=== PATIENT | male | born 1935 | race Caucasian/White ===

== ENCOUNTER 2016-11-07 21:26 | Inpatient (IN) | payer OTHER ==
--- NOTE | 2016-11-07 21:41 | PDOC ---
History of Present Illness - General History Source: Patient Exam Limitations: No Limitations - History of Present Illness Initial Comments: 11/07/16 21:49 Patient is an 81 y.o. male with a PMH of CHF, Atrial Fibrillation (on Warfarin) and HTN A-fib (on Warfarin, s/p pacemaker), CHF, HTN, HLD, CABG (s/p stents x3) , NIDDM, who presents to the ED tonight via EMS following an episode of shortness of breath while driving on the [employer] [place]. Patient notes the shortness of breath presented acutely and he denies any associated chest pain, diaphoresis, nausea, vomiting. Patient denies any trauma or inciting event ( no recent dietary salt load) however does note he was started on Cilostazol recently by his primary care doctor and he has noted increased arm pain as a result. Patient's daughter, Anastacia Cronin, is @ bedside ( ) . <Lois Desai - Last Filed: 11/08/16 00:27> <Mak Hanley - Last Filed: 11/08/16 01:02> - General Chief Complaint: Respiratory Stated Complaint: DIFFICULTY BREATHING Time Seen by Provider: 11/07/16 21:37 Past History - Past Medical History Cardiac Disorders: Yes (A. Fib) HTN: Yes Hypercholesterolemia: Yes - Surgical History Cardiac Surgery: Yes (CABG x 3, Stent X 1 , Pacemaker) - Immunization History Immunization Up to Date: Yes - Psycho/Social/Smoking Cessation Hx Anxiety: No Suicidal Ideation: No Smoking Status: No Smoking History: Never smoked Have you smoked in the past 12 months: No Number of Cigarettes Smoked Daily: 0 Information on smoking cessation initiated: No Hx Alcohol Use: No Drug/Substance Use Hx: No Substance Use Type: None <Lois Desai - Last Filed: 11/08/16 00:27> <Mak Hanley - Last Filed: 11/08/16 01:02> - Past Medical History Allergies/Adverse Reactions: Allergies Allergy/AdvReac Type Severity Reaction Status Date / Time No Known Allergies Allergy Verified 11/07/16 21:34 Home Medications: Ambulatory Orders Amlodipine Bes/Olmesartan Med [Laurie 10-20 mg Tablet] 0.5 tab PO BID 06/14/12 Atorvastatin Calcium [Lipitor] 10 mg PO DAILY #1 08/06/12 Furosemide [Lasix -] 40 mg PO DAILY #1 tablet 08/06/12 Metoprolol Succinate [Toprol XL -] 25 mg PO BID 12/26/13 Amox-Tr/K Cl [Augmentin 875-125mg Tablet -] 1 tab PO BID@0800,1730 tablet 06/19 Aspirin [ASA -] 81 mg PO DAILY #1 06/20/15 Warfarin Na [Coumadin -] 5 mg PO DAILY@1800 #1 06/20/15 Review of Systems - Review of Systems Constitutional: No: Chills, Diaphoresis, Fever, Unintentional Wgt. Loss HEENTM: No: Double Vision, Ear Discharge, Hearing Loss, Throat Pain Respiratory: Yes: Shortness of Breath, SOB at Rest. No: Cough, Hemoptysis Cardiac (ROS): No: Chest Pain, Edema, Irregular Heart Rate, Lightheadedness, Palpitations ABD/GI: No: Constipated, Diarrhea, Nausea, Vomiting Musculoskeletal: No: Joint Pain, Muscle Weakness Psychiatric: No: Anxiety, Depression All Other Systems: Reviewed and Negative <Lois Desai - Last Filed: 11/08/16 00:27> *Physical Exam - Vital Signs Last Vital Signs Temp Pulse Resp BP Pulse Ox 110 H 21 139/78 97 11/07/16 21:34 11/07/16 21:34 11/07/16 21:34 11/07/16 21:36 <Lois Desai - Last Filed: 11/08/16 00:27> - Vital Signs Last Vital Signs Temp Pulse Resp BP Pulse Ox 87 22 137/63 99 11/08/16 00:22 11/07/16 23:58 11/08/16 00:22 11/08/16 00:22 <Mak Hanley - Last Filed: 11/08/16 01:02> ED Treatment Course - LABORATORY CBC & Chemistry Diagram: 11/07/16 22:07 11/07/16 22:07 <Lois Desai - Last Filed: 11/08/16 00:27> - LABORATORY CBC & Chemistry Diagram: 11/07/16 22:07 11/07/16 22:07 - ADDITIONAL ORDERS Additional order review: Laboratory Results 11/07/16 11/07/16 11/07/16 22:20 22:07 22:07 INR 2.38 H Sodium 136 Potassium 4.1 Chloride 101 Carbon Dioxide 22 Anion Gap 13 BUN 35 H D Creatinine 2.3 H D Random Glucose 295 H D Calcium 8.6 Creatine Kinase Troponin I B-Natriuretic Peptide 1573.69 H 11/07/16 22:05 INR Sodium Potassium Chloride Carbon Dioxide Anion Gap BUN Creatinine Random Glucose Calcium Creatine Kinase 91 Troponin I 0.13 H D B-Natriuretic Peptide 11/07/16 22:07 RBC 5.70 H MCV 81.9 MCHC 32.7 RDW 15.2 MPV 8.4 - RADIOLOGY Radiology Studies Ordered: Category Date Time Status CHEST X-RAY PORTABLE* [RAD] Stat Radiology 11/07/16 23:20 Taken - Medications Given in the ED: ED Medications Discontinued Medications Generic Name Dose Route Start Last Admin Trade Name Freq PRN Reason Stop Dose Admin Furosemide 40 mg 11/07/16 23:52 11/07/16 23:58 Lasix Injection - IVPUSH 11/07/16 23:53 40 mg ONCE ONE Administration Nitroglycerin 0.4 mg 11/08/16 00:04 11/08/16 00:26 Nitrostat - SL 11/08/16 00:05 Not Given ONCE ONE <Mak Hanley - Last Filed: 11/08/16 01:02> Medical Decision Making - Medical Decision Making 11/07/16 23:55 Patient is an 81 y.o. male who presents with acute shortness of breath. Initial differential diagnosis includes CHF exacerbation vs. r/o ACS. Wet read of chest x-ray shows cardiomegaly and possible pericardial effusion. Patient pending admission at time of signout to Dr. Miller. <Lois Desai - Last Filed: 11/08/16 00:27> *DC/Admit/Observation/Transfer <Lois Desai - Last Filed: 11/08/16 00:27> - Discharge Dispostion Admit: Yes <Mak Hanley - Last Filed: 11/08/16 01:02> Diagnosis at time of Disposition: CHF exacerbation Qualifiers: Congestive heart failure type: unspecified congestive heart failure type Qualified Code(s): I50.9 - Heart failure, unspecified Acute renal failure superimposed on chronic kidney disease Qualifiers: Acute renal failure type: unspecified Chronic kidney disease stage: unspecified stage Qualified Code(s): N17.9 - Acute kidney failure, unspecified; N18.9 - Chronic kidney disease, unspecified - Discharge Dispostion Condition at time of disposition: Guarded - Referrals Referrals: Monico Kahn [Primary Care Provider] -
--- NOTE | 2016-11-07 21:50 | PDOC ---
Attending Attestation - Resident Resident Name: Lois Desai - ED Attending Attestation I have performed the following: I have examined & evaluated the patient, The case was reviewed & discussed with the resident, I agree w/resident's findings & plan, Exceptions are as noted - HPI HPI: 11/07/16 22:00 81y M hx of afib s/p PM on coumadin, htn, chf, hld, cad s/p CABG and 3 stents presents with acute SOB. The pt states he was feeling well all day, was driving home when he started to feel sob. He was able to stop, and call EMS. he denies any associated chest pain, palpitations, lightheadeness, n/v. he does endorse a mild cough for the past week w/o fever/chills. Per EMS, the pt appeared dsypenic and was hypoxic to the low 90s on RA with rales b/l. On my assesssment , the pts sat dropped to 89 on RA and had b/l basilar rales. suspect CHF, unclear trigge consider ACS though pt has no cp - ekg & trop will give lasix, and start pt on bipap to improve WOB will reassess and d/w with cardiology at disposition 11/07/16 23:52 labs reviewed noted for arf slightly bumped trop/bnp -?related ARF vs acute event The pts cxr c/w congestion pt feeling improved on bipap will give juanito elasix and will adimt for further management Case discussed in detail with admitting physician including history, physical exam and ancillary studies. Admitting physician has assumed care for the patient, will follow all pending diagnostics and will complete the evaluation and treatment. CRITICAL CARE DOCUMENTATION: I spent ~35 minutes of Critical Care time, excluding separately billable procedures, involving high complexity decision making to assess, manipulate and support vital system function(s) to treat single or multiple vital organ system failure and/or to prevent further life threatening deterioration of the patient' s condition. - Physicial Exam PE: 11/08/16 16:17 see above - Medical Decision Making 11/08/16 16:17 see above Heart Score/ECG Review - ECG Impressions Comment:: 11/07/16 22:25 Twelve-lead EKG was performed and reviewed by me. Ventricular paced rhythm Rate of 118
[2016-11-07 21:55] VITALS: BMI 30.7
[2016-11-07 22:15] LABS: MCH 26.8 pg (25.7-33.7); MCHC 32.7 g/dl (32.0-35.9); MEAN CELL VOLUME 81.9 fl (80-96); MEAN PLT VOLUME 8.4 fl (7.5-11.1); PLATELET COUNT 251 K/MM3 (134-434); RDW 15.2 % (11.9-15.9); WHITE BLOOD COUNT 12.3 K/mm3 (4.0-10.0)
[2016-11-07 22:50] LABS: ANION GAP 13 (8-16); CALCIUM 8.6 mg/dL (8.5-10.1); CO2 22 mmol/L (21-32); CREATININE 2.3 mg/dL (0.7-1.3); GLUCOSE,RANDOM 295 mg/dL (74-106)
[2016-11-07 22:55] LABS: TROPONIN I 0.13 ng/ml (0.00-0.05)
[2016-11-07 23:00] LABS: INR 2.38 (0.82-1.09); PROTHROMBIN TIME (PATIENT) 26.6 SEC (9.98-11.88)
[2016-11-07] MEDS ORDERED: FUROSEMIDE 40 MG/4 ML INJECTABLE VIAL IVPUSH ONE (23:52)
[2016-11-07] MEDS ORDERED: FUROSEMIDE 40 MG/4 ML INJECTABLE VIAL ONE (23:54)
[2016-11-08] MEDS ORDERED: NITROGLYCERIN SUBLINGUAL 1/150 0.4 MG TAB SL ONE (00:04)
[2016-11-08] MEDS ORDERED: NITROGLYCERIN SUBLINGUAL 1/150 0.4 MG TAB ONE (00:23)
--- NOTE | 2016-11-08 04:42 | HP ---
CHIEF COMPLAINT: SOB PCP: Dr. Toney HISTORY OF PRESENT ILLNESS: This is a 81 y/o man with a past medical history of: Afib (Coumadin), CABG, s/p stents x3, AICD/PM, HTN, CHF, HLD. Who presents to the ED with SOB while driving last evening. Patient reports having swelling to his lower extremities, but states he takes his lasix as directed. Patient denies fever, chills, cough, CP, AP, N/V/D, dysuria. ER course was notable for: (1) Chest Xray- vascular congestion (2) EKG- Ventricular Paced 118 bpm (3) Recent Travel: None PAST MEDICAL HISTORY: See HPI PAST SURGICAL HISTORY: See HPI Social History: Smoking: Former Alcohol: None Drugs: None Lives at home, Independent Family History: Allergies No Known Allergies Allergy (Verified 11/07/16 21:34) HOME MEDICATIONS: Home Medications Medication Instructions Recorded Amlodipine Bes/Olmesartan Med 0.5 tab PO BID 06/14/12 [Laurie 10-20 mg Tablet] Atorvastatin Calcium [Lipitor] 10 mg PO DAILY #1 08/06/12 Furosemide [Lasix -] 40 mg PO DAILY #1 tablet 08/06/12 Metoprolol Succinate [Toprol XL -] 25 mg PO BID 12/26/13 Amox-Tr/K Cl [Augmentin 875-125mg 1 tab PO BID@0800,1730 tablet 06/20/15 Tablet -] Aspirin [ASA -] 81 mg PO DAILY #1 06/20/15 Warfarin Na [Coumadin -] 5 mg PO DAILY@1800 #1 06/20/15 REVIEW OF SYSTEMS CONSTITUTIONAL: Absent: fever, chills, diaphoresis, generalized weakness, malaise, loss of appetite, weight change HEENT: Absent: rhinorrhea, nasal congestion, throat pain, throat swelling, difficulty swallowing, mouth swelling, ear pain, eye pain, visual changes CARDIOVASCULAR: Absent: chest pain, syncope, palpitations, irregular heart rate, lightheadedness , peripheral edema RESPIRATORY: shortness of breath, dyspnea with exertion, Absent: cough, orthopnea, wheezing, stridor, hemoptysis GASTROINTESTINAL: Absent: abdominal pain, abdominal distension, nausea, vomiting, diarrhea, constipation, melena, hematochezia GENITOURINARY: Absent: dysuria, frequency, urgency, hesitancy, hematuria, flank pain, genital pain MUSCULOSKELETAL: Absent: myalgia, arthralgia, joint swelling, back pain, neck pain SKIN: Absent: rash, itching, pallor HEMATOLOGIC/IMMUNOLOGIC: Absent: easy bleeding, easy bruising, lymphadenopathy, frequent infections ENDOCRINE: Absent: unexplained weight gain, unexplained weight loss, heat intolerance, cold intolerance NEUROLOGIC: Absent: headache, focal weakness or paresthesias, dizziness, unsteady gait, seizure, mental status changes, bladder or bowel incontinence PSYCHIATRIC: Absent: anxiety, depression, suicidal or homicidal ideation, hallucinations. PHYSICAL EXAMINATION Vital Signs - 24 hr 11/08/16 11/08/16 02:24 02:45 Pulse Rate [ 55 L Apical] Respiratory 19 Rate Blood Pressure 109/61 [Right Arm] O2 Sat by Pulse 94 L 94 L Oximetry (%) GENERAL: Awake, alert, and fully oriented, in no acute distress. HEAD: Normal with no signs of trauma. EYES: Pupils equal, round and reactive to light, extraocular movements intact, sclera anicteric, conjunctiva clear. No lid lag. EARS, NOSE, THROAT: Ears normal, nares patent, oropharynx clear without exudates. Moist mucous membranes. NECK: Normal range of motion, supple without lymphadenopathy, JVD, or masses. LUNGS: Air movement to lobes, rales to bases. No wheezes, and no crackles. No accessory muscle use. HEART: Irregular rate and rhythm, normal S1 and S2 without murmur, rub or gallop. ABDOMEN: Firm, nontender, distended, normoactive bowel sounds, no guarding, no rebound, no masses. No hepatomegaly or splenomegaly. MUSCULOSKELETAL: Normal range of motion at all joints. No bony deformities or tenderness. No CVA tenderness. UPPER EXTREMITIES: 2+ pulses, warm, well-perfused. No cyanosis. No clubbing. No peripheral edema. LOWER EXTREMITIES: 2+ pulses, warm, well-perfused. No calf tenderness. + 1 to RLE, +2 LLE pitting peripheral edema. NEUROLOGICAL: Cranial nerves II-XII intact. Normal speech. Gait not observed. PSYCHIATRIC: Cooperative. Good eye contact. Appropriate mood and affect. SKIN: Warm, dry, normal turgor, no rashes or lesions noted, normal capillary refill. Laboratory Results - last 24 hr 11/07/16 11/07/16 11/07/16 22:05 22:07 22:07 WBC 12.3 H RBC 5.70 H Hgb 15.3 D Hct 46.7 MCV 81.9 MCH 26.8 MCHC 32.7 RDW 15.2 Plt Count 251 MPV 8.4 INR Sodium Potassium Chloride Carbon Dioxide Anion Gap BUN Creatinine Random Glucose Calcium Creatine Kinase 91 Troponin I 0.13 H D B-Natriuretic Peptide 1573.69 H 11/07/16 11/07/16 22:07 22:20 WBC RBC Hgb Hct MCV MCH MCHC RDW Plt Count MPV INR 2.38 H Sodium 136 Potassium 4.1 Chloride 101 Carbon Dioxide 22 Anion Gap 13 BUN 35 H D Creatinine 2.3 H D Random Glucose 295 H D Calcium 8.6 Creatine Kinase Troponin I B-Natriuretic Peptide ASSESSMENT/PLAN: This is a 81 y/o male with a PMHx of: Afib (Coumadin), CHF, CABG, s/p cardiac stents x3, AICD/PM, HTN, HLD. Admitted for CHF Exacerbation for further evaluation of their emergent condition. Problem List - Problem (1) CHF exacerbation Assessment/Plan: - Likely Acute on Chronic HF - Continue cardiac monitoring - Started on BIPAP in ED, then patient refused, tolerating 3L Spo2 96-97% - BNP-1500 - Appreciate Cardiology Consult - Lasix given in ED - Continue Lasix - Strict INOs - Daily Weight - Continue home meds Code(s): I50.9 - HEART FAILURE, UNSPECIFIED Qualifiers: Congestive heart failure type: unspecified congestive heart failure type Qualified Code(s): I50.9 - Heart failure, unspecified (2) Acute on chronic renal failure Assessment/Plan: - Likely secondary to left ventricular dysfunction - Cr 2.2, baseline 1.2 - Lasix given in ED, patient void- 600ml in urinal - Will continue Lasix - Monitor renal function - Renal US in am Code(s): N17.9 - ACUTE KIDNEY FAILURE, UNSPECIFIED N18.9 - CHRONIC KIDNEY DISEASE, UNSPECIFIED Qualifiers: Acute renal failure type: unspecified Chronic kidney disease stage: unspecified stage Qualified Code(s): N17.9 - Acute kidney failure, unspecified; N18.9 - Chronic kidney disease, unspecified (3) Afib Assessment/Plan: - court monitor - EKG reviewed - Continue home meds Code(s): I48.91 - UNSPECIFIED ATRIAL FIBRILLATION (4) CAD (coronary artery disease) Assessment/Plan: - Patient denies chest pain - Continue home meds Code(s): I25.10 - ATHSCL HEART DISEASE OF [place] CORONARY ARTERY W/O ANG PCTRS (5) HTN (hypertension) Assessment/Plan: - Monitor BP - Continue home meds - Monitor renal function Code(s): I10 - ESSENTIAL (PRIMARY) HYPERTENSION (6) Hyperlipidemia Assessment/Plan: - Lipid panel in am - Continue home med Code(s): E78.5 - HYPERLIPIDEMIA, UNSPECIFIED (7) S/P CABG (coronary artery bypass graft) Code(s): Z95.1 - PRESENCE OF AORTOCORONARY BYPASS GRAFT (8) Status post coronary artery stent placement Code(s): Z95.5 - PRESENCE OF CORONARY ANGIOPLASTY IMPLANT AND GRAFT (9) Anticoagulated on Coumadin Assessment/Plan: - Continue home med Code(s): Z51.81 - ENCOUNTER FOR THERAPEUTIC DRUG LEVEL MONITORING Z79.01 - PENITENTIARY (CURRENT) USE OF ANTICOAGULANTS (10) DVT prophylaxis Assessment/Plan: - OOB - Coumadin Code(s): [id number] - Visit type - Emergency Visit Emergency Visit: Yes ED Registration Date: 11/08/16 Care time: The patient presented to the Emergency Department on the above date and was hospitalized for further evaluation of their emergent condition. - New Patient This patient is new to me today: Yes Date on this admission: 11/08/16 - Critical Care Critical Care patient: No
[2016-11-08] MEDS ORDERED: FUROSEMIDE 40 MG/4 ML INJECTABLE VIAL ONE (07:55)
[2016-11-08] MEDS: FUROSEMIDE 40 MG/4 ML INJECTABLE VIAL IVPUSH SCH ×2 (08:00→14:56)
[2016-11-08 10:02] LABS: ANION GAP 7 (8-16); CALCIUM 8.6 mg/dL (8.5-10.1); CHOLESTEROL 319 mg/dL (50-200); CO2 29 mmol/L (21-32); CREATININE 1.9 mg/dL (0.7-1.3); GLUCOSE,RANDOM 184 mg/dL (74-106); LDL CHOLESTEROL (ONLY SJRH) 218 mg/dL (5-100); MAGNESIUM 2.3 mg/dL (1.8-2.4); PHOSPHOROUS 3.1 mg/dL (2.5-4.9)
[2016-11-08 10:03] LABS: BASOPHIL 0.7 % (0-2.0); EOSINOPHIL 1.3 % (0-4.5); MCH 27.1 pg (25.7-33.7); MCHC 33.1 g/dl (32.0-35.9); MEAN CELL VOLUME 81.9 fl (80-96); MEAN PLT VOLUME 8.7 fl (7.5-11.1); NEUTROPHILS 72.1 % (42.8-82.8); PLATELET COUNT 262 K/MM3 (134-434); RDW 15.4 % (11.9-15.9); WHITE BLOOD COUNT 10.1 K/mm3 (4.0-10.0)
[2016-11-08 10:16] LABS: CPK 685 IU/L (39-308)
[2016-11-08] MEDS: METOPROLOL SUCCINATE 25 MG TAB.SR.24H (FP) PO SCH ×2 (10:20→21:58)
[2016-11-08] MEDS: ASPIRIN 81 MG CHEWABLE TABLETS PO SCH (10:20)
--- NOTE | 2016-11-08 12:44 | EKG ---
Test Reason : Blood Pressure : / mmHG Vent. Rate : 092 BPM Atrial Rate : 091 BPM P-R Int : 170 ms QRS Dur : 166 ms QT Int : 434 ms P-R-T Axes : -13 091 -20 degrees QTc Int : 536 ms Atrial-sensed ventricular-paced rhythm WITH OCCASIONAL PREMATURE VENTRICULAR COMPLEXES ABNORMAL ECG WHEN COMPARED WITH ECG OF 07-NOV-2016 21:35, PREMATURE VENTRICULAR COMPLEXES ARE NOW PRESENT VENT. RATE HAS DECREASED BY 26 BPM Confirmed by RANJITH BENÍTEZ MD ([id number]) on 11/08/2016 12:44:09 PM Referred By: Confirmed By:RANJITH BENÍTEZ MD
--- NOTE | 2016-11-08 12:50 | EKG ---
Test Reason : Blood Pressure : / mmHG Vent. Rate : 118 BPM Atrial Rate : 118 BPM P-R Int : 000 ms QRS Dur : 198 ms QT Int : 368 ms P-R-T Axes : 061 229 095 degrees QTc Int : 515 ms Ventricular-paced rhythm Biventricular pacemaker detected ABNORMAL ECG WHEN COMPARED WITH ECG OF 20-JUN-2015 06:16, VENT. RATE HAS INCREASED BY 32 BPM Confirmed by RANJITH BENÍTEZ MD ([id number]) on 11/08/2016 12:50:30 PM Referred By: Confirmed By:RANJITH BENÍTEZ MD
[2016-11-08 12:58] LABS: TROPONIN I 10.8 ng/ml (0.00-0.05)
[2016-11-08] MEDS: INSULIN SLIDING SCALE (NOVOLOG) 1 VIAL SQ SCH ×3 (13:06→22:41)
[2016-11-08] MEDS ORDERED: amLODIPine BESYLATE 5 MG TABLET (FP) PO ONE (15:01)
--- NOTE | 2016-11-08 15:06 | HOSP ---
Physical Examination Vital Signs: Vital Signs Temperature 97.7 F 11/08/16 10:20 Pulse Rate 97 H 11/08/16 12:00 Respiratory Rate 18 11/08/16 12:00 Blood Pressure 157/109 11/08/16 12:00 O2 Sat by Pulse Oximetry (%) 99 11/08/16 12:00 Findings/Remarks: Subjective: The patient was seen and examined at the bedside, he denies any chest pain or shortness of breath at this time. Troponin 0.13->13.5->10.[address] Anders. Will start Heparin gtt once INR becomes subtherapeutic Current Medications Generic Name Dose Route Start Last Admin Trade Name Freq PRN Reason Stop Dose Admin Aspirin 81 mg 11/08/16 10:00 11/08/16 10:20 Asa - PO 81 mg DAILY ARIANA Administration Atorvastatin Calcium 80 mg 11/08/16 22:00 Lipitor - PO HS ARIANA Furosemide 40 mg 11/08/16 06:00 11/08/16 08:00 Lasix Injection - IVPUSH 40 mg BID@0600,1400 ARIANA Administration Insulin Aspart 1 vial 11/08/16 11:00 11/08/16 13:06 Novolog Vial Sliding Scale - SQ 2 units ACHS ARIANA Administration Protocol Metoprolol Succinate 25 mg 11/08/16 10:00 11/08/16 10:20 Toprol Xl - PO 25 mg BID ARIANA Administration Objective: Vital Signs Period Temp Pulse Resp BP Sys/Mock Pulse Ox Last 24 Hr 97.5 F-97.7 F 55-110 18-22 109-157/61-109 94-99 Physical Exam: General: NAD, A&Ox3 Lungs: CTA bilaterally Heart: RRR, S1S2. Left chest wall implantable device Abd: Soft, non-tender, non-distended. Normoactive bowel sounds Ext: B/l lower extremity edema, 1+. 2+ DP/PT bilaterally Neuro: CN 2-12 intact CBCD WBC 10.1 K/mm3 (4.0-10.0) H 11/08/16 09:18 RBC 5.80 M/mm3 (4.00-5.60) H 11/08/16 09:18 Hgb 15.7 GM/dL (11.7-16.9) 11/08/16 09:18 Hct 47.5 % (35.4-49) 11/08/16 09:18 MCV 81.9 fl (80-96) 11/08/16 09:18 MCHC 33.1 g/dl (32.0-35.9) 11/08/16 09:18 RDW 15.4 % (11.9-15.9) 11/08/16 09:18 Plt Count 262 K/MM3 (134-434) 11/08/16 09:18 MPV 8.7 fl (7.5-11.1) 11/08/16 09:18 CMP Sodium 136 mmol/L (136-145) 11/08/16 09:18 Potassium 4.0 mmol/L (3.5-5.1) 11/08/16 09:18 Chloride 100 mmol/L (98-107) 11/08/16 09:18 Carbon Dioxide 29 mmol/L (21-32) D 11/08/16 09:18 Anion Gap 7 (8-16) L 11/08/16 09:18 BUN 32 mg/dL (7-18) H 11/08/16 09:18 Creatinine 1.9 mg/dL (0.7-1.3) H 11/08/16 09:18 Random Glucose 184 mg/dL (74-106) H D 11/08/16 09:18 Calcium 8.6 mg/dL (8.5-10.1) 11/08/16 09:18 CARDIAC ENZYMES Creatine Kinase 850 IU/L (39-308) H 11/08/16 12:10 Troponin I 10.80 ng/ml (0.00-0.05) H* 11/08/16 12:10 Assessment: This is a 80 year old male with PMHx with multiple nosebleeds, A.fib , CABG s/p stenting, pacemaker, HTN, CHF, HLD who presented to the ED with shortness of breath. Plan: 1) Cardiology: NSTEMI - Continue to trend troponins, trending down - Start Heparin gtt once INR <2 - Continue Toprol XL - Continue Lipitor 80mg po qhs - Continue ASA 81mg po daily - F/u ECHO - F/u cardiology consult Acute on chronic CHF exacerbation - SOB, as evidence on chest x-ray - Continue Lasix CAD hx of CA, CABG, PCI - As above Ischemic cardiomyopathy s/p DIVER ASSISTANT-D HTN - As above Hyperlipidemia - As above 2) Nephrology: TONY on CKD - Cr improving 1.9 today - Renal ultrasound with mildly atrophic left kidney with no evidence of hydronephrosis or acute pathology - Continue to monitor 3) Endocrine: DM - BGM ACHS - ISS ACHS 4) F/E/N - Monitor electrolytes - Sodium controlled diet 5) Prophylaxis: - INR is therapeutic, once <2, start Heparin gtt 6) Dispo: - Requires continued inpatient care CODE STATUS: FULL CODE Labs: CBC, BMP 11/08/16 09:18 11/08/16 09:18
[2016-11-08 15:28] LABS: INR 2.11 (0.82-1.09); PROTHROMBIN TIME (PATIENT) 23.6 SEC (9.98-11.88)
[2016-11-08 15:30] LABS: ACTIVATED PTT 45.3 SECONDS (26.9-34.4)
[2016-11-08] MEDS ORDERED: amLODIPine BESYLATE 5 MG TABLET (FP) ONE (17:52)
[2016-11-08] MEDS ORDERED: WARFARIN NA 5 MG TABLET (UD) PO SCH (18:00)
[2016-11-08 18:34] LABS: INR 2.03 (0.82-1.09); PROTHROMBIN TIME (PATIENT) 22.6 SEC (9.98-11.88)
[2016-11-08 19:09] LABS: TROPONIN I 9.56 ng/ml (0.00-0.05)
--- NOTE | 2016-11-08 20:26 | CONS ---
DATE OF CONSULTATION: 11/08/2016 TIME OF CONSULTATION: 12:30. LOCATION: Emergency room. Cardiology consultation requested by hospitalist. CHIEF COMPLAINT: Acute shortness of breath, epigastric discomfort. The patient is an 81-year-old gentleman with long-standing history of coronary artery disease, status post myocardial infarction, status post coronary artery bypass grafting, status post multivessel PCIs and stenting, bgj-fqoymfm-wfrfnaljf diabetes mellitus, hypertension, hypercholesterolemia, paroxysmal atrial fibrillation, severe left ventricular systolic dysfunction, recurring episodes of pulmonary edema, status post ICD for primary prophylaxis. The patient was driving back to [place] after having dinner at his sister's house, and while he was on [employer], he started to experience increasing shortness of breath. He stopped his car, 911 were called, and he was brought to the emergency room in acute pulmonary edema. On questionable, the patient states that he was experiencing epigastric discomfort prior to the onset of shortness of breath. He also had left arm pain lasting approximately an hour, a few days prior to admission. He has had similar episodes in the past that usually have been preceded by a rich [place] meal. Since admission, he had 1 episode of mild diaphoresis but denies any further chest, arm, back, jaw, or epigastric discomfort. He has no further dyspnea and denies having paroxysmal nocturnal dyspnea or orthopnea. There is no history of palpitations, lightheadedness, dizziness, presyncope, or syncope reported. He has had no recent ICD discharges. PAST HISTORY: 1. As mentioned in the history of present illness. 2. History of left inguinal hernia. SURGICAL HISTORY: 1. Status post coronary artery bypass grafting. 2. Status post bilateral cataract extraction. SOCIAL HISTORY: Patient is retired. He used to smoke since the age of 21 and smoked for a few years and stopped, usually smoked approximately 10 cigarettes per day. Has a social drink. Admits to poor dietary compliance. He has 2 children, a son and a daughter, who are healthy. FAMILY HISTORY: Father at age 72 of unknown cause. Mother in her late 80s but was known to have coronary artery disease and a myocardial infarction. He had 4 brothers and 2 sisters. His brothers all have had coronary artery disease and are . His sisters are apparently healthy. ALLERGIES: Patient states that he has had myalgias with STATINS. CURRENT MEDICATIONS PRIOR TO ADMISSION: 1. Amlodipine/olmesartan 10/20 mg p.o. daily. 2. Lasix 40 mg p.o. daily. 3. Metoprolol XL 25 mg b.i.d. 4. Aspirin 81 mg p.o. daily. 5. Warfarin, dose is being adjusted according to INR. Patient is not certain of all his medications. REVIEW OF SYSTEMS: Constitutional: No history of chills, fever or night sweats. History of diaphoresis. No history of unintentional weight loss. HEENT: No history of headaches, diplopia, blurred vision. No history of epistaxis, hoarseness, tinnitus or deafness. Respiratory: See history of present illness. History of recent cough with yellowish expectoration. Cardiovascular: See history of present illness. Gastrointestinal: History of recent nausea and had vomiting followed by diarrhea approximately 3 to 4 days ago. No history of change in bowel habits. No history of hematemesis or melena. History of abdominal discomfort. Central Nervous System: No history of lightheadedness, dizziness, presyncope, or syncope reported. No history of seizures or focal weakness. Endocrine: History of diabetes mellitus. Denies having polyuria or polydipsia. No history of intolerance to cold or warm weather. Genitourinary: History of nocturia. No history of hematuria. Musculoskeletal: History of exertional claudication involving both calves. No history of arthralgias reported. Hematological: No history of bleeding, ecchymosis, or anemia. EXAMINATION: General: An 81-year-old obese gentleman who is in no acute distress. No pallor, cyanosis, clubbing, or jaundice. Vital Signs: Blood pressure 156/96 mmHg at 12:30 p.m. Pulse was 97 beats per minute and regular. Respirations were 18. Weight was 190 pounds. Neck: Supple. No jugular venous distention. Hepatojugular reflux was positive. Carotids were 2+. Upstrokes were normal. No bruits were heard and no thyromegaly was present. Heart: PMI was in the 5th intercostal space. No heaves or thrills. Heart sounds were distant. No murmur or gallops are appreciated. Lungs: Fine crepitations at the right base. Chest: Normal AP diameter. Expansion was symmetrical. Abdomen: Obese, soft, and nontender. No hepatosplenomegaly or palpable masses were felt. Bowel sounds were heard. No bruits were present. Extremities: No calf tenderness or dependent edema. Femoral pulses were 1 to 2+. Dorsalis pedis, posterior tibial, and popliteal pulses were not palpable. Initial electrocardiogram done on November 07, 2016: Atrial rhythm was uncertain. Atrial fibrillation could not be excluded. Permanent pacemaker was functioning appropriately. Repeat ECG on November 08, 2016, appears to be sinus rhythm, with an appropriate pacemaker function. CBC: WBC count was 10,100, hemoglobin was 15.7 g, hematocrit 47.5%, platelet count is 262,000. Chemistry, November 08, 2016: Sodium 136, potassium 4.0, chloride 100, CO2 22 mmol/L, BUN 32, creatinine 1.9 mg/dL, glucose on admission was 295, and on November 15, it was 184 mg/dL. Hemoglobin A1c was 8%. BNP on admission was 1573.69. A repeat BNP is 3619.78. Total CK on admission was 91 and followup is 685. Troponins elevated to 13.50. Total cholesterol was 319, triglycerides 274, LDL cholesterol 218, HDL cholesterol 34 mg/dL. X-ray of chest, portable: Impression: Since September 17, 2015, there are new congestive changes. Again noted is the large heart with sternal sutures, clips, and pacemaker. Correlation recommended. IMPRESSION: 1. Coronary artery disease, status post myocardial infarction, status post coronary artery bypass grafting, angina pectoris, status post PCI/stenting. Pkt-AR-btgetuk myocardial infarction. 2. Acute left ventricular failure secondary to number 1. 3. Hypertension, hypertensive cardiovascular disease, poorly controlled. 4. Yxx-wfvpmrs-touvodjhb diabetes mellitus. 5. Dyslipidemia type 2B, poorly controlled. 6. Poor compliance. 7. Peripheral arterial disease with exertional claudication. 8. Severe left ventricular systolic dysfunction. 9. Status post implantable cardioverter-defibrillator for primary prophylaxis. 10. Chronic kidney disease. 11. Paroxysmal atrial fibrillation. 12. Exogenous obesity. RECOMMENDATIONS: 1. Serial cardiac enzymes. 2. Concur with switching to heparin once INR is near subtherapeutic. 3. Patient was advised that he must have his family bring all his medications, including ones [id number], for reconciliation. 4. Beta blockers could be cautiously increased. 5. If patient has recurrence of dyspnea or chest or arm discomfort, would suggest IV nitroglycerin. 6. Risk modification. 7. Concur with use of high-dose statin. 8. Control of diabetes. 9. Echocardiogram. 10. Further suggestions will depend upon results of the above-mentioned tests. PROGNOSIS: Critical. Thank you for your referral. Yours sincerely, STEPHANIA SCHAEFER M.D. [id number]
--- NOTE | 2016-11-08 21:49 | CONSULT ---
Consult Consult Specialty:: Pulm/CCM Reason for Consultation:: SOB, CHF exacerbation - History of Present Illness Chief Complaint: SOB, edema History of Present Illness: This is a 81yo man with afib on coumadin, CAD s/p CABG and PCI x3 who presented to ED with acute SOB in the setting of worsening LE edema x 2 days. In ED he was slightly hypoxic w/ Sat 88-89% on RA and placed on NIPPV. CXR w/ PCV. Labs significant for troponin 0.13->13.5->10.38 and SCr 2.3 up from baseline 1.1. He was treated w/ lasix, ASA, BB and statin. EKG: paced. He was transferred to ICU for continued monitoring of NSTEMI. - History Source History Provided By: Patient, Medical Record - Past Medical History Cardio/Vascular: Yes: AFIB, CAD, CHF, HTN - Past Surgical History Past Surgical History: Yes: AICD, CABG, Stent - Alcohol/Substance Use Hx Alcohol Use: No - Smoking History Smoking history: Never smoked Have you smoked in the past 12 months: No Aproximately how many cigarettes per day: 0 Home Medications - Allergies Allergies/Adverse Reactions: Allergies Allergy/AdvReac Type Severity Reaction Status Date / Time No Known Allergies Allergy Verified 11/07/16 21:34 - Home Medications Home Medications: Ambulatory Orders Furosemide [Lasix -] 40 mg PO DAILY #1 tablet 08/06/12 Metoprolol Succinate [Toprol XL -] 25 mg PO DAILY 12/26/13 Aspirin [ASA -] 81 mg PO DAILY #1 06/20/15 Warfarin Na [Coumadin -] 5 mg PO DAILY@1800 #1 06/20/15 Cilostazol 50 mg PO BID 11/08/16 Glimepiride 2 mg PO DAILY 11/08/16 Family Disease History - Family Disease History Family History: Unremarkable Review of Systems - Review of Systems Cardiovascular: reports: Edema, Shortness of Breath Respiratory: reports: SOB on Exertion Physical Exam Vital Signs: Vital Signs Temperature 97.6 F 11/08/16 18:00 Pulse Rate 97 H 11/08/16 20:05 Respiratory Rate 21 11/08/16 20:05 Blood Pressure 142/81 11/08/16 20:05 O2 Sat by Pulse Oximetry (%) 98 11/08/16 20:05 Current Medications Aspirin (Asa -) 81 mg PO DAILY [facility] Last Admin: 11/08/16 10:20 Dose: 81 mg Atorvastatin Calcium (Lipitor -) 80 mg PO HS [facility] Furosemide (Lasix Injection -) 40 mg IVPUSH BID@0600,1400 [facility] Last Admin: 11/08/16 14:56 Dose: 40 mg Insulin Aspart (Novolog Vial Sliding Scale -) 1 vial SQ ACHS [facility] PRN Reason: Protocol Last Admin: 11/08/16 18:08 Dose: Not Given Metoprolol Succinate (Toprol Xl -) 25 mg PO BID [facility] Last Admin: 11/08/16 10:20 Dose: 25 mg Constitutional: Yes: No Distress, Calm Eyes: Yes: EOM Intact Cardiovascular: Yes: S1, S2, Other (paced) Respiratory: Yes: Rales Gastrointestinal: Yes: Normal Bowel Sounds, Soft Edema: Yes Edema: LLE: 1+, RLE: 1+ Neurological: Yes: Alert, Oriented ...Motor Strength: WNL Psychiatric: Yes: Oriented Labs: CBC, BMP 11/08/16 09:18 11/08/16 09:18 Troponin, BNP 11/07/16 11/07/16 11/08/16 22:05 22:07 09:18 Troponin I 0.13 H D 13.50 H* D B-Natriuretic Peptide 1573.69 H 3619.78 H 11/08/16 11/08/16 12:10 18:08 Troponin I 10.80 H* 9.56 H* B-Natriuretic Peptide Imaging - Results Chest X-ray: Report Reviewed, Image Reviewed Problem List - Problems (1) Acute on chronic renal failure Code(s): N17.9 - ACUTE KIDNEY FAILURE, UNSPECIFIED N18.9 - CHRONIC KIDNEY DISEASE, UNSPECIFIED Qualifiers: Acute renal failure type: unspecified Chronic kidney disease stage: unspecified stage Qualified Code(s): N17.9 - Acute kidney failure, unspecified; N18.9 - Chronic kidney disease, unspecified (2) Afib Code(s): I48.91 - UNSPECIFIED ATRIAL FIBRILLATION (3) CAD (coronary artery disease) Code(s): I25.10 - ATHSCL HEART DISEASE OF [place] CORONARY ARTERY W/O ANG PCTRS (4) CHF exacerbation Code(s): I50.9 - HEART FAILURE, UNSPECIFIED Qualifiers: Congestive heart failure type: unspecified congestive heart failure type Qualified Code(s): I50.9 - Heart failure, unspecified (5) HTN (hypertension) Code(s): I10 - ESSENTIAL (PRIMARY) HYPERTENSION Assessment/Plan A/P: 80 yo man w/ DM, afib s/p PPM on coumadin, CAD, CHF presenting with SOB and LE found to have TONY likely prerenal in setting of CHF exacerbation c/b NSTEMI -Cardiology following -tele monitor -cont BB/ASA/statin/plavix -plan to start heparin drip once INR<2.0 -trend troponin and Scr -lasix for O>I -O2 for sat >90% -incentive flores -glucose control Bo[place] ACNP Pulm/CCM CCT: 35m
[2016-11-08] MEDS: ATORVASTATIN CA 80 MG TABLET (FP) PO SCH ×2 (21:58→22:20)
[2016-11-08] MEDS ORDERED: ATORVASTATIN CA 10 MG TABLET (FP) PO SCH (22:00)
[2016-11-08 23:09] LABS: PROTHROMBIN TIME (PATIENT) 22.3 SEC (9.98-11.88)
[2016-11-09 03:20] LABS: TROPONIN I 6.66 ng/ml (0.00-0.05)
[2016-11-09] MEDS: FUROSEMIDE 40 MG/4 ML INJECTABLE VIAL IVPUSH SCH ×2 (05:51→14:30)
[2016-11-09] MEDS: INSULIN SLIDING SCALE (NOVOLOG) 1 VIAL SQ SCH ×4 (06:45→21:29)
[2016-11-09 06:50] LABS: BASOPHIL 0.8 % (0-2.0); EOSINOPHIL 3.6 % (0-4.5); MCH 27.5 pg (25.7-33.7); MCHC 33.7 g/dl (32.0-35.9); MEAN CELL VOLUME 81.5 fl (80-96); MEAN PLT VOLUME 8.5 fl (7.5-11.1); NEUTROPHILS 64.3 % (42.8-82.8); PLATELET COUNT 218 K/MM3 (134-434); RDW 15.1 % (11.9-15.9); WHITE BLOOD COUNT 8.2 K/mm3 (4.0-10.0)
[2016-11-09 07:32] LABS: ANION GAP 6 (8-16); BILIRUBIN,TOTAL 0.8 mg/dL (0.2-1.0); CO2 29 mmol/L (21-32); CREATININE 1.4 mg/dL (0.7-1.3); GLUCOSE,RANDOM 147 mg/dL (74-106); MAGNESIUM 2.2 mg/dL (1.8-2.4); PHOSPHOROUS 2.7 mg/dL (2.5-4.9); SGOT/AST 37 U/L (15-37); SGPT/ALT 21 U/L (12-78); TOT PROT 6.4 g/dl (6.4-8.2)
[2016-11-09 07:50] LABS: ALK PHOS 58 U/L (45-117); CPK 305 IU/L (39-308)
[2016-11-09 09:08] LABS: INR 1.82 (0.82-1.09); PROTHROMBIN TIME (PATIENT) 20.3 SEC (9.98-11.88)
[2016-11-09] MEDS ORDERED: PT OWN MED DRAWER 7, Y5N ONE (09:32)
--- NOTE | 2016-11-09 09:41 | PN ---
Progress Note (short form) - Note Progress Note: 81 year male,known caes of CADS/P CABG S/P PCI/stenting,admitted with acute pulmonary edemaand substernal discomfort and now admits to nausea and vomiting and diagonosed to have NSTEMI.History of NIDDM, severe LV dysfunction,recurring LV failure CKD,PAD,hypertension and poor compliance.S/P ICD.H/O of paroxysmal atrial fibrillation. No further chest pain or SOB, no palpitations. Active Medications Aspirin (Asa -) 81 mg PO DAILY [facility] Last Admin: 11/08/16 10:20 Dose: 81 mg Atorvastatin Calcium (Lipitor -) 80 mg PO HS [facility] Last Admin: 11/08/16 22:20 Dose: Not Given Furosemide (Lasix Injection -) 40 mg IVPUSH BID@0600,1400 [facility] Last Admin: 11/09/16 05:51 Dose: 40 mg Insulin Aspart (Novolog Vial Sliding Scale -) 1 vial SQ [facility] PRN Reason: Protocol Last Admin: 11/09/16 06:45 Dose: Not Given Metoprolol Succinate (Toprol Xl -) 25 mg PO BID [facility] Last Admin: 11/08/16 21:58 Dose: 25 mg O:81 year old male OOB in [facility] in no acute distress,no pallor,cyanosis, cklubbing or jaundice. Vital Signs - 8 hr 11/09/16 11/09/16 11/09/16 02:00 04:00 08:00 Temperature 98.6 F 98.0 F Pulse Rate 80 73 80 Respiratory 18 18 18 Rate Blood Pressure 129/90 123/63 126/63 NECK; supple,no JVD, carotid, 2+,no bruits.NO thyromegaly. HEATRT:PMI in the 5th ICS,no heaves or thrills,no murmur s,S4 gallop at the apex. LUNGS:Clear on auscultation. ABDOMEN: soft,obese,nontender,no organomegaly or palpable masses. EXT:No calf tenderness or dependent edema. CBC, BMP 11/09/16 05:20 11/09/16 05:20. Abnormal Lab Results 11/08/16 11/08/16 11/08/16 09:18 09:18 09:18 WBC 10.1 H RBC 5.80 H INR PTT (Actin FS) Anion Gap 7 L BUN 32 H Creatinine 1.9 H Random Glucose 184 H D Hemoglobin A1c % 8.0 H D Calcium Creatine Kinase 685 H Creatine Kinase Index 12.4 H* CK-MB (CK-2) 85.573 H Troponin I 13.50 H* D B-Natriuretic Peptide 3619.78 H Albumin Triglycerides 274 H D Cholesterol 319 H D Total LDL Cholesterol 218 H D HDL Cholesterol 34 L 11/08/16 11/08/16 11/08/16 12:10 14:05 18:08 WBC RBC INR 2.11 H 2.03 H PTT (Actin FS) 45.3 H D Anion Gap BUN Creatinine Random Glucose Hemoglobin A1c % Calcium Creatine Kinase 850 H Creatine Kinase Index 9.2 H* CK-MB (CK-2) 78.601 H Troponin I 10.80 H* B-Natriuretic Peptide Albumin Triglycerides Cholesterol Total LDL Cholesterol HDL Cholesterol 11/08/16 11/08/16 11/09/16 18:08 22:30 02:21 WBC RBC INR 2.00 H PTT (Actin FS) Anion Gap BUN Creatinine Random Glucose Hemoglobin A1c % Calcium Creatine Kinase 547 H 399 H Creatine Kinase Index 9.6 H* 6.6 H* CK-MB (CK-2) 52.990 H 26.453 H Troponin I 9.56 H* 6.66 H* D B-Natriuretic Peptide Albumin Triglycerides Cholesterol Total LDL Cholesterol HDL Cholesterol 11/09/16 11/09/16 11/09/16 05:20 08:40 08:40 WBC RBC INR 1.82 H PTT (Actin FS) 37.8 H Anion Gap 6 L BUN 27 H Creatinine 1.4 H D Random Glucose 147 H D Hemoglobin A1c % Calcium 8.0 L Creatine Kinase Creatine Kinase Index 7.0 H* CK-MB (CK-2) 21.464 H Troponin I 5.80 H* B-Natriuretic Peptide Albumin 3.0 L Triglycerides Cholesterol Total LDL Cholesterol HDL Cholesterol A; 1.CAD,NSTEMI. 2.Acute LV failure to# 1. 3.Severe LV dysfunctiobn. 4.NIDDM. 6.PAD. 7.S/P ICD 8.Paroxysamal atrial fib. 9.Hypertesion. 10.CKD. 1.Echocardiogram. 2.Early cardiac cath. 3.Continue current therapy.
[2016-11-09] MEDS ORDERED: HEPARIN NA (PORCINE) 5,000 UNITS/ML 1ML VIAL IVPUSH PRN ×2 (09:51)
[2016-11-09] MEDS: METOPROLOL SUCCINATE 25 MG TAB.SR.24H (FP) PO SCH ×2 (09:59→21:25)
[2016-11-09] MEDS: ASPIRIN 81 MG CHEWABLE TABLETS PO SCH (09:59)
--- NOTE | 2016-11-09 11:44 | PN ---
Teaching Attending Note Name of Resident: Elysia Mas ATTENDING PHYSICIAN STATEMENT I saw and evaluated the patient. I reviewed the resident's note and discussed the case with the resident. I agree with the resident's findings and plan as documented. SUBJECTIVE: Pt seen and examined in the ICU. Denies chest pain or shortness of breath. Leg swelling improving. OBJECTIVE: Last Vital Signs Temp Pulse Resp BP Pulse Ox 98.0 F 91 H 18 114/90 98 11/09/16 10:00 11/09/16 10:00 11/09/16 10:00 11/09/16 10:00 11/09/16 08:00 Intake & Output 11/06/16 11/07/16 11/08/16 11/09/16 23:59 23:59 23:59 23:59 Intake Total 400 200 Output Total 1510 500 Balance -1110 -300 Weight 190 lb 190 lb 201 lb 2 oz Gen: NAD at rest Heart: RRR Lung: decreased breath sounds at the bases Abd: soft, nontender Ext: + edema CBC, BMP 11/09/16 05:20 11/09/16 05:20 Active Medications Aspirin (Asa -) 81 mg PO DAILY [facility] Atorvastatin Calcium (Lipitor -) 80 mg PO HS [facility] Furosemide (Lasix Injection -) 40 mg IVPUSH BID@0600,1400 [facility] Heparin Sodium (Porcine) (Heparin -) 1,000 unit IVPUSH PRN PRN PRN Reason: Heparin Heparin Sodium (Porcine) (Heparin -) 5,000 unit IVPUSH PRN PRN PRN Reason: Heparin Heparin Sodium (Porcine) 25, (000 unit/ Sodium Chloride) 500 mls @ 20 mls/hr IV TITR [facility]; 1,000 UNIT/HR PRN Reason: Protocol Insulin Aspart (Novolog Vial Sliding Scale -) 1 vial SQ ACHS [facility] PRN Reason: Protocol Last Admin: 11/09/16 10:52 Dose: 4 units Metoprolol Succinate (Toprol Xl -) 25 mg PO BID [facility] ASSESSMENT AND PLAN: Acute NSTEMI Acute on Chronic Systolic Heart Failure Atrial Fibrillation s/p PPM CAD Acute Kidney Injury - ASA - beta julien, statin - heparin gtt - IV lasix - monitor urine output, creatinine - trend cardiac enzymes - echocardiogram - will likely need cardiac catheterization - can monitor on telemetry
[2016-11-09] MEDS: HEPARIN - 25,000 UNIT in SODIUM CHLORIDE 495 ML IV SCH (11:50)
--- NOTE | 2016-11-09 11:51 | PN ---
Physical Exam: SUBJECTIVE: Patient seen and examined at bed side this morning. No complaints. Denies chest pain, sob, cough, palpitation, abdominal pain, nausea or vomiting. Bowel/bladder habit normal. Sleep/Appetite normal. OBJECTIVE: Vital Signs Period Temp Pulse Resp BP Sys/Mock Pulse Ox Last 24 Hr 97.6 F-98.6 F 73-97 18-21 114-157/63-109 98-100 GENERAL: Elderly male, sitting comfortably in a chair, awake, alert, and fully oriented, in no acute distress. HEAD: Normal with no signs of trauma. EYES: EOM intact, no pallor or icterus. ENT: Ears normal, moist mucous membranes. NECK: Supple. LUNGS: B/L Breath sounds equal, clear to auscultation bilaterally, no wheezes, no crackles, no accessory muscle use. HEART: Regular rate and rhythm, S1, S2 without murmur. ABDOMEN: Soft, nontender, nondistended, normoactive bowel sounds, no guarding, no rebound, no hepatosplenomegaly, no masses. EXTREMITIES: 2+ pulses, warm, well-perfused, no edema. LOWER EXTREMITIES: B/L pitting edema ++ NEUROLOGICAL: No facial droop, Cranial nerves II through XII grossly intact. Normal speech, gait not observed. PSYCH: Normal mood, normal affect. SKIN: Warm, dry, normal turgor, no rashes or lesions noted Laboratory Results - last 24 hr 11/08/16 11/08/16 11/08/16 12:10 13:02 14:05 WBC RBC Hgb Hct MCV MCH MCHC RDW Plt Count MPV Neutrophils % Lymphocytes % Monocytes % Eosinophils % Basophils % INR 2.11 H PTT (Actin FS) 45.3 H D Sodium Potassium Chloride Carbon Dioxide Anion Gap BUN Creatinine Creat Clearance w eGFR POC Glucometer [phone] Random Glucose Calcium Phosphorus Magnesium Total Bilirubin AST ALT Alkaline Phosphatase Creatine Kinase 850 H Creatine Kinase Index 9.2 H* CK-MB (CK-2) 78.601 H Troponin I 10.80 H* Total Protein Albumin 11/08/16 11/08/16 11/08/16 18:04 18:08 18:08 WBC RBC Hgb Hct MCV MCH MCHC RDW Plt Count MPV Neutrophils % Lymphocytes % Monocytes % Eosinophils % Basophils % INR 2.03 H PTT (Actin FS) Sodium Potassium Chloride Carbon Dioxide Anion Gap BUN Creatinine Creat Clearance w eGFR POC Glucometer 139.54501 Random Glucose Calcium Phosphorus Magnesium Total Bilirubin AST ALT Alkaline Phosphatase Creatine Kinase 547 H Creatine Kinase Index 9.6 H* CK-MB (CK-2) 52.990 H Troponin I 9.56 H* Total Protein Albumin 11/08/16 11/08/16 11/09/16 22:20 22:30 02:21 WBC RBC Hgb Hct MCV MCH MCHC RDW Plt Count MPV Neutrophils % Lymphocytes % Monocytes % Eosinophils % Basophils % INR 2.00 H PTT (Actin FS) Sodium Potassium Chloride Carbon Dioxide Anion Gap BUN Creatinine Creat Clearance w eGFR POC Glucometer [phone] Random Glucose Calcium Phosphorus Magnesium Total Bilirubin AST ALT Alkaline Phosphatase Creatine Kinase 399 H Creatine Kinase Index 6.6 H* CK-MB (CK-2) 26.453 H Troponin I 6.66 H* D Total Protein Albumin 11/09/16 11/09/16 11/09/16 05:20 05:20 08:40 WBC 8.2 RBC 5.15 Hgb 14.2 Hct 42.0 MCV 81.5 MCH 27.5 MCHC 33.7 RDW 15.1 Plt Count 218 MPV 8.5 Neutrophils % 64.3 Lymphocytes % 23.3 D Monocytes % 8.0 Eosinophils % 3.6 D Basophils % 0.8 INR 1.82 H PTT (Actin FS) Sodium 136 Potassium 3.7 Chloride 101 Carbon Dioxide 29 Anion Gap 6 L BUN 27 H Creatinine 1.4 H D Creat Clearance w eGFR 48.76 POC Glucometer Random Glucose 147 H D Calcium 8.0 L Phosphorus 2.7 Magnesium 2.2 Total Bilirubin 0.8 D AST 37 D ALT 21 Alkaline Phosphatase 58 Creatine Kinase 305 Creatine Kinase Index 7.0 H* CK-MB (CK-2) 21.464 H Troponin I 5.80 H* Total Protein 6.4 Albumin 3.0 L 11/09/16 08:40 WBC RBC Hgb Hct MCV MCH MCHC RDW Plt Count MPV Neutrophils % Lymphocytes % Monocytes % Eosinophils % Basophils % INR PTT (Actin FS) 37.8 H Sodium Potassium Chloride Carbon Dioxide Anion Gap BUN Creatinine Creat Clearance w eGFR POC Glucometer Random Glucose Calcium Phosphorus Magnesium Total Bilirubin AST ALT Alkaline Phosphatase Creatine Kinase Creatine Kinase Index CK-MB (CK-2) Troponin I Total Protein Albumin Active Medications Generic Name Dose Route Start Last Admin Trade Name Freq PRN Reason Stop Dose Admin Aspirin 81 mg 11/10/16 10:00 Asa - PO DAILY [facility] Atorvastatin Calcium 80 mg 11/09/16 22:00 Lipitor - PO HS [facility] Furosemide 40 mg 11/09/16 14:00 Lasix Injection - IVPUSH BID@0600,1400 [facility] Heparin Sodium (Porcine) 1,000 unit 11/09/16 09:51 Heparin - IVPUSH PRN PRN Heparin Heparin Sodium (Porcine) 5,000 unit 11/09/16 09:51 Heparin - IVPUSH PRN PRN Heparin Heparin Sodium (Porcine) 25, 500 mls @ 20 mls/hr 11/09/16 10:00 000 unit/ Sodium Chloride IV TITR [facility] Protocol 1,000 UNIT/HR Insulin Aspart 1 vial 11/09/16 11:00 11/09/16 10:52 Novolog Vial Sliding Scale - SQ 4 units ACHS [facility] Administration Protocol Metoprolol Succinate 25 mg 11/09/16 22:00 Toprol Xl - PO BID [facility] ASSESSMENT/PLAN: Patient is a 81 year old male with a past medical history of: Afib (Coumadin), DM, CABG, s/p stents x3, AICD/PM, HTN, CHF, HLD who presented to the ED with SOB and lower extremity swelling for 2 days admitted for further evaluation was found to have NSTEMI. Cardiology: NSTEMI Denies chest pain On arrival Troponin was 13.5 -->10.8--> 9.5---> 6.6--> 5.8 CK 685---> 547---> 399 EKG: paced rhythm Was on Warfarin at home, INR was 2 hence Heparin wasn't started last night. Today INR < 2, hence started Heparin drip today. Aspirin 81mg Daily Metoprolol 25mg BID Likely needs a cardiac cath, as per cardiology Cardiology consult appreciated Continuous cardiac monitoring Acute on chronic CHF exacerbation SOB improved BNP- 3619.78 ECHO being done now IV Lasix 40mg BID Hyperlipidemia TG 274/ Chol 319; LDL 218; HDL 34 Atorvastatin 80mg Hypertension-controlled Renal Acute Kidney Injury likely prerenal creatinine improving Avoid nephrotoxic drugs Endocrinology A1c pending Takes Glimeperide at home ISS Finger stick glucose monitoring Watch for hypoglycemic episodes FEN Not on IV fluids Electrolytes WNL, to be repeated tomorrow Diabetic/sodium controlled diet Prophylaxis For DVT: On heparin drip already For GI: Not indicated Code Status: Full Code Dispo: Admitted in ICU. Stable to be transferred to [facility], awaiting Dr. Adners's call back. Illness, Investigation and Plan of care explained to the patient. He verbalized understanding. Case seen and discussed with Dr. Cm. Visit type - Emergency Visit Emergency Visit: Yes ED Registration Date: 11/08/16 Care time: The patient presented to the Emergency Department on the above date and was hospitalized for further evaluation of their emergent condition. - New Patient This patient is new to me today: Yes Date on this admission: 11/09/16 - Critical Care Critical Care patient: Yes Total Critical Care Time (in minutes): 35 Critical Care Statement: The care of this patient involved high complexity decision making to prevent further life threatening deterioration of the patient 's condition and/or to evaluate & treat vital organ system(s) failure or risk of failure. - Discharge Referral Referred to [facility] Med [facility] No
--- NOTE | 2016-11-09 18:37 | PN ---
Physical Exam: SUBJECTIVE: Patient seen and examined in the ICU. Ambulating, denies shortness of breath or chest pain with ambulation OBJECTIVE: INR subtherapeutic, started heparin drip Vital Signs Period Temp Pulse Resp BP Sys/Mock Pulse Ox Last 24 Hr 98.0 F-98.6 F 71-97 18-24 114-142/57-90 98-98 GENERAL: Sitting comfortably in bed, ambulating in room. Comfortable at rest and with ambulation HEAD: Normal with no signs of trauma. EYES: EOM intact, no pallor or icterus. ENT: Ears normal, moist mucous membranes. NECK: Supple. LUNGS: B/L Breath sounds equal, clear to auscultation bilaterally, no wheezes, no crackles, no accessory muscle use. HEART: Regular rate and rhythm, S1, S2 without murmur. ABDOMEN: Soft, nontender, nondistended, normoactive bowel sounds, no guarding, no rebound, no hepatosplenomegaly, no masses. EXTREMITIES: 2+ pulses, warm, well-perfused, no edema. LOWER EXTREMITIES: +1 pitting edema on LLE, Right LE with trace edema. NEUROLOGICAL: Normal speech, steady gait PSYCH: Normal mood, normal affect. SKIN: Warm, dry, normal turgor, no rashes or lesions noted Laboratory Results - last 24 hr 11/08/16 11/08/16 11/08/16 18:08 22:20 22:30 WBC RBC Hgb Hct MCV MCH MCHC RDW Plt Count MPV Neutrophils % Lymphocytes % Monocytes % Eosinophils % Basophils % INR 2.00 H PTT (Actin FS) Sodium Potassium Chloride Carbon Dioxide Anion Gap BUN Creatinine Creat Clearance w eGFR POC Glucometer [phone] Random Glucose Hemoglobin A1c % Calcium Phosphorus Magnesium Total Bilirubin AST ALT Alkaline Phosphatase Creatine Kinase 547 H Creatine Kinase Index 9.6 H* CK-MB (CK-2) 52.990 H Troponin I 9.56 H* Total Protein Albumin 11/09/16 11/09/16 11/09/16 02:21 05:20 05:20 WBC 8.2 RBC 5.15 Hgb 14.2 Hct 42.0 MCV 81.5 MCH 27.5 MCHC 33.7 RDW 15.1 Plt Count 218 MPV 8.5 Neutrophils % 64.3 Lymphocytes % 23.3 D Monocytes % 8.0 Eosinophils % 3.6 D Basophils % 0.8 INR PTT (Actin FS) Sodium 136 Potassium 3.7 Chloride 101 Carbon Dioxide 29 Anion Gap 6 L BUN 27 H Creatinine 1.4 H D Creat Clearance w eGFR 48.76 POC Glucometer Random Glucose 147 H D Hemoglobin A1c % Calcium 8.0 L Phosphorus 2.7 Magnesium 2.2 Total Bilirubin 0.8 D AST 37 D ALT 21 Alkaline Phosphatase 58 Creatine Kinase 399 H 305 Creatine Kinase Index 6.6 H* 7.0 H* CK-MB (CK-2) 26.453 H 21.464 H Troponin I 6.66 H* D 5.80 H* Total Protein 6.4 Albumin 3.0 L 11/09/16 11/09/16 11/09/16 06:16 08:40 08:40 WBC RBC Hgb Hct MCV MCH MCHC RDW Plt Count MPV Neutrophils % Lymphocytes % Monocytes % Eosinophils % Basophils % INR 1.82 H PTT (Actin FS) 37.8 H Sodium Potassium Chloride Carbon Dioxide Anion Gap BUN Creatinine Creat Clearance w eGFR POC Glucometer 148.45305 Random Glucose Hemoglobin A1c % Calcium Phosphorus Magnesium Total Bilirubin AST ALT Alkaline Phosphatase Creatine Kinase Creatine Kinase Index CK-MB (CK-2) Troponin I Total Protein Albumin 11/09/16 11/09/16 11/09/16 10:38 14:20 14:20 WBC RBC Hgb Hct MCV MCH MCHC RDW Plt Count MPV Neutrophils % Lymphocytes % Monocytes % Eosinophils % Basophils % INR PTT (Actin FS) Sodium Potassium Chloride Carbon Dioxide Anion Gap BUN Creatinine Creat Clearance w eGFR POC Glucometer [phone] Random Glucose Hemoglobin A1c % 8.2 H D Calcium Phosphorus Magnesium Total Bilirubin AST ALT Alkaline Phosphatase Creatine Kinase Creatine Kinase Index CK-MB (CK-2) Troponin I 3.84 H* D Total Protein Albumin 11/09/16 16:24 WBC RBC Hgb Hct MCV MCH MCHC RDW Plt Count MPV Neutrophils % Lymphocytes % Monocytes % Eosinophils % Basophils % INR PTT (Actin FS) Sodium Potassium Chloride Carbon Dioxide Anion Gap BUN Creatinine Creat Clearance w eGFR POC Glucometer [phone] Random Glucose Hemoglobin A1c % Calcium Phosphorus Magnesium Total Bilirubin AST ALT Alkaline Phosphatase Creatine Kinase Creatine Kinase Index CK-MB (CK-2) Troponin I Total Protein Albumin Active Medications Generic Name Dose Route Start Last Admin Trade Name Freq PRN Reason Stop Dose Admin Aspirin 81 mg 11/10/16 10:00 Asa - PO DAILY ARIANA Atorvastatin Calcium 80 mg 11/09/16 22:00 Lipitor - PO HS ARIANA Furosemide 40 mg 11/09/16 14:00 11/09/16 14:30 Lasix Injection - IVPUSH 40 mg BID@0600,1400 ARIANA Administration Heparin Sodium (Porcine) 1,000 unit 11/09/16 09:51 Heparin - IVPUSH PRN PRN Heparin Heparin Sodium (Porcine) 5,000 unit 11/09/16 09:51 11/09/16 11:50 Heparin - IVPUSH 5,000 unit PRN PRN Administration Heparin Heparin Sodium (Porcine) 25, 500 mls @ 20 mls/hr 11/09/16 10:00 11/09/16 11:50 000 unit/ Sodium Chloride IV 20 mls/hr TITR ARIANA Administration Protocol 1,000 UNIT/HR Insulin Aspart 1 vial 11/09/16 11:00 11/09/16 16:39 Novolog Vial Sliding Scale - SQ 4 units ACHS ARIANA Administration Protocol Metoprolol Succinate 25 mg 11/09/16 22:00 Toprol Xl - PO BID [facility] ASSESSMENT/PLAN: Patient is an 81 year old male with a past medical history of: atrial fibrillation (on home Coumdin), diabetes, CABG s/p stents x3, AICD/PM, hypertension, CHF and hyperlipidemia. He presented to the ED on 11/08/2016 with shortness of breath with LE edema x 2 days. Upon further evaluation he was found to have elevated troponins. Imaging: Cardiology: NSTEMI A/P: No chest pain or shortness of breatn on exam Troponins 13.5,10.8, 9.6, 6.6, 5.8 CK elevated on admission Coumadin @ home, now on heparin drip On daily ASA, Metorpolol Cardiology following [place] cardiac cath CHF exacerbation - acute on chronic A/P: No shortness of breath on exam On Lasix 40mgBID Echo pending Hyperlipidemia A/P: Lipid panel reviewed On Atorvastatin 80mg Hypertension - chronic A/P: monitor Paroxysamal atrial fib - chronic A/P: On Coumadin @ home, now on heparin drip Renal: TONY: monitor bun/creat on Lasix Endocrinology: Diabetes Mellitus A/P: Monitor BGMs F.E.N. Fluids: Tolerating PO Electrolytes: monitor Nutrition: diabetic diet Prophylaxis DVT: heparin drip GI: deferred ]
[2016-11-09] MEDS: ATORVASTATIN CA 80 MG TABLET (FP) PO SCH ×2 (21:19→21:29)
[2016-11-10] MEDS: FUROSEMIDE 40 MG/4 ML INJECTABLE VIAL IVPUSH SCH ×2 (06:31→14:58)
[2016-11-10] MEDS: INSULIN SLIDING SCALE (NOVOLOG) 1 VIAL SQ SCH ×4 (06:31→21:48)
[2016-11-10 06:50] LABS: MCH 26.9 pg (25.7-33.7); MCHC 32.8 g/dl (32.0-35.9); MEAN CELL VOLUME 82.1 fl (80-96); PLATELET COUNT 245 K/MM3 (134-434); WHITE BLOOD COUNT 8.9 K/mm3 (4.0-10.0)
[2016-11-10 07:20] LABS: ALBUMIN 3.3 g/dl (3.4-5.0); ANION GAP 9 (8-16); CALCIUM 8.2 mg/dL (8.5-10.1); CO2 28 mmol/L (21-32); GLUCOSE,RANDOM 170 mg/dL (74-106); MAGNESIUM 2.2 mg/dL (1.8-2.4); PHOSPHOROUS 2.8 mg/dL (2.5-4.9); SGOT/AST 28 U/L (15-37)
[2016-11-10 07:22] LABS: ALK PHOS 66 U/L (45-117); BILIRUBIN,TOTAL 0.9 mg/dL (0.2-1.0); CREATININE 1.5 mg/dL (0.7-1.3); SGPT/ALT 22 U/L (12-78)
[2016-11-10] MEDS ORDERED: POTASSIUM CHLORIDE ORAL LIQUID 20 MEQ/15 ML PO ONE (09:05)
[2016-11-10] MEDS: METOPROLOL SUCCINATE 25 MG TAB.SR.24H (FP) PO SCH ×2 (10:25→21:19)
[2016-11-10] MEDS: ASPIRIN 81 MG CHEWABLE TABLETS PO SCH (10:25)
[2016-11-10] MEDS: HEPARIN - 25,000 UNIT in SODIUM CHLORIDE 495 ML IV SCH (10:25)
--- NOTE | 2016-11-10 12:33 | PN ---
Progress Note, Physician History of Present Illness: patient seen and examined at bedside no issues overnight denies chest pain or shortness of breath - Current Medication List Current Medications: Active Medications Aspirin (Asa -) 81 mg PO DAILY [facility] Last Admin: 11/10/16 10:25 Dose: 81 mg Atorvastatin Calcium (Lipitor -) 80 mg PO HS [facility] Last Admin: 11/09/16 21:29 Dose: Not Given Furosemide (Lasix Injection -) 40 mg IVPUSH BID@0600,1400 [facility] Last Admin: 11/10/16 06:31 Dose: 40 mg Heparin Sodium (Porcine) (Heparin -) 1,000 unit IVPUSH PRN PRN PRN Reason: Heparin Heparin Sodium (Porcine) (Heparin -) 5,000 unit IVPUSH PRN PRN PRN Reason: Heparin Last Admin: 11/09/16 11:50 Dose: 5,000 unit Heparin Sodium (Porcine) 25, (000 unit/ Sodium Chloride) 500 mls @ 20 mls/hr IV TITR ARIANA; 1,000 UNIT/HR PRN Reason: Protocol Last Admin: 11/10/16 10:25 Dose: 20 mls/hr Insulin Aspart (Novolog Vial Sliding Scale -) 1 vial SQ ACHS ARIANA PRN Reason: Protocol Last Admin: 11/10/16 06:31 Dose: 2 units Metoprolol Succinate (Toprol Xl -) 25 mg PO BID [facility] Last Admin: 11/10/16 10:25 Dose: 25 mg - Objective Vital Signs: Vital Signs Temperature 98.6 F 11/10/16 10:00 Pulse Rate 84 11/10/16 10:00 Respiratory Rate 20 11/10/16 10:00 Blood Pressure 139/80 11/10/16 10:00 O2 Sat by Pulse Oximetry (%) 97 11/10/16 09:00 Constitutional: Yes: Well Nourished, Calm HENT: Yes: Atraumatic, Normocephalic Neck: Yes: Supple, Trachea Midline Cardiovascular: Yes: Pulse Irregular Respiratory: Yes: Regular, CTA Bilaterally Gastrointestinal: Yes: Soft Edema: Yes Edema: LLE: 2+, RLE: 2+ Neurological: Yes: Alert Labs: CBC, BMP 11/10/16 05:20 11/10/16 05:20 INR, PTT INR 1.82 (0.82-1.09) H 08/21/17 08:40 - ....Imaging Other: Other (Echo reviewed) Assessment/Plan Patient is a 81 year old male with a past medical history of: Afib (Coumadin), DM, CABG, s/p stents x3, AICD/PM, HTN, CHF, HLD who presented to the ED with SOB and lower extremity swelling for 2 days admitted for further evaluation was found to have NSTEMI. NSTEMI Denies chest pain at this time troponin trending down EKG: paced rhythm continue heparin gtt continue Aspirin 81mg Daily continue Metoprolol 25mg BID Likely needs a cardiac cath, as per cardiology-to be determined by patient and cardiologu Cardiology consult appreciated Continuous cardiac monitoring Acute on chronic CHF exacerbation SOB improved BNP- 3619.78 ECHO Reviewed continue IV Lasix 40mg BID Hyperlipidemia continue statin Hypertension continue metoprolol Renal Acute Kidney Injury likely prerenal creatinine 1.5 overall improved from admission renally dose all drugs Endocrinology A1c 8.2 ISS Finger stick glucose monitoring FEN Not on IV fluids [id number]-uvuk-[id number] PO Potassium Diabetic/sodium controlled diet Prophylaxis For DVT: On heparin drip already For GI: Not indicated Transfer to telemetry
--- NOTE | 2016-11-10 13:06 | PN ---
Teaching Attending Note Name of Resident: Josias Donovan ATTENDING PHYSICIAN STATEMENT I saw and evaluated the patient. I reviewed the resident's note and discussed the case with the resident. I agree with the resident's findings and plan as documented. SUBJECTIVE: Pt seen and examined in the ICU. Denies chest pain, shortness of breath. No cough or wheezing. Echocardiogram showing severe systolic dysfunction of LV. OBJECTIVE: Last Vital Signs Temp Pulse Resp BP Pulse Ox 98.6 F 84 20 139/80 97 11/10/16 10:00 11/10/16 10:00 11/10/16 10:00 11/10/16 10:00 11/10/16 09:00 Intake & Output 11/07/16 11/08/16 11/09/16 11/10/16 23:59 23:59 23:59 23:59 Intake Total 400 980 480 Output Total 1510 1450 400 Balance -1110 -470 80 Weight 190 lb 190 lb 201 lb 2 oz 195 lb Gen: NAD at rest Heart: RRR Lung: bibasilar rales Abd: soft, nontender Ext: distal edema CBC, BMP 11/10/16 05:20 11/10/16 05:20 Active Medications Aspirin (Asa -) 81 mg PO DAILY ARIANA Last Admin: 11/10/16 10:25 Dose: 81 mg Atorvastatin Calcium (Lipitor -) 80 mg PO HS ARIANA Last Admin: 11/09/16 21:29 Dose: Not Given Furosemide (Lasix Injection -) 40 mg IVPUSH BID@0600,1400 ARIANA Last Admin: 11/10/16 06:31 Dose: 40 mg Heparin Sodium (Porcine) (Heparin -) 1,000 unit IVPUSH PRN PRN PRN Reason: Heparin Heparin Sodium (Porcine) (Heparin -) 5,000 unit IVPUSH PRN PRN PRN Reason: Heparin Last Admin: 11/09/16 11:50 Dose: 5,000 unit Heparin Sodium (Porcine) 25, (000 unit/ Sodium Chloride) 500 mls @ 20 mls/hr IV TITR ARIANA; 1,000 UNIT/HR PRN Reason: Protocol Last Admin: 11/10/16 10:25 Dose: 20 mls/hr Insulin Aspart (Novolog Vial Sliding Scale -) 1 vial SQ ACHS ARIANA PRN Reason: Protocol Last Admin: 11/10/16 06:31 Dose: 2 units Metoprolol Succinate (Toprol Xl -) 25 mg PO BID [facility] Last Admin: 11/10/16 10:25 Dose: 25 mg ASSESSMENT AND PLAN: Acute NSTEMI Acute on Chronic Systolic Heart Failure Atrial Fibrillation s/p PPM CAD Acute Kidney Injury improving - ASA - beta julien, statin - heparin gtt - IV lasix - monitor urine output, creatinine - will likely need cardiac catheterization - can monitor on telemetry
--- NOTE | 2016-11-10 16:42 | PN ---
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 S/P ICD.H/O of paroxysmal atrial fibrillation.Transfered to telemetry. No further SOB,chest pain or discomfort.No PND or orthopnea.Patient is agreeble for transfer to [facility] and also spoke to his daughter,Arrangements are being made. Active Medications. Generic Name Dose Route Start Last Admin Trade Name Freq PRN Reason Stop Dose Admin Aspirin 81 mg 11/10/16 10:00 11/10/16 10:25 Asa - PO 81 mg DAILY ARIANA Administration Atorvastatin Calcium 80 mg 11/09/16 22:00 11/09/16 21:29 Lipitor - PO Not Given HS ARIANA Furosemide 40 mg 11/09/16 14:00 11/10/16 14:58 Lasix Injection - IVPUSH 40 mg BID@0600,1400 ARIANA Administration Heparin Sodium (Porcine) 1,000 unit 11/09/16 09:51 Heparin - IVPUSH PRN PRN Heparin Heparin Sodium (Porcine) 5,000 unit 11/09/16 09:51 11/09/16 11:50 Heparin - IVPUSH 5,000 unit PRN PRN Administration Heparin Heparin Sodium (Porcine) 25, 500 mls @ 20 mls/hr 11/09/16 10:00 11/10/16 10:25 000 unit/ Sodium Chloride IV 20 mls/hr TITR ARIANA Administration Protocol 1,000 UNIT/HR Insulin Aspart 1 vial 11/09/16 11:00 11/10/16 12:30 Novolog Vial Sliding Scale - SQ 4 units ACHS ARIANA Administration Protocol Metoprolol Succinate 25 mg 11/09/16 22:00 11/10/16 10:25 Toprol Xl - PO 25 mg BID ARIANA Administration O:81 year male in no distress,no pallor,cyanosis or jaundice. Vital Signs - 8 hr 11/10/16 11/10/16 09:00 10:00 Temperature 98.6 F Pulse Rate 84 Respiratory 20 Rate Blood Pressure 139/80 O2 Sat by Pulse 97 Oximetry (%) NECK; supple,no JVD, carotid, 2+,no bruits.NO thyromegaly. HEART:PMI in the 5th ICS,no heaves or thrills,no murmur s,S4 gallop at the apex. LUNGS:Clear on auscultation. ABDOMEN: soft,obese,nontender,no organomegaly or palpable masses. EXT:No calf tenderness or dependent edema.DT and PTpulses are not palpable. CBC, BMP 11/10/16 05:20 11/10/16 05:20 Troponin, BNP 11/09/16 11/10/16 14:20 05:20 Troponin I 3.84 H* D 3.17 H* A: 1.CAD,NSTEMI. 2.Acute LV failure to# 1. 3.Severe LV dysfunctiobn. 4.NIDDM. 6.PAD. 7.S/P ICD for primary prophylaxis 8.Paroxysamal atrial fib. 9.Hypertesion. 10.CKD. 1.Arrrangements being made for cardiac cath at [facility] where he has had all his previous procedures. 2.Add Plavix 75mg.po and loading dose if procedure to be done today. 3.Continue current therapy. 4.Risk modifications.
--- NOTE | 2016-11-10 18:15 | DS ---
Physical Exam: SUBJECTIVE: Patient seen and examined at the bedside. Transfer to [facility] for cardiac cath. OBJECTIVE: Pending transfer to cardiac wheelabrator operator at [facility] Spoke to Dr. Lucero (shift engineer), (cell phone) for pt transfer/ signout Paperwork faxed to [facility] by tooth clerk Vital Signs Period Temp Pulse Resp BP Sys/Mock Pulse Ox Last 24 Hr 97.6 F-98.6 F 76-86 18-20 115-145/64-91 97-98 PHYSICAL EXAM GENERAL: Sitting comfortably in bed, ambulating in room. Comfortable at rest and with ambulation HEAD: Normal with no signs of trauma. EYES: EOM intact, no pallor or icterus. ENT: Ears normal, moist mucous membranes. NECK: Supple. LUNGS: B/L Breath sounds equal, clear to auscultation bilaterally, no wheezes, no crackles, no accessory muscle use. HEART: Regular rate and rhythm, S1, S2 without murmur. ABDOMEN: Soft, nontender, nondistended, normoactive bowel sounds, no guarding, no rebound, no hepatosplenomegaly, no masses. EXTREMITIES: 2+ pulses, warm, well-perfused, no edema. LOWER EXTREMITIES: +1 pitting edema on LLE, Right LE with trace edema. NEUROLOGICAL: Normal speech, steady gait PSYCH: Normal mood, normal affect. SKIN: Warm, dry, normal turgor, no rashes or lesions noted LABS Laboratory Results - last 24 hr 11/09/16 11/09/16 11/10/16 17:45 21:12 05:20 WBC 8.9 RBC 5.53 Hgb 14.9 Hct 45.4 MCV 82.1 MCH 26.9 MCHC 32.8 RDW 15.0 Plt Count 245 MPV 9.0 PTT (Actin FS) 58.3 H D Sodium Potassium Chloride Carbon Dioxide Anion Gap BUN Creatinine Creat Clearance w eGFR POC Glucometer 157.53347 Random Glucose Calcium Phosphorus Magnesium Total Bilirubin AST ALT Alkaline Phosphatase Troponin I Total Protein Albumin 11/10/16 11/10/16 11/10/16 05:20 05:20 05:20 WBC RBC Hgb Hct MCV MCH MCHC RDW Plt Count MPV PTT (Actin FS) 62.0 H Sodium 137 Potassium 3.7 Chloride 100 Carbon Dioxide 28 Anion Gap 9 BUN 30 H Creatinine 1.5 H Creat Clearance w eGFR 45.03 POC Glucometer Random Glucose 170 H Calcium 8.2 L Phosphorus 2.8 Magnesium 2.2 Total Bilirubin 0.9 AST 28 D ALT 22 Alkaline Phosphatase 66 Troponin I 3.17 H* Total Protein 7.0 Albumin 3.3 L 11/10/16 11/10/16 11/10/16 06:22 12:16 17:44 WBC RBC Hgb Hct MCV MCH MCHC RDW Plt Count MPV PTT (Actin FS) Sodium Potassium Chloride Carbon Dioxide Anion Gap BUN Creatinine Creat Clearance w eGFR POC Glucometer 162.83200 216.16780 180 Random Glucose Calcium Phosphorus Magnesium Total Bilirubin AST ALT Alkaline Phosphatase Troponin I Total Protein Albumin HOSPITAL COURSE: Date of Admission:11/08/16 Date of Discharge: 11/10/16 ASSESSMENT/PLAN: Patient is an 81 year old male with a past medical history of: atrial fibrillation (on home Coumdin), diabetes, CABG s/p stents x3, AICD/PM, hypertension, CHF and hyperlipidemia. He presented to the ED on 11/08/2016 with shortness of breath with LE edema x 2 days. Upon further evaluation he was found to have elevated troponins. Patient is pending transfer to [facility] today, Dr. Lucero shift engineer accepting physician. Cardiology: NSTEMI: A/P: No chest pain or shortness of breath on exam Troponins 13.5,10.8, 9.6, 6.6, 5.8, 3.17 CK elevated on admission Coumadin @ home, now on heparin drip On daily ASA, Metorpolol Cardiology following Possible cardiac cath today - transfer to [facility] CHF exacerbation - acute on chronic A/P: No shortness of breath on exam On Lasix 40mgBID Echo reviewed with Dr. Lucero Hyperlipidemia A/P: Lipid panel reviewed On Atorvastatin 80mg Hypertension - chronic A/P: monitor Paroxysamal atrial fib - chronic A/P: On Coumadin @ home, now on heparin drip Renal: TONY: monitor bun/creat on Lasix Endocrinology: Diabetes Mellitus A/P: Monitor BGMs Disposition: Transfer to [facility] cardiac cath today. Dr. Lucero accepting physician. Full Code. Minutes to complete discharge: 60 Discharge Summary Reason For Visit: CHF, ACUTE ON CHRONIC RENAL FAILURE Current Active Problems Acute on chronic renal failure (Acute) Afib (Acute) Anterior epistaxis (Acute) Anticoagulated on Coumadin (Acute) Biventricular automatic implantable cardioverter defibrillator in situ (Acute) CAD (coronary artery disease) (Acute) CHF (congestive heart failure) (Acute) CHF exacerbation (Acute) DVT prophylaxis (Acute) Epistaxis (Acute) HTN (hypertension) (Acute) Hyperglycemia (Acute) Hyperlipidemia (Acute) Ischemic cardiomyopathy (Acute) Renal insufficiency (Acute) S/P CABG (coronary artery bypass graft) (Acute) Severe epistaxis (Acute) Status post coronary artery stent placement (Acute) Condition: Guarded - Instructions Diet, Activity, Other Instructions: Transfer to cardiac cath at [facility] Accepting physician Dr. Lucero Referrals: Monico Kahn [Primary Care Provider] - Disposition: TRANSFER ACUTE CARE/OTHER HOSP - Home Medications Comprehensive Discharge Medication List: Ambulatory Orders Furosemide [Lasix -] 40 mg PO DAILY #1 tablet 08/06/12 Metoprolol Succinate [Toprol XL -] 25 mg PO DAILY 12/26/13 Aspirin [ASA -] 81 mg PO DAILY #1 06/20/15 Warfarin Na [Coumadin -] 5 mg PO DAILY@1800 #1 06/20/15 Cilostazol 50 mg PO BID 11/08/16 Glimepiride 2 mg PO DAILY 11/08/16 This patient is new to me today: No Emergency Visit: Yes ED Registration Date: 11/08/16 Care time: The patient presented to the Emergency Department on the above date and was hospitalized for further evaluation of their emergent condition. Critical Care patient: No - Discharge Referral Referred to [facility] Med [facility] No
[2016-11-10] MEDS: ATORVASTATIN CA 80 MG TABLET (FP) PO SCH (21:19)
[2016-11-11] MEDS: FUROSEMIDE 40 MG/4 ML INJECTABLE VIAL IVPUSH SCH ×2 (07:24→13:38)
[2016-11-11] MEDS: INSULIN SLIDING SCALE (NOVOLOG) 1 VIAL SQ SCH ×3 (07:25→17:12)
[2016-11-11 07:28] LABS: MCH 26.8 pg (25.7-33.7); MEAN CELL VOLUME 81.4 fl (80-96); PLATELET COUNT 203 K/MM3 (134-434); WHITE BLOOD COUNT 7.1 K/mm3 (4.0-10.0)
[2016-11-11] MEDS ORDERED: PT OWN MED DRAWER 7, Y5N ONE (07:49)
[2016-11-11] MEDS ORDERED: CLOPIDOGREL BISULFATE 75 MG TABLET (FP) ONE (07:50)
[2016-11-11 08:10] LABS: INR 1.25 (0.82-1.09); PROTHROMBIN TIME (PATIENT) 13.8 SEC (9.98-11.88)
[2016-11-11 08:14] LABS: ALBUMIN 3.1 g/dl (3.4-5.0); ALK PHOS 59 U/L (45-117); ANION GAP 9 (8-16); BILIRUBIN,TOTAL 0.7 mg/dL (0.2-1.0); CALCIUM 8.3 mg/dL (8.5-10.1); CO2 28 mmol/L (21-32); CREATININE 1.4 mg/dL (0.7-1.3); GLUCOSE,RANDOM 130 mg/dL (74-106); MAGNESIUM 2.3 mg/dL (1.8-2.4); PHOSPHOROUS 3.1 mg/dL (2.5-4.9); SGOT/AST 20 U/L (15-37); SGPT/ALT 19 U/L (12-78); TOT PROT 6.4 g/dl (6.4-8.2)
[2016-11-11] MEDS ORDERED: CLOPIDOGREL BISULFATE 75 MG TABLET (FP) PO SCH (10:00)
--- NOTE | 2016-11-11 10:23 | PN ---
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 S/P ICD.H/O of paroxysmal atrial fibrillation.Transfered to telemetry. No further SOB,chest pain or discomfort.No PND or orthopnea.Patient is agreeble for transfer to [facility] and also spoke to his daughter,Arrangements are being made. Active Medications. Generic Name Dose Route Start Last Admin Trade Name Freq PRN Reason Stop Dose Admin Aspirin 81 mg 11/10/16 10:00 11/10/16 10:25 Asa - PO 81 mg DAILY ARIANA Administration Atorvastatin Calcium 80 mg 11/09/16 22:00 11/09/16 21:29 Lipitor - PO Not Given HS ARIANA Furosemide 40 mg 11/09/16 14:00 11/10/16 14:58 Lasix Injection - IVPUSH 40 mg BID@0600,1400 ARIANA Administration Heparin Sodium (Porcine) 1,000 unit 11/09/16 09:51 Heparin - IVPUSH PRN PRN Heparin Heparin Sodium (Porcine) 5,000 unit 11/09/16 09:51 11/09/16 11:50 Heparin - IVPUSH 5,000 unit PRN PRN Administration Heparin Heparin Sodium (Porcine) 25, 500 mls @ 20 mls/hr 11/09/16 10:00 11/10/16 10:25 000 unit/ Sodium Chloride IV 20 mls/hr TITR ARIANA Administration Protocol 1,000 UNIT/HR Insulin Aspart 1 vial 11/09/16 11:00 11/10/16 12:30 Novolog Vial Sliding Scale - SQ 4 units ACHS ARIANA Administration Protocol Metoprolol Succinate 25 mg 11/09/16 22:00 11/10/16 10:25 Toprol Xl - PO 25 mg BID ARIANA Administration O:81 year male in no distress,no pallor,cyanosis or jaundice. Vital Signs - 8 hr 11/10/16 11/10/16 09:00 10:00 Temperature 98.6 F Pulse Rate 84 Respiratory 20 Rate Blood Pressure 139/80 O2 Sat by Pulse 97 Oximetry (%) NECK; supple,no JVD, carotid, 2+,no bruits.NO thyromegaly. HEART:PMI in the 5th ICS,no heaves or thrills,no murmur s,S4 gallop at the apex. LUNGS:Clear on auscultation. ABDOMEN: soft,obese,nontender,no organomegaly or palpable masses. EXT:No calf tenderness or dependent edema.DT and PTpulses are not palpable. CBC, BMP 11/10/16 05:20 11/10/16 05:20 Troponin, BNP 11/09/16 11/10/16 14:20 05:20 Troponin I 3.84 H* D 3.17 H* A: 1.CAD,NSTEMI. 2.Acute LV failure to# 1. 3.Severe LV dysfunctiobn. 4.NIDDM. 6.PAD. 7.S/P ICD for primary prophylaxis 8.Paroxysamal atrial fib. 9.Hypertesion. 10.CKD. 1.Arrrangements being made for cardiac cath at [facility] where he has had all his previous procedures. 2.Add Plavix 75mg.po and loading dose if procedure to be done today. 3.Continue current therapy. 4.Risk modifications. <Mik Anders H - Last Filed: 11/11/16 10:22> - Note Progress Note: S: 81 year old, with recent history of acute left ventricular failure, NSTEMI, awaiting transfer to [facility] for cardiac catheterization. Long standing history of CAD/CABG, angina pectoris, severe LV systolic dysfunction, NIDDM, HTN, chronic kidney disease. No chest pain or discomfort, no dyspnea, PND or orthopnea. Active Medications Generic Name Dose Route Start Last Admin Trade Name Freq PRN Reason Stop Dose Admin Aspirin 81 mg 11/10/16 10:00 11/10/16 10:25 Asa - PO 81 mg DAILY ARIANA Administration Atorvastatin Calcium 80 mg 11/09/16 22:00 11/10/16 21:19 Lipitor - PO Not Given HS ARIANA Clopidogrel Bisulfate 75 mg 11/11/16 10:00 Plavix - PO DAILY [facility] Furosemide 40 mg 11/09/16 14:00 11/11/16 07:24 Lasix Injection - IVPUSH Not Given BID@0600,1400 [facility] Heparin Sodium (Porcine) 1,000 unit 11/09/16 09:51 Heparin - IVPUSH PRN PRN Heparin Heparin Sodium (Porcine) 5,000 unit 11/09/16 09:51 11/09/16 11:50 Heparin - IVPUSH 5,000 unit PRN PRN Administration Heparin Heparin Sodium (Porcine) 25, 500 mls @ 20 mls/hr 11/09/16 10:00 11/10/16 10:25 000 unit/ Sodium Chloride IV 20 mls/hr TITR ARIANA Administration Protocol 1,000 UNIT/HR Insulin Aspart 1 vial 11/09/16 11:00 11/11/16 07:25 Novolog Vial Sliding Scale - SQ Not Given ACHS ARIANA Protocol Metoprolol Succinate 25 mg 11/09/16 22:00 11/10/16 21:19 Toprol Xl - PO 25 mg BID ARIANA Administration O: 81 year old male was in no acute distress, no pallor, cyanosis, clubbing, or jaundice. Last Vital Signs Temp Pulse Resp BP Pulse Ox 99 F 86 20 134/84 96 11/10/16 21:17 11/10/16 21:17 11/10/16 21:17 11/10/16 21:17 11/10/16 20:19 Neck: Supple, no JVD, negative HJR, carotids were equal and upstrokes were normal, no thyromegaly appreciated. Heart: PMI was in the 5th intercostal space, no heaves or thrills, S1 and S2 were normal. No murmurs or gallops were appreciated. Lungs: Clear on auscultation bilaterally. Abdomen: Soft, nontender, no hepatosplenomegaly appreciated, and no palpable masses were felt. Extremities: No calf tenderness or dependent edema. Femoral pulses 2+, dorsalis pedis and posterior tibia pulses were not palpable. CBC, BMP 11/11/16 06:00 11/11/16 06:00 Laboratory Results - last 24 hr 11/10/16 11/10/16 11/10/16 06:22 12:16 17:44 WBC RBC Hgb Hct MCV MCH MCHC RDW Plt Count MPV INR PTT (Actin FS) Sodium Potassium Chloride Carbon Dioxide Anion Gap BUN Creatinine Creat Clearance w eGFR POC Glucometer 162.72711 216.03821 180 Random Glucose Calcium Phosphorus Magnesium Total Bilirubin AST ALT Alkaline Phosphatase Total Protein Albumin 11/10/16 11/11/16 11/11/16 21:28 05:35 06:00 WBC 7.1 RBC 5.19 Hgb 13.9 Hct 42.2 MCV 81.4 MCH 26.8 MCHC 33.0 RDW 15.0 Plt Count 203 MPV 9.0 INR PTT (Actin FS) 63.1 H Sodium Potassium Chloride Carbon Dioxide Anion Gap BUN Creatinine Creat Clearance w eGFR POC Glucometer 202 Random Glucose Calcium Phosphorus Magnesium Total Bilirubin AST ALT Alkaline Phosphatase Total Protein Albumin 11/11/16 11/11/16 06:00 07:00 WBC RBC Hgb Hct MCV MCH MCHC RDW Plt Count MPV INR 1.25 H D PTT (Actin FS) Sodium 137 Potassium 3.7 Chloride 100 Carbon Dioxide 28 Anion Gap 9 BUN 29 H Creatinine 1.4 H Creat Clearance w eGFR 48.76 POC Glucometer Random Glucose 130 H D Calcium 8.3 L Phosphorus 3.1 Magnesium 2.3 Total Bilirubin 0.7 D AST 20 D ALT 19 Alkaline Phosphatase 59 Total Protein 6.4 Albumin 3.1 L Impression: 1. CAD/CABG, recent NSTEMI. 2. Acute LV failure secondary to #1 3. Severe LV systolic dysfunction 4. NIDDM 5. Chronic kidney disease 6. PAD with exertional claudications. 7. HTN Recommendations: 1. Awaiting transfer. 2. Continue current medications. Prognosis: Guarded Attestation: Documentation prepared by Alice Ferreira, acting as veterinary medical officer for Mik Anders MD. <Alice Ferreira - Last Filed: 11/11/16 10:37>
--- NOTE | 2016-11-11 10:54 | HOSP ---
Physical Examination Vital Signs: Vital Signs Temperature 99 F 11/10/16 21:17 Pulse Rate 86 11/10/16 21:17 Respiratory Rate 20 11/10/16 21:17 Blood Pressure 134/84 11/10/16 21:17 O2 Sat by Pulse Oximetry (%) 96 11/10/16 20:19 Findings/Remarks: Patient was seen at the bedside, he denies any chest pain at this time. Awaiting bed at [facility] for cardiac cath Continue current management The patient requested I do not call his daughter to discuss the transfer and that he already spoke to her and she is aware Labs: CBC, BMP 11/11/16 06:00 11/11/16 06:00
--- NOTE | 2016-11-11 11:04 | PN ---
Progress Note, Physician History of Present Illness: pulmonary alert,feeling bettter,-cp,-sob - Current Medication List Current Medications: Active Medications Aspirin (Asa -) 81 mg PO DAILY [facility] Last Admin: 11/10/16 10:25 Dose: 81 mg Atorvastatin Calcium (Lipitor -) 80 mg PO HS [facility] Last Admin: 11/10/16 21:19 Dose: Not Given Clopidogrel Bisulfate (Plavix -) 75 mg PO DAILY [facility] Furosemide (Lasix Injection -) 40 mg IVPUSH BID@0600,1400 [facility] Last Admin: 11/11/16 07:24 Dose: Not Given Heparin Sodium (Porcine) (Heparin -) 1,000 unit IVPUSH PRN PRN PRN Reason: Heparin Heparin Sodium (Porcine) (Heparin -) 5,000 unit IVPUSH PRN PRN PRN Reason: Heparin Last Admin: 11/09/16 11:50 Dose: 5,000 unit Heparin Sodium (Porcine) 25, (000 unit/ Sodium Chloride) 500 mls @ 20 mls/hr IV TITR ARIANA; 1,000 UNIT/HR PRN Reason: Protocol Last Admin: 11/10/16 10:25 Dose: 20 mls/hr Insulin Aspart (Novolog Vial Sliding Scale -) 1 vial SQ ACHS ARIANA PRN Reason: Protocol Last Admin: 11/11/16 07:25 Dose: Not Given Metoprolol Succinate (Toprol Xl -) 25 mg PO BID [facility] Last Admin: 11/10/16 21:19 Dose: 25 mg - Objective Vital Signs: Vital Signs Temperature 99 F 11/10/16 21:17 Pulse Rate 86 11/10/16 21:17 Respiratory Rate 20 11/10/16 21:17 Blood Pressure 134/84 11/10/16 21:17 O2 Sat by Pulse Oximetry (%) 96 11/10/16 20:19 Constitutional: Yes: Well Nourished, Calm Eyes: Yes: WNL HENT: Yes: WNL Neck: Yes: WNL Cardiovascular: Yes: Regular Rate and Rhythm, S1, S2 Respiratory: Yes: CTA Bilaterally, Rales (few crackles) Gastrointestinal: Yes: Normal Bowel Sounds, Soft Extremities: Yes: WNL Edema: No Labs: CBC, BMP 11/11/16 06:00 11/11/16 06:00 INR, PTT INR 1.25 (0.82-1.09) H D 11/11/16 07:00 Problem List - Problems (1) Acute on chronic renal failure Code(s): N17.9 - ACUTE KIDNEY FAILURE, UNSPECIFIED N18.9 - CHRONIC KIDNEY DISEASE, UNSPECIFIED Qualifiers: Acute renal failure type: unspecified Chronic kidney disease stage: unspecified stage Qualified Code(s): N17.9 - Acute kidney failure, unspecified; N18.9 - Chronic kidney disease, unspecified (2) Afib Code(s): I48.91 - UNSPECIFIED ATRIAL FIBRILLATION (3) CAD (coronary artery disease) Code(s): I25.10 - ATHSCL HEART DISEASE OF [place] CORONARY ARTERY W/O ANG PCTRS (4) CHF (congestive heart failure) Code(s): I50.9 - HEART FAILURE, UNSPECIFIED (5) HTN (hypertension) Code(s): I10 - ESSENTIAL (PRIMARY) HYPERTENSION (6) Hyperlipidemia Code(s): E78.5 - HYPERLIPIDEMIA, UNSPECIFIED (7) S/P CABG (coronary artery bypass graft) Code(s): Z95.1 - PRESENCE OF AORTOCORONARY BYPASS GRAFT Assessment/Plan ASSESSMENT AND PLAN: Acute NSTEMI Acute on Chronic Systolic Heart Failure Atrial Fibrillation s/p PPM CAD Acute Kidney Injury improving - ASA - beta julien, statin - heparin gtt - IV lasix - monitor urine output, creatinine - ? cardiac catheterization DR CHURCH
[2016-11-11] MEDS: METOPROLOL SUCCINATE 25 MG TAB.SR.24H (FP) PO SCH (11:11)
[2016-11-11] MEDS: ASPIRIN 81 MG CHEWABLE TABLETS PO SCH (11:12)
[2016-11-11] MEDS: HEPARIN - 25,000 UNIT in SODIUM CHLORIDE 495 ML IV SCH (11:13)
[2016-11-11 19:20] VITALS: BP 146/57; PULSE 80; TEMP 98
== END 2016-11-11 19:30 | disposition short-term general hospital (02) | DRG 280 ==
LOC: EDBD 21:26 → JER 21:26 → JERBED 11-08 01:02 → UNDOADMIN 11-08 01:17 → JERBED 11-08 01:17 → JICU 11-08 21:32 → J4W 11-10 13:02
PROVIDERS: ADMIT Internal Medicine; ATTEND Registered Nurse
DX: I21.4 Non-ST elevation (NSTEMI) myocardial infarction (principal); I50.23 Acute on chronic systolic (congestive) heart failure; I13.0 Hypertensive heart and chronic kidney disease with heart failure and stage 1 through stage 4 chronic kidney disease, or unspecified chronic kidney disease; N17.9 Acute kidney failure, unspecified; E11.22 Type 2 diabetes mellitus with diabetic chronic kidney disease; N18.9 Chronic kidney disease, unspecified; I48.0 Paroxysmal atrial fibrillation; Z95.1 Presence of aortocoronary bypass graft; E78.00 Pure hypercholesterolemia, unspecified; Z95.5 Presence of coronary angioplasty implant and graft; Z79.01 Long term (current) use of anticoagulants; I25.10 Atherosclerotic heart disease of native coronary artery without angina pectoris; Z87.891 Personal history of nicotine dependence; Z95.810 Presence of automatic (implantable) cardiac defibrillator; I25.2 Old myocardial infarction; I25.5 Ischemic cardiomyopathy
CPT/HCPCS: 36415; 71010-TC; 76775-TC; 80048; 80053; 80061; 82553; 83036; 83721; 83735; 83880; 84100; 84484; 85025; 85027; 85610; 85730; 93005; 93010; 93306-TC; 94660; 99285-25; J1644

== ENCOUNTER 2016-11-24 09:43 | Observation (INO) | payer OTHER ==
--- NOTE | 2016-11-24 10:53 | PDOC ---
History of Present Illness - General Chief Complaint: Chest Pain Stated Complaint: HTN,CHEST discomfort, INR 2.6 Time Seen by Provider: 11/24/16 10:39 - History of Present Illness Initial Comments: 11/24/16 11:11 Pt. is a 81 y/o male with PMH of CAD, [place], NSTEM 11/12/16, CHF who presents to the ED today c/o chest discomfort. He presents from Dr. Swenson's office. Pt. told Dr. Leong's office staff that last night he felt some left sided chest numbness and light headedness. The numbness was intermittent and lasted for a few minutes at a time. He denies SOB with these episodes. He was recently admitted to the hospital (11/11/16) for NSTEMI. He was transferred to [facility] for cardiac cath. He did not receive a stent at that time. 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 Given his recent history, Dr. Luna wanted him to to go to the ED for further evaluation. Currently he has no complaints. Denies fevers, chills, palpitations, chest pain, chest tightness, SOB, nausea, vomiting, diarrhea. Past History - Past Medical History Allergies/Adverse Reactions: Allergies Allergy/AdvReac Type Severity Reaction Status Date / Time No Known Allergies Allergy Verified 11/24/16 09:50 Home Medications: Ambulatory Orders Furosemide [Lasix -] 40 mg PO DAILY #1 tablet 08/06/12 Aspirin [ASA -] 81 mg PO DAILY #1 06/20/15 Warfarin Na [Coumadin -] 5 mg PO DAILY@1800 #1 06/20/15 Glimepiride 2 mg PO DAILY 11/08/16 Atorvastatin Ca [Lipitor] 80 mg PO HS tablet 11/10/16 Amlodipine Besylate [Norvasc -] 5 mg PO DAILY 11/24/16 Carvedilol 6.25 mg PO BID 11/24/16 Sacubitril/Valsartan [Entresto 24 mg-26 mg Tablet] 1 each PO BID 11/24/16 Spironolactone [Aldactone] 25 mg PO DAILY 11/24/16 Cardiac Disorders: Yes (A. Fib, CAD, [place], BYPASS, MITRAL VALVULOPLASTY) HTN: Yes Hypercholesterolemia: Yes - Surgical History Cardiac Surgery: Yes (CABG x 3, Stent X 1 , Pacemaker) - Immunization History Immunization Up to Date: Yes - Psycho/Social/Smoking Cessation Hx Anxiety: No Suicidal Ideation: No Smoking Status: No Smoking History: Never smoked Have you smoked in the past 12 months: No Number of Cigarettes Smoked Daily: 0 Information on smoking cessation initiated: No Hx Alcohol Use: No Drug/Substance Use Hx: No Substance Use Type: None Review of Systems - Review of Systems Able to Perform ROS?: Yes Is the patient limited Croatian proficient: No Constitutional: No: Chills, Fever, Malaise, Weakness Respiratory: No: Cough, Shortness of Breath, Wheezing Cardiac (ROS): Yes: Palpitations, Other (chest discomfort). No: Edema, Lightheadedness, Syncope, Chest Tightness ABD/GI: No: Constipated, Diarrhea, Nausea, Vomiting Neurological: No: Headache, Numbness, Paresthesia, Weakness All Other Systems: Reviewed and Negative *Physical Exam - Vital Signs Last Vital Signs Temp Pulse Resp BP Pulse Ox 98.1 F 92 H 18 118/75 97 11/24/16 09:47 11/24/16 09:47 11/24/16 09:47 11/24/16 09:47 11/24/16 09:47 - Physical Exam General Appearance: Yes: Nourished, Appropriately Dressed. No: Apparent Distress (sitting on exam bed, breathing easily) Neck: positive: Trachea midline, Normal Thyroid, Supple. negative: Tender, Rigid, Lymphadenopathy (R), Lymphadenopathy (L) Respiratory/Chest: positive: Lungs Clear, Normal Breath Sounds. negative: Chest Tender, Respiratory Distress, Accessory Muscle Use Cardiovascular: positive: Regular Rhythm, Regular Rate, S1, S2 (present). negative: JVD, Murmur Gastrointestinal/Abdominal: positive: Normal Bowel Sounds, Flat, Soft. 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 II-XII NML intact, Fully Oriented, Alert, Normal Mood/ Affect, Normal Response, Motor Strength 5/5 Heart Score/ECG Review - History History: Moderately suspicious - Electrocardiogram EKG: Normal - Age Age: >/= 65 - Risk Factors Risk Factors Heart Score: Yes Hx Hypercholesterolemia, Yes Hx Hypertension, Yes Positive family hx of cardiac disease Based on the list above the patient has:: >/=3 risk factors or Hx atherosclerotic disease - Troponin Troponin: </= normal limit - Score Heart Score - Total: 5 ED Treatment Course - LABORATORY CBC & Chemistry Diagram: 11/24/16 11:16 11/24/16 11:16 - RADIOLOGY Radiology Studies Ordered: Category Date Time Status CHEST X-RAY PORTABLE* [RAD] Stat Radiology 11/24/16 10:43 Ordered Medical Decision Making - Medical Decision Making 11/24/16 13:02 Pt. is a 81 y/o male with significant cardiac history including recent NSTEMI with cath at [facility] who presents to the ED for chest discomfort. Pt is describing the discomfort as "jumping beans", possible palpitations. Will do cardiac work up at this time. Will consult with Dr. Anders to determine dispo. Will give gentle fluids at this time. Will also page [employer] for ICD interrogation. 1. CBC, CMP, PT/INR, Cardiac Profile 2. EKG, CXR, ICD interrogation 3. Re-evaluate 11/24/16 14:54 EKG: Rate 84 bpm, paced rhythm, Normal intervals, right axis devation, no acute ST-T wave changes. Troponin is negative. Creatinine is slightly elevated off of baseline. Labs appear concentrated, going with with the slighlty elevated BUN and Cr. Pt. does endorse not drinking a lot of water. Pacemaker was interrogated with no events logged. Battery has 7.[address] Anders for disposition planning 11/24/16 15:[address] Luna 11/24/16 15:[address] Leong, would like to admit for obs given events two weeks ago in the setting of chest discomfort and for medication reconciliation. Spoke with Dr. Toney PCP who agrees with observation. Will admit under his service. Requested that Dr. Cm or Dr. Crowder admit since he is at the office. Will page now. 11/24/16 15:49 Multiple overhead pages to Dr. Cm and Dr. Crowder. No response. Will call back Dr. Toney 11/24/16 16:30 Dr. Toney in the ED. Case discussed and he accepts the pt. to tele obs. *DC/Admit/Observation/Transfer Diagnosis at time of Disposition: CHF (congestive heart failure) Qualifiers: Congestive heart failure type: systolic Congestive heart failure chronicity: chronic Qualified Code(s): I50.22 - Chronic systolic (congestive) heart failure Acute on chronic renal failure Qualifiers: Acute renal failure type: unspecified Chronic kidney disease stage: unspecified stage Qualified Code(s): N17.9 - Acute kidney failure, unspecified - Discharge Dispostion Condition at time of disposition: Stable Admit: Yes - Referrals Referrals: Willem Toney MD [Primary Care Provider] -
[2016-11-24] MEDS ORDERED: ASPIRIN 325 MG ENTERIC COATED TABLET (FP) PO ONE (11:14)
[2016-11-24 11:38] LABS: BASOPHIL 0.9 % (0-2.0); EOSINOPHIL 2.5 % (0-4.5); MCH 26.7 pg (25.7-33.7); MCHC 32.4 g/dl (32.0-35.9); MEAN CELL VOLUME 82.4 fl (80-96); MEAN PLT VOLUME 8.4 fl (7.5-11.1); PLATELET COUNT 281 K/MM3 (134-434); RDW 15.2 % (11.9-15.9); WHITE BLOOD COUNT 10.2 K/mm3 (4.0-10.0)
[2016-11-24 11:57] LABS: ALBUMIN 3.9 g/dl (3.4-5.0); ANION GAP 7 (8-16); BILIRUBIN,TOTAL 0.5 mg/dL (0.2-1.0); CALCIUM 9.4 mg/dL (8.5-10.1); CO2 28 mmol/L (21-32); CREATININE 1.9 mg/dL (0.7-1.3); GLUCOSE,RANDOM 147 mg/dL (74-106); MAGNESIUM 2.6 mg/dL (1.8-2.4); SGOT/AST 14 U/L (15-37); SGPT/ALT 25 U/L (12-78)
[2016-11-24 12:00] LABS: ALK PHOS 71 U/L (45-117); CPK 67 IU/L (39-308); TOT PROT 7.9 g/dl (6.4-8.2); TROPONIN I 0.04 ng/ml (0.00-0.05)
[2016-11-24 12:01] LABS: INR 2.69 (0.82-1.09); PROTHROMBIN TIME (PATIENT) 30.2 SEC (9.98-11.88)
--- NOTE | 2016-11-24 12:17 | PDOC ---
*Physical Exam - Vital Signs Last Vital Signs Temp Pulse Resp BP Pulse Ox 98.1 F 92 H 18 118/75 97 11/24/16 09:47 11/24/16 09:47 11/24/16 09:47 11/24/16 09:47 11/24/16 09:47 - Physical Exam Comments: 11/24/16 12:13 VSS, well appearing, smiling and speaking full sentences very pleasant elderly man L chest pacemaker ctab abd soft Heart Score/ECG Review #1 11/24/16 12:13 atrially paced without secondary signs of acute ischemic change ED Treatment Course - LABORATORY CBC & Chemistry Diagram: 11/24/16 11:16 11/24/16 11:16 - ADDITIONAL ORDERS Additional order review: Laboratory Results 11/24/16 11:16 Sodium 134 L Potassium 4.7 D Chloride 99 Carbon Dioxide 28 Anion Gap 7 L BUN 36 H D Creatinine 1.9 H D Creat Clearance w eGFR 34.28 Random Glucose 147 H Calcium 9.4 Magnesium 2.6 H Total Bilirubin 0.5 D AST 14 L D ALT 25 D Alkaline Phosphatase 71 D Creatine Kinase 67 Troponin I 0.04 D Total Protein 7.9 D Albumin 3.9 D 11/24/16 11:16 RBC 5.92 H MCV 82.4 MCHC 32.4 RDW 15.2 MPV 8.4 Neutrophils % 69.0 Lymphocytes % 20.0 Monocytes % 7.6 Eosinophils % 2.5 Basophils % 0.9 Medical Decision Making - Medical Decision Making 11/24/16 12:14 Patient seen and evaluated with the nurse practitioner. I agree with the overall evaluation, assessment, and management with the following summary of visit: 81-year-old male with extensive cardiac history with recent and STEMI, transferred to [facility] with catheterization showing completely occluded vessel without intervention, prescribed new medication regimen but has not started it yet, now presents with nonspecific fluttering sensation in the left chest, he feels it is musculoskeletal and unclear whether they were palpitations. No lightheadedness or near syncope, no chest pain. Now feels well. Check labs, EKG Chest x-ray Interrogate [employer] pacemaker Reassess, discuss disposition with Dr. Anders. 11/24/16 15:43 trop negative, no events on interrogation of pacemaker. discussed with Dr. Anders, will place on observation for cardiac monitoring/ diuresis. private of Dr. Toney, proceed with obs tele admission. *DC/Admit/Observation/Transfer Diagnosis at time of Disposition: CHF (congestive heart failure) Qualifiers: Congestive heart failure type: systolic Congestive heart failure chronicity: chronic Qualified Code(s): I50.22 - Chronic systolic (congestive) heart failure Acute on chronic renal failure Qualifiers: Acute renal failure type: unspecified Chronic kidney disease stage: unspecified stage Qualified Code(s): N17.9 - Acute kidney failure, unspecified; N18.9 - Chronic kidney disease, unspecified - Referrals Referrals: Willem Toney MD [Primary Care Provider] -
[2016-11-24] MEDS ORDERED: ASPIRIN 325 MG ENTERIC COATED TABLET (FP) ONE (12:24)
[2016-11-24] MEDS ORDERED: SODIUM CHLORIDE 500 ML IV STA (12:34)
--- NOTE | 2016-11-24 17:12 | HP ---
Admitting History and Physical - Admission Chief Complaint: PALPS/ELEVATED BP History of Present Illness: 81 MALE NONSMOKER RECENT NSTEMI HAD CATH AT [facility] RESULTS TO BE OBTAINED. H/O PVD/CAD/ID/CABG/PCI STENT/HTN/LVD SEVERE/S/P ICD/DM2/HPL/EPISTAXSIS. WAS AT HOME YESTERDAY WHEN HE NOTED HIGH BP/FEELING OF BEING FLUSHED/WITH PALPS/ HE TOOK AN EXTRA BP MED AND FELT BETTER. HE WENT TO CARDIO OFFICE WITH THAT HX AND WAS SENT TO ER FOR EVAL. 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: No: Alzheimer's Cardiovascular: Yes: AFIB, CAD, CHF, HTN, Hyperlipdemia, ID Pulmonary: No: Pulmonary Embolus Gastrointestinal: No: Ascites Hepatobiliary: No: Cirrhosis Renal/: No: Renal Failure Heme/Onc: No: Anemia Infectious Disease: No: AIDS Psych: No: Addictions Musculoskeletal: No: Bursitis Rheumatology: No: Fibromyalgia ENT: No: Allergic Rhinitis Endocrine: Yes: Diabetes Mellitus - Past Surgical History Past Surgical History: Yes: AICD, CABG, Stent - Smoking History Smoking history: Former smoker Have you smoked in the past 12 months: No Aproximately how many cigarettes per day: 0 - Alcohol/Substance Use Hx Alcohol Use: No History of Substance Use: reports: None - Social History Usual Living Arrangement: Yes: Alone ADL: Independent History of Recent Travel: No Home Medications - Allergies Allergies/Adverse Reactions: Allergies Allergy/AdvReac Type Severity Reaction Status Date / Time No Known Allergies Allergy Verified 11/24/16 09:50 - Home Medications Home Medications: Ambulatory Orders Furosemide [Lasix -] 40 mg PO DAILY #1 tablet 08/06/12 Metoprolol Succinate [Toprol XL -] 25 mg PO DAILY 12/26/13 Aspirin [ASA -] 81 mg PO DAILY #1 06/20/15 Warfarin Na [Coumadin -] 5 mg PO DAILY@1800 #1 06/20/15 Cilostazol 50 mg PO BID 11/08/16 Glimepiride 2 mg PO DAILY 11/08/16 Aspirin [ASA -] 81 mg PO DAILY tab.chew 11/10/16 Atorvastatin Ca [Lipitor] 80 mg PO HS tablet 11/10/16 Heparin - 1,000 unit IVPUSH PRN PRN #0 vial 11/10/16 Heparin - 5,000 unit IVPUSH PRN PRN #0 vial 11/10/16 Insulin Sliding Scale [Novolog Vial Sliding Scale -] 1 vial SQ ACHS units 11/10 Insulin Sliding Scale [Novolog Vial Sliding Scale -] 1 vial SQ ACHS units 11/10 Metoprolol Succinate [Toprol XL -] 25 mg PO BID #30 tab 11/10/16 Family Disease History - Family Disease History Family History: Unremarkable Review of Systems - Review of Systems Constitutional: denies: Fever Eyes: denies: Blurred Vision HENT: denies: Difficult Swallowing Neck: denies: Decreased ROM Cardiovascular: reports: Palpitations. denies: Chest Pain, Shortness of Breath Respiratory: denies: Cough, SOB on Exertion Gastrointestinal: denies: Abdominal Pain Genitourinary: denies: Burning Breasts: reports: No Symptoms Reported Musculoskeletal: reports: No Symptoms Physical Examination Vital Signs: Vital Signs Temperature 98.1 F 11/24/16 09:47 Pulse Rate 92 H 11/24/16 09:47 Respiratory Rate 18 11/24/16 09:47 Blood Pressure 118/75 11/24/16 09:47 O2 Sat by Pulse Oximetry (%) 98 11/24/16 11:30 Constitutional: Yes: Calm Eyes: Yes: EOM Intact HENT: Yes: Normocephalic Neck: Yes: Trachea Midline Cardiovascular: Yes: Regular Rate and Rhythm Respiratory: Yes: CTA Bilaterally Gastrointestinal: Yes: Normal Bowel Sounds ...Rectal Exam: Yes: Deferred Renal/: Yes: WNL Breast(s): Yes: WNL Musculoskeletal: Yes: WNL Extremities: Yes: WNL Integumentary: Yes: WNL ...Motor Strength: WNL Psychiatric: Yes: WNL Labs: CBC, BMP 11/24/16 11:16 11/24/16 11:16 REST REVIEWED Imaging - Results Chest X-ray: Image Reviewed EKG: Report Reviewed Problem List - Problems (1) Afib Code(s): I48.91 - UNSPECIFIED ATRIAL FIBRILLATION (2) Anticoagulated on Coumadin Code(s): Z51.81 - ENCOUNTER FOR THERAPEUTIC DRUG LEVEL MONITORING Z79.01 - WAFER CLEANER (CURRENT) USE OF ANTICOAGULANTS (3) Biventricular automatic implantable cardioverter defibrillator in situ Code(s): Z95.810 - PRESENCE OF AUTOMATIC (IMPLANTABLE) CARDIAC DEFIBRILLATOR (4) CAD (coronary artery disease) Code(s): I25.10 - ATHSCL HEART DISEASE OF [place] CORONARY ARTERY W/O ANG PCTRS (5) CHF (congestive heart failure) Code(s): I50.9 - HEART FAILURE, UNSPECIFIED Qualifiers: Congestive heart failure type: systolic Congestive heart failure chronicity: chronic Qualified Code(s): I50.22 - Chronic systolic (congestive ) heart failure Assessment/Plan EXTENSIVE CARDIAC HX LISTED PRESENTING WITH PALPS AND ELEVATED BP NO CP/SYNCOPE/SOB/FOCAL WEAKNESS CARDIAC EVAL CYCLE TROPS SERIAL EKG RESUME HOME MEDS/AVOID POTENTIALLY NEPHROTOXIC AGENTS WILL ADMIT TO OBS. Mark FELDMAN MD
--- NOTE | 2016-11-24 17:21 | EKG ---
Test Reason : Blood Pressure : / mmHG Vent. Rate : 089 BPM Atrial Rate : 089 BPM P-R Int : 176 ms QRS Dur : 166 ms QT Int : 432 ms P-R-T Axes : 018 -08 -11 degrees QTc Int : 525 ms Atrial-sensed ventricular-paced rhythm ABNORMAL ECG WHEN COMPARED WITH ECG OF 08-NOV-2016 11:54, PREMATURE VENTRICULAR COMPLEXES ARE NO LONGER PRESENT VENT. RATE HAS DECREASED BY 3 BPM Confirmed by STEPHANIA SCHAEFER MD ([id number]) on 11/24/2016 5:21:20 PM Referred By: Confirmed By:STEPHANIA SCHAEFER MD
[2016-11-24] MEDS ORDERED: ACETAMINOPHEN 325 MG TABLET (FP) PO PRN (17:23)
[2016-11-24] MEDS ORDERED: amLODIPine BESYLATE 5 MG TABLET (FP) PO ONE (17:30)
[2016-11-24] MEDS ORDERED: FUROSEMIDE 40 MG TABLET (FP) PO SCH (17:30)
[2016-11-24] MEDS ORDERED: amLODIPine BESYLATE 5 MG TABLET (FP) PO SCH (17:30)
[2016-11-24] MEDS ORDERED: ATORVASTATIN CA 80 MG TABLET (FP) PO ONE (17:30)
[2016-11-24] MEDS ORDERED: ATORVASTATIN CA 80 MG TABLET (FP) PO SCH (17:30)
[2016-11-24] MEDS ORDERED: FUROSEMIDE 40 MG TABLET (FP) PO ONE (17:30)
[2016-11-24] MEDS: WARFARIN NA 5 MG TABLET (UD) PO SCH (18:19)
[2016-11-24] MEDS: SPIRONOLACTONE 25 MG TABLET (FP) PO SCH (18:19)
[2016-11-24] MEDS ORDERED: WARFARIN NA 5 MG TABLET (UD) ONE (18:20)
[2016-11-24 19:52] LABS: TROPONIN I 0.04 ng/ml (0.00-0.05)
--- NOTE | 2016-11-24 21:05 | CONS ---
DATE OF CONSULTATION: 11/24/2016 TIME OF CONSULTATION: 7:40 p.m. CONSULTATION REQUESTED BY: Willem Toney MD CHIEF COMPLAINT: Palpitations, history of generalized weakness. An 81-year-old gentleman with a history of coronary artery disease, recent known ST-segment elevation myocardial infarction, history of PCI stenting, status post coronary artery bypass grafting, hypertension, hypertensive cardiovascular disease, atrial fibrillation, alk-gbbaaif-djqhoodgu diabetes mellitus, hypertension, hypercholesterolemia, severe left ventricular systolic dysfunction, recurrent congestive heart failure, came to the office to have his INR done and complained of having palpitation described as skips. He also states that he felt tired. There is no history of chest pain or discomfort either at rest or with exertion. No exertional dyspnea, paroxysmal nocturnal dyspnea, or orthopnea reported. No history of sustained palpitations. Patient states the symptoms started since the change in medication while he was recently at [facility] for cardiac catheterization. PAST HISTORY: As mentioned in the history of present illness. SURGICAL HISTORY: Status post coronary artery bypass grafting, status post mitral valvuloplasty, status post PCI/stenting, status post ICD for primary prophylaxis. SOCIAL HISTORY: . Nonsmoker. Denies use of alcohol. FAMILY HISTORY: Apparently a history of coronary artery disease. Prior to admission, his medications were as follows: 1. Lasix 40 mg p.o. daily. 2. Aspirin 81 mg p.o. daily. 3. Warfarin 5 mg p.o. daily. Doses being adjusted according to INR. 4. Actos 2 mg p.o. daily before meals. 5. Atorvastatin 80 mg p.o. daily. 6. Amlodipine 5 mg p.o. daily. 7. Carvedilol 6.25 mg p.o. b.i.d. 8. Entresto 24/26 mg 1 p.o. b.i.d. 9. Spironolactone 25 mg p.o. daily. REVIEW OF SYSTEMS: HEENT: No history of headaches, diplopia, blurred vision. No history of epistaxis, hoarseness, tinnitus or deafness reported. Cardiovascular: See history of present illness. Respiratory: See history of present illness. No history of recent cough, expectoration or hemoptysis. Gastrointestinal: No history of nausea, vomiting, melena, or hematemesis. No history of abdominal pain or discomfort. Neurological: No history of seizures or syncope. No focal weakness. History of lightheadedness. Musculoskeletal: No history of myalgias or arthralgias reported. EXAMINATION: General: An 81-year-old gentleman who is in no acute distress. No pallor, cyanosis, clubbing, or jaundice. Vital Signs: Weight is not available. Blood pressure 135/80 mmHg. Pulse 80 beats per minute, regular. Afebrile. Respirations were 18 per minute. Neck: Supple. No jugular venous distention. Carotids were equal and upstrokes were normal. No bruits were heard. No thyromegaly was present. Heart: PMI was in the 5th intercostal space. No heaves or thrills. S1 and S2 are normal. Grade 1/6 apical systolic murmur was heard. Lungs: Clear on auscultation. Abdomen: Protuberant, soft and nontender. No hepatosplenomegaly or palpable masses were felt. Extremities: No calf tenderness or dependent edema. LABORATORY DATA: CBC: WBC count 10,200, hemoglobin 15.8 g, platelet count 281,000. Chemistry: Sodium 134, potassium 4.7, chloride 99, CO2 28 mmol/L, BUN 36, creatinine 1.9 mg/dL. BNP 2106.08. Troponin was 0.04. IMPRESSION: 1. Palpitations, related to arrhythmias, type to be determined. 2. Congestive heart failure, [place] Heart classification 2. 3. Coronary artery disease, status post coronary artery bypass grafting, status post percutaneous coronary intervention/stenting. 4. Recent dki-WL-roecjca elevation myocardial infarction, complicated by acute left ventricular failure. 5. Hypertension, hypertensive cardiovascular disease. 6. Status post implantable cardioverter-defibrillator for primary prophylaxis. 7. Hypercholesterolemia. 8. Vzr-yjshgms-kwopqovyx diabetes mellitus. 9. Chronic kidney disease. 10. Poor dietary compliance. RECOMMENDATIONS: 1. The recent addition of Entresto may be causing some of his symptoms and could be discontinued. 2. Continue all over medications including spironolactone. 3. Check blood pressure supine and standing. 4. Patient may require cautious hydration. 5. Counseled regarding dietary restrictions. 6. Holter monitor. PROGNOSIS: Guarded. Thank you for your referral. Yours sincerely, STEPHANIA SCHAEFER M.D. [id number]
[2016-11-24] MEDS: CARVEDILOL 6.25 MG TABLET (FP) PO SCH (22:02)
[2016-11-24 22:28] VITALS: BMI 31.3
[2016-11-25] MEDS ORDERED: GLIMEPIRIDE 2 MG TABLET (FP) PO SCH (07:00)
[2016-11-25] MEDS: CARVEDILOL 6.25 MG TABLET (FP) PO SCH (09:49)
[2016-11-25] MEDS: SPIRONOLACTONE 25 MG TABLET (FP) PO SCH (09:49)
--- NOTE | 2016-11-25 13:38 | PN ---
Physical Exam: SUBJECTIVE: Patient seen and examined at bedside. Pt has no complaints at this time. Pt would like to go home. Denies headache, cp, sob, abd pain, fever. OBJECTIVE: Vital Signs Period Temp Pulse Resp BP Sys/Mock Pulse Ox Last 24 Hr 97.8 F-98 F 73-87 18-20 94-151/55-81 95-98 GENERAL: The patient is awake, alert, and fully oriented, in no acute distress. HEAD: Normal with no signs of trauma. EYES: sclera anicteric, conjunctiva clear. No ptosis. ENT: nares patent, oropharynx clear without exudates, moist mucous membranes. NECK: Trachea midline, full range of motion, supple. LUNGS: Breath sounds equal, clear to auscultation bilaterally, no wheezes, no crackles, no accessory muscle use. HEART: Regular rate and rhythm, S1, S2 without murmur, rub or gallop. ABDOMEN: Obese, Soft, nontender, nondistended, normoactive bowel sounds, no guarding, no rebound, no hepatosplenomegaly, no masses. EXTREMITIES: 1+ pulses, cool, mottled skin, no tenderness. Pt reports no pain with walking. no edema. NEUROLOGICAL: Normal speech, gait not observed. PSYCH: Normal mood, normal affect. SKIN: Warm, dry, normal turgor, no rashes or lesions noted Laboratory Results - last 24 hr 11/24/16 11/25/16 17:34 05:51 POC Glucometer 121 Creatine Kinase 54 Troponin I 0.04 Active Medications Generic Name Dose Route Start Last Admin Trade Name Freq PRN Reason Stop Dose Admin Acetaminophen 650 mg 11/24/16 17:23 Tylenol - PO Q6H PRN HEADACHE Carvedilol 6.25 mg 11/24/16 22:00 11/25/16 09:49 Coreg - PO 6.25 mg BID ARIANA Administration Glimepiride 2 mg 11/25/16 07:00 11/25/16 06:33 Amaryl - PO 2 mg DAILY@0700 ARIANA Administration Spironolactone 25 mg 11/24/16 17:30 11/25/16 09:49 Aldactone - PO 25 mg DAILY ARIANA Administration Warfarin Sodium 5 mg 11/24/16 18:00 11/24/16 18:19 Coumadin - PO 5 mg DAILY@1800 ARIANA Administration ASSESSMENT/PLAN: 81 M w/ extensive cardiac history who was sent to ED by outpt cardio due to new onset palpitations and high BP. Pt was admitted to tele/obs for cardiac workup and r/o MN. #Cardiac workup r/o MN -Hx CAD w/ stents & BiV AICD -symptoms have resolved -CXR showed stable cardiomegally and minor possible left sided effusion -Tn neg x2 -Ck neg -pending cardio consult recommendations #CHF -stable -no Sx, no lung crackles, no pedal edema -BNP 2106 #AF -On AC -INR therapeutic #HTN -continue home meds #DM -cont management Sven Aquino MD PGY-1 Visit type - Emergency Visit Emergency Visit: No - New Patient This patient is new to me today: Yes Date on this admission: 11/25/16 - Critical Care Critical Care patient: No - Discharge Referral Referred to [facility] Med P.C.: No
[2016-11-25 14:20] VITALS: BP 131/84; PULSE 75; TEMP 97.6
--- NOTE | 2016-11-25 14:50 | PN ---
Teaching Attending Note Name of Resident: Sven Aquino ATTENDING PHYSICIAN STATEMENT I saw and evaluated the patient. I reviewed the resident's note and discussed the case with the resident. I agree with the resident's findings and plan as documented. AWAITING INPUT FROM CARDIOLOGY. Mark FELDMAN MD Problem List - Problems (1) Afib Code(s): I48.91 - UNSPECIFIED ATRIAL FIBRILLATION (2) Anticoagulated on Coumadin Code(s): Z51.81 - ENCOUNTER FOR THERAPEUTIC DRUG LEVEL MONITORING Z79.01 - HEAD OF CONSERVATION (CURRENT) USE OF ANTICOAGULANTS (3) Biventricular automatic implantable cardioverter defibrillator in situ Code(s): Z95.810 - PRESENCE OF AUTOMATIC (IMPLANTABLE) CARDIAC DEFIBRILLATOR (4) CAD (coronary artery disease) Code(s): I25.10 - ATHSCL HEART DISEASE OF [place] CORONARY ARTERY W/O ANG PCTRS (5) CHF (congestive heart failure) Code(s): I50.9 - HEART FAILURE, UNSPECIFIED Qualifiers: Congestive heart failure type: systolic Congestive heart failure chronicity: chronic Qualified Code(s): I50.22 - Chronic systolic (congestive ) heart failure
[2016-11-25] MEDS: WARFARIN NA 5 MG TABLET (UD) PO SCH ×2 (17:37→18:19)
--- NOTE | 2016-11-25 17:51 | PN ---
Progress Note (short form) - Note Progress Note: S: 81 year old [facility] male with H/O CAD,S/P MS.S/P CABG,recent NSTEMI,acute LV failure,recent coronary angio. All the grafts were occluded except CISNEROS. H/O NIDDM,hypertension,hypercholesterlemia,severe LV systolic dysfunction recurring LV failure,S/P ICD,Since his discharge from [facility] he has intermitent palpitations weakness and Entresto wwas added prior to discharge.He has no further symptomsand has been of the medication. No chest pain or discomfort,no FAYE,PND or orthopnea. Active Medications Acetaminophen (Tylenol -) 650 mg PO Q6H PRN PRN Reason: HEADACHE Carvedilol (Coreg -) 6.25 mg PO BID [facility] Last Admin: 11/25/16 09:49 Dose: 6.25 mg Glimepiride (Amaryl -) 2 mg PO DAILY@0700 [facility] Last Admin: 11/25/16 06:33 Dose: 2 mg Spironolactone (Aldactone -) 25 mg PO DAILY [facility] Last Admin: 11/25/16 09:49 Dose: 25 mg Warfarin Sodium (Coumadin -) 5 mg PO DAILY@1800 [facility] Last Admin: 11/24/16 18:19 Dose: 5 mg 81 year old male in no distress,no pallor,cyanosis,clubbing or jaundice. Vital Signs - 8 hr 11/25/16 11/25/16 11:11 14:00 Temperature 97.9 F 97.6 F Pulse Rate 77 75 Respiratory 18 Rate Blood Pressure 94/56 131/84 O: NECK: Supple, no JVD,-VE HJR, carotids 2+,no bruits or thyromegaly. HEART: PMI was in the 5th ICS,no heaves or thrills,grade I/ systolic murmur at the apex.No gallops were heard. LUNGS: Clear on auscultation. ABDOMEN: Soft,nontender,obese.No hepatosplenomegaly,no palpable masses. EXTREMITIES: No calf tenderness or dependent edema. CBC, BMP 11/24/16 11:16 11/24/16 11:16 A: 1. CAD,S/Precenr NSTEMI. 2. S/P acute LV failure secondary to #1. 3. Severe LV systolic dysfunction. 4. NIDDM. 5. Hyperten8.maricruz. 6. S/P ICD for primary prophylaxis. 7. CKD, secondary to # 4. 8. Poor compliance. 10. Atrial fib. 11. Weakness, fatique etc.probably related to medication. RECOMMENDATION: 1: Resume lasix. 2. Repeat BMP. 3. Counceled regarding diet and salt restriction. 4. Dose of Aldactone could be increased to 25mg.BID under close observation. 5. Dose of Coreg can be icreased slow and to tolerance. 6. Discherge when medically stable.
== END 2016-11-25 19:00 | disposition home or self-care (01) ==
LOC: JER 09:43 → JERBED 17:04 → J4W 21:21
PROVIDERS: ADMIT Specialist; ATTEND Specialist
PROC: 3E0337Z Introduction of Electrolytic and Water Balance Substance into Peripheral Vein, Percutaneous Approach (ICD-10-PCS; principal; 2016-11-24)
DX: I50.22 Chronic systolic (congestive) heart failure (principal); N17.9 Acute kidney failure, unspecified; I10 Essential (primary) hypertension; I25.10 Atherosclerotic heart disease of native coronary artery without angina pectoris; I25.2 Old myocardial infarction; I50.9 Heart failure, unspecified; I48.91 Unspecified atrial fibrillation; E78.5 Hyperlipidemia, unspecified; E11.9 Type 2 diabetes mellitus without complications; I73.9 Peripheral vascular disease, unspecified; Z79.82 Long term (current) use of aspirin; Z79.01 Long term (current) use of anticoagulants; Z95.1 Presence of aortocoronary bypass graft; Z95.5 Presence of coronary angioplasty implant and graft; Z79.4 Long term (current) use of insulin; Z95.810 Presence of automatic (implantable) cardiac defibrillator; Z91.14 Patient's other noncompliance with medication regimen
CPT/HCPCS: 36415; 71010-TC; 80053; 83735; 83880; 84484; 85025; 85610; 93005; 93010; 99285-25; G0378

== ENCOUNTER 2017-06-03 18:31 | Inpatient (IN) | payer OTHER ==
--- NOTE | 2017-06-03 18:46 | PDOC ---
Rapid Medical Evaluation Time Seen by Provider: 06/03/17 18:44 Medical Evaluation: Allergies Allergy/AdvReac Type Severity Reaction Status Date / Time No Known Allergies Allergy Verified 11/24/16 09:50 06/03/17 18:48 This is an 82 year old male with CAD, s/p NE s/p CABG, recent NSTEMI, CHF (LV systolic dysfunction), PPM/AICD, NIDDM, HTN, HLD presenting with SOB, abdominal "pressure." Speaking full sentences, no respiratory distress. BP here 163/123 -EKG -CXR -Labs including CBC, CMP, PT/INR, cardiac profile, BNP -To Main ED for further evaluation
[2017-06-03 20:16] LABS: BASO % 0.9 % (0-2.0); EOS % 1.8 % (0-4.5); HEMATOCRIT 46.8 % (35.4-49); HEMOGLOBIN 15.6 GM/dL (11.7-16.9); LYMPH % 15.2 % (8-40); MCH 27.1 pg (25.7-33.7); MCHC 33.3 g/dl (32.0-35.9); MEAN CELL VOLUME 81.6 fl (80-96); MEAN PLT VOLUME 8.9 fl (7.5-11.1); MONO % 5.7 % (3.8-10.2); NEUT % 76.4 % (42.8-82.8); PLATELET COUNT 257 K/MM3 (134-434); RBC 5.74 M/mm3 (4.00-5.60); RDW 15.6 % (11.9-15.9)
[2017-06-03 20:31] LABS: INR 2.58 (0.82-1.09); PROTHROMBIN TIME (PATIENT) 29.2 SEC (9.98-11.88)
[2017-06-03 20:43] LABS: ALBUMIN 3.6 g/dl (3.4-5.0); ANION GAP 9 (8-16); BLOOD UREA NITROGEN 33 mg/dL (7-18); CALCIUM 8.4 mg/dL (8.5-10.1); CHLORIDE 99 mmol/L (98-107); CO2 26 mmol/L (21-32); CREATININE 1.7 mg/dL (0.7-1.3); GLUCOSE,RANDOM 160 mg/dL (74-106); POTASSIUM 4.1 mmol/L (3.5-5.1); SGOT/AST 15 U/L (15-37); SGPT/ALT 16 U/L (12-78); SODIUM 134 mmol/L (136-145)
[2017-06-03 20:47] LABS: ALK PHOS 64 U/L (45-117); BILIRUBIN,TOTAL 0.5 mg/dL (0.2-1.0); N-TERMINAL BNP 3978.65 pg/ml (5-450); TOT PROT 7.5 g/dl (6.4-8.2)
--- NOTE | 2017-06-03 21:52 | PDOC ---
History of Present Illness - General History Source: Patient <WilfredpazSpencer - Last Filed: 06/03/17 22:10> - General History Source: Patient Exam Limitations: No Limitations - History of Present Illness Initial Comments: 06/03/17 22:32 This is an 82 year old male with CAD, s/p [place] s/p CABG, recent NSTEMI, CHF (LV systolic dysfunction), PPM/AICD, NIDDM, HTN, HLD presenting with SOB and dizziness. The patient reports that he has been experiencing shortness of breath and dizziness for the past couple of weeks. His symptoms last for a few minutes before resolving on its own. The patient became concerned when his symptoms began to last longer than a few minutes. He also reports abdominal bloating. The patient denies any fever, chills, nausea, vomiting, diarrhea, or abdominal pain. Denies shortness of breath or chest pain. Allergies: NKA Social History: No reported tobacco, alcohol, or drug use. Surgical History: CABG x 3, Stent X 1 , Pacemaker PCP: Dr. Toney <Deirdre Vallejo - Last Filed: 06/03/17 22:41> - General Chief Complaint: Shortness of Breath Stated Complaint: SHORTNESS OF BREATH, HTN Time Seen by Provider: 06/03/17 18:44 Past History - Past Medical History Anemia: No Cardiac Disorders: Yes (A. Fib, CAD, [place], BYPASS, MITRAL VALVULOPLASTY) COPD: No HTN: Yes Hypercholesterolemia: Yes - Surgical History Cardiac Surgery: Yes (CABG x 3, Stent X 1 , Pacemaker) - Immunization History Immunization Up to Date: Yes - Suicide/Smoking/Psychosocial Hx Smoking Status: No Smoking History: Never smoked Have you smoked in the past 12 months: No Number of Cigarettes Smoked Daily: 0 Information on smoking cessation initiated: No Hx Alcohol Use: No Drug/Substance Use Hx: No Substance Use Type: None <Spencer Johnson - Last Filed: 06/03/17 22:10> <Deirdre Vallejo - Last Filed: 06/03/17 22:41> - Past Medical History Allergies/Adverse Reactions: Allergies Allergy/AdvReac Type Severity Reaction Status Date / Time No Known Allergies Allergy Verified 11/24/16 09:50 Home Medications: Ambulatory Orders Furosemide [Lasix -] 40 mg PO DAILY #1 tablet 08/06/12 Aspirin [ASA -] 81 mg PO DAILY #1 06/20/15 Warfarin Na [Coumadin -] 5 mg PO DAILY@1800 #1 06/20/15 Glimepiride 2 mg PO DAILY 11/08/16 Atorvastatin Ca [Lipitor] 80 mg PO HS tablet 11/10/16 Amlodipine Besylate [Norvasc -] 5 mg PO DAILY 11/24/16 Carvedilol 6.25 mg PO BID 11/24/16 Sacubitril/Valsartan [Entresto 24 mg-26 mg Tablet] 1 each PO BID 11/24/16 Spironolactone [Aldactone] 25 mg PO DAILY 11/24/16 Review of Systems - Review of Systems Able to Perform ROS?: Yes Comments:: 06/03/17 22:35 CONSTITUTIONAL: Absent: fever, chills, diaphoresis, generalized weakness, malaise, loss of appetite HEENT: Absent: rhinorrhea, nasal congestion, throat pain, throat swelling, difficulty swallowing, mouth swelling, ear pain, eye pain, visual Changes CARDIOVASCULAR: Absent: chest pain, syncope, palpitations, irregular heart rate, lightheadedness , peripheral edema RESPIRATORY: Present: Shortness of breaht Absent: cough, dyspnea with exertion, orthopnea, wheezing, stridor, hemoptysis GASTROINTESTINAL: Present: abdominal distension Absent: abdominal pain, nausea, vomiting, diarrhea, constipation, melena, hematochezia GENITOURINARY: Absent: dysuria, frequency, urgency, hesitancy, hematuria, flank pain, genital pain MUSCULOSKELETAL: Absent: myalgia, arthralgia, joint swelling SKIN: Absent: rash, itching, pallor HEMATOLOGIC/IMMUNOLOGIC: Absent: easy bleeding, easy bruising, lymphadenopathy, frequent infections ENDOCRINE: Absent: unexplained weight gain, unexplained weight loss, heat intolerance, cold intolerance NEUROLOGIC: Present: dizziness Absent: headache, focal weakness or paresthesias, unsteady gait, seizure, mental status changes, bladder or bowel incontinence PSYCHIATRIC: Absent: anxiety, depression, suicidal or homicidal ideation, hallucinations. <Deirdre Vallejo - Last Filed: 06/03/17 22:41> *Physical Exam - Vital Signs Last Vital Signs Temp Pulse Resp BP Pulse Ox 97.7 F 101 H 19 163/123 95 06/03/17 18:45 06/03/17 18:45 06/03/17 18:45 06/03/17 18:45 06/03/17 18:45 <Spencer Johnson - Last Filed: 06/03/17 22:10> - Vital Signs Last Vital Signs Temp Pulse Resp BP Pulse Ox 97.7 F 101 H 19 163/123 95 06/03/17 18:45 18 18:45 06/03/17 18:45 06/03/17 18:45 06/03/17 18:45 - Physical Exam Comments: 06/03/17 22:39 GENERAL: Well developed, well nourished. Awake and alert. No acute distress. HEENT: Normocephalic, atraumatic. PERRLA, EOMI. No conjunctival pallor. Sclera are non- icteric. Moist mucous membranes. Oropharynx is clear. NECK: Supple. Full ROM. No JVD. Carotid pulses 2+ and symmetric, without bruits. No thyromegaly. No lymphadenopathy. CARDIOVASCULAR: (+)Irregularly irregular. No murmurs, rubs, or gallops. Distal pulses are 2+ and symmetric. PULMONARY: Lung sounds decreased at bases, no crackles. ABDOMINAL: Soft. Non-tender. Non-distended. No rebound or guarding. No organomegaly. Normoactive bowel sounds. MUSCULOSKELETAL Normal range of motion at all joints. No bony deformities or tenderness. No CVA tenderness. EXTREMITIES: (+)+1 bilateral lower extremity edema. No cyanosis. No clubbing. No calf tenderness. SKIN: Warm and dry. Normal capillary refill. No rashes. No jaundice. NEUROLOGICAL: Alert, awake, appropriate. PSYCHIATRIC: Cooperative. Good eye contact. Appropriate mood and affect. <Deirdre Vallejo - Last Filed: 06/03/17 22:41> ED Treatment Course - LABORATORY CBC & Chemistry Diagram: 06/03/17 19:45 06/03/17 19:45 - ADDITIONAL ORDERS Additional order review: Laboratory Results 06/03/17 06/03/17 19:45 19:45 PT with INR 29.20 H INR 2.58 H Sodium 134 L Potassium 4.1 Chloride 99 Carbon Dioxide 26 Anion Gap 9 BUN 33 H Creatinine 1.7 H Creat Clearance w eGFR 38.88 Random Glucose 160 H Calcium 8.4 L Total Bilirubin 0.5 AST 15 ALT 16 D Alkaline Phosphatase 64 Creatine Kinase 77 Troponin I 0.05 B-Natriuretic Peptide 3978.65 H Total Protein 7.5 Albumin 3.6 06/03/17 19:45 RBC 5.74 H MCV 81.6 MCHC 33.3 RDW 15.6 MPV 8.9 Neutrophils % 76.4 Lymphocytes % 15.2 D Monocytes % 5.7 Eosinophils % 1.8 Basophils % 0.9 <Spencer Johnson - Last Filed: 06/03/17 22:10> - LABORATORY CBC & Chemistry Diagram: 06/03/17 19:45 06/03/17 19:45 - ADDITIONAL ORDERS Additional order review: Laboratory Results 06/03/17 06/03/17 19:45 19:45 PT with INR 29.20 H INR 2.58 H Sodium 134 L Potassium 4.1 Chloride 99 Carbon Dioxide 26 Anion Gap 9 BUN 33 H Creatinine 1.7 H Creat Clearance w eGFR 38.88 Random Glucose 160 H Calcium 8.4 L Total Bilirubin 0.5 AST 15 ALT 16 D Alkaline Phosphatase 64 Creatine Kinase 77 Troponin I 0.05 B-Natriuretic Peptide 3978.65 H Total Protein 7.5 Albumin 3.6 06/03/17 19:45 RBC 5.74 H MCV 81.6 MCHC 33.3 RDW 15.6 MPV 8.9 Neutrophils % 76.4 Lymphocytes % 15.2 D Monocytes % 5.7 Eosinophils % 1.8 Basophils % 0.9 <Deirdre Vallejo - Last Filed: 06/03/17 22:41> *DC/Admit/Observation/Transfer - Discharge Dispostion Admit: Yes <Spencer Johnson - Last Filed: 06/03/17 22:10> - Attestations Scribe Attestion: 06/03/17 22:41 Documentation prepared by Deirdre Vallejo, acting as medical concierge for Spencer Johnson MD. <Deirdre Vallejo - Last Filed: 06/03/17 22:41> Diagnosis at time of Disposition: CHF (congestive heart failure), CHF exacerbation - Discharge Dispostion Condition at time of disposition: Stable - Referrals Referrals: Willem Toney MD [Primary Care Provider] - - Patient Instructions - Post Discharge Activity
[2017-06-03] MEDS ORDERED: FUROSEMIDE 40 MG/4 ML INJECTABLE VIAL IVPUSH ONE (23:00)
--- NOTE | 2017-06-04 00:39 | HP ---
CHIEF COMPLAINT: CHF exacerbation PCP: Dr. Toney HISTORY OF PRESENT ILLNESS: 82 y/o M with PMH CAD s/p OK, stent (2005), s/p CABG, recent NSTEMI, CHF (LV systolic dysfunction), defibrillator/pacemaker placement (2009; last interrogated 2-3 weeks ago. Left card at home), HTN, HLD, DM, who presents to the ED c/o SOB and abdominal pressure over one hour. As per pt, he was resting at home when he developed SOB initially on exertion with movement, and later while at rest, so much so that he was "unable to breathe." During this time, pt also endorsed increased abdominal pressure which felt as if he had "increased fluid" weighing on him. Pt has been compliant with his daily lasix (40mg ) and takes Entresto, however he believes that his Entresto is not working adequately. His last ECHO was done 6 months ago at [facility]. He follows with Dr. Caldwell for Cardio. Pt also c/o dizziness, but otherwise denies HANEY, fever, chills, chest pain or pressure, lower extremity edema, or changes in urinary or bowel function. 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 Smoking: quit smoking cigarettes in 1963. Had smoked for 2 yrs, 1 ppd. Alcohol: socially Drugs: denies Family History: brothers- heart condition, mother- CHF, father- stroke, ? pulmonary edema, ?CHF Allergies No Known Allergies Allergy (Verified 11/24/16 09:50) HOME MEDICATIONS: Home Medications Medication Instructions Recorded Furosemide [Lasix -] 40 mg PO DAILY #1 tablet 08/06/12 Aspirin [ASA -] 81 mg PO DAILY #1 06/20/15 Warfarin Na [Coumadin -] 5 mg PO DAILY@1800 #1 06/20/15 Glimepiride 2 mg PO DAILY 11/08/16 Atorvastatin Ca [Lipitor] 80 mg PO HS tablet 11/10/16 Amlodipine Besylate [Norvasc -] 5 mg PO DAILY 11/24/16 Carvedilol 6.25 mg PO BID 11/24/16 Sacubitril/Valsartan [Entresto 24 1 each PO BID 11/24/16 mg-26 mg Tablet] Spironolactone [Aldactone] 25 mg PO DAILY 11/24/16 REVIEW OF SYSTEMS CONSTITUTIONAL: Absent: fever, chills, diaphoresis, generalized weakness, malaise, loss of appetite, weight change HEENT: Absent: rhinorrhea, nasal congestion, throat pain, throat swelling, difficulty swallowing, mouth swelling, ear pain, eye pain, visual changes CARDIOVASCULAR: Absent: chest pain, syncope, palpitations, irregular heart rate, lightheadedness , peripheral edema RESPIRATORY: +SOB, dyspnea on exertion Absent: cough, shortness of breath, dyspnea with exertion, orthopnea, wheezing, stridor, hemoptysis GASTROINTESTINAL: +abdominal pressure Absent: abdominal pain, abdominal distension, nausea, vomiting, diarrhea, constipation, melena, hematochezia GENITOURINARY: Absent: dysuria, frequency, urgency, hesitancy, hematuria, flank pain, genital pain MUSCULOSKELETAL: Absent: myalgia, arthralgia, joint swelling, back pain, neck pain SKIN: Absent: rash, itching, pallor HEMATOLOGIC/IMMUNOLOGIC: Absent: easy bleeding, easy bruising, lymphadenopathy, frequent infections ENDOCRINE: Absent: unexplained weight gain, unexplained weight loss, heat intolerance, cold intolerance NEUROLOGIC: Absent: headache, focal weakness or paresthesias, dizziness, unsteady gait, seizure, mental status changes, bladder or bowel incontinence PSYCHIATRIC: Absent: anxiety, depression, suicidal or homicidal ideation, hallucinations. PHYSICAL EXAMINATION Vital Signs 06/03/17 18:45 Temperature 97.7 F Pulse Rate 101 H Respiratory 19 Rate Blood Pressure 163/123 O2 Sat by Pulse 95 Oximetry (%) GENERAL: Pleasant gentleman. Sitting comfortably in bed. Awake, alert, and fully oriented, in no acute distress. HEAD: Normal with no signs of trauma. EYES: Pupils equal, round and reactive to light, extraocular movements intact, sclera anicteric, conjunctiva clear. EARS, NOSE, THROAT: Ears normal, nares patent, oropharynx clear without exudates. Moist mucous membranes. NECK: Normal range of motion, supple without lymphadenopathy, JVD, or masses. LUNGS: mild crackles appreciated at lung bases b/l. no rhonchi or wheezes. No accessory m. usage. HEART: Paced rate and rhythm, normal S1 and S2 without murmur, rub or gallop. ABDOMEN: Soft, nontender, not distended, normoactive bowel sounds, no guarding, no rebound, no masses. LOWER EXTREMITIES: 2+ posterior tibial pulses, warm, well-perfused. No calf tenderness. 1+ pitting edema b/l. NEUROLOGICAL: Cranial nerves II-XII intact. Normal speech. Laboratory Results 06/03/17 06/03/17 06/03/17 19:45 19:45 19:45 WBC 12.0 H RBC 5.74 H Hgb 15.6 Hct 46.8 MCV 81.6 MCH 27.1 MCHC 33.3 RDW 15.6 Plt Count 257 MPV 8.9 Neutrophils % 76.4 Lymphocytes % 15.2 D Monocytes % 5.7 Eosinophils % 1.8 Basophils % 0.9 PT with INR 29.20 H INR 2.58 H Sodium 134 L Potassium 4.1 Chloride 99 Carbon Dioxide 26 Anion Gap 9 BUN 33 H Creatinine 1.7 H Creat Clearance w eGFR 38.88 Random Glucose 160 H Calcium 8.4 L Total Bilirubin 0.5 AST 15 ALT 16 D Alkaline Phosphatase 64 Creatine Kinase 77 Troponin I 0.05 B-Natriuretic Peptide 3978.65 H Total Protein 7.5 Albumin 3.6 CXR: cardiomegaly, with congestion, blunting of L costophrenic angle - fluid. await official report EKG: paced rhythm, QRS 160ms, QTc 529 however paced rhythm, likely unreliable Qtc. ASSESSMENT/PLAN: 82 y/o M with PMH CAD s/p OK, stent (2005), s/p CABG, recent NSTEMI, CHF (LV systolic dysfunction), defibrillator/pacemaker placement (2009; last interrogated 2-3 weeks ago. Left card at home), HTN, HLD, DM, who presents to the ED c/o SOB and abdominal pressure over one hour. Pt admitted to telemetry for acute CHF exacerbation. #Acute CHF exacerbation -CXR with evidence of L pl effusion, cardiomegaly, congestion -Daily weights -Strict I's and O's -Sodium controlled to 2g/Fluid restricted -Received Lasix 60mg IVP x 1 in ED -To start on Lasix 40mg IVP BID starting tomorrow -Retrieve ECHO report from [facility] -Continue Entresto -Cardio consult: Dr. Caldwell -Trend trops q6h #TONY -Bump in Cr 1.7 likely 2/2 CHF -U osm, s osm, urine lytes -Should resolve with adequate diuresis #CAD s/p OK, stent (2005), CABG -Continue aspirin 81mg qd #HTN- currently uncontrolled -Most likely 2/2 stress, pt worried -Continue amlodipine 5mg PO, carvedilol 6.5 mg PO BID -Reassess in AM whether needs alteration #HLD -Continue lipitor 80mg PO HS qd #DM -Holding home oral agents -ISS ACHS -BGM #F/E/N Avoid fluids Follow electrolytes Sodium controlled diet #PPX DVT: SCD's, early amb #Dispo Telemetry monitoring Visit type - Emergency Visit Emergency Visit: Yes ED Registration Date: 06/03/17 Care time: The patient presented to the Emergency Department on the above date and was hospitalized for further evaluation of their emergent condition. - New Patient This patient is new to me today: Yes Date on this admission: 06/04/17 - Critical Care Critical Care patient: No Hospitalist Screening - Colonoscopy Questionnaire Colonoscopy Questionnaire: Colonoscopy Questionnaire - Patient: 50 - 75 years old and never had a screening colonoscopy: Unknown History of colon or rectal polyps, or CA: Unknown History of IBD, Crohn's disease or UC: Unknown History of abdominal radiation therapy as a child: Unknown - Relative: 1 with colon or rectal CA, or polyps at age 60 or younger: Unknown Colon or rectal CA diagnosed at age 45 or younger: Unknown Multiple relatives with colon or rectal CA: Unknown - Outcome: Screening Result: Negative Screen
[2017-06-04] MEDS ORDERED: CARVEDILOL 3.125 MG TABLET (FP) ONE (00:54)
[2017-06-04] MEDS ORDERED: FUROSEMIDE 40 MG/4 ML INJECTABLE VIAL ONE (00:55)
[2017-06-04] MEDS: CARVEDILOL 6.25 MG TABLET (FP) PO SCH ×3 (01:08→22:18)
--- NOTE | 2017-06-04 03:31 | PN ---
Teaching Attending Note Name of Resident: Chasidy Hurtado ATTENDING PHYSICIAN STATEMENT I saw and evaluated the patient. I reviewed the resident's note and discussed the case with the resident. I agree with the resident's findings and plan as documented. SUBJECTIVE: 82M pmh systolic heart failure , CAD, CABG, recent NSTEMI presents with worsening SOB and abdominal distention. OBJECTIVE: lungs: mild bibasilar crackles CV: RRR no m/r/g Acd: soft, NTND Cr 1.7 at baseline INR 2.5 therapeutic BNP 4000 ASSESSMENT AND PLAN: 82M with decompensated heart failure obtain recent ECHO done at [facility] IV lasix 40q12 continue entresto coreg lipitor aspirin Cardiology consult trend troponins rule out ACS continue coumadin to maintain therapeutic INR
[2017-06-04 04:31] VITALS: BMI 31.5
[2017-06-04] MEDS: INSULIN SLIDING SCALE (NOVOLOG) 1 VIAL SQ SCH ×4 (06:25→22:00)
[2017-06-04] MEDS: FUROSEMIDE 40 MG/4 ML INJECTABLE VIAL IVPUSH SCH ×2 (06:47→14:36)
--- NOTE | 2017-06-04 07:14 | PN ---
Physical Exam: SUBJECTIVE: Patient seen and examined by me this AM - No major events. States breathing improved. improving abdominal distension/ fullness per pt. No CP/tightness, SOB, cough, f/c/n/v/d. States he never had any leg swelling, orthopnea/PND; able to tolerate one block before becoming sob , no change in that; Denies claudications - States that he was recently switch to entresto, believes his BP has been more volatile on this med; states he check his BP at home yesterday and it was in the 160-170s systolic, 110s diastolic OBJECTIVE: Vital Signs Intake & Output 06/01/17 06/02/17 06/03/17 06/04/17 23:59 23:59 23:59 23:59 Output Total 200 Balance -200 Weight 89.358 kg 88.592 kg Period Temp Pulse Resp BP Sys/Mock Pulse Ox Last 24 Hr 97.6 F-98.0 F 74-101 18-20 133-163/78-123 95-96 GENERAL: The patient is awake, alert, and fully oriented, in no acute distress. Elderly man laying in bed. A&Ox3 HEAD: Normal with no signs of trauma. EYES: PERRL, extraocular movements intact, sclera anicteric, conjunctiva clear. No ptosis. ENT: JVD noted 4cm below mandible. Ears normal, nares patent, oropharynx clear without exudates, moist mucous membranes. NECK: Trachea midline, full range of motion, supple. LUNGS: Breath sounds equal, no wheezes, trace crackles at bases, no accessory muscle use. HEART: Regular rate and rhythm, S1, S2 without murmur, rub or gallop. ABDOMEN: +HJR. Soft, nontender, slight distension, normoactive bowel sounds, no guarding, no rebound, appreciable hepatomegaly, no masses. EXTREMITIES: 1+ pulses, warm, well-perfused, no edema. BL mild stasis dermatitis to mid weller. NEUROLOGICAL: Cranial nerves II through XII grossly intact. Normal speech, gait not observed. PSYCH: Normal mood, normal affect. SKIN: Warm, dry, normal turgor, no rashes or lesions noted Laboratory Results - last 24 hr CBC, BMP 06/03/17 19:45 06/03/17 19:45 06/03/17 06/03/17 06/03/17 19:45 19:45 19:45 WBC 12.0 H RBC 5.74 H Hgb 15.6 Hct 46.8 MCV 81.6 MCH 27.1 MCHC 33.3 RDW 15.6 Plt Count 257 MPV 8.9 Neutrophils % 76.4 Lymphocytes % 15.2 D Monocytes % 5.7 Eosinophils % 1.8 Basophils % 0.9 PT with INR 29.20 H INR 2.58 H Sodium 134 L Potassium 4.1 Chloride 99 Carbon Dioxide 26 Anion Gap 9 BUN 33 H Creatinine 1.7 H Creat Clearance w eGFR 38.88 Random Glucose 160 H Calcium 8.4 L Total Bilirubin 0.5 AST 15 ALT 16 D Alkaline Phosphatase 64 Creatine Kinase 77 Troponin I 0.05 B-Natriuretic Peptide 3978.65 H Total Protein 7.5 Albumin 3.6 Active Medications Generic Name Dose Route Start Last Admin Trade Name Freq PRN Reason Stop Dose Admin Amlodipine Besylate 5 mg 06/04/17 10:00 Norvasc - PO DAILY [facility] Aspirin 81 mg 06/04/17 10:00 Asa - PO DAILY [facility] Atorvastatin Calcium 80 mg 06/04/17 22:00 Lipitor - PO HS [facility] Carvedilol 6.25 mg 06/03/17 23:45 06/04/17 01:08 Coreg - PO 6.25 mg BID [facility] Administration Furosemide 40 mg 06/04/17 06:00 06/04/17 06:47 Lasix Injection - IVPUSH 40 mg BIDLASIX [facility] Administration Insulin Aspart 1 vial 06/04/17 07:00 06/04/17 06:25 Novolog Vial Sliding Scale - SQ Not Given ACHS [facility] Protocol Sacubitril/Valsartan 1 tab 06/04/17 10:00 Entresto 24 Mg-26 Mg Tablet PO BID [facility] Spironolactone 25 mg 06/04/17 10:00 Aldactone - PO DAILY [facility] Warfarin Sodium 5 mg 06/04/17 18:00 Coumadin - PO DAILY@1800 [facility] No micro CXR 06/04: Imaging reveals a large heart, sclerotic unfolded aorta, sternal sutures with valve replacement and multiple lead pacemaker. There are congestive changes. There are degenerative findings with wedging. Since 11/24/2016 , there is not much change. Correlation recommended. EKG: paced rhythm, QRS 160ms, QTc 529 however paced rhythm, likely unreliable Qtc. ASSESSMENT/PLAN: 82 y/o M with PMH CAD s/p [place], stent (2005), s/p CABG, recent NSTEMI, CHF (LV systolic dysfunction), defibrillator/pacemaker placementin 2009, HTN, HLD, DM, who presents to the ED c/o SOB and abdominal fullness. Tele for acute CHF exacerbation. #Acute CHF exacerbation - BNP 4000~, CXR with vascular congestion; 60 lasix in ED -Daily weights -Strict I's and O's -Sodium controlled diet -Lasix 40mg BID -Repeat echo -Entresto -Cardio consult: Dr. Caldwell -Trend trops Q6h - c/w aldactone, carvedilol #TONY - Cr 1.7 -> 1.5 this AM -U osm, s osm, urine lytes; however unlikely to be accurate w/ diuretics onboard -Trend Cr - Avoid nephrotoxins #CAD s/p IA, stent (2005), CABG - -Continue aspirin 81mg qd #HTN- currently uncontrolled -Monitor -amlodipine 5mg PO, carvedilol 6.5 mg PO BID -cardiac monitoring #HLD -Continue lipitor 80mg PO HS qd #DM -Holding home oral agents -ISS ACHS -BGM #F/E/N Po hydration; <2L lytes wnl Sodium controlled diet #PPX DVT: SCD's, EAM #Dispo Telemetry monitoring Plan discussed with Dr. Sarah Shertm PGY1 Visit type - Emergency Visit Emergency Visit: Yes ED Registration Date: 06/03/17 Care time: The patient presented to the Emergency Department on the above date and was hospitalized for further evaluation of their emergent condition. - New Patient This patient is new to me today: Yes Date on this admission: 06/05/17 - Critical Care Critical Care patient: No
[2017-06-04 08:37] LABS: BASO % 1.3 % (0-2.0); EOS % 3.3 % (0-4.5); HEMATOCRIT 43.4 % (35.4-49); HEMOGLOBIN 14.3 GM/dL (11.7-16.9); LYMPH % 25.6 % (8-40); MCH 26.7 pg (25.7-33.7); MCHC 32.8 g/dl (32.0-35.9); MEAN CELL VOLUME 81.4 fl (80-96); MEAN PLT VOLUME 8.5 fl (7.5-11.1); MONO % 8.1 % (3.8-10.2); NEUT % 61.7 % (42.8-82.8); PLATELET COUNT 199 K/MM3 (134-434); RBC 5.34 M/mm3 (4.00-5.60); RDW 15.3 % (11.9-15.9)
[2017-06-04 09:04] LABS: ANION GAP 8 (8-16); BLOOD UREA NITROGEN 30 mg/dL (7-18); CALCIUM 7.9 mg/dL (8.5-10.1); CHLORIDE 101 mmol/L (98-107); CO2 27 mmol/L (21-32); GLUCOSE,RANDOM 151 mg/dL (74-106); MAGNESIUM 2.2 mg/dL (1.8-2.4); PHOSPHOROUS 2.9 mg/dL (2.5-4.9); POTASSIUM 3.6 mmol/L (3.5-5.1); SODIUM 136 mmol/L (136-145)
[2017-06-04 09:09] LABS: CREATININE 1.5 mg/dL (0.7-1.3)
[2017-06-04] MEDS ORDERED: PT OWN MED DRAWER 7, Y5N ONE (09:56)
[2017-06-04] MEDS: amLODIPine BESYLATE 5 MG TABLET (FP) PO SCH (09:57)
[2017-06-04] MEDS: ASPIRIN 81 MG CHEWABLE TABLETS PO SCH (09:57)
[2017-06-04] MEDS ORDERED: SPIRONOLACTONE 25 MG TABLET (FP) PO SCH (10:00)
[2017-06-04] MEDS ORDERED: SACUBITRIL/VALSARTAN 24 MG-26 MG TABLET PO SCH (10:00)
[2017-06-04] MEDS ORDERED: FUROSEMIDE 40 MG/4 ML INJECTABLE VIAL IVPUSH SCH (10:00)
--- NOTE | 2017-06-04 10:39 | EKG ---
Test Reason : Blood Pressure : / mmHG Vent. Rate : 092 BPM Atrial Rate : 073 BPM P-R Int : 000 ms QRS Dur : 160 ms QT Int : 428 ms P-R-T Axes : 083 209 006 degrees QTc Int : 529 ms Ventricular-paced rhythm Biventricular pacemaker detected ventricular-paced complexes ABNORMAL ECG WHEN COMPARED WITH ECG OF 24-NOV-2016 10:06, VENT. RATE HAS INCREASED BY 3 BPM Confirmed by INDRA JENSEN MD ([id number]) on 06/04/2017 10:38:37 AM Referred By: Confirmed By:INDRA JENSEN MD
--- NOTE | 2017-06-04 14:03 | PN ---
Teaching Attending Note Name of Resident: Milan Emmanuel ATTENDING PHYSICIAN STATEMENT I saw and evaluated the patient. I reviewed the resident's note and discussed the case with the resident. I agree with the resident's findings and plan as documented with exceptions mentioned below. SUBJECTIVE: Patient seen and examined. breathing improved, no new complaints. OBJECTIVE: Vital Signs Period Temp Pulse Resp BP Sys/Mock Pulse Ox Last 24 Hr 97.6 F-98.0 F 71-101 16-21 119-163/52-123 95-98 Intake & Output 06/01/17 06/02/17 06/03/17 06/04/17 23:59 23:59 23:59 23:59 Output Total 550 Balance -550 Weight 197 lb 195 lb 5 oz General: sitting in bed in no acute distress Chest: few bibasilar rales Neck: pos JVD with neck vein distension Abdomen: soft, distended non tender Extremities: 1+ pedal edema Home Medication List Medication Instructions Recorded Confirmed Type Glimepiride 2 mg PO DAILY 11/08/16 11/24/16 History Amlodipine Besylate [Norvasc -] 5 mg PO DAILY 11/24/16 11/24/16 History Carvedilol 6.25 mg PO BID 11/24/16 11/24/16 History Sacubitril/Valsartan [Entresto 24 1 each PO BID 11/24/16 11/24/16 History mg-26 mg Tablet] Spironolactone [Aldactone] 25 mg PO DAILY 11/24/16 11/24/16 History Active Medications Generic Name Dose Route Start Last Admin Trade Name Desi PRN Reason Stop Dose Admin Amlodipine Besylate 5 mg 06/04/17 10:00 06/04/17 09:57 Norvasc - PO 5 mg DAILY [facility] Administration Aspirin 81 mg 06/04/17 10:00 06/04/17 09:57 Asa - PO 81 mg DAILY [facility] Administration Atorvastatin Calcium 80 mg 06/04/17 22:00 Lipitor - PO HS [facility] Carvedilol 6.25 mg 06/03/17 23:45 06/04/17 09:57 Coreg - PO Not Given BID [facility] Furosemide 40 mg 06/04/17 06:00 06/04/17 06:47 Lasix Injection - IVPUSH 40 mg BIDLASIX [facility] Administration Insulin Aspart 1 vial 06/04/17 07:00 06/04/17 11:00 Novolog Vial Sliding Scale - SQ 2 units ACHS [facility] Administration Protocol Sacubitril/Valsartan 1 tab 06/04/17 10:00 06/04/17 09:57 Entresto 24 Mg-26 Mg Tablet PO 1 tab BID [facility] Administration Spironolactone 25 mg 06/04/17 10:00 06/04/17 09:57 Aldactone - PO 25 mg DAILY [facility] Administration Warfarin Sodium 5 mg 06/04/17 18:00 Coumadin - PO DAILY@1800 [facility] Laboratory Results - last 24 hr 06/03/17 06/03/17 06/03/17 19:45 19:45 19:45 WBC 12.0 H RBC 5.74 H Hgb 15.6 Hct 46.8 MCV 81.6 MCH 27.1 MCHC 33.3 RDW 15.6 Plt Count 257 MPV 8.9 Neutrophils % 76.4 Lymphocytes % 15.2 D Monocytes % 5.7 Eosinophils % 1.8 Basophils % 0.9 PT with INR 29.20 H INR 2.58 H Sodium 134 L Potassium 4.1 Chloride 99 Carbon Dioxide 26 Anion Gap 9 BUN 33 H Creatinine 1.7 H Creat Clearance w eGFR 38.88 POC Glucometer Random Glucose 160 H Hemoglobin A1c % Serum Osmolality Calcium 8.4 L Phosphorus Magnesium Total Bilirubin 0.5 AST 15 ALT 16 D Alkaline Phosphatase 64 Creatine Kinase 77 Troponin I 0.05 B-Natriuretic Peptide 3978.65 H Total Protein 7.5 Albumin 3.6 Urine Osmolality Ur Random Sodium Ur Random Potassium Ur Random Chloride 06/04/17 06/04/17 06/04/17 05:00 05:45 08:00 WBC 7.0 D RBC 5.34 Hgb 14.3 Hct 43.4 MCV 81.4 MCH 26.7 MCHC 32.8 RDW 15.3 Plt Count 199 D MPV 8.5 Neutrophils % 61.7 Lymphocytes % 25.6 D Monocytes % 8.1 Eosinophils % 3.3 D Basophils % 1.3 PT with INR INR Sodium Potassium Chloride Carbon Dioxide Anion Gap BUN Creatinine Creat Clearance w eGFR POC Glucometer 127.64902 Random Glucose Hemoglobin A1c % Serum Osmolality Calcium Phosphorus Magnesium Total Bilirubin AST ALT Alkaline Phosphatase Creatine Kinase Troponin I B-Natriuretic Peptide Total Protein Albumin Urine Osmolality Ur Random Sodium 85 Ur Random Potassium 16.9 Ur Random Chloride 98 06/04/17 06/04/17 06/04/17 08:00 08:00 08:00 WBC RBC Hgb Hct MCV MCH MCHC RDW Plt Count MPV Neutrophils % Lymphocytes % Monocytes % Eosinophils % Basophils % PT with INR INR Sodium 136 Potassium 3.6 Chloride 101 Carbon Dioxide 27 Anion Gap 8 BUN 30 H Creatinine 1.5 H Creat Clearance w eGFR POC Glucometer Random Glucose 151 H Hemoglobin A1c % 8.6 H D Serum Osmolality Calcium 7.9 L Phosphorus 2.9 Magnesium 2.2 Total Bilirubin AST ALT Alkaline Phosphatase Creatine Kinase Troponin I 0.07 H D B-Natriuretic Peptide Total Protein Albumin Urine Osmolality Ur Random Sodium Ur Random Potassium Ur Random Chloride 06/04/17 06/04/17 06/04/17 08:00 09:10 10:58 WBC RBC Hgb Hct MCV MCH MCHC RDW Plt Count MPV Neutrophils % Lymphocytes % Monocytes % Eosinophils % Basophils % PT with INR INR Sodium Potassium Chloride Carbon Dioxide Anion Gap BUN Creatinine Creat Clearance w eGFR POC Glucometer 183.77435 Random Glucose Hemoglobin A1c % Serum Osmolality 290 Calcium Phosphorus Magnesium Total Bilirubin AST ALT Alkaline Phosphatase Creatine Kinase Troponin I B-Natriuretic Peptide Total Protein Albumin Urine Osmolality 319 Cancelled Ur Random Sodium Ur Random Potassium Ur Random Chloride 06/04/17 11:40 WBC RBC Hgb Hct MCV MCH MCHC RDW Plt Count MPV Neutrophils % Lymphocytes % Monocytes % Eosinophils % Basophils % PT with INR INR Sodium Potassium Chloride Carbon Dioxide Anion Gap BUN Creatinine Creat Clearance w eGFR POC Glucometer Random Glucose Hemoglobin A1c % Serum Osmolality Calcium Phosphorus Magnesium Total Bilirubin AST ALT Alkaline Phosphatase Creatine Kinase Troponin I 0.06 H B-Natriuretic Peptide Total Protein Albumin Urine Osmolality Ur Random Sodium Ur Random Potassium Ur Random Chloride CXR congestive changes EKG - V-pacing with PVCs ASSESSMENT AND PLAN: 82 yom with PMhx of CAD s/p [place], stent (2005), s/p CABG, recent NSTEMI, CHF (LV systolic dysfunction), defibrillator/pacemaker placement (2009; last interrogated 2-3 weeks ago. Left card at home), HTN, HLD, DM, admitted with acute CHF exacerbation and minimal troponin elevation. 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 lasix 40 mg IV BID, strict I/Os daily weights. repeat 2D echo. Continue Aldactone/Entresto. BP control, cont amlodipine. Cardiology consult with Dr. Suresh. Troponin Noted. Continue coumadin with Daily INR. Reconcile home meds. Dispo planning in 24-48 hours if continues to improve. Plan discussed with patient in detail, all questions answered.
[2017-06-04] MEDS ORDERED: WARFARIN NA 5 MG TABLET (UD) PO SCH (18:00)
--- NOTE | 2017-06-04 20:52 | CON.CARD ---
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 Last office visit 05/31/2017. - History Source History Provided By: Patient Limitations to Obtaining History: No Limitations - Past Medical History Cardio/Vascular: Yes: AFIB, CAD, CHF, HTN, Hyperlipdemia, PR Endocrine: Yes: Diabetes Mellitus - Past Surgical History Past Surgical History: Yes: AICD, CABG, Stent - Alcohol/Substance Use Hx Alcohol Use: No History of Substance Use: reports: None - Smoking History Smoking history: Never smoked Have you smoked in the past 12 months: No Aproximately how many cigarettes per day: 0 - Social History ADL: Independent History of Recent Travel: No Home Medications - Allergies Allergies/Adverse Reactions: Allergies Allergy/AdvReac Type Severity Reaction Status Date / Time No Known Allergies Allergy Verified 11/24/16 09:50 - Home Medications Home Medications: Ambulatory Orders Warfarin Na [Coumadin -] 5 mg PO DAILY@1800 #1 06/20/15 Glimepiride 2 mg PO DAILY 11/08/16 Sacubitril/Valsartan [Entresto 24 mg-26 mg Tablet] 1 each PO BID 11/24/16 Furosemide [Lasix -] 20 mg PO BID 06/04/17 Metoprolol Succinate [Toprol Xl] 50 PO DAILY 06/04/17 Rosuvastatin Calcium [Crestor] 10 mg PO DAILY 06/04/17 Review of Systems - Review of Systems Cardiovascular: reports: Shortness of Breath Respiratory: reports: Orthopnea Vital Signs: Vital Signs Temperature 97.5 F L 06/04/17 17:33 Pulse Rate 89 06/04/17 17:33 Respiratory Rate 20 06/04/17 17:33 Blood Pressure 135/63 06/04/17 17:33 O2 Sat by Pulse Oximetry (%) 98 06/04/17 08:00 Constitutional: Yes: No Distress, Calm Neck: Yes: Supple Respiratory: Yes: Regular, Diminished Gastrointestinal: Yes: Normal Bowel Sounds, Soft Cardiovascular: Yes: Regular Rate and Rhythm JVD: No Carotid Bruit: No Heart Sounds: Yes: S1, S2 Murmur: Yes: Systolic Murmur, Grade 1 Edema: No - Other Data Labs, Other Data: CBC, BMP 06/04/17 08:00 06/04/17 08:00 INR, PTT INR 2.58 (0.82-1.09) H 06/03/17 19:45 Troponin, BNP 06/04/17 06/04/17 08:00 11:40 Troponin I 0.07 H D 0.06 H Troponin, BNP 06/04/17 06/04/17 08:00 11:40 Troponin I 0.07 H D 0.06 H Bi-V paced with PVC Imaging - Results Chest X-ray: Report Reviewed (Congestion) Problem List - Problems (1) S/P mitral valve repair Code(s): Z98.890 - OTHER SPECIFIED POSTPROCEDURAL STATES (2) CHF exacerbation Code(s): I50.9 - HEART FAILURE, UNSPECIFIED Qualifiers: Heart failure type: systolic Qualified Code(s): I50.23 - Acute on chronic systolic (congestive) heart failure (3) Anticoagulated on Coumadin Code(s): Z51.81 - ENCOUNTER FOR THERAPEUTIC DRUG LEVEL MONITORING; Z79.01 - RESERVE OPERATOR (CURRENT) USE OF ANTICOAGULANTS (4) Biventricular automatic implantable cardioverter defibrillator in situ Code(s): Z95.810 - PRESENCE OF AUTOMATIC (IMPLANTABLE) CARDIAC DEFIBRILLATOR (5) CAD (coronary artery disease) Code(s): I25.10 - ATHSCL HEART DISEASE OF [place] CORONARY ARTERY W/O ANG PCTRS Qualifiers: Coronary Disease-Associated Artery/Lesion type: [place] artery [place] vs. transplanted heart: [place] heart Associated angina: without angina Qualified Code(s): I25.10 - Atherosclerotic heart disease of [place] coronary artery without angina pectoris (6) HTN (hypertension) Code(s): I10 - ESSENTIAL (PRIMARY) HYPERTENSION Qualifiers: Hypertension type: essential hypertension Qualified Code(s): I10 - Essential (primary) hypertension (7) Hyperlipidemia Code(s): E78.5 - HYPERLIPIDEMIA, UNSPECIFIED Qualifiers: Hyperlipidemia type: pure hypercholesterolemia Qualified Code(s): E78.00 - Pure hypercholesterolemia, unspecified; E78.0 - Pure hypercholesterolemia (8) Ischemic cardiomyopathy Code(s): I25.5 - ISCHEMIC CARDIOMYOPATHY (9) S/P CABG (coronary artery bypass graft) Code(s): Z95.1 - PRESENCE OF AORTOCORONARY BYPASS GRAFT (10) Status post coronary artery stent placement Code(s): Z95.5 - PRESENCE OF CORONARY ANGIOPLASTY IMPLANT AND GRAFT (11) Afib Code(s): I48.91 - UNSPECIFIED ATRIAL FIBRILLATION Qualifiers: Atrial fibrillation type: paroxysmal Qualified Code(s): I48.0 - Paroxysmal atrial fibrillation (12) Renal insufficiency Code(s): N28.9 - DISORDER OF KIDNEY AND URETER, UNSPECIFIED Assessment/Plan 06/04/2017 Echo: Severe LV dysfunction, mod LAE, MV repair, mild MR, TR, AR 1. Acute on chronic severe systolic failure improving 2. CAD s/p PR, CABG, PCI with demand ischemia 3. s/p CAN FILLING MACHINE OPERATOR-D for primary prophylaxis 4. NIDDM not at goal control 5. Hypertensive heart disease. 6. CKD, secondary to # 4. 7. Poor compliance. 8. Paroxysmal Atrial fib with therapeutic INR 9. Hyperlipidemia Plan: 1: Continue IV diuresis with monitor diuretic response, renal function and electrolytes, check TSH and lipid panel 2. Continue Entresto 24/26 bid, Aldactone 25 bid, carvedilol 6.25 bid, Norvasc 5 qd, Crestor 10 qd with uptitration as tolerated 3. Coumadin per INR 4. Counseled regarding diet and salt restriction, medication compliance 5. Optimize glycemic control Ha1c 8.6% 6. Thank you for consultative opportunity
[2017-06-04] MEDS ORDERED: ZOLPIDEM TARTRATE 5 MG TABLET PO PRN (21:18)
[2017-06-04] MEDS ORDERED: ATORVASTATIN CA 80 MG TABLET (FP) PO SCH (22:00)
[2017-06-04] MEDS: SACUBITRIL/VALSARTAN 49 MG-51 MG TABLET PO SCH (22:17)
[2017-06-04] MEDS: SPIRONOLACTONE 25 MG TABLET (FP) PO SCH (22:17)
[2017-06-05] MEDS: FUROSEMIDE 40 MG/4 ML INJECTABLE VIAL IVPUSH SCH (05:55)
[2017-06-05] MEDS: INSULIN SLIDING SCALE (NOVOLOG) 1 VIAL SQ SCH ×2 (06:19→12:28)
[2017-06-05 06:20] LABS: EOS % 4.4 % (0-4.5); HEMATOCRIT 44.6 % (35.4-49); HEMOGLOBIN 15.1 GM/dL (11.7-16.9); LYMPH % 23.5 % (8-40); MCH 27.7 pg (25.7-33.7); MCHC 33.8 g/dl (32.0-35.9); MEAN CELL VOLUME 81.9 fl (80-96); MEAN PLT VOLUME 9.2 fl (7.5-11.1); MONO % 7.8 % (3.8-10.2); NEUT % 63.3 % (42.8-82.8); PLATELET COUNT 238 K/MM3 (134-434); RBC 5.44 M/mm3 (4.00-5.60); RDW 15.7 % (11.9-15.9); WHITE BLOOD COUNT 8.4 K/mm3 (4.0-10.0)
[2017-06-05 06:36] LABS: INR 2.16 (0.82-1.09); PROTHROMBIN TIME (PATIENT) 24.4 SEC (9.98-11.88)
[2017-06-05 06:49] LABS: ANION GAP 13 (8-16); BLOOD UREA NITROGEN 30 mg/dL (7-18); CALCIUM 8.3 mg/dL (8.5-10.1); CHLORIDE 99 mmol/L (98-107); CHOLESTEROL 309 mg/dL (50-200); CO2 26 mmol/L (21-32); CREATININE 1.6 mg/dL (0.7-1.3); GLUCOSE,RANDOM 141 mg/dL (74-106); MAGNESIUM 2.5 mg/dL (1.8-2.4); POTASSIUM 3.8 mmol/L (3.5-5.1); SODIUM 138 mmol/L (136-145); TRIGLYCERIDES 242 mg/dL (35-160)
[2017-06-05 06:58] LABS: LDL CHOLESTEROL (ONLY SJRH) 217 mg/dL (5-100)
[2017-06-05 07:06] LABS: HDL CHOLESTEROL 31 mg/dL (40-60)
[2017-06-05] MEDS ORDERED: PT OWN MED DRAWER 7, Y5N ONE (09:54)
[2017-06-05] MEDS: CARVEDILOL 6.25 MG TABLET (FP) PO SCH (09:56)
[2017-06-05] MEDS: ASPIRIN 81 MG CHEWABLE TABLETS PO SCH (09:56)
[2017-06-05] MEDS: amLODIPine BESYLATE 5 MG TABLET (FP) PO SCH (09:56)
[2017-06-05 11:11] VITALS: PULSE 70; TEMP 97.8
--- NOTE | 2017-06-05 11:51 | PN ---
Progress Note, Physician History of Present Illness: Dyspnea, orthopnea and increased abdominal distension resolved with diuresis, ready for d/c home. - Current Medication List Current Medications: Active Medications Amlodipine Besylate (Norvasc -) 5 mg PO DAILY [facility] Last Admin: 06/05/17 09:56 Dose: 5 mg Aspirin (Asa -) 81 mg PO DAILY [facility] Last Admin: 06/05/17 09:56 Dose: 81 mg Atorvastatin Calcium (Lipitor -) 80 mg PO HS [facility] Last Admin: 06/04/17 22:18 Dose: 80 mg Carvedilol (Coreg -) 6.25 mg PO BID [facility] Last Admin: 06/05/17 09:56 Dose: 6.25 mg Furosemide (Lasix Injection -) 40 mg IVPUSH BIDLASIX [facility] Last Admin: 06/05/17 05:55 Dose: 40 mg Insulin Aspart (Novolog Vial Sliding Scale -) 1 vial SQ ACHS [facility] PRN Reason: Protocol Last Admin: 06/05/17 06:19 Dose: Not Given Sacubitril/Valsartan (Entresto 49 Mg-51 Mg Tablet) 1 tab PO BID [facility] Last Admin: 06/04/17 22:17 Dose: 1 tab Spironolactone (Aldactone -) 25 mg PO BID [facility] Last Admin: 06/04/17 22:17 Dose: 25 mg Warfarin Sodium (Coumadin -) 5 mg PO DAILY@1800 [facility] Last Admin: 06/04/17 17:05 Dose: 5 mg Zolpidem Tartrate (Ambien -) 5 mg PO HS PRN PRN Reason: INSOMNIA Last Admin: 06/04/17 22:18 Dose: 5 mg - Objective Vital Signs: Vital Signs Temperature 97.8 F 06/05/17 10:00 Pulse Rate 70 06/05/17 10:00 Respiratory Rate 18 06/05/17 10:00 Blood Pressure 106/80 06/05/17 10:00 O2 Sat by Pulse Oximetry (%) 97 06/05/17 09:00 Constitutional: Yes: No Distress, Calm Neck: Yes: Supple Cardiovascular: Yes: Regular Rate and Rhythm Respiratory: Yes: Regular, Diminished, On Nasal O2 Gastrointestinal: Yes: Normal Bowel Sounds, Soft Edema: No Labs: CBC, BMP 06/05/17 05:20 06/05/17 05:20 INR, PTT INR 2.16 (0.82-1.09) H 06/05/17 05:20 - ....Imaging EKG: Report Reviewed (Tele: Afib BiV-paced) Problem List - Problems (1) S/P mitral valve repair Code(s): Z98.890 - OTHER SPECIFIED POSTPROCEDURAL STATES (2) CHF exacerbation Code(s): I50.9 - HEART FAILURE, UNSPECIFIED Qualifiers: Heart failure type: systolic Qualified Code(s): I50.23 - Acute on chronic systolic (congestive) heart failure (3) Anticoagulated on Coumadin Code(s): Z51.81 - ENCOUNTER FOR THERAPEUTIC DRUG LEVEL MONITORING; Z79.01 - [facility] (CURRENT) USE OF ANTICOAGULANTS (4) Biventricular automatic implantable cardioverter defibrillator in situ Code(s): Z95.810 - PRESENCE OF AUTOMATIC (IMPLANTABLE) CARDIAC DEFIBRILLATOR (5) CAD (coronary artery disease) Code(s): I25.10 - ATHSCL HEART DISEASE OF [place] CORONARY ARTERY W/O ANG PCTRS Qualifiers: Coronary Disease-Associated Artery/Lesion type: [place] artery [place] vs. transplanted heart: [place] heart Associated angina: without angina Qualified Code(s): I25.10 - Atherosclerotic heart disease of [place] coronary artery without angina pectoris (6) HTN (hypertension) Code(s): I10 - ESSENTIAL (PRIMARY) HYPERTENSION Qualifiers: Hypertension type: essential hypertension Qualified Code(s): I10 - Essential (primary) hypertension (7) Hyperlipidemia Code(s): E78.5 - HYPERLIPIDEMIA, UNSPECIFIED Qualifiers: Hyperlipidemia type: pure hypercholesterolemia Qualified Code(s): E78.00 - Pure hypercholesterolemia, unspecified; E78.0 - Pure hypercholesterolemia (8) Ischemic cardiomyopathy Code(s): I25.5 - ISCHEMIC CARDIOMYOPATHY (9) S/P CABG (coronary artery bypass graft) Code(s): Z95.1 - PRESENCE OF AORTOCORONARY BYPASS GRAFT (10) Status post coronary artery stent placement Code(s): Z95.5 - PRESENCE OF CORONARY ANGIOPLASTY IMPLANT AND GRAFT (11) Afib Code(s): I48.91 - UNSPECIFIED ATRIAL FIBRILLATION Qualifiers: Atrial fibrillation type: paroxysmal Qualified Code(s): I48.0 - Paroxysmal atrial fibrillation (12) Renal insufficiency Code(s): N28.9 - DISORDER OF KIDNEY AND URETER, UNSPECIFIED Assessment/Plan 06/04/2017 Echo: Severe LV dysfunction, mod LAE, MV repair, mild MR, TR, AR 1. Acute on chronic severe systolic failure resolved 2. CAD s/p [place], CABG, PCI with demand ischemia 3. 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 NIDDM not at goal control 5. Hypertensive heart disease. 6. CKD, secondary to # 4. 7. Poor compliance. 8. Paroxysmal Atrial fib with therapeutic INR 9. Hyperlipidemia Plan: 1: Resume oral diuresis Lasix 20 po bid with monitor diuretic response, renal function and electrolytes 2. Continue Entresto 49/51 bid, Aldactone 25 bid, carvedilol 6.25 bid, Norvasc 5 qd with uptitration as tolerated, increased Lipitor 80 qd (given high LDL), may require addition of Zetia or PCSK9 if LDL target not achieved 3. Coumadin per INR and ASA 81 qd 4. Counseled regarding diet and salt restriction, medication compliance 5. Optimize glycemic control Ha1c 8.6% 6. July d/c home with f/u in office Wednesday for medication reconcilliation with JEWEL STRINGER .
--- NOTE | 2017-06-05 12:33 | PN ---
Teaching Attending Note Name of Resident: Vidya Sullivan ATTENDING PHYSICIAN STATEMENT I saw and evaluated the patient. I reviewed the resident's note and discussed the case with the resident. I agree with the resident's findings and plan as documented with exceptions below. SUBJECTIVE: patient seen and examined breathing markedly improved, eager to go home. OBJECTIVE: Vital Signs Period Temp Pulse Resp BP Sys/Mock Pulse Ox Last 24 Hr 97.5 F-98.1 F 70-89 18-22 106-136/55-90 97-97 Intake & Output 06/02/17 06/03/17 06/04/17 06/05/17 23:59 23:59 23:59 23:59 Intake Total 400 100 Output Total 1600 500 Balance -1200 -400 Weight 197 lb 195 lb 5 oz 191 lb general: lying in bed in no acute distress Chest: CTAB, no rales or wheezing abdomen: soft, NT, Nd extremities: no edema Home Medication List Medication Instructions Recorded Confirmed Type Glimepiride 2 mg PO DAILY 11/08/16 06/04/17 History Sacubitril/Valsartan [Entresto 24 1 each PO BID 11/24/16 06/04/17 History mg-26 mg Tablet] Furosemide [Lasix -] 20 mg PO BID 06/04/17 06/04/17 History Metoprolol Succinate [Toprol Xl] 50 PO DAILY 06/04/17 History Active Medications Generic Name Dose Route Start Last Admin Trade Name Freq PRN Reason Stop Dose Admin Amlodipine Besylate 5 mg 06/04/17 10:00 06/05/17 09:56 Norvasc - PO 5 mg DAILY ARIANA Administration Aspirin 81 mg 06/04/17 10:00 06/05/17 09:56 Asa - PO 81 mg DAILY ARIANA Administration Atorvastatin Calcium 80 mg 06/04/17 22:00 06/04/17 22:18 Lipitor - PO 80 mg HS ARIANA Administration Carvedilol 6.25 mg 06/03/17 23:45 06/05/17 09:56 Coreg - PO 6.25 mg BID ARIANA Administration Furosemide 40 mg 06/04/17 06:00 06/05/17 05:55 Lasix Injection - IVPUSH 40 mg BIDLASIX [facility] Administration Insulin Aspart 1 vial 06/04/17 07:00 06/05/17 12:28 Novolog Vial Sliding Scale - SQ 6 units ACHS ARIANA Administration Protocol Sacubitril/Valsartan 1 tab 06/04/17 22:00 06/04/17 22:17 Entresto 49 Mg-51 Mg Tablet PO 1 tab BID ARI[facility] Administration Spironolactone 25 mg 06/04/17 22:00 06/04/17 22:17 Aldactone - PO 25 mg BID ARI[facility] Administration Warfarin Sodium 5 mg 06/04/17 18:00 06/04/17 17:05 Coumadin - PO 5 mg DAILY@1800 [facility] Administration Zolpidem Tartrate 5 mg 06/04/17 21:18 06/04/17 22:18 Ambien - PO 5 mg HS PRN Administration INSOMNIA Laboratory Results - last 24 hr 06/04/17 06/04/17 06/04/17 08:00 09:10 17:00 WBC RBC Hgb Hct MCV MCH MCHC RDW Plt Count MPV Neutrophils % Lymphocytes % Monocytes % Eosinophils % Basophils % PT with INR INR Sodium Potassium Chloride Carbon Dioxide Anion Gap BUN Creatinine POC Glucometer 161.45847 Random Glucose Serum Osmolality 290 Calcium Magnesium Triglycerides Cholesterol Total LDL Cholesterol HDL Cholesterol TSH Urine Osmolality 319 Cancelled 06/04/17 06/05/17 06/05/17 22:39 05:20 05:20 WBC RBC Hgb Hct MCV MCH MCHC RDW Plt Count MPV Neutrophils % Lymphocytes % Monocytes % Eosinophils % Basophils % PT with INR 24.40 H INR 2.16 H Sodium 138 Potassium 3.8 Chloride 99 Carbon Dioxide 26 Anion Gap 13 BUN 30 H Creatinine 1.6 H POC Glucometer [phone] Random Glucose 141 H Serum Osmolality Calcium 8.3 L Magnesium 2.5 H Triglycerides 242 H Cholesterol 309 H Total LDL Cholesterol 217 H HDL Cholesterol 31 L TSH 3.43 Urine Osmolality 06/05/17 06/05/17 05:20 05:32 WBC 8.4 RBC 5.44 Hgb 15.1 Hct 44.6 MCV 81.9 MCH 27.7 MCHC 33.8 RDW 15.7 Plt Count 238 MPV 9.2 Neutrophils % 63.3 Lymphocytes % 23.5 Monocytes % 7.8 Eosinophils % 4.4 Basophils % 1.0 PT with INR INR Sodium Potassium Chloride Carbon Dioxide Anion Gap BUN Creatinine POC Glucometer [phone] Random Glucose Serum Osmolality Calcium Magnesium Triglycerides Cholesterol Total LDL Cholesterol HDL Cholesterol TSH Urine Osmolality ASSESSMENT AND PLAN: 82 yom with PMhx of CAD s/p CO, stent (2005), s/p CABG, recent NSTEMI, CHF (LV systolic dysfunction), defibrillator/pacemaker placement (2009; last interrogated 2-3 weeks ago. Left card at home), HTN, HLD, DM, admitted with acute CHF exacerbation and minimal troponin elevation. -Acute systolic heart failure exacerbation -Minimal Troponin elevation, suspect demand induced in the setting of CHF -Severe LV dysfunction with cardiomyopathy s/p ICD -CAD s/p CABG, CO s/p PCI in 2017 -Afib on coumadin -NIDDM -HTN -HLD Plan: Markedly improved, Cardiology input appreciated. D/c on lasix, aldactone and increased statin. Counseling on diet/fluid restriction, outpatient follow up and med compliance. Weight monitoring. D.c home with outpatient cardiology follow up on Wednesday.
[2017-06-05] MEDS: SPIRONOLACTONE 25 MG TABLET (FP) PO SCH (12:50)
[2017-06-05] MEDS: SACUBITRIL/VALSARTAN 49 MG-51 MG TABLET PO SCH (12:50)
[2017-06-05 12:54] VITALS: BP 117/70
--- NOTE | 2017-06-05 18:41 | DS ---
Physical Exam: SUBJECTIVE: Patient seen and examined. He is feeling better today, SOB improved. OBJECTIVE: Vital Signs Period Temp Pulse Resp BP Sys/Mock Pulse Ox Last 24 Hr 97.8 F-98.1 F 70-86 18-22 106-136/55-90 97-97 PHYSICAL EXAM GENERAL: The patient is awake, alert, and fully oriented, in no acute distress. HEAD: Normal with no signs of trauma. EYES: extraocular movements intact, sclera anicteric, conjunctiva clear. ENT: oropharynx clear without exudates, moist mucous membranes. NECK: full range of motion, supple. LUNGS: clear to auscultation bilaterally, no wheezes, no crackles, no accessory muscle use. HEART: Regular rate and rhythm, S1, S2 without murmur, rub or gallop. ABDOMEN: soft, nontender, nondistended, normoactive bowel sounds, no guarding, no rebound. EXTREMITIES: 2+ pulses, trace edema. NEUROLOGICAL: Cranial nerves II through XII grossly intact. Normal speech, gait not observed. PSYCH: Normal mood, normal affect. SKIN: Warm, dry, normal turgor, no rashes. LABS Laboratory Results - last 24 hr 06/04/17 06/04/17 06/05/17 17:00 22:39 05:20 WBC RBC Hgb Hct MCV MCH MCHC RDW Plt Count MPV Neutrophils % Lymphocytes % Monocytes % Eosinophils % Basophils % PT with INR 24.40 H INR 2.16 H Sodium Potassium Chloride Carbon Dioxide Anion Gap BUN Creatinine POC Glucometer [phone] Random Glucose Calcium Magnesium Triglycerides Cholesterol Total LDL Cholesterol HDL Cholesterol TSH 06/05/17 06/05/17 06/05/17 05:20 05:20 05:32 WBC 8.4 RBC 5.44 Hgb 15.1 Hct 44.6 MCV 81.9 MCH 27.7 MCHC 33.8 RDW 15.7 Plt Count 238 MPV 9.2 Neutrophils % 63.3 Lymphocytes % 23.5 Monocytes % 7.8 Eosinophils % 4.4 Basophils % 1.0 PT with INR INR Sodium 138 Potassium 3.8 Chloride 99 Carbon Dioxide 26 Anion Gap 13 BUN 30 H Creatinine 1.6 H POC Glucometer [phone] Random Glucose 141 H Calcium 8.3 L Magnesium 2.5 H Triglycerides 242 H Cholesterol 309 H Total LDL Cholesterol 217 H HDL Cholesterol 31 L TSH 3.43 06/05/17 12:07 WBC RBC Hgb Hct MCV MCH MCHC RDW Plt Count MPV Neutrophils % Lymphocytes % Monocytes % Eosinophils % Basophils % PT with INR INR Sodium Potassium Chloride Carbon Dioxide Anion Gap BUN Creatinine POC Glucometer [phone] Random Glucose Calcium Magnesium Triglycerides Cholesterol Total LDL Cholesterol HDL Cholesterol TSH HOSPITAL COURSE: Date of Admission:06/03/17 Date of Discharge: 06/05/17 Minutes to complete discharge: 40 Discharge Summary Reason For Visit: CONGESTIVE HEART FAILURE,ATRIAL FIBRILLATION Hospital Course: 82 y/o M with PMH CAD s/p [place], stent (2005), s/p CABG, recent NSTEMI, CHF (LV systolic dysfunction), defibrillator/pacemaker placement, HTN, HLD, DM, who presents to the ED c/o SOB and abdominal pressure over one hour. As per pt, he was resting at home when he developed SOB initially on exertion with movement, and later while at rest, so much so that he was "unable to breathe." During this time, pt also endorsed increased abdominal pressure which felt as if he had "increased fluid" weighing on him. Pt has been compliant with his daily lasix (40mg ) and takes Entresto. His last ECHO was done 6 months ago at [facility]. Pt also c/o dizziness, but otherwise denies HANEY, fever, chills, chest pain or pressure, lower extremity edema, or changes in urinary or bowel function. Hospital course: The pt was admitted for CHF exacerbation to telemetry. Acute CHF exacerbation: his BNP 4000~, CXR with vascular congestion; 60 lasix was given in ED, we continued 40 BID, repeated ECHO, strict I&O, daily weights, continued home medications. Communications Controller Dr Pineda was consulted and he started Spironolactone 25 mg BID. He was also found to have TONY with Cr 1.7, that normalized.We also controlled his HTN with carvedilol, amlodypine and metoprolol. The patient clinically improved and was discharged home with recommendations to weight daily, have fluid restriction diet, visit Communications Controller office on Wednesday and f/u with PCP foe labwork in a week. Condition: Good - Instructions Diet, Activity, Other Instructions: Please weight yourself everyday and notify your doctor if weight gain > 3lbs in 2 days. BMP (blood work to check your kidneys and potassium levels) in 1 week with your primary care doctor. Please visit your final assembly and packing supervisor on Wednesday for medication reconciliation with AWNING INSTALLER [phone]. [address] Suresh's office on Wednesday to see Nurse Practitioner for medication directions. Strict low salt diet and fluid restriction 1.2 Liters in 24 hours after the discharge from the hospital. Medications: We would like you to continue medications that you were taking before coming to the hospital. We started Spironolactone 25 mg twice a day in the hospital and want to continue that after you leave the hospital. We also changed your medication for elevated cholesterol to Lipitor 80 mg once a day. Rest of the medications are the same. Continue coumadin as before and follow up with your doctor for INR check in 2-3 days. If you have shortness of breath, chest pain, palpitations or worsening of any of your symptoms please come back to emergency room as soon as possible. Referrals: Willem Toney MD [Primary Care Provider] - 1 Week Sandro Pineda MD [Staff Physician] - 1 Week Disposition: HOME - Home Medications Comprehensive Discharge Medication List: Ambulatory Orders Warfarin Na [Coumadin -] 5 mg PO DAILY@1800 #1 06/20/15 Glimepiride 2 mg PO DAILY 11/08/16 Sacubitril/Valsartan [Entresto 24 mg-26 mg Tablet] 1 each PO BID 11/24/16 Furosemide [Lasix -] 20 mg PO BID 06/04/17 Metoprolol Succinate [Toprol Xl] 50 PO DAILY 06/04/17 Amlodipine Besylate [Norvasc -] 5 mg PO DAILY tablet 06/05/17 Aspirin [ASA -] 81 mg PO DAILY tab.chew 06/05/17 Atorvastatin Ca [Lipitor] 80 mg PO HS #30 tablet 06/05/17 Carvedilol [Coreg -] 6.25 mg PO BID tablet 06/05/17 Spironolactone [Aldactone -] 25 mg PO BID #60 tablet 06/05/17 Zolpidem Tartrate [Ambien] 5 mg PO HS PRN tablet MDD 5 06/05/17 Problem List - Problems (1) CHF exacerbation Code(s): I50.9 - HEART FAILURE, UNSPECIFIED Qualifiers: Heart failure type: systolic Qualified Code(s): I50.23 - Acute on chronic systolic (congestive) heart failure (2) DVT prophylaxis Code(s): CRP9976 - (3) Afib Code(s): I48.91 - UNSPECIFIED ATRIAL FIBRILLATION Qualifiers: Atrial fibrillation type: paroxysmal Qualified Code(s): I48.0 - Paroxysmal atrial fibrillation (4) Anticoagulated on Coumadin Code(s): Z51.81 - ENCOUNTER FOR THERAPEUTIC DRUG LEVEL MONITORING; Z79.01 - SHOT POLISHER AND INSPECTOR (CURRENT) USE OF ANTICOAGULANTS (5) Biventricular automatic implantable cardioverter defibrillator in situ Code(s): Z95.810 - PRESENCE OF AUTOMATIC (IMPLANTABLE) CARDIAC DEFIBRILLATOR (6) CAD (coronary artery disease) Code(s): I25.10 - ATHSCL HEART DISEASE OF [place] CORONARY ARTERY W/O ANG PCTRS Qualifiers: Coronary Disease-Associated Artery/Lesion type: [place] artery [place] vs. transplanted heart: [place] heart Associated angina: without angina Qualified Code(s): I25.10 - Atherosclerotic heart disease of [place] coronary artery without angina pectoris (7) CHF (congestive heart failure) Code(s): I50.9 - HEART FAILURE, UNSPECIFIED (8) HTN (hypertension) Code(s): I10 - ESSENTIAL (PRIMARY) HYPERTENSION Qualifiers: Hypertension type: essential hypertension Qualified Code(s): I10 - Essential (primary) hypertension (9) Hyperlipidemia Code(s): E78.5 - HYPERLIPIDEMIA, UNSPECIFIED Qualifiers: Hyperlipidemia type: pure hypercholesterolemia Qualified Code(s): E78.00 - Pure hypercholesterolemia, unspecified; E78.0 - Pure hypercholesterolemia (10) Ischemic cardiomyopathy Code(s): I25.5 - ISCHEMIC CARDIOMYOPATHY (11) Renal insufficiency Code(s): N28.9 - DISORDER OF KIDNEY AND URETER, UNSPECIFIED (12) S/P CABG (coronary artery bypass graft) Code(s): Z95.1 - PRESENCE OF AORTOCORONARY BYPASS GRAFT (13) S/P mitral valve repair Code(s): Z98.890 - OTHER SPECIFIED POSTPROCEDURAL STATES (14) Status post coronary artery stent placement Code(s): Z95.5 - PRESENCE OF CORONARY ANGIOPLASTY IMPLANT AND GRAFT This patient is new to me today: No Emergency Visit: Yes ED Registration Date: 06/03/17 Care time: The patient presented to the Emergency Department on the above date and was hospitalized for further evaluation of their emergent condition. Critical Care patient: No - Discharge Referral Referred to [facility] Med [facility].C[facility] No
== END 2017-06-05 13:00 | disposition home or self-care (01) | DRG 291 ==
LOC: JER 18:31 → JERBED 22:11 → J2W 06-04 04:38
PROVIDERS: ADMIT Internal Medicine; ATTEND Hospitalist
DX: I13.0 Hypertensive heart and chronic kidney disease with heart failure and stage 1 through stage 4 chronic kidney disease, or unspecified chronic kidney disease (principal); I50.23 Acute on chronic systolic (congestive) heart failure; N17.9 Acute kidney failure, unspecified; I25.10 Atherosclerotic heart disease of native coronary artery without angina pectoris; I25.2 Old myocardial infarction; N18.9 Chronic kidney disease, unspecified; E11.22 Type 2 diabetes mellitus with diabetic chronic kidney disease; I48.0 Paroxysmal atrial fibrillation; E78.5 Hyperlipidemia, unspecified; I25.5 Ischemic cardiomyopathy; Z95.5 Presence of coronary angioplasty implant and graft; Z95.810 Presence of automatic (implantable) cardiac defibrillator; Z87.891 Personal history of nicotine dependence; Z79.01 Long term (current) use of anticoagulants; Z98.890 Other specified postprocedural states; Z95.1 Presence of aortocoronary bypass graft
CPT/HCPCS: 36415; 71046-TC-FY; 80048; 80053; 80061; 82436; 82550; 82962; 83036; 83721; 83735; 83880; 83930; 83935; 84100; 84133; 84300; 84443; 84484; 85025; 85610; 93005; 93010; 93306-TC; 99282-25

== ENCOUNTER 2017-07-06 19:31 | Emergency (ER) | payer OTHER ==
[2017-07-06 19:44] VITALS: TEMP 97.1; BMI 30.5
--- NOTE | 2017-07-06 20:02 | PDOC ---
History of Present Illness - General Chief Complaint: Chest Pain Stated Complaint: CHEST PAIN Time Seen by Provider: 07/06/17 19:49 Past History - Past Medical History Allergies/Adverse Reactions: Allergies Allergy/AdvReac Type Severity Reaction Status Date / Time No Known Allergies Allergy Verified 07/06/17 19:43 Home Medications: Ambulatory Orders Aspirin 81 mg PO DAILY 07/06/17 Furosemide [Lasix] 40 mg PO DAILY 07/06/17 Glimepiride 2 mg PO DAILY 07/06/17 Metoprolol Succinate [Toprol Xl] 50 mg PO HS 07/06/17 Rosuvastatin Calcium [Crestor] 10 mg PO HS 07/06/17 Spironolactone [Aldactone] 25 mg PO HS 07/06/17 Valsartan [Diovan] 80 mg PO BID 07/06/17 Warfarin Sodium [Coumadin] 5 mg PO HS 07/06/17 Anemia: No Asthma: No Cancer: No Cardiac Disorders: Yes (A. Fib, CAD, GA, BYPASS, MITRAL VALVULOPLASTY) CVA: No COPD: No CHF: Yes Dementia: No Diabetes: Yes GI Disorders: No Disorders: No HTN: Yes Hypercholesterolemia: Yes Liver Disease: No Seizures: No Thyroid Disease: No - Surgical History Abdominal Surgery: No Appendectomy: No Cardiac Surgery: Yes (CABG x 3, Stent X 1 , Pacemaker) Cholecystectomy: No Lung Surgery: No Neurologic Surgery: No Orthopedic Surgery: No - Immunization History Immunization Up to Date: Yes - Suicide/Smoking/Psychosocial Hx Smoking Status: No Smoking History: Never smoked Have you smoked in the past 12 months: No Number of Cigarettes Smoked Daily: 0 Hx Alcohol Use: No Drug/Substance Use Hx: No Substance Use Type: None Hx Substance Use Treatment: No Cardiac Specific PMH - Complaint Specific PMHX Pacemaker: Yes *Physical Exam - Vital Signs Last Vital Signs Temp Pulse Resp BP Pulse Ox 97.1 F L 98 H 20 142/82 97 07/06/17 19:42 07/06/17 19:42 07/06/17 19:42 07/06/17 19:42 07/06/17 19:42
[2017-07-06 20:31] LABS: BASO % 1.1 % (0-2.0); EOS % 3.2 % (0-4.5); HEMATOCRIT 44.8 % (35.4-49); HEMOGLOBIN 15.2 GM/dL (11.7-16.9); LYMPH % 20.1 % (8-40); MCH 27.5 pg (25.7-33.7); MEAN PLT VOLUME 8.7 fl (7.5-11.1); MONO % 7.6 % (3.8-10.2); PLATELET COUNT 216 K/MM3 (134-434); RBC 5.53 M/mm3 (4.00-5.60); RDW 15.3 % (11.9-15.9); WHITE BLOOD COUNT 7.7 K/mm3 (4.0-10.0)
[2017-07-06 21:43] LABS: ALBUMIN 3.3 g/dl (3.4-5.0); ANION GAP 8 (8-16); BILIRUBIN,TOTAL 0.3 mg/dL (0.2-1.0); BLOOD UREA NITROGEN 55 mg/dL (7-18); CALCIUM 8.2 mg/dL (8.5-10.1); CHLORIDE 102 mmol/L (98-107); CO2 24 mmol/L (21-32); GLUCOSE,RANDOM 131 mg/dL (74-106); POTASSIUM 4.3 mmol/L (3.5-5.1); SGOT/AST 14 U/L (15-37); SGPT/ALT 17 U/L (12-78); SODIUM 134 mmol/L (136-145)
[2017-07-06 21:45] LABS: ALK PHOS 53 U/L (45-117)
--- NOTE | 2017-07-06 22:12 | PDOC ---
History of Present Illness - General Chief Complaint: Chest Pain Stated Complaint: CHEST PAIN Time Seen by Provider: 07/06/17 19:49 History Source: Patient Exam Limitations: No Limitations - History of Present Illness Initial Comments: 07/06/17 22:07 82 y/o M with PMH CAD s/p CT, stent (2005), s/p CABG, recent NSTEMI, CHF (LV systolic dysfunction), defibrillator/pacemaker placement (2009; last interrogated 2-3 weeks ago. Left card at home), HTN, HLD, DM, who presents to the ED with episode of lightheadedness and chest tightness earlier today while seated talking to friends. He checked his BP then which was 173/100 and pulse 100 and was then driven to the hospital. He was recently started on Valsartan. He is currently asymptomatic. Denies loss of consciousness, shortness of breath, pain, diaphoresis. Past History - Past Medical History Allergies/Adverse Reactions: Allergies Allergy/AdvReac Type Severity Reaction Status Date / Time No Known Allergies Allergy Verified 07/06/17 19:43 Home Medications: Ambulatory Orders Aspirin 81 mg PO DAILY 07/06/17 Furosemide [Lasix] 40 mg PO DAILY 07/06/17 Glimepiride 2 mg PO DAILY 07/06/17 Metoprolol Succinate [Toprol Xl] 50 mg PO HS 07/06/17 Rosuvastatin Calcium [Crestor] 10 mg PO HS 07/06/17 Spironolactone [Aldactone] 25 mg PO HS 07/06/17 Valsartan [Diovan] 80 mg PO BID 07/06/17 Warfarin Sodium [Coumadin] 5 mg PO HS 07/06/17 Anemia: No Asthma: No Cancer: No Cardiac Disorders: Yes (A. Fib, CAD, CT, BYPASS, MITRAL VALVULOPLASTY) CVA: No COPD: No CHF: Yes Dementia: No Diabetes: Yes GI Disorders: No Disorders: No HTN: Yes Hypercholesterolemia: Yes Liver Disease: No Seizures: No Thyroid Disease: No - Surgical History Abdominal Surgery: No Appendectomy: No Cardiac Surgery: Yes (CABG x 3, Stent X 1 , Pacemaker) Cholecystectomy: No Lung Surgery: No Neurologic Surgery: No Orthopedic Surgery: No - Immunization History Immunization Up to Date: Yes - Suicide/Smoking/Psychosocial Hx Smoking Status: No Smoking History: Never smoked Have you smoked in the past 12 months: No Number of Cigarettes Smoked Daily: 0 Hx Alcohol Use: No Drug/Substance Use Hx: No Substance Use Type: None Hx Substance Use Treatment: No Cardiac Specific PMH - Complaint Specific PMHX Pacemaker: Yes Review of Systems - Review of Systems Able to Perform ROS?: Yes Is the patient limited [place]an proficient: No Constitutional: No: Symptoms Reported HEENTM: No: Symptoms Reported Respiratory: No: Symptoms reported Cardiac (ROS): No: Symptoms Reported ABD/GI: No: Symptoms Reported : No: Symptoms Reported Musculoskeletal: No: Symptoms Reported All Other Systems: Reviewed and Negative *Physical Exam - Vital Signs Last Vital Signs Temp Pulse Resp BP Pulse Ox 97.1 F L 98 H 20 142/82 97 07/06/17 19:42 07/06/17 19:42 07/06/17 19:42 07/06/17 19:42 07/06/17 19:42 - Physical Exam General Appearance: Yes: Nourished, Appropriately Dressed. No: Apparent Distress HEENT: positive: EOMI, NAGI, Normal ENT Inspection Neck: negative: Tender, Carotid bruit Respiratory/Chest: positive: Lungs Clear, Normal Breath Sounds. negative: Chest Tender, Respiratory Distress Cardiovascular: positive: Regular Rhythm, Tachycardia Gastrointestinal/Abdominal: positive: Normal Bowel Sounds, Flat, Soft. negative : Tender Musculoskeletal: positive: Normal Inspection. negative: CVA Tenderness Extremity: positive: Normal Capillary Refill, Normal Inspection Integumentary: positive: Normal Color, Dry, Warm Neurologic: positive: Fully Oriented, Alert, Normal Mood/Affect Heart Score/ECG Review - History History: Slightly suspicious - Electrocardiogram EKG: Normal ED Treatment Course - LABORATORY CBC & Chemistry Diagram: 07/06/17 20:25 07/06/17 21:00 - ADDITIONAL ORDERS Additional order review: Laboratory Results 07/06/17 07/06/17 07/06/17 21:00 20:25 20:25 Sodium 134 L Cancelled Potassium 4.3 Cancelled Chloride 102 Cancelled Carbon Dioxide 24 Cancelled Anion Gap 8 Cancelled BUN 55 H D Cancelled Creatinine 2.0 H D Cancelled Creat Clearance w eGFR 32.23 Cancelled Random Glucose 131 H Cancelled Calcium 8.2 L Cancelled Total Bilirubin 0.3 D Cancelled AST 14 L Cancelled ALT 17 Cancelled Alkaline Phosphatase 53 Cancelled Troponin I 0.03 D Cancelled Total Protein 7.0 Cancelled Albumin 3.3 L Cancelled 07/06/17 20:25 RBC 5.53 MCV 81.0 MCHC 34.0 RDW 15.3 MPV 8.7 Neutrophils % 68.0 Lymphocytes % 20.1 Monocytes % 7.6 Eosinophils % 3.2 Basophils % 1.1 - RADIOLOGY Radiology Studies Ordered: Category Date Time Status CHEST X-RAY PORTABLE* [RAD] Stat Radiology 07/06/17 20:20 Completed Medical Decision Making - Medical Decision Making 07/06/17 22:20 medication-related episode of hypotension vs mi vs angina EKG: atrial-sensed ventricular-paced thythm with occasional sinus complexes in a pattern of bigeminy. First troponin negative. Patient signed out to Dr. Beasley *DC/Admit/Observation/Transfer Diagnosis at time of Disposition: Light-headedness - Referrals Referrals: Willem Toney MD [Primary Care Provider] - - Patient Instructions - Post Discharge Activity
--- NOTE | 2017-07-06 23:32 | PDOC ---
Attending Attestation - Resident Resident Name: SandySilas - ED Attending Attestation I have performed the following: I have examined & evaluated the patient, The case was reviewed & discussed with the resident, I agree w/resident's findings & plan, Exceptions are as noted - HPI HPI: 07/06/17 23:31 82-year-old male was eating dinner and had a 20 minute episode of dizziness and some mild chest discomfort that resolved. He has since been asymptomatic. He did recently start valsartan 80 mg twice a day. He said he been taking at one day. He denies any headache, visual changes, nausea, vomiting, shortness of breath, recurrent chest pain. First troponin is negative. No acute EKG changes. Patient is asymptomatic. I spoke with his custom seamstress, Dr. Dustin Castillo and he said that a repeat troponin 6 hour niall would be fine if is negative. The patient can go home and follow- up with Dr. Caldwell later this week <Beatrice Beasley - Last Filed: 07/06/17 23:46> - Physicial Exam PE: GENERAL: Well developed, well nourished. Awake and alert. No acute distress. HEENT: Normocephalic, atraumatic. PERRLA, EOMI. No conjunctival pallor. Sclera are non- icteric. NECK: Supple. Full ROM. No JVD. Carotid pulses 2+ and symmetric, without bruits. No thyromegaly. No lymphadenopathy. CARDIOVASCULAR: Regular rate and rhythm. No murmurs, rubs, or gallops. Distal pulses are 2+ and symmetric. PULMONARY: No evidence of respiratory distress. Lungs clear to auscultation bilaterally. No wheezing, rales or rhonchi. ABDOMINAL: Soft. Non-tender. Non-distended. No rebound or guarding. No organomegaly. Normoactive bowel sounds. MUSCULOSKELETAL (+)Ventral hernia. Normal range of motion at all joints. No bony deformities or tenderness. No CVA tenderness. EXTREMITIES: (+)2+ Bilateral LE pitting edema. No cyanosis. No clubbing.No calf tenderness. SKIN: Warm and dry. Normal capillary refill. No rashes. No jaundice. NEUROLOGICAL: Alert, awake, appropriate. Cranial nerves 2-12 intact. No deficits to light touch and temperature in face, upper extremities and lower extremities. No motor deficits in the in face, upper extremities and lower extremities. Normoreflexic in the upper and lower extremities. Normal speech. Cooperative. Good eye contact. Appropriate mood and affect. - Medical Decision Making Consulted with at 23:26 <Gilbert Schultz - Last Filed: 07/07/17 00:46> Attestations - Attestations Documentation prepared by Gilbert Schultz, acting as medical i d sales for Beatrice Beasley MD. <Gilbert Schultz - Last Filed: 07/07/17 00:46>
--- NOTE | 2017-07-06 23:48 | PDOC ---
*Physical Exam - Vital Signs Last Vital Signs Temp Pulse Resp BP Pulse Ox 97.1 F L 84 18 130/82 99 07/06/17 19:42 07/06/17 22:42 07/06/17 22:42 07/06/17 22:42 07/06/17 22:42 ED Treatment Course - LABORATORY CBC & Chemistry Diagram: 07/06/17 20:25 07/06/17 21:00 - ADDITIONAL ORDERS Additional order review: Laboratory Results 07/06/17 07/06/17 07/06/17 21:00 20:25 20:25 Sodium 134 L Cancelled Potassium 4.3 Cancelled Chloride 102 Cancelled Carbon Dioxide 24 Cancelled Anion Gap 8 Cancelled BUN 55 H D Cancelled Creatinine 2.0 H D Cancelled Creat Clearance w eGFR 32.23 Cancelled Random Glucose 131 H Cancelled Calcium 8.2 L Cancelled Total Bilirubin 0.3 D Cancelled AST 14 L Cancelled ALT 17 Cancelled Alkaline Phosphatase 53 Cancelled Troponin I 0.03 D Cancelled Total Protein 7.0 Cancelled Albumin 3.3 L Cancelled 07/06/17 20:25 RBC 5.53 MCV 81.0 MCHC 34.0 RDW 15.3 MPV 8.7 Neutrophils % 68.0 Lymphocytes % 20.1 Monocytes % 7.6 Eosinophils % 3.2 Basophils % 1.1 *DC/Admit/Observation/Transfer Diagnosis at time of Disposition: Light-headedness, S/P mitral valve repair, Anticoagulated on Coumadin, Renal insufficiency Hyperlipidemia Qualifiers: Hyperlipidemia type: unspecified Qualified Code(s): E78.5 - Hyperlipidemia, unspecified - Discharge Dispostion Admit: Yes - Referrals Referrals: Willem Toney MD [Primary Care Provider] - - Patient Instructions - Post Discharge Activity
--- NOTE | 2017-07-07 03:43 | PDOC ---
*Physical Exam - Vital Signs Last Vital Signs Temp Pulse Resp BP Pulse Ox 97.1 F L 84 18 130/82 99 07/06/17 19:42 07/06/17 22:42 07/06/17 22:42 07/06/17 22:42 07/06/17 22:42 ED Treatment Course - LABORATORY CBC & Chemistry Diagram: 07/06/17 20:25 07/06/17 21:00 - ADDITIONAL ORDERS Additional order review: Laboratory Results 07/06/17 07/06/17 07/06/17 21:00 20:25 20:25 Sodium 134 L Cancelled Potassium 4.3 Cancelled Chloride 102 Cancelled Carbon Dioxide 24 Cancelled Anion Gap 8 Cancelled BUN 55 H D Cancelled Creatinine 2.0 H D Cancelled Creat Clearance w eGFR 32.23 Cancelled Random Glucose 131 H Cancelled Calcium 8.2 L Cancelled Total Bilirubin 0.3 D Cancelled AST 14 L Cancelled ALT 17 Cancelled Alkaline Phosphatase 53 Cancelled Troponin I 0.03 D Cancelled Total Protein 7.0 Cancelled Albumin 3.3 L Cancelled 07/06/17 20:25 RBC 5.53 MCV 81.0 MCHC 34.0 RDW 15.3 MPV 8.7 Neutrophils % 68.0 Lymphocytes % 20.1 Monocytes % 7.6 Eosinophils % 3.2 Basophils % 1.1 *DC/Admit/Observation/Transfer Diagnosis at time of Disposition: Light-headedness, S/P mitral valve repair, Anticoagulated on Coumadin, Renal insufficiency Hyperlipidemia Qualifiers: Hyperlipidemia type: unspecified Qualified Code(s): E78.5 - Hyperlipidemia, unspecified - Discharge Dispostion Disposition: HOME Condition at time of disposition: Stable Admit: No - Referrals - Patient Instructions - Post Discharge Activity
[2017-07-07 04:04] VITALS: BP 122/77; PULSE 86
--- NOTE | 2017-07-07 11:44 | EKG ---
Test Reason : Blood Pressure : / mmHG Vent. Rate : 082 BPM Atrial Rate : 082 BPM P-R Int : 000 ms QRS Dur : 124 ms QT Int : 422 ms P-R-T Axes : 054 024 141 degrees QTc Int : 493 ms Atrial-sensed ventricular-paced rhythm WITH OCCASIONAL sinus complexes IN A PATTERN OF BIGEMINY ABNORMAL ECG WHEN COMPARED WITH ECG OF 03-JUN-2017 22:16, VENT. RATE HAS DECREASED BY 10 BPM Confirmed by ANGIE BAL MD ([id number]) on 07/07/2017 11:44:08 AM Referred By: Confirmed By:ANGIE BAL MD
== END 2017-07-07 04:04 | disposition home or self-care (01) ==
LOC: JER 19:31 → UNDOADMOB 23:48 → JERBED 23:48 → UNDOADMOB 07-07 00:01 → JER 07-07 04:04
DX: R42 Dizziness and giddiness (principal); D68.9 Coagulation defect, unspecified; Z79.01 Long term (current) use of anticoagulants; Z95.2 Presence of prosthetic heart valve; E78.5 Hyperlipidemia, unspecified; I25.2 Old myocardial infarction; I25.810 Atherosclerosis of coronary artery bypass graft(s) without angina pectoris; I11.0 Hypertensive heart disease with heart failure; Z95.1 Presence of aortocoronary bypass graft; Z95.5 Presence of coronary angioplasty implant and graft; R60.0 Localized edema; Z95.810 Presence of automatic (implantable) cardiac defibrillator; E11.9 Type 2 diabetes mellitus without complications; Z79.84 Long term (current) use of oral hypoglycemic drugs; E78.00 Pure hypercholesterolemia, unspecified; Z79.82 Long term (current) use of aspirin
CPT/HCPCS: 36415; 71045-TC-FY; 80053; 84484; 85025; 93005; 93010; 99284-25

== ENCOUNTER 2017-12-15 23:50 | Emergency (ER) | payer OTHER ==
[2017-12-16 00:29] VITALS: BMI 30.5
--- NOTE | 2017-12-16 00:35 | PDOC ---
History of Present Illness - General Chief Complaint: Blood Pressure Problem Stated Complaint: Blood Pressure Problem Time Seen by Provider: 12/16/17 00:23 - History of Present Illness Initial Comments: 12/16/17 00:34 82 M with h/o CAD s/p MA, CABG, AICD/PPM placement, CHF, DM, and HTN presenting to ED with elevated BP. Pt states that he was at home resting when he suddenly felt very sweaty. He states that he checked his blood glucose and found it was 150. He then checked his BP and found it to be 160/90. He states that he is typically in the 130s/70s range. This prompted him to come to the ER. Pt denies any symptoms at the moment. States that he feels well now. Denies any diaphoresis. He denies any CP/SOB. Denies N/V. Denies F/C. Denies leg swelling. Denies HANEY. Past History - Past Medical History Allergies/Adverse Reactions: Allergies Allergy/AdvReac Type Severity Reaction Status Date / Time No Known Allergies Allergy Verified 12/16/17 00:26 Home Medications: Ambulatory Orders Aspirin 81 mg PO DAILY 07/06/17 Furosemide [Lasix] 40 mg PO DAILY 07/06/17 Glimepiride 2 mg PO DAILY 07/06/17 Metoprolol Succinate [Toprol Xl] 50 mg PO HS 07/06/17 Rosuvastatin Calcium [Crestor] 10 mg PO HS 07/06/17 Valsartan [Diovan] 80 mg PO BID 07/06/17 Warfarin Sodium [Coumadin] 5 mg PO HS 07/06/17 Anemia: No Asthma: No Cancer: No Cardiac Disorders: Yes (A. Fib, CAD, MA, BYPASS, MITRAL VALVULOPLASTY) CVA: No COPD: No CHF: Yes Dementia: No Diabetes: Yes GI Disorders: No Disorders: No HTN: Yes Hypercholesterolemia: Yes Liver Disease: No Seizures: No Thyroid Disease: No - Surgical History Abdominal Surgery: No Appendectomy: No Cardiac Surgery: Yes (CABG x 3, Stent X 1 , Pacemaker) Cholecystectomy: No Lung Surgery: No Neurologic Surgery: No Orthopedic Surgery: No - Immunization History Immunization Up to Date: Yes - Suicide/Smoking/Psychosocial Hx Smoking Status: No Smoking History: Never smoked Have you smoked in the past 12 months: No Number of Cigarettes Smoked Daily: 0 Information on smoking cessation initiated: No Hx Alcohol Use: No Drug/Substance Use Hx: No Substance Use Type: None Hx Substance Use Treatment: No Review of Systems - Review of Systems Comments:: 12/16/17 00:38 GENERAL/CONSTITUTIONAL: No fever or chills. No weakness. HEAD, EYES, EARS, NOSE AND THROAT: No change in vision. No ear pain or discharge. No sore throat. CARDIOVASCULAR: No chest pain or shortness of breath. RESPIRATORY: No cough, wheezing, or hemoptysis. GASTROINTESTINAL: No nausea, vomiting, diarrhea or constipation. GENITOURINARY: No dysuria, frequency, or change in urination. MUSCULOSKELETAL: No joint or muscle swelling or pain. No neck or back pain. SKIN: No rash NEUROLOGIC: No headache, vertigo, loss of consciousness, or change in strength/ sensation. ENDOCRINE: No increased thirst. No abnormal weight change. HEMATOLOGIC/LYMPHATIC: No anemia, easy bleeding, or history of blood clots. ALLERGIC/IMMUNOLOGIC: No hives or skin allergy. *Physical Exam - Vital Signs Last Vital Signs Temp Pulse Resp BP Pulse Ox 97.9 F 93 H 18 143/89 96 12/16/17 00:00 12/16/17 00:00 12/16/17 00:00 12/16/17 00:00 12/16/17 00:00 - Physical Exam Comments: 12/16/17 00:39 "GENERAL: Awake, alert, and fully oriented, in no acute distress. HEAD: No signs of trauma EYES: PERRLA, EOMI, sclera anicteric, conjunctiva clear ENT: Auricles normal inspection, hearing grossly normal, nares patent, oropharynx clear without exudates. Moist mucosa NECK: Nontender, no stepoffs, Normal ROM, supple, no lymphadenopathy, JVD, or masses LUNGS: Breath sounds equal, clear to auscultation bilaterally. No wheezes, and no crackles HEART: Regular rate and rhythm, normal S1 and S2, no murmurs, rubs or gallops ABDOMEN: Soft, nontender, normoactive bowel sounds. No guarding, no rebound. No masses EXTREMITIES: Normal range of motion, no edema. No clubbing or cyanosis. No cords, erythema, or tenderness NEUROLOGICAL: Cranial nerves II through XII intact. 5/5 strength and sensation in all extremities, Normal speech, normal gait, normal cerebellar function SKIN: Warm, Dry, normal turgor, no rashes or lesions noted. Heart Score/ECG Review - ECG Impressions Comment:: 12/16/17 00:39 AV paced, rate 92, unchanged since prior EKG ED Treatment Course - LABORATORY CBC & Chemistry Diagram: 12/16/17 00:28 12/16/17 00:28 Medical Decision Making - Medical Decision Making 12/16/17 00:39 82 M with elevated BP at home in the context of diaphoresis. BP now normalizing without intervention. Will check basic labwork and trop given diaphoresis, though suspicion for ACS is very low, as pt denies CP/SOB. - Labs, trop - Recheck BP 12/16/17 01:43 Labs wnl BP well controlled. Pt has f/u with Dr. Aguilar tomorrow. Pt is well appearing, with normal vitals. Clinically stable for DC at this time. I discussed the physical exam findings, ancillary test results and final diagnoses with the patient. I answered all of the patient's questions. The patient was satisfied with the care received and felt comfortable with the discharge plan and treatment plan. The patient agrees to follow up with the primary care physician within 24-72 hours. *DC/Admit/Observation/Transfer Diagnosis at time of Disposition: HTN (hypertension) - Discharge Dispostion Disposition: HOME Condition at time of disposition: Fair - Referrals Referrals: Willem Toney MD [Primary Care Provider] - - Patient Instructions Printed Discharge Instructions: DI for High Blood Pressure Additional Instructions: Follow up with your radiology clerk TOMORROW as scheduled. Continue taking your medications as prescribed. If you experience any chest pain, shortness of breath, lightheadedness, headache , or any other concerning symptoms, return to the ER immediately. - Post Discharge Activity - Attestations Physician Attestion: 12/16/17 01:44 I, Dr. Orlando Powell MD, attest that this document has been prepared under my direction and personally reviewed by me in its entirety. I further attest, that it accurately reflects all work, treatment, procedures and medical decision -making performed by me.
[2017-12-16 00:55] LABS: BASO % 0.9 % (0-2.0); HEMATOCRIT 45.7 % (35.4-49); HEMOGLOBIN 14.9 GM/dL (11.7-16.9); LYMPH % 11.7 % (8-40); MCHC 32.5 g/dl (32.0-35.9); MEAN CELL VOLUME 83.1 fl (80-96); MEAN PLT VOLUME 8.4 fl (7.5-11.1); MONO % 5.9 % (3.8-10.2); NEUT % 79.5 % (42.8-82.8); PLATELET COUNT 244 K/MM3 (134-434); RDW 14.3 % (11.9-15.9); WHITE BLOOD COUNT 8.5 K/mm3 (4.0-10.0)
[2017-12-16 01:05] VITALS: BP 114/69; PULSE 80; TEMP 98.3
[2017-12-16 01:34] LABS: ALBUMIN 3.5 g/dl (3.4-5.0); ALK PHOS 67 U/L (45-117); ANION GAP 9 MMOL/L (8-16); BILIRUBIN,TOTAL 0.5 mg/dL (0.2-1); BLOOD UREA NITROGEN 35 mg/dL (7-18); CALCIUM 8.5 mg/dL (8.5-10.1); CHLORIDE 102 mmol/L (98-107); CO2 23 mmol/L (21-32); CREATININE 1.7 mg/dL (0.55-1.3); GLUCOSE,RANDOM 194 mg/dL (74-106); POTASSIUM 4.3 mmol/L (3.5-5.1); SGOT/AST 23 U/L (15-37); SGPT/ALT 18 U/L (13-61); SODIUM 134 mmol/L (136-145); TOT PROT 7.7 g/dl (6.4-8.2)
--- NOTE | 2017-12-16 09:33 | EKG ---
Test Reason : Blood Pressure : / mmHG Vent. Rate : 092 BPM Atrial Rate : 092 BPM P-R Int : 136 ms QRS Dur : 168 ms QT Int : 442 ms P-R-T Axes : 054 198 031 degrees QTc Int : 546 ms Atrial-sensed ventricular-paced rhythm Biventricular pacemaker detected ABNORMAL ECG WHEN COMPARED WITH ECG OF 28-SEP-2017 05:43, VENT. RATE HAS INCREASED BY 13 BPM Confirmed by HILDA VILLANUEVA, NAMRATA ([id number]) on 12/16/2017 9:33:38 AM Referred By: Confirmed By:NAMRATA STEVENS MD
== END 2017-12-16 02:25 | disposition home or self-care (01) ==
LOC: JER 23:50
DX: I10 Essential (primary) hypertension (principal); I25.10 Atherosclerotic heart disease of native coronary artery without angina pectoris; Z95.1 Presence of aortocoronary bypass graft; Z95.5 Presence of coronary angioplasty implant and graft; I48.91 Unspecified atrial fibrillation; Z79.01 Long term (current) use of anticoagulants; I25.2 Old myocardial infarction; Z95.810 Presence of automatic (implantable) cardiac defibrillator; E11.9 Type 2 diabetes mellitus without complications; Z79.84 Long term (current) use of oral hypoglycemic drugs
CPT/HCPCS: 36415; 80053; 82550; 84484; 85025; 93005; 93010; 99281-25

== ENCOUNTER 2018-02-22 04:37 | Observation (INO) | payer OTHER ==
[2018-02-22] MEDS ORDERED: ASPIRIN 81 MG CHEWABLE TABLETS PO ONE ×2 (04:46→11:47)
[2018-02-22] MEDS ORDERED: ASPIRIN 81 MG CHEWABLE TABLETS ONE ×2 (04:53→04:56)
--- NOTE | 2018-02-22 05:09 | PDOC ---
History of Present Illness - General Chief Complaint: Shortness of Breath Stated Complaint: SOB Time Seen by Provider: 02/22/18 04:53 - History of Present Illness Initial Comments: 02/22/18 05:08 82 M with h/o CAD s/p HI, CABG, AICD/PPM placement, CHF, DM, and HTN presenting to ED with shortness of breath. He states that he woke up short of breath and sweating which made him come to the ER after taking metoprolol. He awoke with diaphoresis and mild chest pain States to be feeling much better now that he is on O2 nasal cannula Past History - Past Medical History Allergies/Adverse Reactions: Allergies Allergy/AdvReac Type Severity Reaction Status Date / Time No Known Allergies Allergy Verified 02/22/18 05:22 Home Medications: Ambulatory Orders Aspirin [ASA -] 81 mg PO DAILY 02/22/18 Furosemide [Lasix -] 40 mg PO DAILY 02/22/18 Glimepiride [Amaryl -] 2 mg PO DAILY 02/22/18 Losartan Potassium [Cozaar -] 50 mg PO BID 02/22/18 Metoprolol Tartrate [Lopressor -] 50 mg PO DAILY 02/22/18 Rosuvastatin [Crestor -] 10 mg PO BID 02/22/18 Warfarin Na [Coumadin] 5 mg PO DAILY 02/22/18 Anemia: No Asthma: No Cancer: No Cardiac Disorders: Yes (A. Fib, CAD, HI, BYPASS, MITRAL VALVULOPLASTY) CVA: No COPD: No CHF: Yes Dementia: No Diabetes: Yes GI Disorders: No Disorders: No HTN: Yes Hypercholesterolemia: Yes Liver Disease: No Seizures: No Thyroid Disease: No - Surgical History Abdominal Surgery: No Appendectomy: No Cardiac Surgery: Yes (CABG x 3, Stent X 1 , Pacemaker) Cholecystectomy: No Lung Surgery: No Neurologic Surgery: No Orthopedic Surgery: No - Immunization History Immunization Up to Date: Yes - Suicide/Smoking/Psychosocial Hx Smoking Status: No Smoking History: Never smoked Have you smoked in the past 12 months: No Number of Cigarettes Smoked Daily: 0 Hx Alcohol Use: No Drug/Substance Use Hx: No Substance Use Type: None Hx Substance Use Treatment: No Cardiac Specific PMH - Complaint Specific PMHX Pacemaker: Yes Review of Systems - Review of Systems Able to Perform ROS?: Yes Is the patient limited Upper Sorbian proficient: No Constitutional: Yes: Diaphoresis HEENTM: No: Symptoms Reported Respiratory: Yes: See HPI Cardiac (ROS): Yes: See HPI ABD/GI: No: Symptoms Reported : No: Symptoms Reported Musculoskeletal: No: Symptoms Reported Integumentary: No: Symptoms Reported Neurological: No: Symptoms reported All Other Systems: Reviewed and Negative *Physical Exam - Vital Signs Last Vital Signs Temp Pulse Resp BP Pulse Ox 97.6 F 73 17 138/68 98 02/22/18 04:45 02/22/18 06:06 02/22/18 06:06 02/22/18 06:06 02/22/18 06:06 - Physical Exam General Appearance: Yes: Nourished, Appropriately Dressed, Apparent Distress HEENT: positive: EOMI, NAGI, Normal ENT Inspection Respiratory/Chest: positive: Lungs Clear, Decreased Breath Sounds. negative: Chest Tender, Respiratory Distress Cardiovascular: positive: Regular Rhythm, S1, S2, Tachycardia Gastrointestinal/Abdominal: positive: Normal Bowel Sounds, Flat, Soft. negative : Tender Extremity: positive: Normal Capillary Refill, Normal Inspection, Normal Range of Motion Integumentary: positive: Normal Color, Dry, Warm Neurologic: positive: Fully Oriented, Alert, Normal Mood/Affect Moderate Sedation - Procedure Monitoring Vital Signs: Procedure Monitoring Vital Signs Temperature 97.6 F 02/22/18 04:45 Pulse Rate 73 02/22/18 06:06 Respiratory Rate 17 02/22/18 06:06 Blood Pressure 138/68 02/22/18 06:06 O2 Sat by Pulse Oximetry (%) 98 02/22/18 06:06 ED Treatment Course - LABORATORY CBC & Chemistry Diagram: 02/22/18 05:15 02/22/18 05:15 - ADDITIONAL ORDERS Additional order review: Laboratory Results 02/22/18 02/22/18 05:15 05:15 PT with INR 18.90 H INR 1.59 H Sodium 136 Potassium 4.1 Chloride 101 Carbon Dioxide 25 Anion Gap 10 BUN 36 H Creatinine 1.8 H Creat Clearance w eGFR 36.39 Random Glucose 233 H Calcium 8.9 Magnesium 2.3 Total Bilirubin 0.6 AST 18 ALT 22 Alkaline Phosphatase 82 Creatine Kinase 70 Troponin I 0.04 Total Protein 8.1 Albumin 3.8 02/22/18 05:15 RBC 6.20 H MCV 81.0 MCHC 31.7 L RDW 15.3 MPV 8.8 Neutrophils % 73.1 Lymphocytes % 18.1 D Monocytes % 5.8 Eosinophils % 1.7 Basophils % 1.3 - Medications Given in the ED: ED Medications Discontinued Medications Generic Name Dose Route Start Last Admin Trade Name Freq PRN Reason Stop Dose Admin Aspirin 162 mg 02/22/18 04:46 02/22/18 04:57 Asa - PO 02/22/18 04:47 162 mg ONCE ONE Administration Medical Decision Making - Medical Decision Making 02/22/18 07:37 Mi vs CHF exacerbation vs pna vs flu Trop, BNP, CXR Pt feels better since being in the ER and getting O2 Pt BP improved as well EKG: A sensed V paced, rate of 85 bpm, (+) PVC similar to previous ones except for 1 PVC CXR pending Patient signed out to Dr. Jones. *DC/Admit/Observation/Transfer Diagnosis at time of Disposition: Shortness of breath - Referrals - Patient Instructions - Post Discharge Activity
--- NOTE | 2018-02-22 05:33 | PDOC ---
Attending Attestation - Resident Resident Name: Silas Delgado - ED Attending Attestation I have performed the following: I have examined & evaluated the patient, The case was reviewed & discussed with the resident, I agree w/resident's findings & plan, Exceptions are as noted - HPI HPI: 02/22/18 05:34 Mr Cohen is an 82 yo M h/o CAD s/p [place] s/p CABG, CHF (LV systolic dysfunction - ECHO 05/2017 EF 27%, LA dilitation, MR/TR/AR), PPM/ACID, NIDDM, HTN, HLD, HTN, Afib (on coumadin) who presents to the ER for assessment of shortness of breath Symptoms began early this morning He awoke with diaphoresis and mild chest pain He took an additional metoprolol (of note, this happened to him the night prior) These symptoms were concerning enough that he needed to come in to the ER Pt reports compliance with medications Denies orthopnea Pt is at his baseline - 1/2 block FAYE Denies LE edema Pt is at most 1-2 pounds above his dry weight He did have an upper respiratory infection but this has resolved No Known Allergies Allergy (Verified 07/06/17 19:43) 02/22/18 05:42 02/22/18 06:04 - Physicial Exam PE: 02/22/18 06:03 GENERAL: The patient is in no acute distress. HEAD: Normal EYES: PERRLA, EOMI, sclera anicteric, conjunctiva clear. ENT: Ears normal, nares patent, oropharynx clear without exudates. Moist mucous membranes. NECK: Normal range of motion, supple without lymphadenopathy, JVD, or masses. LUNGS: Basilar crackles HEART:Regular rate and rhythm, normal S1 and S2 without murmur, rub or gallop. ABDOMEN: Soft, nontender, normoactive bowel sounds. No guarding, no rebound. No masses palpable. EXTREMITIES: Normal range of motion, no edema. No clubbing or cyanosis. No erythema, or tenderness. NEUROLOGICAL: Cranial nerves II through XII grossly intact. Normal speech. No focal neurological deficits. MUSCULOSKELETAL: Back non-tender to palpation, no CVA tenderness SKIN: Warm, Dry, normal turgor, no rashes or lesions noted. - Medical Decision Making 02/22/18 06:11 Pt has CHF and multiple cardiac issues Will do Trop, BNP, CXR Pt feels better since being in the ER and getting O2 Pt BP improved as well EKG: A sensed V paced, rate of 85 bpm, (+) PVC Would contact pt PMD and Director Of Business Applications Pt signed out pending labs and consults
[2018-02-22 05:38] LABS: BASO % 1.3 % (0-2.0); EOS % 1.7 % (0-4.5); HEMATOCRIT 50.3 % (35.4-49); HEMOGLOBIN 15.9 GM/dL (11.7-16.9); LYMPH % 18.1 % (8-40); MCH 25.7 pg (25.7-33.7); MCHC 31.7 g/dl (32.0-35.9); MEAN PLT VOLUME 8.8 fl (7.5-11.1); MONO % 5.8 % (3.8-10.2); NEUT % 73.1 % (42.8-82.8); PLATELET COUNT 226 K/MM3 (134-434); RDW 15.3 % (11.9-15.9); WHITE BLOOD COUNT 8.8 K/mm3 (4.0-10.0)
[2018-02-22 06:01] LABS: INR 1.59 (0.83-1.09); PROTHROMBIN TIME (PATIENT) 18.9 SEC (9.7-13.0)
[2018-02-22 06:24] LABS: ALBUMIN 3.8 g/dl (3.4-5.0); ALK PHOS 82 U/L (45-117); ANION GAP 10 MMOL/L (8-16); BILIRUBIN,TOTAL 0.6 mg/dL (0.2-1); BLOOD UREA NITROGEN 36 mg/dL (7-18); CALCIUM 8.9 mg/dL (8.5-10.1); CHLORIDE 101 mmol/L (98-107); CO2 25 mmol/L (21-32); CREATININE 1.8 mg/dL (0.55-1.3); GLUCOSE,RANDOM 233 mg/dL (74-106); MAGNESIUM 2.3 mg/dL (1.8-2.4); POTASSIUM 4.1 mmol/L (3.5-5.1); SGOT/AST 18 U/L (15-37); SGPT/ALT 22 U/L (13-61); SODIUM 136 mmol/L (136-145); TOT PROT 8.1 g/dl (6.4-8.2)
[2018-02-22 08:14] LABS: N-TERMINAL BNP 4324.9 pg/ml (5-450)
--- NOTE | 2018-02-22 09:56 | PDOC ---
*Physical Exam - Vital Signs Last Vital Signs Temp Pulse Resp BP Pulse Ox 97.6 F 69 22 H 151/91 98 02/22/18 04:45 02/22/18 08:00 02/22/18 08:00 02/22/18 08:00 02/22/18 08:14 - Physical Exam Comments: General Appearance: Yes: Nourished, Appropriately Dressed, Apparent Distress HEENT: positive: EOMI, NAGI, Normal ENT Inspection Respiratory/Chest: positive: Lungs Clear, Decreased Breath Sounds. negative: Chest Tender, Respiratory Distress Cardiovascular: positive: Regular Rhythm, S1, S2 Gastrointestinal/Abdominal: positive: Normal Bowel Sounds, Flat, Soft. negative : Tender Extremity: positive: Normal Capillary Refill, Normal Inspection, Normal Range of Motion Integumentary: positive: Normal Color, Dry, Warm Neurologic: positive: Fully Oriented, Alert, Normal Mood/Affect ED Treatment Course - LABORATORY CBC & Chemistry Diagram: 02/22/18 05:15 02/22/18 05:15 - ADDITIONAL ORDERS Additional order review: Laboratory Results 02/22/18 02/22/18 05:15 05:15 PT with INR 18.90 H INR 1.59 H Sodium 136 Potassium 4.1 Chloride 101 Carbon Dioxide 25 Anion Gap 10 BUN 36 H Creatinine 1.8 H Creat Clearance w eGFR 36.39 Random Glucose 233 H Calcium 8.9 Magnesium 2.3 Total Bilirubin 0.6 AST 18 ALT 22 Alkaline Phosphatase 82 Creatine Kinase 70 Troponin I 0.04 B-Natriuretic Peptide 4324.9 H Total Protein 8.1 Albumin 3.8 02/22/18 05:15 RBC 6.20 H MCV 81.0 MCHC 31.7 L RDW 15.3 MPV 8.8 Neutrophils % 73.1 Lymphocytes % 18.1 D Monocytes % 5.8 Eosinophils % 1.7 Basophils % 1.3 - RADIOLOGY Radiology Studies Ordered: Category Date Time Status CHEST PA & LAT [RAD] Stat Radiology 02/22/18 09:15 Ordered - Medications Given in the ED: ED Medications Discontinued Medications Generic Name Dose Route Start Last Admin Trade Name Freq PRN Reason Stop Dose Admin Aspirin 162 mg 02/22/18 04:46 02/22/18 04:57 Asa - PO 02/22/18 04:47 162 mg ONCE ONE Administration Medical Decision Making - Medical Decision Making 82 M with h/o CAD s/p [place], CABG, AICD/PPM placement, CHF, DM, and HTN presenting to ED with shortness of breath. States to be feeling much better now that he is on O2 nasal cannula I spoke with both of his doctors - Dr. Potts and Dr. Lorenz who know the patient very well. They said that if his entire workup is negative he can be discharged. Plan: Repeat trop, PA + Lat CXR. If negative will DC patient with quick follow up. CXR showed mild congestion. Repeat troponin escalated to 0.1. Spoke with patient and his daughter and they would like to stay in the hospital to make sure everything is going to be okay. Spoke with Dr. See who accepted the admission to [facility]. Plan is to trend trop and make sure it is not going up. Dr. Potts has been very helpful, is available for consult about the patient, and is able to see the patient as soon as he is discharged from the hospital. *DC/Admit/Observation/Transfer Diagnosis at time of Disposition: Shortness of breath, Chest pain, Elevated troponin - Discharge Dispostion Condition at time of disposition: Guarded Decision to Admit order: Yes - Referrals - Patient Instructions - Post Discharge Activity
[2018-02-22] MEDS ORDERED: LOSARTAN POTASSIUM 50 MG TABLET (FP) PO ONE (11:46)
[2018-02-22] MEDS ORDERED: GLIMEPIRIDE 2 MG TABLET (FP) PO ONE (11:47)
[2018-02-22] MEDS ORDERED: FUROSEMIDE 40 MG TABLET (FP) PO ONE (11:47)
[2018-02-22] MEDS ORDERED: ROSUVASTATIN CA 10 MG TABLET (FP) PO ONE (11:48)
--- NOTE | 2018-02-22 14:23 | HP ---
Admitting History and Physical - Primary Care Physician PCP: Juanis eSe - Admission Chief Complaint: CHEST PAIN/DYSPNEA History of Present Illness: 82 Y/O MALE HISTORY CABG, DM, HTN, LIPIDEMIA, AICD HERE WITH CHEST DISCOMFORT, MILD POSITIVE TROPONIN LIKELY CHRONIC AND SUBTHERAPEUTIC INR. History Source: Patient, Medical Record - Past Medical History Cardiovascular: Yes: AFIB, CAD, CHF, HTN, Hyperlipdemia, [place] Endocrine: Yes: Diabetes Mellitus - Past Surgical History Past Surgical History: Yes: AICD, CABG, Stent - Smoking History Smoking history: Never smoked Have you smoked in the past 12 months: No Aproximately how many cigarettes per day: 0 - Alcohol/Substance Use Hx Alcohol Use: No History of Substance Use: reports: None - Social History ADL: Independent History of Recent Travel: No Home Medications - Allergies Allergies/Adverse Reactions: Allergies Allergy/AdvReac Type Severity Reaction Status Date / Time No Known Allergies Allergy Verified 02/22/18 05:22 - Home Medications Home Medications: Ambulatory Orders Aspirin [ASA -] 81 mg PO DAILY 02/22/18 Furosemide [Lasix -] 40 mg PO DAILY 02/22/18 Glimepiride [Amaryl -] 2 mg PO DAILY 02/22/18 Losartan Potassium [Cozaar -] 50 mg PO BID 02/22/18 Metoprolol Tartrate [Lopressor -] 50 mg PO DAILY 02/22/18 Rosuvastatin [Crestor -] 10 mg PO BID 02/22/18 Warfarin Na [Coumadin] 5 mg PO DAILY 02/22/18 Review of Systems - Review of Systems Constitutional: reports: No Symptoms Eyes: reports: No Symptoms HENT: reports: No Symptoms Neck: reports: No Symptoms Cardiovascular: reports: Chest Pain Respiratory: reports: Cough, SOB Gastrointestinal: reports: No Symptoms Genitourinary: reports: No Symptoms Musculoskeletal: reports: No Symptoms Integumentary: reports: No Symptoms Neurological: reports: No Symptoms Endocrine: reports: No Symptoms Hematology/Lymphatic: reports: No Symptoms Psychiatric: reports: No Symptoms Physical Examination Vital Signs: Vital Signs Temperature 97.6 F 02/22/18 04:45 Pulse Rate 69 02/22/18 08:00 Respiratory Rate 22 H 02/22/18 08:00 Blood Pressure 151/91 02/22/18 08:00 O2 Sat by Pulse Oximetry (%) 98 02/22/18 08:14 Constitutional: Yes: Mild Distress Eyes: Yes: WNL HENT: Yes: WNL Neck: Yes: WNL Cardiovascular: Yes: Pulse Irregular Respiratory: Yes: CTA Bilaterally, Cough Gastrointestinal: Yes: WNL Renal/: Yes: WNL Musculoskeletal: Yes: Muscle Weakness Extremities: Yes: WNL Edema: No Peripheral Pulses WNL: Yes Integumentary: Yes: WNL Wound/Incision: Yes: Clean/Dry Neurological: Yes: WNL ...Motor Strength: WNL Psychiatric: Yes: WNL Labs: CBC, BMP 02/22/18 05:15 02/22/18 05:15 Imaging - Results Chest X-ray: Report Reviewed Problem List - Problems (1) Chest pain Code(s): R07.9 - CHEST PAIN, UNSPECIFIED (2) Elevated troponin Code(s): R74.8 - ABNORMAL LEVELS OF OTHER SERUM ENZYMES (3) Shortness of breath Code(s): R06.02 - SHORTNESS OF BREATH (4) CHF exacerbation Code(s): I50.9 - HEART FAILURE, UNSPECIFIED Qualifiers: Heart failure type: systolic Qualified Code(s): I50.23 - Acute on chronic systolic (congestive) heart failure (5) Weakness Code(s): R53.1 - WEAKNESS (6) Biventricular automatic implantable cardioverter defibrillator in situ Code(s): Z95.810 - PRESENCE OF AUTOMATIC (IMPLANTABLE) CARDIAC DEFIBRILLATOR (7) S/P mitral valve repair Code(s): Z98.890 - OTHER SPECIFIED POSTPROCEDURAL STATES (8) Status post coronary artery stent placement Code(s): Z95.5 - PRESENCE OF CORONARY ANGIOPLASTY IMPLANT AND GRAFT Assessment/Plan COUMADIN AND LOVENOX SQ BRIDGE TO INR 2-3 CARDIO EVAL TELEMETRY OBSERVATION BGM CHECK LIPID PROFILE CRF TROPONN CYCLE
[2018-02-22] MEDS ORDERED: ACETAMINOPHEN 325 MG TABLET (FP) PO PRN (14:36)
[2018-02-22] MEDS: METOPROLOL TARTRATE 50 MG TABLET (FP) PO SCH (15:39)
[2018-02-22] MEDS: FUROSEMIDE 40 MG/4 ML INJECTABLE VIAL IVPUSH SCH (15:39)
[2018-02-22] MEDS ORDERED: ENOXAPARIN NA (PORCINE) 100 MG/1 ML DISP.SYRIN SQ ONE (16:27)
[2018-02-22] MEDS: ENOXAPARIN NA (PORCINE) 100 MG/1 ML DISP.SYRIN SQ SCH (16:27)
--- NOTE | 2018-02-22 17:01 | EKG ---
Test Reason : Blood Pressure : / mmHG Vent. Rate : 085 BPM Atrial Rate : 087 BPM P-R Int : 136 ms QRS Dur : 200 ms QT Int : 488 ms P-R-T Axes : 074 242 087 degrees QTc Int : 580 ms Atrial-sensed ventricular-paced rhythm WITH OCCASIONAL PREMATURE VENTRICULAR COMPLEXES Biventricular pacemaker detected ABNORMAL ECG Confirmed by MD JARROD, DELANO ([id number]) on 02/22/2018 5:01:20 PM Referred By: Confirmed By:DELANO GARAY MD
[2018-02-22] MEDS ORDERED: WARFARIN NA 5 MG TABLET (UD) PO SCH (18:00)
[2018-02-22 18:07] VITALS: BMI 29.1
[2018-02-22] MEDS ORDERED: ROSUVASTATIN CA 10 MG TABLET (FP) PO SCH (22:00)
[2018-02-23 06:34] LABS: HEMATOCRIT 42.1 % (35.4-49); HEMOGLOBIN 13.3 GM/dL (11.7-16.9); MCH 25.3 pg (25.7-33.7); MCHC 31.6 g/dl (32.0-35.9); MEAN CELL VOLUME 80.3 fl (80-96); MEAN PLT VOLUME 8.9 fl (7.5-11.1); PLATELET COUNT 195 K/MM3 (134-434); RBC 5.24 M/mm3 (4.00-5.60); RDW 14.9 % (11.9-15.9); WHITE BLOOD COUNT 7.6 K/mm3 (4.0-10.0)
[2018-02-23 06:55] LABS: INR 1.93 (0.83-1.09); PROTHROMBIN TIME (PATIENT) 22.9 SEC (9.7-13.0)
[2018-02-23] MEDS ORDERED: GLIMEPIRIDE 2 MG TABLET (FP) PO SCH (07:00)
[2018-02-23 07:19] LABS: ANION GAP 6 MMOL/L (8-16); BLOOD UREA NITROGEN 37 mg/dL (7-18); CALCIUM 7.9 mg/dL (8.5-10.1); CHLORIDE 101 mmol/L (98-107); CHOLESTEROL 221 mg/dL (50-200); CO2 28 mmol/L (21-32); CREATININE 1.8 mg/dL (0.55-1.3); GLUCOSE,RANDOM 131 mg/dL (74-106); HDL CHOLESTEROL 26 mg/dL (40-60); SODIUM 135 mmol/L (136-145); TRIGLYCERIDES 269 mg/dL (0-150)
[2018-02-23] MEDS ORDERED: ASPIRIN COATED 81 MG TABLET.EC PO SCH (10:00)
[2018-02-23] MEDS ORDERED: LOSARTAN POTASSIUM 50 MG TABLET (FP) PO SCH (10:00)
[2018-02-23] MEDS: FUROSEMIDE 40 MG/4 ML INJECTABLE VIAL IVPUSH SCH (10:00)
[2018-02-23] MEDS: ENOXAPARIN NA (PORCINE) 100 MG/1 ML DISP.SYRIN SQ SCH (10:01)
[2018-02-23] MEDS: METOPROLOL TARTRATE 50 MG TABLET (FP) PO SCH (10:01)
[2018-02-23 10:05] VITALS: BP 108/60; PULSE 78; TEMP 98
--- NOTE | 2018-02-23 10:12 | CON.CARD ---
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 Currently denies chest pain, palpitations, near or true syncope, ICD shocks. Last office visit 02/04/2018, reports diet and medication compliance. - History Source History Provided By: Patient Limitations to Obtaining History: No Limitations - Past Medical History Cardio/Vascular: Yes: AFIB, CAD, CHF, HTN, Hyperlipdemia, [place] Endocrine: Yes: Diabetes Mellitus - Past Surgical History Past Surgical History: Yes: AICD, CABG, Stent - Alcohol/Substance Use Hx Alcohol Use: No History of Substance Use: reports: None - Smoking History Smoking history: Never smoked Have you smoked in the past 12 months: No Aproximately how many cigarettes per day: 0 - Social History ADL: Independent History of Recent Travel: No Home Medications - Allergies Allergies/Adverse Reactions: Allergies Allergy/AdvReac Type Severity Reaction Status Date / Time No Known Allergies Allergy Verified 02/22/18 05:22 - Home Medications Home Medications: Ambulatory Orders Aspirin [ASA -] 81 mg PO DAILY 02/22/18 Furosemide [Lasix -] 40 mg PO DAILY 02/22/18 Glimepiride [Glimepiride -] 2 mg PO DAILY 02/22/18 Losartan Potassium [Cozaar -] 50 mg PO BID 02/22/18 Metoprolol Tartrate [Lopressor -] 50 mg PO DAILY 02/22/18 Rosuvastatin [Crestor -] 10 mg PO BID 02/22/18 Warfarin Na [Coumadin -] 5 mg PO DAILY 02/22/18 Family Disease History - Family Disease History Family History: Denies Review of Systems - Review of Systems Cardiovascular: reports: Chest Pain, Shortness of Breath Respiratory: reports: SOB, SOB on Exertion Vital Signs: Vital Signs Temperature 98 F 02/23/18 10:00 Pulse Rate 78 02/23/18 10:00 Respiratory Rate 18 02/23/18 10:00 Blood Pressure 108/60 02/23/18 10:00 O2 Sat by Pulse Oximetry (%) 96 02/22/18 21:00 Constitutional: Yes: No Distress, Calm Neck: Yes: Supple Respiratory: Yes: Regular, CTA Bilaterally Gastrointestinal: Yes: Normal Bowel Sounds, Soft Cardiovascular: Yes: Regular Rate and Rhythm JVD: No Carotid Bruit: No Heart Sounds: Yes: S1, S2 Murmur: Yes: Systolic Murmur, Grade 1 Edema: No - Other Data Labs, Other Data: CBC, BMP 02/23/18 05:30 02/23/18 05:30 INR, PTT INR 1.93 (0.83-1.09) H 02/23/18 05:30 Troponin, BNP 02/22/18 02/22/18 02/22/18 09:39 17:15 21:30 Troponin I 0.10 H Cancelled 0.10 H 02/23/18 02/23/18 05:30 05:30 Troponin I 0.08 H Cancelled Troponin, BNP 02/22/18 02/22/18 02/22/18 09:39 17:15 21:30 Troponin I 0.10 H Cancelled 0.10 H 02/23/18 02/23/18 05:30 05:30 Troponin I 0.08 H Cancelled A-V paced @ 80 Ejection Fraction %: LVEF < 40 % Imaging - Results Chest X-ray: Report Reviewed (Cardiomegaly with mild congestion) Problem List - Problems (1) Demand ischemia Code(s): I24.8 - OTHER FORMS OF ACUTE ISCHEMIC HEART DISEASE (2) Chest pain Code(s): R07.9 - CHEST PAIN, UNSPECIFIED Qualifiers: Ischemic chest pain type: stable angina pectoris (3) CHF exacerbation Code(s): I50.9 - HEART FAILURE, UNSPECIFIED Qualifiers: Heart failure type: combined systolic and diastolic Qualified Code(s): I50.43 - Acute on chronic combined systolic (congestive) and diastolic ( congestive) heart failure (4) Anticoagulated on Coumadin Code(s): Z51.81 - ENCOUNTER FOR THERAPEUTIC DRUG LEVEL MONITORING; Z79.01 - PENITENTIARY (CURRENT) USE OF ANTICOAGULANTS (5) Biventricular automatic implantable cardioverter defibrillator in situ Code(s): Z95.810 - PRESENCE OF AUTOMATIC (IMPLANTABLE) CARDIAC DEFIBRILLATOR (6) CAD (coronary artery disease) Code(s): I25.10 - ATHSCL HEART DISEASE OF [place] CORONARY ARTERY W/O ANG PCTRS Qualifiers: Coronary Disease-Associated Artery/Lesion type: [place] artery [place] vs. transplanted heart: [place] heart Associated angina: without angina Qualified Code(s): I25.10 - Atherosclerotic heart disease of [place] coronary artery without angina pectoris (7) HTN (hypertension) Code(s): I10 - ESSENTIAL (PRIMARY) HYPERTENSION Qualifiers: Hypertension type: essential hypertension Qualified Code(s): I10 - Essential (primary) hypertension (8) Hyperlipidemia Code(s): E78.5 - HYPERLIPIDEMIA, UNSPECIFIED Qualifiers: Hyperlipidemia type: pure hypercholesterolemia Qualified Code(s): E78.00 - Pure hypercholesterolemia, unspecified; E78.0 - Pure hypercholesterolemia (9) Ischemic cardiomyopathy Code(s): I25.5 - ISCHEMIC CARDIOMYOPATHY (10) Renal insufficiency Code(s): N28.9 - DISORDER OF KIDNEY AND URETER, UNSPECIFIED (11) S/P CABG (coronary artery bypass graft) Code(s): Z95.1 - PRESENCE OF AORTOCORONARY BYPASS GRAFT (12) S/P mitral valve repair Code(s): Z98.890 - OTHER SPECIFIED POSTPROCEDURAL STATES (13) Status post coronary artery stent placement Code(s): Z95.5 - PRESENCE OF CORONARY ANGIOPLASTY IMPLANT AND GRAFT (14) Afib Code(s): I48.91 - UNSPECIFIED ATRIAL FIBRILLATION Qualifiers: Atrial fibrillation type: paroxysmal Qualified Code(s): I48.0 - Paroxysmal atrial fibrillation Assessment/Plan 06/04/2017 Echo: Severe LV dysfunction, mod LAE, MV repair, mild MR, TR, AR 1. Acute on chronic severe systolic failure resolved 2. CAD s/p SD, CABG, PCI with demand ischemia 3. s/p ASH CONVEYOR OPERATOR-D for primary prophylaxis 4. NIDDM not at goal control 5. Hypertensive heart disease. 6. CKD, secondary to # 4. 7. Poor compliance. 8. Paroxysmal Atrial fib with therapeutic INR 9. Hyperlipidemia not at goal Plan: 1: Ruled out for SD, resume oral diuresis Lasix 40 po qd and Eplerenone 25 qd with monitor diuretic response, renal function and electrolytes 2. Continue Entresto 49/51 bid, Toprol XL 50 qd, Crestor 10 qd (given high LDL) , may require addition of Zetia or PCSK9 if LDL target not achieved 3. Coumadin per INR and ASA 81 qd 4. Counseled regarding diet and salt restriction, medication compliance 5. Optimize glycemic control Ha1c 8.6% 6. July d/c home with f/u in office Wednesday for medication reconcilliation with SAMPLER AND TEST PREPARER .
--- NOTE | 2018-02-23 10:13 | DS ---
Physical Examination Vital Signs: Vital Signs Temperature 98 F 02/23/18 10:00 Pulse Rate 78 02/23/18 10:00 Respiratory Rate 18 02/23/18 10:00 Blood Pressure 108/60 02/23/18 10:00 O2 Sat by Pulse Oximetry (%) 96 02/22/18 21:00 Constitutional: Yes: No Distress Eyes: Yes: WNL HENT: Yes: WNL Neck: Yes: WNL Cardiovascular: Yes: Pulse Irregular Respiratory: Yes: WNL Gastrointestinal: Yes: WNL Renal/: Yes: WNL Musculoskeletal: Yes: WNL Extremities: Yes: WNL Edema: No Peripheral Pulses WNL: Yes Integumentary: Yes: WNL Wound/Incision: Yes: Clean/Dry Neurological: Yes: WNL ...Motor Strength: WNL Psychiatric: Yes: WNL Labs: CBC, BMP 02/23/18 05:30 02/23/18 05:30 Discharge Summary Reason For Visit: CHEST PAIN Current Active Problems Chest pain (Acute) Elevated troponin (Acute) Shortness of breath (Acute) Procedures: Principal: CXR/LABS Hospital Course: ADMITTED STARTED ON LOVENOX FOR SUBTHERAPEUTIC INR, LASIX IV GIVEN, FEELS BETTER . DC HOME F/U WITH CARDIOLOGY Condition: Improved - Instructions Diet, Activity, Other Instructions: LOW SODIUM SEE CARDIOLOGY IN 2 DAYS Disposition: HOME - Home Medications Comprehensive Discharge Medication List: Ambulatory Orders Aspirin [ASA -] 81 mg PO DAILY 02/22/18 Furosemide [Lasix -] 40 mg PO DAILY 02/22/18 Glimepiride [Glimepiride -] 2 mg PO DAILY 02/22/18 Losartan Potassium [Cozaar -] 50 mg PO BID 02/22/18 Metoprolol Tartrate [Lopressor -] 50 mg PO DAILY 02/22/18 Rosuvastatin [Crestor -] 10 mg PO BID 02/22/18 Warfarin Na [Coumadin -] 5 mg PO DAILY 02/22/18
--- NOTE | 2018-02-23 13:01 | EKG ---
Test Reason : Blood Pressure : / mmHG Vent. Rate : 079 BPM Atrial Rate : 079 BPM P-R Int : 126 ms QRS Dur : 206 ms QT Int : 502 ms P-R-T Axes : 068 -86 099 degrees QTc Int : 575 ms Atrial-sensed ventricular-paced rhythm Biventricular pacemaker detected ABNORMAL ECG WHEN COMPARED WITH ECG OF 22-FEB-2018 05:12, PREMATURE VENTRICULAR COMPLEXES ARE NO LONGER PRESENT VENT. RATE HAS DECREASED BY 6 BPM Confirmed by ANGIE BAL MD ([id number]) on 02/23/2018 1:00:25 PM Referred By: Confirmed By:ANGIE BAL MD
== END 2018-02-23 11:03 | disposition home or self-care (01) ==
LOC: JER 04:37 → JERBED 11:07 → J4W 17:30
PROVIDERS: ADMIT Family Medicine; ATTEND Family Medicine
PROC: 3E033GC Introduction of Other Therapeutic Substance into Peripheral Vein, Percutaneous Approach (ICD-10-PCS; principal; 2018-02-22)
PROC: 3E013GC Introduction of Other Therapeutic Substance into Subcutaneous Tissue, Percutaneous Approach (ICD-10-PCS; 2018-02-22)
DX: R07.9 Chest pain, unspecified (principal); R74.8 Abnormal levels of other serum enzymes; I24.8 Other forms of acute ischemic heart disease; I25.10 Atherosclerotic heart disease of native coronary artery without angina pectoris; I13.0 Hypertensive heart and chronic kidney disease with heart failure and stage 1 through stage 4 chronic kidney disease, or unspecified chronic kidney disease; N18.4 Chronic kidney disease, stage 4 (severe); I50.43 Acute on chronic combined systolic (congestive) and diastolic (congestive) heart failure; Z95.1 Presence of aortocoronary bypass graft; Z95.5 Presence of coronary angioplasty implant and graft; I48.91 Unspecified atrial fibrillation; Z79.01 Long term (current) use of anticoagulants; Z95.4 Presence of other heart-valve replacement; Z95.810 Presence of automatic (implantable) cardiac defibrillator; R01.1 Cardiac murmur, unspecified; E78.00 Pure hypercholesterolemia, unspecified; E78.5 Hyperlipidemia, unspecified; E11.21 Type 2 diabetes mellitus with diabetic nephropathy; Z79.84 Long term (current) use of oral hypoglycemic drugs
CPT/HCPCS: 36415; 71045-TC-FY; 71046-TC-FY; 80048; 80053; 80061; 82550; 82962; 83721; 83735; 83880; 84484; 85025; 85027; 85610; 93005; 93010; 96372; 96374; 99285-25; G0378

== ENCOUNTER 2019-01-03 08:50 | Emergency (ER) | payer OTHER ==
[2019-01-03 09:02] VITALS: BP 127/79; PULSE 89; TEMP 97.7; BMI 29.7
--- NOTE | 2019-01-03 09:51 | PDOC ---
History of Present Illness - General Chief Complaint: Blood Pressure Problem Stated Complaint: HYPERTENSION Time Seen by Provider: 01/03/19 09:44 History Source: Patient Exam Limitations: Clinical Condition - History of Present Illness Initial Comments: 01/03/19 10:15 Patient with history of cardiomyopathy, hypertension, diabetes, A. fib on Coumadin, multiple stents and pacemaker with defibrillator presented with complaint of elevated blood pressure at home . Patient reports blood pressure machine has been reading elevated blood pressure for the past day with a high blood pressure of 149/101 with patient bring log of blood pressure readings with fluctuating blood pressure up and down. Patient reported intermittent dyspnea on exertion which has been chronic. He denies chest pain, shortness of breath, dizziness, headache, nausea or vomiting. Patient reported no symptoms now Is this a multiple visit Asthma Patient?: No Timing/Duration: resolved prior to arrival Past History - Past Medical History Allergies/Adverse Reactions: Allergies Allergy/AdvReac Type Severity Reaction Status Date / Time No Known Allergies Allergy Verified 01/03/19 08:57 Home Medications: Ambulatory Orders Aspirin [ASA -] 81 mg PO DAILY 02/22/18 Furosemide [Lasix -] 40 mg PO DAILY 02/22/18 Glimepiride [Glimepiride -] 2 mg PO DAILY 02/22/18 Losartan Potassium [Cozaar -] 50 mg PO BID 02/22/18 Metoprolol Tartrate [Lopressor -] 50 mg PO DAILY 02/22/18 Rosuvastatin [Crestor -] 10 mg PO BID 02/22/18 Warfarin Na [Coumadin -] 5 mg PO DAILY 02/22/18 Mupirocin Ointment [Bactroban 2% Ointment -] 1 applic TP DAILY #1 tube 09/01/18 Anemia: No Asthma: No Cancer: No Cardiac Disorders: Yes (A. Fib, CAD, PR, BYPASS, MITRAL VALVULOPLASTY) CVA: No COPD: No CHF: Yes Dementia: No Diabetes: Yes GI Disorders: No Disorders: No HTN: Yes Hypercholesterolemia: Yes Liver Disease: No Seizures: No Thyroid Disease: No - Surgical History Abdominal Surgery: No Appendectomy: No Cardiac Surgery: Yes (CABG x 3, Stent X 1 , Pacemaker) Cholecystectomy: No Lung Surgery: No Neurologic Surgery: No Orthopedic Surgery: No - Immunization History Immunization Up to Date: Yes - Psycho Social/Smoking Cessation Hx Smoking Status: No Smoking History: Former smoker Have you smoked in the past 12 months: No Number of Cigarettes Smoked Daily: 0 Information on smoking cessation initiated: No Hx Alcohol Use: No Drug/Substance Use Hx: No Substance Use Type: None Hx Substance Use Treatment: No Review of Systems - Review of Systems Able to Perform ROS?: Yes Is the patient limited Martiniquais proficient: No Constitutional: No: Chills, Fever, Malaise HEENTM: No: Symptoms Reported Respiratory: No: Symptoms reported Cardiac (ROS): No: Symptoms Reported, See HPI, Chest Pain, Edema, Irregular Heart Rate, Lightheadedness, Palpitations, Syncope, Chest Tightness, Other ABD/GI: No: Nausea, Vomiting Musculoskeletal: No: Symptoms Reported, See HPI, Back Pain, Gout, Joint Pain, Joint Swelling, Muscle Pain, Muscle Weakness, Neck Pain, Joint Stiffness, Other Integumentary: No: Symptoms Reported, See HPI, Bruising, Change in Color, Change in Hair/Nails, Dryness, Erythema, Flushing, Lesions, Lumps, Pallor, Pruritus, Rash, Sweating, Other Endocrine: Yes: Symptoms Reported, Intolerance to Cold All Other Systems: Reviewed and Negative *Physical Exam - Vital Signs Last Vital Signs Temp Pulse Resp BP Pulse Ox 97.7 F 89 18 127/79 97 01/03/19 08:58 01/03/19 08:58 01/03/19 08:58 01/03/19 08:58 01/03/19 08:58 - Physical Exam Comments: 01/03/19 10:19 GENERAL: Well developed, well nourished. Awake and alert. No acute distress. HEENT: Normocephalic, atraumatic. PERRLA, EOMI. No conjunctival pallor. Sclera are non-icteric. Moist mucous membranes. Oropharynx is clear. NECK: Supple. Full ROM. CARDIOVASCULAR: Regular rate and rhythm. No murmurs, rubs, or gallops. Distal pulses are 2+ and symmetric. PULMONARY: No evidence of respiratory distress. Lungs clear to auscultation bilaterally. No wheezing, rales or rhonchi. ABDOMINAL: Soft. Non-tender. Non-distended. No rebound or guarding. No organomegaly. Normoactive bowel sounds. MUSCULOSKELETAL Normal range of motion at all joints. EXTREMITIES: No cyanosis. No clubbing. No edema. No calf tenderness. SKIN: Warm and dry. Normal capillary refill. No rashes. No jaundice. NEUROLOGICAL: Alert, awake, appropriate. Gait is normal without ataxia. PSYCHIATRIC: Cooperative. Good eye contact. Appropriate mood General Appearance: Yes: Nourished, Appropriately Dressed. No: Apparent Distress ED Treatment Course - LABORATORY CBC & Chemistry Diagram: 01/03/19 10:03 01/03/19 10:03 Medical Decision Making - Medical Decision Making 01/03/19 10:16 Patient with history of cardiomyopathy, hypertension, diabetes, A. fib on Coumadin, multiple stents and pacemaker with defibrillator presented with complaint of elevated blood pressure at home . Patient reports blood pressure machine has been reading elevated blood pressure for the past day with a high blood pressure of 149/101 with patient bring log of blood pressure readings with fluctuating blood pressure up and down. Patient reported intermittent dyspnea on exertion which has been chronic. He denies chest pain, shortness of breath, dizziness, headache, nausea or vomiting. Patient reported no symptoms.Clinical exam unremarkable. EKG shows ventricular pacing with no acute abnormality. Patient has appointment with PCP in 2 days for annual blood work and INR blood draw for Coumadin. Patient complaining of intermittent dyspnea on exertion and excessive intermittent sweating. Will do basic blood work and cardiac profile which patient will take with him with his for his PCP annual visit. Patient is symptomatic now. 01/03/19 10:42 CBC with no abnormality. INR 2.4 which is in therapeutic range. Chemistry and cardiac labs still pending. Patient asymptomatic 01/03/19 11:13 cardiac profile shows elevated trop of 0.55. Patient asymptomatic and does not want to be admitted as he report has had elevated troph in the cardiology office. called made to pt supply assistant Dr. Starr and spoke to associate Dr. Castillo who discussed case with Dr. Oscar ferrera who report patient has vulvar dysfunction and has h/o spilling troponins and can safe be discharged home with close follow-up in the office. Patient agrees with plan. will repeat trop in an hour and if stable d/c home 01/03/19 12:52 Repeat trop is 0.53. Patient still asymptomatic and stable for discharge with cardiology follow-up. . Chest x-ray shows no acute pathology. Patient stable for discharge. 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, Anticoagulated on Coumadin HTN (hypertension) Qualifiers: Hypertension type: essential hypertension Qualified Code(s): I10 - Essential ( primary) hypertension CHF (congestive heart failure) Qualifiers: Heart failure type: unspecified Heart failure chronicity: chronic Qualified Code(s): I50.9 - Heart failure, unspecified Condition: Stable - Admission No - Follow up/Referral Referrals: Willem Toney MD [Primary Care Provider] - - Patient Discharge Instructions Patient Printed Discharge Instructions: DI for High Blood Pressure, How to Monitor Your Blood Pressure at Home Additional Instructions: Your blood pressure reading here is normal. Your blood work shows elevated troponins which needs to be followed up by your supply assistant. Call cardiology office for follow-up as discussed. Come back to ED if chest pain, shortness of breathe, dizziness. Follow-up with your primary care as scheduled and keep blood pressure reading log to follow-up with your primary care. - Post Discharge Activity
[2019-01-03 10:13] LABS: BASO % 0.8 % (0-2.0); EOS % 1.9 % (0-4.5); HEMATOCRIT 47.7 % (35.4-49); HEMOGLOBIN 15.4 GM/dL (11.7-16.9); LYMPH % 14.6 % (8-40); MCH 26.8 pg (25.7-33.7); MCHC 32.2 g/dl (32.0-35.9); MEAN CELL VOLUME 83.2 fl (80-96); MEAN PLT VOLUME 8.2 fl (7.5-11.1); MONO % 6.9 % (3.8-10.2); NEUT % 75.8 % (42.8-82.8); PLATELET COUNT 261 K/MM3 (134-434); RBC 5.73 M/mm3 (4.00-5.60); RDW 15.4 % (11.9-15.9); WHITE BLOOD COUNT 10.4 K/mm3 (4.0-10.0)
[2019-01-03 10:40] LABS: INR 2.41 (0.83-1.09); PROTHROMBIN TIME (PATIENT) 28.7 SEC (9.7-13.0)
[2019-01-03 10:42] LABS: ACTIVATED PTT 45.3 SECONDS (25.2-36.5)
[2019-01-03 10:44] LABS: ALBUMIN 3.4 g/dl (3.4-5.0); BILIRUBIN,TOTAL 0.5 mg/dL (0.2-1); BLOOD UREA NITROGEN 44.2 mg/dL (7-18); CALCIUM 9.1 mg/dL (8.5-10.1); POTASSIUM 4.6 mmol/L (3.5-5.1); TOT PROT 7.4 g/dl (6.4-8.2)
[2019-01-03] MEDS ORDERED: ASPIRIN 81 MG CHEWABLE TABLETS PO ONE (10:49)
--- NOTE | 2019-01-03 10:52 | PDOC ---
*Physical Exam - Vital Signs Last Vital Signs Temp Pulse Resp BP Pulse Ox 97.7 F 89 18 127/79 97 01/03/19 08:58 01/03/19 08:58 01/03/19 08:58 01/03/19 08:58 01/03/19 08:58 Heart Score/ECG Review #1 ECG reviewed & interpreted by me at: 08:56 01/03/19 10:51 v-paced with PVCs at 111 ED Treatment Course - LABORATORY CBC & Chemistry Diagram: 01/03/19 10:03 01/03/19 10:03 - ADDITIONAL ORDERS Additional order review: Laboratory Results 01/03/19 01/03/19 10:03 10:03 PT with INR 28.70 H INR 2.41 H PTT (Actin FS) 45.3 H Sodium 134 L Potassium 4.6 Chloride 101 Carbon Dioxide 27 Anion Gap 6 L BUN 44.2 H Creatinine 2.0 H Est GFR (CKD-EPI)AfAm 34.98 Est GFR (CKD-EPI)NonAf 30.18 Random Glucose 193 H Calcium 9.1 Total Bilirubin 0.5 AST 13 L ALT 18 Alkaline Phosphatase 85 Creatine Kinase 68 Troponin I 0.55 H Total Protein 7.4 Albumin 3.4 01/03/19 10:03 RBC 5.73 H MCV 83.2 MCHC 32.2 RDW 15.4 MPV 8.2 Neutrophils % 75.8 Lymphocytes % 14.6 Monocytes % 6.9 Eosinophils % 1.9 Basophils % 0.8 - RADIOLOGY Radiology Studies Ordered: Category Date Time Status CHEST PA & LAT [RAD] Stat Radiology 01/03/19 10:48 Ordered Medical Decision Making - Medical Decision Making 01/03/19 10:49 Patient seen and evaluated with the nurse practitioner. I agree with the overall evaluation, assessment, and management with the following summary of visit: 83-year-old male with extensive cardiac history presented with elevated blood pressure reading at home, presumably asymptomatic but with some background history of chest congestion over the last few weeks. No actual chest pain recently, currently completely asymptomatic. Blood pressure normal at triage and during exam Agree with exam as noted, no acute distress and ambulating 83-year-old male with extensive cardiac history presented with elevated blood pressure reading at home, some cardiopulmonary symptoms subacutely, no evidence of infectious process. Labs sent revealing baseline renal insufficiency, equivocal troponin of 0.55 ( baseline is normal), which requires trending given his cardiopulmonary symptoms of late Chest x-ray Aspirin Telemetry admission, cards consult 01/03/19 11:20 discussed with primary cards team, pt with known valve disorder and has tendency to have mild trop spikes in past. Given well appearing and asx currently, recommend outpt f/u. will trend 2nd trop then determine dispo. 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, Anticoagulated on Coumadin HTN (hypertension) Qualifiers: Hypertension type: essential hypertension Qualified Code(s): I10 - Essential ( primary) hypertension CHF (congestive heart failure) Qualifiers: Heart failure type: unspecified Heart failure chronicity: chronic Qualified Code(s): I50.9 - Heart failure, unspecified Condition: Stable Disposition: HOME - Follow up/Referral Referrals: Willem Toney MD [Primary Care Provider] - - Patient Discharge Instructions Patient Printed Discharge Instructions: DI for High Blood Pressure, How to Monitor Your Blood Pressure at Home Additional Instructions: Your blood pressure reading here is normal. Your blood work shows elevated troponins which needs to be followed up by your professor of special education. Call cardiology office for follow-up as discussed. Come back to ED if chest pain, shortness of breathe, dizziness. Follow-up with your primary care as scheduled and keep blood pressure reading log to follow-up with your primary care. - Post Discharge Activity
[2019-01-03] MEDS ORDERED: ASPIRIN COATED 81 MG TABLET.EC ONE (11:30)
--- NOTE | 2019-01-03 12:50 | EKG ---
Test Reason : Blood Pressure : / mmHG Vent. Rate : 111 BPM Atrial Rate : 122 BPM P-R Int : 000 ms QRS Dur : 136 ms QT Int : 330 ms P-R-T Axes : 253 090 130 degrees QTc Int : 448 ms Ventricular-paced rhythm ABNORMAL ECG WHEN COMPARED WITH ECG OF 22-FEB-2018 11:07, VENT. RATE HAS INCREASED BY 32 BPM Confirmed by Sanchez Dunn MD ([id number]) on 01/03/2019 12:50:15 PM Referred By: Confirmed By:Sanchez Dunn MD
== END 2019-01-03 12:59 | disposition home or self-care (01) ==
LOC: JER 08:50
DX: I25.10 Atherosclerotic heart disease of native coronary artery without angina pectoris (principal); I11.0 Hypertensive heart disease with heart failure; I50.89 Other heart failure; Z95.1 Presence of aortocoronary bypass graft; Z95.5 Presence of coronary angioplasty implant and graft; Z95.810 Presence of automatic (implantable) cardiac defibrillator; I48.91 Unspecified atrial fibrillation; I42.9 Cardiomyopathy, unspecified; Z79.01 Long term (current) use of anticoagulants; E78.00 Pure hypercholesterolemia, unspecified; E11.9 Type 2 diabetes mellitus without complications; Z79.84 Long term (current) use of oral hypoglycemic drugs; Z79.82 Long term (current) use of aspirin; Z87.891 Personal history of nicotine dependence; Z98.890 Other specified postprocedural states
CPT/HCPCS: 36415; 71046-TC-FY; 80053; 82550; 84484; 85025; 85610; 85730; 93005; 93010; 99282-25

== ENCOUNTER 2019-01-11 14:47 | Inpatient (IN) | payer OTHER ==
[2019-01-11] MEDS ORDERED: SODIUM CHLORIDE 0.9% 500 ML INFUS.BAG IV ONE (15:51)
--- NOTE | 2019-01-11 15:52 | PDOC ---
History of Present Illness - General Chief Complaint: Syncope/Near Syncope Stated Complaint: POSSIBLE SEIZURE Time Seen by Provider: 01/11/19 15:20 History Source: Patient, Family (son-in-law) Exam Limitations: No Limitations - History of Present Illness Initial Comments: 01/11/19 15:52 Cristel Cohen is an 83M with PMH [place] s/p CABG, cardiomyopathy, HTN, HLD, pre-DM BIBA and found down today. 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 Per EMS report, found down in the chair, unwitnessed LOC, started to regain consciousness in the back of the ambulance. Patient currently feels weak, tired, and has SOB with a strong cough. No history of COPD or lung disease, not on home oxygen, cough/vomiting that is new and says that it is milky white but denies blood or green sputum. Denies chest pain, abdominal pain, headache, urinary symptoms. Has had some constipation for the last week, been using a lot of Mylanta for stomach upset. Denies injury to head or body, denies pain to face or neck. Has known inguinal hernia, denies renal disease. Denies alcohol/tobacco/drug use. No surgeries other than CABG. PMD Dr. Lorenz, Cards Dr. Caldwell Past History - Past Medical History Allergies/Adverse Reactions: Allergies Allergy/AdvReac Type Severity Reaction Status Date / Time No Known Allergies Allergy Verified 01/03/19 08:57 Home Medications: Ambulatory Orders Furosemide [Lasix -] 40 mg PO DAILY 02/22/18 Glimepiride [Glimepiride -] 2 mg PO DAILY 02/22/18 Losartan Potassium [Cozaar -] 50 mg PO BID 02/22/18 Metoprolol Tartrate [Lopressor -] 50 mg PO BID 02/22/18 Warfarin Na [Coumadin -] 5 mg PO DAILY 02/22/18 Amiodarone HCl 200 mg PO BID 01/11/19 Anemia: No Asthma: No Cancer: No Cardiac Disorders: Yes (A. Fib, CAD, AK, BYPASS, MITRAL VALVULOPLASTY) CVA: No COPD: No CHF: Yes Dementia: No Diabetes: Yes GI Disorders: No Disorders: No HTN: Yes Hypercholesterolemia: Yes Liver Disease: No Seizures: No Thyroid Disease: No - Surgical History Abdominal Surgery: No Appendectomy: No Cardiac Surgery: Yes (CABG x 3, Stent X 1 , Pacemaker) Cholecystectomy: No Lung Surgery: No Neurologic Surgery: No Orthopedic Surgery: No - Immunization History Immunization Up to Date: Yes - Psycho Social/Smoking Cessation Hx Smoking Status: No Smoking History: Never smoked Have you smoked in the past 12 months: No Number of Cigarettes Smoked Daily: 0 Information on smoking cessation initiated: No Hx Alcohol Use: No Drug/Substance Use Hx: No Substance Use Type: None Hx Substance Use Treatment: No Review of Systems - Review of Systems Able to Perform ROS?: Yes Constitutional: Yes: Symptoms Reported, Malaise, Weakness. No: Chills, Fever HEENTM: Yes: Cataracts (L eye). No: Blurred Vision, Recent change in vision, Hearing Loss, Mouth Pain, Difficulty Swallowing Respiratory: Yes: Cough, Shortness of Breath, SOB at Rest, Productive cough ( milky white sputum). No: Wheezing Cardiac (ROS): Yes: Syncope. No: Chest Pain, Edema, Irregular Heart Rate, Lightheadedness, Palpitations ABD/GI: Yes: Constipated, Vomiting. No: Diarrhea, Nausea : No: Burning, Dysuria, Discharge, Frequency, Flank Pain, Hematuria, Incontinence, Pain, Urgency Musculoskeletal: No: Back Pain, Muscle Pain, Muscle Weakness, Neck Pain Integumentary: No: Symptoms Reported Neurological: Yes: Weakness. No: Headache, Numbness, Paresthesia, Seizure, Unsteady Gait Endocrine: No: Symptoms Reported Hematologic/Lymphatic: No: Symptoms Reported All Other Systems: Reviewed and Negative *Physical Exam - Vital Signs Last Vital Signs Temp Pulse Resp BP Pulse Ox 97.5 F L 90 21 H 100/59 L 95 01/11/19 14:50 01/11/19 14:50 01/11/19 14:50 01/11/19 14:50 01/11/19 14:50 - Physical Exam General Appearance: Yes: Nourished, Appropriately Dressed, Mild Distress HEENT: positive: EOMI, NAGI, Normal Voice, Symmetrical, Pharynx Normal, Hearing Grossly Normal. negative: Scleral Icterus (R), Scleral Icterus (L) Neck: positive: Trachea midline, Supple. negative: Tender, Rigid, Lymphadenopathy (R), Lymphadenopathy (L) Respiratory/Chest: positive: Lungs Clear, Normal Breath Sounds. negative: Chest Tender, Respiratory Distress, Accessory Muscle Use, Crackles, Rales, Rhonchi, Stridor, Wheezing Cardiovascular: positive: Regular Rhythm, Regular Rate. negative: Edema, Murmur Gastrointestinal/Abdominal: positive: Flat, Soft. negative: Tender, Pulsatile Mass, Distended, Guarding, Rebound Male Genitalia: positive: inguinal hernia (L testes) Musculoskeletal: positive: Normal Inspection. negative: CVA Tenderness Extremity: positive: Normal Capillary Refill, Normal Inspection, Normal Range of Motion. negative: Tender, Pelvis Stable, Pedal Edema, Swelling Integumentary: positive: Normal Color, Dry, Warm. negative: Cold, Clammy Neurologic: positive: Fully Oriented, Alert, Normal Mood/Affect, Normal Response ED Treatment Course - LABORATORY CBC & Chemistry Diagram: 01/11/19 15:40 01/11/19 15:40 - ADDITIONAL ORDERS Additional order review: Laboratory Results 01/11/19 15:00 POC Glucometer 287 01/11/19 15:00 POC Glucometer 287 Medical Decision Making - Medical Decision Making 01/11/19 15:52 Cristel Cohen is an 83M with PMH AK s/p CABG, CHF, HTN, HLD, pre-DM found down and BIBA by EMS. Patient found down today after feeling dizzy and having a new cough, now feels weak and warm with some SOB consistent with PNA vs. UTI vs.other infectious etiology. Denies chest pain but has extensive cardiac history, cannot r/o cardiac syncope vs. arrhythmia, will need AICD interrogation. No neurological history of seizures. Evaluating broadly via sepsis order set with BNP and serum PRL. CT head + C-spine given age and AC status, no positive NEXUS criteria concerning for c-spine injury but cannot r/o via [place] rules. 01/11/19 17:28 Labs notable for: Lactate 4.1 INR 5.3 trop 0.11 down from 0.55 10 days ago BNP >7000 consistent with CHF At CT scan at this time. 01/11/19 18:01 Cr 2.5, cancelled CT abd/pelvis with IV contrast. Cr bump from 2.0 to 2.6, acute on chronic kidney failure. ECG shows ventricular paced rhythm with pacer spikes. Will contact Dr. Caldwell for trop elevation. 01/11/19 18:13 Given 1L bolus LR for lactate elevation Started on 1g vanc and 4.5mg Zosyn for HCAP Ordered Esquivel placement. CXR preliminary read shows no evidence of pulmonary edema or consolidation consistent with PNA, obscured L costal margin, AICD in place to L chest. Patient vomited in ED, giving 4mg Zofran for nausea. 01/11/19 18:40 CT head shows no acute IC pathology, chronic changes noted without difference from last CT head [address] c-spine shows no evidence of fracture. Patient re-evaluated, says he is comfortable and feels okay. Updated about plan of action. Pending CT abdomen read. 01/11/19 18:[address] Caldwell, pending call-back from Dr. Pineda engineer station mainline. 01/11/19 19:[address] Caldwell, patient has known cardiomyopathy and leaks trops at baseline, not as worried about trop elevation especially in setting of acute illness with normal VS. However, given syncope today needs AICD interrogation. Patient has AICD card: [employer] [id number] #[id number] Patient denies pacer has gone off today. 01/11/19 19:46 Called for local parts representative to call back for stat evaluation of [employer] AICD. Repeat lactate 1.1 s/p 2L crystalloids. Repeat trop 0.18, up from 0.11. CT abd report shows: No definite findings of acute pathology, L renal atrophy, no hydro, 1mm nonobstructing L renal calculus, increased size L inguinal hernia with increased herniation of bladder into hernia sac. Cause of acute on chronic renal failure possibly 2/2 worsening bladder hernia? Patient requires inpatient admission for multiple concurrent pathologies that require further management in a hospital setting, including: Cardiac: - syncopal episode in the setting of AICD - CHF exacerbation with highest known BNP to date - troponin elevation in setting of cardiomyopathy Renal: - acute on chronic renal failure - bladder herniation into inguinal hernia Metabolic: - lactate elevation meeting criteria for severe sepsis - evidence of end organ cardiac and renal dysfunction - IV Abx and f/u blood cultures Signed out to GRACIA Aviles, admitted to tele under Dr. See. Awaiting callback from [employer]. Discharge - Discharge Information Problems reviewed: Yes Clinical Impression/Diagnosis: TONY (acute kidney injury) Syncope Qualifiers: Syncope type: unspecified Qualified Code(s): R55 - Syncope and collapse Sepsis Qualifiers: Sepsis type: sepsis due to unspecified organism Sepsis acute organ dysfunction status: with acute organ dysfunction Severe sepsis acute organ dysfunction type : acute renal failure Acute renal failure type: unspecified Severe sepsis shock status: without septic shock Qualified Code(s): A41.9 - Sepsis, unspecified organism Condition: Stable - Admission Yes - Follow up/Referral - Patient Discharge Instructions - Post Discharge Activity
[2019-01-11 16:36] LABS: BASO % 0.7 % (0-2.0); EOS % 0.9 % (0-4.5); HEMATOCRIT 44.7 % (35.4-49); HEMOGLOBIN 14.3 GM/dL (11.7-16.9); LYMPH % 12.1 % (8-40); MCH 26.9 pg (25.7-33.7); MCHC 31.9 g/dl (32.0-35.9); MEAN CELL VOLUME 84.3 fl (80-96); MEAN PLT VOLUME 8.7 fl (7.5-11.1); MONO % 5.3 % (3.8-10.2); PLATELET COUNT 220 K/MM3 (134-434); WHITE BLOOD COUNT 8.9 K/mm3 (4.0-10.0)
[2019-01-11 16:57] LABS: PROTHROMBIN TIME (PATIENT) 69.7 SEC (9.7-13.0)
[2019-01-11 17:07] LABS: ALBUMIN 3.2 g/dl (3.4-5.0); BILIRUBIN,TOTAL 0.8 mg/dL (0.2-1); BLOOD UREA NITROGEN 56.8 mg/dL (7-18); CALCIUM 9.1 mg/dL (8.5-10.1); CREATININE 2.6 mg/dL (0.55-1.3); N-TERMINAL BNP 7100.4 pg/ml (5-450)
[2019-01-11 17:28] LABS: INR 5.3 (0.83-1.09)
[2019-01-11] MEDS ORDERED: PIPERACILLIN/TAZOB 2.25 GM 2.25 GM in DEXTROSE 5%-WATER - 50 ML IVPB ONE (17:44)
[2019-01-11] MEDS ORDERED: LACTATED RINGERS SOLUTION 1000 ML INFUS.BAG IV ONE (17:44)
[2019-01-11] MEDS ORDERED: VANCOMYCIN 1 GM in D5W (PRE-DOCKED) 1,000 MG/250 ML IVPB ONE (17:44)
--- NOTE | 2019-01-11 17:51 | PDOC ---
Documentation entered by Shaila Mendenhall SCRIBE, acting as scribe for Elsi Fisher DO. Elsi Fisher DO: This documentation has been prepared by the Za cook Adrianna, SCRIBE, under my direction and personally reviewed by me in its entirety. I confirm that the documentation accurately reflects all work, treatment, procedures, and medical decision making performed by me. Attending Attestation - Resident Resident Name: VeenaMiles - ED Attending Attestation I have performed the following: I have examined & evaluated the patient, The case was reviewed & discussed with the resident, I agree w/resident's findings & plan, Exceptions are as noted - HPI HPI: The patient is an 83 year old, with a significant PMH KS (s/p CABG), HTN, HLD, and pre-DM, who presents to the ED BIBA for evaluation of syncopal episode. As per EMS, patient was found down earlier today behind a laundromat in a chair. He states that he suddenly felt weak and needed to sit down. He does not recall anything else, and the next thing he remembers is waking up in the back of an ambulance. While in the ED, patient endorses generalized weakness, SOB, dyspnea on exertion, and a cough. Allergies: NKA, NKDA Surgical History: CABG Social History: Denies EtOH, tobacco, or illicit drug use - Physicial Exam PE: Constitutional: +Weak. Awake, alert, oriented. Head: Normocephalic. Atraumatic Eyes: PERRL. EOMI. Conjunctivae are not pale. ENT: +Dry, tachy mucous membranes. +Dentures in the upper mouth. Posterior pharynx without exudates or erythema. Uvula midline. Neck: Supple. Full ROM. No lymphadenopathy. Cardiovascular: +Irregular. Regular rate. S1, S2 regular. Distal pulses are 2+ and symmetric. Pulmonary/Chest: +Lungs clear bilaterally after clearing throat. No evidence of respiratory distress. No wheezing, rales or rhonchi. Abdominal: Soft and non-distended. There is no tenderness. No rebound, guarding or rigidity. No organomegaly. No palpable masses. Good bowel sounds. Back: No CVA tenderness. No C/T/L spine tenderness. Musculoskeletal: +.5cm circular wound to the left achilles without surrounding erythema, drainage, fluctuance, induration. No edema. No cyanosis. No clubbing. Full range of motion in all extremities. Nocalf tenderness. Radial/ pedal pulses are intact and 2+ bilaterally Skin: Skin is warm and dry. No petechiae. No purpura. Neurological: Alert and oriented to person, place, and time. Cranial nerves II -XII are grossly intact. Normal speech. Strength is grossly symmetric. No sensory deficits. Psychiatric: Good eye contact. Normal interaction, affect and behavior - Critical Care Time Total Critical Care Time: 45 Critical Care Statement: The care of this patient involved high complexity decision making to prevent further life threatening deterioration of the patient 's condition and/or to evaluate & treat vital organ system(s) failure or risk of failure. - Medical Decision Making 01/11/19 17:46 I, Dr. Elsi Fisher, DO, attest that this document has been prepared under my direction and personally reviewed by me in its entirety. I further attest, that it accurately reflects all work, treatment, procedures and medical decision -making performed by me. a/p: 83yo male with a fall today - poss syncope vs fall from a [place] the [employer] -on coumadin -head injury - no lacs or external signs of trauma -vomiting at night after night pills x 1 week -recently started on amiodarone for afib -pt generally weak and appears dehydrated -speaking seems to tire him out -will send labs, cultures -has had upper abd pain -will send for head and c spine ct given fall on coumadin -will send trop -will obtain ekg -will send ua, ucx -will send for ct abd pelvis given week of n/v and abd pain -pt will need admission 01/11/19 17:49 elevated trop to 0.11 lactate 4 bun/cr elevated- acute renal failure 01/11/19 17:50 normal wbc 01/11/19 17:50 pt will need admission will attempt to place jerez catheter 01/11/19 17:53 cxr with icd in place, cardiomegaly, no pna 01/11/19 18:29 no acute findings on head ct 01/11/19 18:[address] lorenz demetrio on ckd 01/11/19 19:26 L inguinal hernia with herniation of the bladder into the hernia sac on ct, but no obstruction 01/11/19 19:27 lactate cleared trop increasing resident discussed the case with Cards, pt will need admission for elevated trop demetiro on ckd 01/11/19 19:55 pt with medtronic ICD, call placed to the REP for interrogation resident discussed the case with sofia who accepts pt to service overnight covering for Dr. See, who covers Dr. Lorenz Heart Score/ECG Review - ECG Intrepretation Comment:: 01/11/19 17:51 paced at 80, no acute st/t wave findings
[2019-01-11] MEDS ORDERED: VANCOMYCIN 1 GRAM (PRE-DOCKED) 1,000 MG/250 ML BAG IVPB ONE (18:14)
[2019-01-11] MEDS ORDERED: PIPERACILLIN/TAZOB 2.25 GM 2.25 GM/50 ML BAG IVPB ONE (18:14)
[2019-01-11] MEDS ORDERED: ONDANSETRON 4 MG/2 ML VIAL IVPUSH ONE (18:19)
--- NOTE | 2019-01-11 21:05 | HP ---
Admitting History and Physical - Primary Care Physician PCP: - Admission Chief Complaint: syncope History of Present Illness: 83M with PMH VT s/p CABG, HTN, HLD,CHF, A-fib arrived to ED BIBA for evaluation of syncopal episode. As per EMS, patient was found down behind a laundromat chair while doing his laundry. Patient stated he felt weak and needed to sit down, after that can not recall anything else. While in the ED, patient endorses generalized weakness, SOB, dyspnea on exertion, and a productive cough ( with white sputum). No history of COPD or lung disease. Patient denies chest pain, abdominal pain, headache, urinary symptoms, N/V/C/D. Denies injury to head or body. History Source: Patient, Family Member Limitations to Obtaining History: No Limitations - Past Medical History Cardiovascular: Yes: AFIB, CAD, CHF, HTN, Hyperlipdemia, [place] Endocrine: Yes: Diabetes Mellitus - Past Surgical History Past Surgical History: Yes: AICD, CABG, Stent Additional Past Surgical History: BYPASS, MITRAL VALVULOPLASTY, CABG x 3, Stent X 1 , Pacemaker - Smoking History Smoking history: Never smoked Have you smoked in the past 12 months: No Aproximately how many cigarettes per day: 0 - Alcohol/Substance Use Hx Alcohol Use: No History of Substance Use: reports: None - Social History ADL: Independent History of Recent Travel: No Home Medications - Allergies Allergies/Adverse Reactions: Allergies Allergy/AdvReac Type Severity Reaction Status Date / Time No Known Allergies Allergy Verified 01/03/19 08:57 - Home Medications Home Medications: Ambulatory Orders Furosemide [Lasix -] 40 mg PO DAILY 02/22/18 Glimepiride [Glimepiride -] 2 mg PO DAILY 02/22/18 Losartan Potassium [Cozaar -] 50 mg PO BID 02/22/18 Metoprolol Tartrate [Lopressor -] 50 mg PO BID 02/22/18 Warfarin Na [Coumadin -] 5 mg PO DAILY 02/22/18 Amiodarone HCl 200 mg PO BID 01/11/19 Family Medical History Family History: Denies Review of Systems - Review of Systems Constitutional: reports: Malaise, Weakness Eyes: reports: No Symptoms HENT: reports: No Symptoms Respiratory: reports: Cough, SOB, SOB on Exertion Gastrointestinal: reports: No Symptoms Genitourinary: reports: No Symptoms Musculoskeletal: reports: No Symptoms Integumentary: reports: No Symptoms Neurological: reports: Syncope Endocrine: reports: No Symptoms Hematology/Lymphatic: reports: No Symptoms Psychiatric: reports: No Symptoms Physical Examination Vital Signs: Vital Signs Temperature 97.5 F L 01/11/19 14:50 Pulse Rate 90 01/11/19 14:50 Respiratory Rate 21 H 01/11/19 14:50 Blood Pressure 100/59 L 01/11/19 14:50 O2 Sat by Pulse Oximetry (%) 95 01/11/19 14:50 Constitutional: Yes: Mild Distress, Obese Eyes: Yes: Conjunctiva Clear, EOM Intact HENT: Yes: Atraumatic, Normocephalic Neck: Yes: Supple, Trachea Midline Cardiovascular: Yes: Regular Rate and Rhythm, S1, S2 Respiratory: Yes: Regular, CTA Bilaterally Gastrointestinal: Yes: Normal Bowel Sounds, Soft, Abdomen, Obese Renal/: Yes: WNL Musculoskeletal: Yes: WNL Extremities: Yes: WNL Edema: No Peripheral Pulses WNL: Yes Neurological: Yes: Alert, Oriented Psychiatric: Yes: Alert, Oriented Labs: CBC, BMP 01/11/19 15:40 01/11/19 15:40 Imaging - Results Chest X-ray: Report Reviewed ( no evidence of pulmonary edema or consolidation) Cat Scan: Report Reviewed (CT head shows no acute IC pathology, chronic changes noted CT c-spine shows no evidence of fracture. Abd CT: no acute pathology) EKG: Report Reviewed (ECG shows ventricular paced rhythm with pacer spikes.) Other: Report Reviewed (Lactate 4.1 --> s/p IVF ( #2 1.1) INR 5.3 ( on coumadin ) trop 0.11 down from 0.55 10 days ago BNP >7000 consistent with CHF) Problem List - Problems (1) Sepsis Code(s): A41.9 - SEPSIS, UNSPECIFIED ORGANISM Qualifiers: Sepsis type: sepsis due to unspecified organism Sepsis acute organ dysfunction status: with acute organ dysfunction Severe sepsis acute organ dysfunction type: acute renal failure Acute renal failure type: unspecified Severe sepsis shock status: without septic shock Qualified Code(s): A41.9 - Sepsis, unspecified organism; R65.20 - Severe sepsis without septic shock; N17.9 - Acute kidney failure, unspecified (2) CHF exacerbation Code(s): I50.9 - HEART FAILURE, UNSPECIFIED Qualifiers: Heart failure type: combined systolic and diastolic Qualified Code(s): I50.43 - Acute on chronic combined systolic (congestive) and diastolic ( congestive) heart failure (3) TONY (acute kidney injury) Code(s): N17.9 - ACUTE KIDNEY FAILURE, UNSPECIFIED (4) Syncope Code(s): R55 - SYNCOPE AND COLLAPSE Qualifiers: Syncope type: unspecified Qualified Code(s): R55 - Syncope and collapse (5) Demand ischemia Code(s): I24.8 - OTHER FORMS OF ACUTE ISCHEMIC HEART DISEASE (6) Diabetes Code(s): E11.9 - TYPE 2 DIABETES MELLITUS WITHOUT COMPLICATIONS (7) Elevated troponin Code(s): R74.8 - ABNORMAL LEVELS OF OTHER SERUM ENZYMES (8) Anticoagulated on Coumadin Code(s): Z51.81 - ENCOUNTER FOR THERAPEUTIC DRUG LEVEL MONITORING; Z79.01 - [facility] (CURRENT) USE OF ANTICOAGULANTS (9) CAD (coronary artery disease) Code(s): I25.10 - ATHSCL HEART DISEASE OF [place] CORONARY ARTERY W/O ANG PCTRS Qualifiers: Coronary Disease-Associated Artery/Lesion type: [place] artery [place] vs. transplanted heart: [place] heart Associated angina: without angina Qualified Code(s): I25.10 - Atherosclerotic heart disease of [place] coronary artery without angina pectoris (10) HTN (hypertension) Code(s): I10 - ESSENTIAL (PRIMARY) HYPERTENSION Qualifiers: Hypertension type: essential hypertension Qualified Code(s): I10 - Essential (primary) hypertension (11) Hyperlipidemia Code(s): E78.5 - HYPERLIPIDEMIA, UNSPECIFIED Qualifiers: Hyperlipidemia type: pure hypercholesterolemia Qualified Code(s): E78.00 - Pure hypercholesterolemia, unspecified; E78.0 - Pure hypercholesterolemia Assessment/Plan 83M with PMH VT s/p CABG, HTN, HLD,CHF, A-fib arrived to ED BIBA for evaluation of syncopal episode. While in the ED, patient endorses generalized weakness, SOB, dyspnea on exertion, and a productive cough ( with white sputum) . No history of COPD or lung disease. # S/p Syncope # Elevated troponin r/o ACS # INR supra-therapeutic (5.3 -on coumadin) # Acute CHF exacerbation #HTN/HLD, A-fib (AICD) # [place] s/p CABG admit to tele, for [facility] cardiac monitoring - no acute head injury - Ct head: no acute pathology, moderate periventricular &subcorital chronic microvascular ischemic changes - ECG shows ventricular paced rhythm with pacer spikes. - pt with medtronic ICD, spoke to REP, no acute finding - trop 0.11--> 0.18 ( however down from 0.55 10 days ago) - recently started on amiodarone 200mg BID for afib - hold coumadin, however will hold due to INR supra-therapeutic - BNP >7000 consistent with CHF, starting lasix in AM -- (lactic improved, trend renal function) - continue with o2 via NC - if noted with sob, acute respiratory distress consider BiPAP - Losartan Potassium 50 mg PO BID - Metoprolol Tartrate 50 mg PO DAILY - Rosuvastatin 10 mg PO BID - follow up cardiology in AM - follow up PT/INR in AM #Acute on chronic CKD #Vomiting #bladder herniation into inguinal hernia - vomiting at night x 1 week, in ED given zofran - ABD CT: no acute pathology, increase size of large inguino scrotal hernia, no hydroneprosis, 1 mm non-obstructing left renal calculus - continue with zofran q 8 hours prn - jerez cath placed, noted with + urine production, no hematruia - monitor I & O - follow up nephrology - monitor renal function # ?Sepsis # Elevated lactic elevation - Lactate (4) s/p 2L crystalloids --> Repeat lactate 1.1 - wbc: wnl, afebrile - in ED given agustin bartlett x1 - f/u blood,urine cultures - will monitor, if noted with fever will consider IV abx - follow up ID in AM - follow up CBC/diff in AM #Hypothyrodism - TSH: 9.4, Free T4: 1.30 - start synthyroid 25 mcg daily #DM - monitor FSBS QDAC - Glimepiride 2 mg PO DAILY - follow up HgA1c Diet: cardiac diet, fluid restriction DVT PPX: SCD, heparin Visit type - Emergency Visit Emergency Visit: Yes Care time: The patient presented to the Emergency Department on the above date and was hospitalized for further evaluation of their emergent condition. - New Patient This patient is new to me today: Yes Date on this admission: 01/11/19 - Critical Care Critical Care patient: No
[2019-01-11] MEDS ORDERED: ONDANSETRON 4 MG/2 ML VIAL IVPUSH PRN (21:55)
[2019-01-11] MEDS ORDERED: HEPARIN NA (PORCINE) 5,000 UNITS/ML 1ML VIAL SQ SCH (22:00)
[2019-01-11 22:09] LABS: HYALINE CASTS 4 /lpf (0-8); URINE APPEARANCE CLEAR; URINE BACTERIA 0.7 /hpf (NEGATIVE); URINE BILIRUBIN NEGATIVE (NEGATIVE); URINE COLOR YELLOW; URINE GLUCOSE (UA) NEGATIVE (NEGATIVE); URINE KETONE NEGATIVE (NEGATIVE); URINE LEUK ESTERASE NEGATIVE (NEGATIVE); URINE NITRITE NEGATIVE (NEGATIVE); URINE PROTEIN 1+ (NEGATIVE); URINE RBC 1 /hpf (0-4); URINE UROBILINOGEN 0.2 mg/dL (0.2-1.0); URINE WBC 1 /hpf (0-5)
[2019-01-12 00:26] VITALS: BMI 29.7
[2019-01-12] MEDS: AMIODARONE HCL 200 MG TABLET (FP) PO SCH ×3 (00:35→22:29)
[2019-01-12] MEDS: LOSARTAN POTASSIUM 50 MG TABLET (FP) PO SCH ×2 (00:36→09:22)
[2019-01-12] MEDS: METOPROLOL TARTRATE 50 MG TABLET (FP) PO SCH ×3 (00:36→22:29)
[2019-01-12] MEDS: GLIMEPIRIDE 2 MG TABLET (FP) PO SCH (06:42)
[2019-01-12 07:10] LABS: BASO % 0.5 % (0-2.0); EOS % 0.4 % (0-4.5); HEMOGLOBIN 14.2 GM/dL (11.7-16.9); LYMPH % 11.4 % (8-40); MCHC 33.1 g/dl (32.0-35.9); MEAN CELL VOLUME 81.5 fl (80-96); MEAN PLT VOLUME 8.8 fl (7.5-11.1); MONO % 6.7 % (3.8-10.2); PLATELET COUNT 238 K/MM3 (134-434); RBC 5.27 M/mm3 (4.00-5.60); RDW 15.7 % (11.9-15.9); WHITE BLOOD COUNT 11.6 K/mm3 (4.0-10.0)
[2019-01-12] MEDS ORDERED: PHYTONADIONE 10 MG/1 ML AMP IVPB STA (07:14)
[2019-01-12 08:00] LABS: PROTHROMBIN TIME (PATIENT) 67.5 SEC (9.7-13.0)
[2019-01-12 08:27] LABS: ALBUMIN 3.3 g/dl (3.4-5.0); BLOOD UREA NITROGEN 49.5 mg/dL (7-18); CALCIUM 8.7 mg/dL (8.5-10.1); CREATININE 2.2 mg/dL (0.55-1.3); POTASSIUM 4.4 mmol/L (3.5-5.1)
[2019-01-12 09:08] LABS: INR 5.62 (0.83-1.09)
[2019-01-12] MEDS: FUROSEMIDE 40 MG TABLET (FP) PO SCH (09:22)
--- NOTE | 2019-01-12 12:28 | PN ---
Progress Note (short form) - Note Progress Note: ID CONSULT DICTATED S/P SYNCOPE LACTIC ACIDOSIS R/O SEPSIS LEUKOCYTOSIS COAGULOPATHY HEMATURIA S/P MVR AWAIT C/S EMPIRIC CEFTRIAXONE
[2019-01-12 12:39] LABS: INR 3.51 (0.83-1.09)
[2019-01-12] MEDS ORDERED: LIDOCAINE HCL 2% JELLY (5 ML/TUBE) TP PRN (13:20)
--- NOTE | 2019-01-12 13:33 | CON.PULM ---
Consult Consult Specialty:: PULMONARY Referred by:: Dr See Reason for Consultation:: CHF - History of Present Illness Chief Complaint: syncope History of Present Illness: 83yo male with h/o HTN, hyperlipidemia, atrial fibrillation, CAD s/p CABG, LV systolic dysfunction, CKD who was admitted after syncopal episode. He does report shortness of breath and chest tightness. No fevers, chills or sweats. + cough with white sputum without wheezing. Jerez inserted with hematuria, c/o burning sensation, unable to answer other questions. - History Source History Provided By: Patient, Family Member, Medical Record Limitations to Obtaining History: Clinical Condition - Past Medical History Cardio/Vascular: Yes: AFIB, CAD, CHF, HTN, Hyperlipdemia, [place] Endocrine: Yes: Diabetes Mellitus - Past Surgical History Past Surgical History: Yes: AICD, CABG, Stent - Alcohol/Substance Use Hx Alcohol Use: No History of Substance Use: reports: None - Smoking History Smoking history: Never smoked Have you smoked in the past 12 months: No Aproximately how many cigarettes per day: 0 - Social History ADL: Independent History of Recent Travel: No Home Medications - Allergies Allergies/Adverse Reactions: Allergies Allergy/AdvReac Type Severity Reaction Status Date / Time No Known Allergies Allergy Verified 01/03/19 08:57 - Home Medications Home Medications: Ambulatory Orders Furosemide [Lasix -] 40 mg PO DAILY 02/22/18 Glimepiride [Glimepiride -] 2 mg PO DAILY 02/22/18 Losartan Potassium [Cozaar -] 50 mg PO BID 02/22/18 Metoprolol Tartrate [Lopressor -] 50 mg PO BID 02/22/18 Warfarin Na [Coumadin -] 5 mg PO DAILY 02/22/18 Amiodarone HCl 200 mg PO BID 01/11/19 Review of Systems - Review of Systems Constitutional: reports: Weakness. denies: Chills, Fever Eyes: denies: Recent Change in Vision HENT: denies: Nasal Congestion, Throat Pain Neck: denies: Stiffness, Tenderness Cardiovascular: reports: Chest Pain, Shortness of Breath. denies: Edema Respiratory: reports: Cough, SOB on Exertion. denies: Wheezing Gastrointestinal: denies: Abdominal Pain, Nausea, Vomiting Genitourinary: reports: Dysuria, Hematuria Neurological: denies: Headache Endocrine: denies: Unexplained Weight Loss Physical Exam Vital Sings: Vital Signs Temperature 98.1 F 01/12/19 06:00 Pulse Rate 90 01/12/19 06:00 Respiratory Rate 20 01/12/19 06:00 Blood Pressure 143/83 01/12/19 06:00 O2 Sat by Pulse Oximetry (%) 98 01/12/19 00:11 Constitutional: Yes: Calm Eyes: Yes: Conjunctiva Clear, EOM Intact HENT: Yes: Atraumatic, Normocephalic Neck: Yes: Supple, Trachea Midline Cardiovascular: Yes: Regular Rate and Rhythm Respiratory: Yes: Diminished (decreased breath sounds at the bases) ...Clubbing: No Gastrointestinal: Yes: Normal Bowel Sounds, Soft. No: Tenderness Edema: No Labs: CBC, BMP 01/12/19 06:20 01/12/19 06:20 Imaging - Results Chest X-ray: Report Reviewed, Image Reviewed (cardiomegaly, pulmonary vascular congestion) Assessment/Plan Syncope Acute on Chronic Systolic Heart Failure Paroxysmal Atrial Fibrillation Supratherapeutic INR +Troponins likely Demand Ischemia CAD s/p CABG HTN Hyperlipidemia - continue lasix - monitor urine output, creatinine - monitor H/H, hematuria - rate control - anticoagulation to keep INR 2-3 - O2 as needed - lidocaine allan jerez Thank you for this consult Saleem Cm MD
--- NOTE | 2019-01-12 13:35 | EKG ---
Test Reason : Blood Pressure : / mmHG Vent. Rate : 080 BPM Atrial Rate : 086 BPM P-R Int : 000 ms QRS Dur : 150 ms QT Int : 476 ms P-R-T Axes : 000 108 129 degrees QTc Int : 548 ms Ventricular-paced rhythm Biventricular pacemaker detected ABNORMAL ECG WHEN COMPARED WITH ECG OF 03-JAN-2019 08:56, VENT. RATE HAS DECREASED BY 31 BPM Confirmed by NAMRATA STEVENS MD ([id number]) on 01/12/2019 1:35:29 PM Referred By: Confirmed By:NAMRATA STEVENS MD
--- NOTE | 2019-01-12 13:52 | CONS ---
INFECTIOUS DISEASE CONSULTATION DATE OF CONSULTATION: DATE OF DICTATION: 01/12/2019 The patient is an 83-year-old male with a cardiac history, evaluated for possible sepsis. He was admitted to the hospital on January 11, 2019, after a syncopal episode. He reports ambulating at a laundromat when he felt dizzy and lost consciousness. He had no recall for events. He was found to be unresponsive. Patient regained consciousness after arrival of EMS. He complained of generalized weakness and subjective fever. He was evaluated in the emergency room where he developed nausea and vomiting. Initial evaluation showed an elevated white blood cell count and elevated lactic acid level. He was empirically treated with vancomycin and Zosyn for possible sepsis. At the present time, he is awake and alert. A Esquivel catheter was placed and is draining hemorrhagic urine. He is complaining of pain at the Esquivel catheter site. He denied any recent urinary tract symptoms. No dysuria, frequency, urgency, or retention. He appears slightly short of breath at rest, has occasional cough productive of whitish sputum. He denies any ill contacts. He lives at home. His last hospitalization was approximately 1 year ago. He is a nonsmoker, nondrinker. PAST MEDICAL HISTORY: Positive for coronary artery disease, myocardial infarction, diabetes mellitus, hypertension, hyperlipidemia. PAST SURGICAL HISTORY: Status post coronary artery bypass, implanted defibrillator, inguinal hernia. ALLERGIES: No known allergies. MEDICATIONS: Lasix, glimepiride, Cozaar, Lopressor, Coumadin, amiodarone. SOCIAL HISTORY: As per HPI. LABORATORY DATA: White count 11.6, hematocrit 43.0, platelets 238. BUN 49, creatinine 2.2. Urinalysis: White cells 1. Lactic acid 4.1. Liver enzymes normal. INR 5.6. Chest x-ray: Some congestion; left hemidiaphragm not visualized. SYSTEMS REVIEW: Neurologic: As per HPI. Cardiac: Positive for coronary artery disease, bypass surgery. Respiratory: As per HPI. Gastrointestinal: Positive for vomiting. No diarrhea. Genitourinary: Positive for hematuria. PHYSICAL EXAMINATION: General: He is awake, seated in bed, in no acute distress, slightly short of breath at rest. Vital Signs: Temperature 98.1; blood pressure 143/83; pulse 90, irregular; respirations 20 per minute. HEENT: Sclerae anicteric. Heart: Sounds irregular. S1, S2. Lungs: Clear bilaterally. Decreased breath sounds at the bases. Abdomen: Soft, obese, nontender. No suprapubic tenderness. Extremities: Edema 1+. Positive venous stasis dermatitis. IMPRESSION: 1. Status post syncope. 2. Lactic acidosis, rule out sepsis. 3. Leukocytosis. 4. Coagulopathy. 5. History of bioprosthetic mitral valve. Await sepsis workup. Obtain sputum culture, urine legionella antigen. Empiric antibiotic coverage with ceftriaxone. Cardiology evaluation. Will follow. Thank you for the kind referral. INDRA LOZANO M.D. [id number]
--- NOTE | 2019-01-12 14:21 | HP ---
CHIEF COMPLAINT: Syncope PCP: Dr. See HISTORY OF PRESENT ILLNESS: Pt. is an 83 y.o. M w/ PMHx. of [place] s/p CABG and AICD placement, HTN, HLD, AFib(on Coumadin), DM2 and dilated Cardiomyopathy presents after having fallen down at a laundromat. Per family at bedside, assisted with history, Pt. had been having shortness of breath for the last week and a half. Per family Pt. was not down on the ground long and EMS was called. Pt. states that he was recently started on amiodarone for better rate control on the December. Pt. states that he had been feeling tired the last few days and had been feeling dizzy over the last couple of days. Of note Pt. states that this dizziness has been chronic and "off and on" for years. Pt. also has an inguinal hernia that alters the direction of his urine stream when it "pops out," but denies any pain or tenderness other than the irritation of having the Esquivel in. Pt. states that he has had a good appetite and has been eating and drinking fluids and going out to eat at restaurants. Per family Pt. has not been drinking as much fluids as usual (1.5 bottles of water/day). Pt. currently denies any chest pain, shortness of breath, abdominal pain, nausea, diarrhea, NSAID use, fever or chills. Recent Travel: No PAST MEDICAL HISTORY: [place], HTN, HLD, AFib, Cardiomyopthy PAST SURGICAL HISTORY: AICD, CABG and stent placement Social History: Smoking: Denies Alcohol: Denies Drugs: Denies Allergies No Known Allergies Allergy (Verified 01/03/19 08:57) HOME MEDICATIONS: Home Medications Medication Instructions Recorded Furosemide [Lasix -] 40 mg PO DAILY 02/22/18 Glimepiride [Glimepiride -] 2 mg PO DAILY 02/22/18 Losartan Potassium [Cozaar -] 50 mg PO BID 02/22/18 Metoprolol Tartrate [Lopressor -] 50 mg PO BID 02/22/18 Warfarin Na [Coumadin -] 5 mg PO DAILY 02/22/18 Amiodarone HCl 200 mg PO BID 01/11/19 REVIEW OF SYSTEMS As above PHYSICAL EXAMINATION Vital Signs - 24 hr 01/11/19 01/11/1919 14:50 19:45 00:11 Temperature 97.5 F L 97.8 F Pulse Rate 90 88 Pulse Rate [ 77 Right] Respiratory 21 H 22 H 22 H Rate Blood Pressure 100/59 L 142/82 Blood Pressure 137/71 [Right] O2 Sat by Pulse 95 95 98 Oximetry (%) 01/12/19 01/12/19 01/12/19 00:20 06:00 09:00 Temperature 98 F 98.1 F Pulse Rate 84 90 Pulse Rate [ Right] Respiratory 20 20 Rate Blood Pressure 137/94 143/83 Blood Pressure [Right] O2 Sat by Pulse 97 Oximetry (%) 01/12/19 10:00 Temperature Pulse Rate 77 Pulse Rate [ Right] Respiratory 22 H Rate Blood Pressure 119/62 Blood Pressure [Right] O2 Sat by Pulse Oximetry (%) GENERAL: Awake, alert, in no acute distress. HEAD: Normal with no signs of trauma. EYES: Pupils equal, round and reactive to light, extraocular movements intact, sclera anicteric, conjunctiva clear. No lid lag. EARS, NOSE, THROAT: Ears normal, nares patent, oropharynx clear without exudates. Moist mucous membranes. NECK: Normal range of motion, supple without lymphadenopathy, JVD, or masses. LUNGS: Breath sounds equal, clear to auscultation bilaterally. No wheezes, and no crackles. No accessory muscle use. HEART: Regular rate and rhythm, normal S1 and S2 without murmur ABDOMEN: Soft, nontender, Protuberant, normoactive bowel sounds, no guarding, no rebound, no masses. No scrotal tenderness. Esquivel in place with sedimented blood. MUSCULOSKELETAL: Normal range of motion at all joints. No bony deformities or tenderness. No CVA tenderness. UPPER EXTREMITIES: warm, well-perfused. No cyanosis. No clubbing. No peripheral edema. LOWER EXTREMITIES: 1+ dorsal pedal pulses, warm, well-perfused. No calf tenderness. No peripheral edema. NEUROLOGICAL: Cranial nerves II-XII intact. Normal speech. Heel to weller and Finger to Nose tests in tact PSYCHIATRIC: Cooperative. Good eye contact. Appropriate mood and affect. SKIN: Warm, dry, normal turgor, Laboratory Results - last 24 hr 01/11/19 01/11/19 01/11/19 15:00 15:40 15:40 WBC 8.9 RBC 5.30 Hgb 14.3 Hct 44.7 MCV 84.3 MCH 26.9 MCHC 31.9 L RDW 16.0 H Plt Count 220 MPV 8.7 Absolute Neuts (auto) 7.2 Neutrophils % 81.0 Lymphocytes % 12.1 Monocytes % 5.3 Eosinophils % 0.9 Basophils % 0.7 Nucleated RBC % 0 PT with INR INR PTT (Actin FS) Sodium 135 L Potassium 4.0 Chloride 100 Carbon Dioxide 20 L Anion Gap 14 BUN 56.8 H Creatinine 2.6 H Est GFR (CKD-EPI)AfAm 25.48 Est GFR (CKD-EPI)NonAf 21.98 POC Glucometer 287 Random Glucose 273 H Hemoglobin A1c % Lactic Acid Calcium 9.1 Total Bilirubin 0.8 AST 27 ALT 34 Alkaline Phosphatase 89 Creatine Kinase 77 Troponin I 0.11 H B-Natriuretic Peptide 7100.4 H Total Protein 7.0 Albumin 3.2 L Triglycerides Cholesterol Total LDL Cholesterol HDL Cholesterol Lipase 317 TSH 9.44 H D Free T4 1.30 H Urine Color Urine Appearance Urine pH Ur Specific [place] Urine Protein Urine Glucose (UA) Urine Ketones Urine Blood Urine Nitrite Urine Bilirubin Urine Urobilinogen Ur Leukocyte Esterase Urine WBC (Auto) Urine RBC (Auto) Urine Casts (Auto) U Epithel Cells (Auto) Urine Bacteria (Auto) 01/11/19 01/11/19 01/11/19 15:40 15:40 18:30 WBC RBC Hgb Hct MCV MCH MCHC RDW Plt Count MPV Absolute Neuts (auto) Neutrophils % Lymphocytes % Monocytes % Eosinophils % Basophils % Nucleated RBC % PT with INR 69.70 H INR 5.30 H* PTT (Actin FS) 69.0 H Sodium Potassium Chloride Carbon Dioxide Anion Gap BUN Creatinine Est GFR (CKD-EPI)AfAm Est GFR (CKD-EPI)NonAf POC Glucometer Random Glucose Hemoglobin A1c % Lactic Acid 4.1 H* 1.1 Calcium Total Bilirubin AST ALT Alkaline Phosphatase Creatine Kinase Troponin I B-Natriuretic Peptide Total Protein Albumin Triglycerides Cholesterol Total LDL Cholesterol HDL Cholesterol Lipase TSH Free T4 Urine Color Urine Appearance Urine pH Ur Specific [place] Urine Protein Urine Glucose (UA) Urine Ketones Urine Blood Urine Nitrite Urine Bilirubin Urine Urobilinogen Ur Leukocyte Esterase Urine WBC (Auto) Urine RBC (Auto) Urine Casts (Auto) U Epithel Cells (Auto) Urine Bacteria (Auto) 1001/11/19 01/12/19 18:30 22:00 05:19 WBC RBC Hgb Hct MCV MCH MCHC RDW Plt Count MPV Absolute Neuts (auto) Neutrophils % Lymphocytes % Monocytes % Eosinophils % Basophils % Nucleated RBC % PT with INR INR PTT (Actin FS) Sodium Potassium Chloride Carbon Dioxide Anion Gap BUN Creatinine Est GFR (CKD-EPI)AfAm Est GFR (CKD-EPI)NonAf POC Glucometer 165 Random Glucose Hemoglobin A1c % Lactic Acid Calcium Total Bilirubin AST ALT Alkaline Phosphatase Creatine Kinase Troponin I 0.18 H B-Natriuretic Peptide Total Protein Albumin Triglycerides Cholesterol Total LDL Cholesterol HDL Cholesterol Lipase TSH Free T4 Urine Color Yellow Urine Appearance Clear Urine pH 5.0 Ur Specific [place] 1.014 Urine Protein 1+ H Urine Glucose (UA) Negative Urine Ketones Negative Urine Blood Negative Urine Nitrite Negative Urine Bilirubin Negative Urine Urobilinogen 0.2 Ur Leukocyte Esterase Negative Urine WBC (Auto) 1 Urine RBC (Auto) 1 Urine Casts (Auto) 4 U Epithel Cells (Auto) 2.0 Urine Bacteria (Auto) 0.7 01/12/19 01/12/19 01/12/19 06:20 06:20 06:20 WBC 11.6 H RBC 5.27 Hgb 14.2 Hct 43.0 MCV 81.5 MCH 27.0 MCHC 33.1 RDW 15.7 Plt Count 238 MPV 8.8 Absolute Neuts (auto) 9.4 H Neutrophils % 81.0 Lymphocytes % 11.4 Monocytes % 6.7 Eosinophils % 0.4 Basophils % 0.5 Nucleated RBC % 0 PT with INR INR PTT (Actin FS) Sodium 135 L Potassium 4.4 Chloride 105 Carbon Dioxide 18 L Anion Gap 12 BUN 49.5 H Creatinine 2.2 H Est GFR (CKD-EPI)AfAm 31.18 Est GFR (CKD-EPI)NonAf 26.90 POC Glucometer Random Glucose 138 H Hemoglobin A1c % 8.4 H Lactic Acid Calcium 8.7 Total Bilirubin 1.0 AST 27 ALT 33 Alkaline Phosphatase 84 Creatine Kinase Troponin I B-Natriuretic Peptide Total Protein 7.0 Albumin 3.3 L Triglycerides 182 H Cholesterol 193 Total LDL Cholesterol 135 H HDL Cholesterol 34 L Lipase TSH Free T4 Urine Color Urine Appearance Urine pH Ur Specific [place] Urine Protein Urine Glucose (UA) Urine Ketones Urine Blood Urine Nitrite Urine Bilirubin Urine Urobilinogen Ur Leukocyte Esterase Urine WBC (Auto) Urine RBC (Auto) Urine Casts (Auto) U Epithel Cells (Auto) Urine Bacteria (Auto) 01/12/19 01/12/19 06:20 12:09 WBC RBC Hgb Hct MCV MCH MCHC RDW Plt Count MPV Absolute Neuts (auto) Neutrophils % Lymphocytes % Monocytes % Eosinophils % Basophils % Nucleated RBC % PT with INR 67.50 H 42.00 H INR 5.62 H* 3.51 H PTT (Actin FS) Sodium Potassium Chloride Carbon Dioxide Anion Gap BUN Creatinine Est GFR (CKD-EPI)AfAm Est GFR (CKD-EPI)NonAf POC Glucometer Random Glucose Hemoglobin A1c % Lactic Acid Calcium Total Bilirubin AST ALT Alkaline Phosphatase Creatine Kinase Troponin I B-Natriuretic Peptide Total Protein Albumin Triglycerides Cholesterol Total LDL Cholesterol HDL Cholesterol Lipase TSH Free T4 Urine Color Urine Appearance Urine pH Ur Specific [place] Urine Protein Urine Glucose (UA) Urine Ketones Urine Blood Urine Nitrite Urine Bilirubin Urine Urobilinogen Ur Leukocyte Esterase Urine WBC (Auto) Urine RBC (Auto) Urine Casts (Auto) U Epithel Cells (Auto) Urine Bacteria (Auto) ASSESSMENT/PLAN: Pt. is an 83 y.o. M w/ PMHx. of [place] s/p CABG and AICD placement, HTN, HLD, AFib( on Coumadin), and dilated Cardiomyopathy presents after having fallen down at a laundromat. #Syncope r/o ACS Head CT and CSpine CT Negative ICD Interrogation negative per chart review c/w telemetry monitoring will decrease Losartan and monitor- likely from decreased blood pressure #Dilated Cadiomyopathy Telemetry monitoring Lasix 40mg Daily #TONY 2/2 to hypoperfusion 2/2 low blood pressure- resolving unlikely due to amiodarone as Pt. has not been on this medication for a long time, but in combination with Losartan 50mg BID and Metoprolol 50mg BID probably has contributed; low BP on admission and again today Will decrease Losartan to 50mg Daily. Cr. 2.6-->2.2 (baseline ~1.8-2.0) UA- Negative for blood, protein, LE , nitrites or WBCs c/w empiric Ceftriaxone Pt. has Esquivel will c/w strict Is & Os ; had traumatic inserytion with #HTN/HLD Losartan 50mg Daily Lopressor 50mg BID #DM2 c/w Glimepiride 2mg ACBK BGM ACHS #Thyroid Hormone Abnormality Elevated TSH and elevated Ft4 suggest repeat in AM suggest consulting Endocrine suggest MRI to evaluate Pituitary gland #FEN No IVF, encourage PO intake monitor electorlytes, replete as needed Low Sodium Diet #DVT Ppx. INR Supratherapeutic will hold Coumdin early ambulation Visit type - Emergency Visit Emergency Visit: Yes ED Registration Date: 01/11/19 Care time: The patient presented to the Emergency Department on the above date and was hospitalized for further evaluation of their emergent condition. - New Patient This patient is new to me today: Yes Date on this admission: 01/12/19 - Critical Care Critical Care patient: No ATTENDING PHYSICIAN STATEMENT I saw and evaluated the patient. I reviewed the resident's note and discussed the case with the resident. I agree with the resident's findings and plan as documented. SUBJECTIVE: OBJECTIVE: ASSESSMENT AND PLAN:
--- NOTE | 2019-01-12 14:30 | PN ---
Progress Note, Physician Chief Complaint: patient seen and examined s/p sycopal episode at laundry room - Current Medication List Current Medications: Active Medications Amiodarone HCl (Cordarone -) 200 mg PO BID [facility] Last Admin: 01/12/19 09:22 Dose: 200 mg Furosemide (Lasix -) 40 mg PO DAILY [facility] Last Admin: 01/12/19 09:22 Dose: 40 mg Glimepiride (Amaryl -) 2 mg PO ACBK [facility] Last Admin: 01/12/19 06:42 Dose: 2 mg Ceftriaxone Sodium 1 gm/ (Dextrose) 50 mls @ 100 mls/hr IVPB DAILY [facility]; Protocol Lidocaine HCl (Xylocaine 2% Jelly) 1 applic TP Q4H PRN PRN Reason: APPLY TO PENIS Losartan Potassium (Cozaar -) 50 mg PO BID [facility] Last Admin: 01/12/19 09:22 Dose: 50 mg Metoprolol Tartrate (Lopressor -) 50 mg PO BID [facility] Last Admin: 01/12/19 09:22 Dose: 50 mg Ondansetron HCl (Zofran Injection) 4 mg IVPUSH Q8H PRN PRN Reason: NAUSEA Stop: 01/14/19 23:59 - Objective Vital Signs: Vital Signs Temperature 98.1 F 01/12/19 06:00 Pulse Rate 77 01/12/19 10:00 Respiratory Rate 22 H 01/12/19 10:00 Blood Pressure 119/62 01/12/19 10:00 O2 Sat by Pulse Oximetry (%) 97 01/12/19 09:00 Constitutional: Yes: Calm Cardiovascular: Yes: Regular Rate and Rhythm, S1, S2 Respiratory: Yes: CTA Bilaterally Gastrointestinal: Yes: Normal Bowel Sounds, Soft Edema: No Neurological: Yes: Alert, Oriented Labs: CBC, BMP 01/12/19 06:20 01/12/19 06:20 INR, PTT INR 3.51 (0.83-1.09) H 01/12/19 12:09 Assessment/Plan supratherepautic INR s/p vitamin K trend INR s/p lactic acidosis and leukocytosis emperic abx ' ID on board paroxysmal afib: metoproolol and hold AC
--- NOTE | 2019-01-12 15:09 | CON.CARD ---
Consult Consult Specialty:: Cardiology Referred by:: Dr. See Reason for Consultation:: Cardiac evaluation - History of Present Illness Chief Complaint: Syncope History of Present Illness: Patient is an 83 year old male well known to our service (sees Dr. 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 PVD and CKD who presents after a syncopal episode. He does not recall the event except he felt weak and sat down at a laundromat. In the ED, he complained of generalized weakness, shortness of breath and productive cough. ICD was interrogated and was unremarkable. Troponin was elevated to 0.18. He denies chest pain, shortness of breath or palpitations at this time. He denies paroxysmal nocturnal dyspnea or orthopnea. He denies fever or chills. He denies nausea, vomiting, diarrhea or abdominal pain. He denies headache or lightheadedness. No physical injuries. - History Source History Provided By: Patient, Medical Record Limitations to Obtaining History: No Limitations - Past Medical History Cardio/Vascular: Yes: AFIB, CAD, CHF, HTN, Hyperlipdemia, [place] Endocrine: Yes: Diabetes Mellitus - Past Surgical History Past Surgical History: Yes: AICD, CABG, Stent Additional Surgical History: Mitral valve repair - Alcohol/Substance Use Hx Alcohol Use: No History of Substance Use: reports: None - Smoking History Smoking history: Never smoked Have you smoked in the past 12 months: No Aproximately how many cigarettes per day: 0 - Social History ADL: Independent History of Recent Travel: No Home Medications - Allergies Allergies/Adverse Reactions: Allergies Allergy/AdvReac Type Severity Reaction Status Date / Time No Known Allergies Allergy Verified 01/03/19 08:57 - Home Medications Home Medications: Ambulatory Orders Furosemide [Lasix -] 40 mg PO DAILY 02/22/18 Glimepiride [Glimepiride -] 2 mg PO DAILY 02/22/18 Losartan Potassium [Cozaar -] 50 mg PO BID 02/22/18 Metoprolol Tartrate [Lopressor -] 50 mg PO BID 02/22/18 Warfarin Na [Coumadin -] 5 mg PO DAILY 02/22/18 Amiodarone HCl 200 mg PO BID 01/11/19 Family Medical History Other Family History: CAD Review of Systems - Review of Systems Constitutional: denies: Chills, Fever Cardiovascular: denies: Chest Pain, Palpitations, Shortness of Breath Respiratory: denies: Cough, Hemoptysis, Orthopnea, PND, SOB, SOB on Exertion Gastrointestinal: denies: Abdominal Pain, Constipation, Diarrhea, Melena, Nausea , Rectal Bleeding, Vomiting Musculoskeletal: denies: Back Pain, Joint Pain Neurological: denies: Dizziness, Headache, Seizure, Syncope Vital Signs: Vital Signs Temperature 98.1 F 01/12/19 06:00 Pulse Rate 77 01/12/19 10:00 Respiratory Rate 22 H 01/12/19 10:00 Blood Pressure 119/62 01/12/19 10:00 O2 Sat by Pulse Oximetry (%) 97 01/12/19 09:00 Eyes: Yes: PERRL HENT: Yes: Atraumatic Neck: Yes: Supple Respiratory: Yes: Regular, CTA Bilaterally Gastrointestinal: Yes: Normal Bowel Sounds, Soft. No: Tenderness Cardiovascular: Yes: Regular Rate and Rhythm JVD: No PMI: Non-Displaced Heart Sounds: Yes: S1, S2 Edema: Yes Edema: LLE: Trace, RLE: Trace - Other Data Labs, Other Data: CBC, BMP 01/12/19 06:20 01/12/19 06:20 INR, PTT INR 3.51 (0.83-1.09) H 01/12/19 12:09 Troponin, BNP 01/11/19 01/11/19 15:40 18:30 Troponin I 0.11 H 0.18 H B-Natriuretic Peptide 7100.4 H Laboratory Results - last 24 hr 01/12/19 01/12/19 01/12/19 05:19 06:20 06:20 WBC 11.6 H RBC 5.27 Hgb 14.2 Hct 43.0 MCV 81.5 MCH 27.0 MCHC 33.1 RDW 15.7 Plt Count 238 MPV 8.8 Absolute Neuts (auto) 9.4 H Neutrophils % 81.0 Lymphocytes % 11.4 Monocytes % 6.7 Eosinophils % 0.4 Basophils % 0.5 Nucleated RBC % 0 PT with INR INR Sodium 135 L Potassium 4.4 Chloride 105 Carbon Dioxide 18 L Anion Gap 12 BUN 49.5 H Creatinine 2.2 H Est GFR (CKD-EPI)AfAm 31.18 Est GFR (CKD-EPI)NonAf 26.90 POC Glucometer 165 Random Glucose 138 H Hemoglobin A1c % Calcium 8.7 Total Bilirubin 1.0 AST 27 ALT 33 Alkaline Phosphatase 84 Total Protein 7.0 Albumin 3.3 L Triglycerides 182 H Cholesterol 193 Total LDL Cholesterol 135 H HDL Cholesterol 34 L 01/12/19 01/12/19 01/12/19 06:20 06:20 12:09 WBC RBC Hgb Hct MCV MCH MCHC RDW Plt Count MPV Absolute Neuts (auto) Neutrophils % Lymphocytes % Monocytes % Eosinophils % Basophils % Nucleated RBC % PT with INR 67.50 H 42.00 H INR 5.62 H* 3.51 H Sodium Potassium Chloride Carbon Dioxide Anion Gap BUN Creatinine Est GFR (CKD-EPI)AfAm Est GFR (CKD-EPI)NonAf POC Glucometer Random Glucose Hemoglobin A1c % 8.4 H Calcium Total Bilirubin AST ALT Alkaline Phosphatase Total Protein Albumin Triglycerides Cholesterol Total LDL Cholesterol HDL Cholesterol Ventricular paced rhythm Imaging - Results Chest X-ray: Report Reviewed (Cardiomegaly) Cat Scan: Report Reviewed (Abd CT - smal inguinoscrotal hernia) EKG: Report Reviewed Problem List - Problems (1) Diabetes Code(s): E11.9 - TYPE 2 DIABETES MELLITUS WITHOUT COMPLICATIONS (2) Chest pain Code(s): R07.9 - CHEST PAIN, UNSPECIFIED Qualifiers: Ischemic chest pain type: stable angina pectoris (3) Demand ischemia Code(s): I24.8 - OTHER FORMS OF ACUTE ISCHEMIC HEART DISEASE (4) Elevated troponin Code(s): R74.8 - ABNORMAL LEVELS OF OTHER SERUM ENZYMES (5) Biventricular automatic implantable cardioverter defibrillator in situ Code(s): Z95.810 - PRESENCE OF AUTOMATIC (IMPLANTABLE) CARDIAC DEFIBRILLATOR (6) CAD (coronary artery disease) Code(s): I25.10 - ATHSCL HEART DISEASE OF [place] CORONARY ARTERY W/O ANG PCTRS Qualifiers: Coronary Disease-Associated Artery/Lesion type: [place] artery [place] vs. transplanted heart: [place] heart Associated angina: without angina Qualified Code(s): I25.10 - Atherosclerotic heart disease of [place] coronary artery without angina pectoris (7) CHF (congestive heart failure) Code(s): I50.9 - HEART FAILURE, UNSPECIFIED Qualifiers: Heart failure type: unspecified Heart failure chronicity: chronic Qualified Code(s): I50.9 - Heart failure, unspecified (8) HTN (hypertension) Code(s): I10 - ESSENTIAL (PRIMARY) HYPERTENSION Qualifiers: Hypertension type: essential hypertension Qualified Code(s): I10 - Essential (primary) hypertension (9) Hyperlipidemia Code(s): E78.5 - HYPERLIPIDEMIA, UNSPECIFIED Qualifiers: Hyperlipidemia type: pure hypercholesterolemia Qualified Code(s): E78.00 - Pure hypercholesterolemia, unspecified; E78.0 - Pure hypercholesterolemia (10) Ischemic cardiomyopathy Code(s): I25.5 - ISCHEMIC CARDIOMYOPATHY (11) Renal insufficiency Code(s): N28.9 - DISORDER OF KIDNEY AND URETER, UNSPECIFIED (12) S/P CABG (coronary artery bypass graft) Code(s): Z95.1 - PRESENCE OF AORTOCORONARY BYPASS GRAFT (13) S/P mitral valve repair Code(s): Z98.890 - OTHER SPECIFIED POSTPROCEDURAL STATES (14) Status post coronary artery stent placement Code(s): Z95.5 - PRESENCE OF CORONARY ANGIOPLASTY IMPLANT AND GRAFT Assessment/Plan 1. Syncope, etiology to be determined 2. Elevated troponin likely demand ischemia 3. HTN/HCVD 4. Hypercholesterolemia 5. Systolic LV systolic function due to ischemic dilated cardiomyopathy with class 1-2 NYHA classification LV failure 6. 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 CAD, [place] s/p CABG, PCI/stent as outlined 8. PAF [id number] score of 6 on Warfarin PLAN: 1. Continue current medical therapy including Metoprolol and Losartan 2. Continue Amiodarone with caution 3. Diuretics (Furosemide) and monitor I/Os, daily weight, renal function and electrolytes 4. Trend troponin 5. Warfarin held due to supratheraputic INR. Keep between 2-3 6. Will clarify office note. Patient was on Eplerenone Guarded Dustin Castillo MD
[2019-01-12] MEDS ORDERED: PT OWN MED DRAWER 7, Y5N ONE (15:13)
[2019-01-12] MEDS ORDERED: DEXTROSE 5%-WATER - 50 ML IVPB ONE (16:07)
[2019-01-12] MEDS ORDERED: cefTRIAXone SODIUM 1 GM VIAL ONE (16:07)
--- NOTE | 2019-01-12 17:04 | PN ---
Teaching Attending Note Name of Resident: Colby Lewis (Nephrology) ATTENDING PHYSICIAN STATEMENT I saw and evaluated the patient. I reviewed the resident's note and discussed the case with the resident. I agree with the resident's findings and plan as documented. Renal Pt is an 83 year old male with pmhx of cabg, chf, htn, hld who presented for syncope. 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 He denies history of CKD but has had abnormal labs in the past. he denies shortness of breath. pmhx ckd htn chf ros discomfort from jerez nkda family hx non contrib Laboratory Tests 02/23/18 01/03/19 01/11/19 05:30 10:03 15:40 Creatinine 1.8 H 2.0 H 2.6 H 01/12/19 06:20 Creatinine 2.2 H Current Medications Generic Name Dose Route Start Last Admin Trade Name Freq PRN Reason Stop Dose Admin Amiodarone HCl 200 mg 01/11/19 22:00 01/12/19 09:22 Cordarone - PO 200 mg BID ARIANA Administration Furosemide 40 mg 01/12/19 10:00 01/12/19 09:22 Lasix - PO 40 mg DAILY ARIANA Administration Glimepiride 2 mg 01/12/19 07:00 01/12/19 06:42 Amaryl - PO 2 mg ACBK ARIANA Administration Ceftriaxone Sodium 1 gm/ 50 mls @ 100 mls/hr 01/12/19 12:30 Dextrose IVPB DAILY ARIANA Protocol Lidocaine HCl 1 applic 01/12/19 13:20 Xylocaine 2% Jelly TP Q4H PRN APPLY TO PENIS Losartan Potassium 50 mg 01/13/19 10:00 Cozaar - PO DAILY ARIANA Metoprolol Tartrate 50 mg 01/11/19 22:00 01/12/19 09:22 Lopressor - PO 50 mg BID ARIANA Administration Ondansetron HCl 4 mg 01/11/19 21:55 Zofran Injection IVPUSH 01/14/19 23:59 Q8H PRN NAUSEA cardio s1s1 pulm clear GI soft ext trace edema neuro awake and alert gu jerez Impression 1. TONY 2. CKD 3. hematuria 4. syncope 5. HTN 6. CAD Plan - repeat labs in am - decrease dose of losartan - monitor urine output - avoid nsaids - avoid hypotension
[2019-01-12] MEDS: CEFTRIAXONE 1 GM in DEXTROSE 5%-WATER - 50 ML IVPB SCH (17:24)
[2019-01-12] MEDS ORDERED: INSULIN (NOVOLOG) ASPART 100 UNITS/ML 10ML VIAL SQ ONE (20:48)
[2019-01-13] MEDS ORDERED: INSULIN SLIDING SCALE (NOVOLOG) 1 VIAL SQ ONE (00:01)
[2019-01-13] MEDS ORDERED: PT OWN MED DRAWER 7, Y5N ONE ×2 (05:20→08:10)
[2019-01-13] MEDS: GLIMEPIRIDE 2 MG TABLET (FP) PO SCH (06:18)
[2019-01-13 06:51] LABS: INR 1.38 (0.83-1.09); PROTHROMBIN TIME (PATIENT) 16.3 SEC (9.7-13.0)
[2019-01-13 07:50] LABS: BASO % 0.7 % (0-2.0); EOS % 2.5 % (0-4.5); HEMATOCRIT 43.2 % (35.4-49); HEMOGLOBIN 14.2 GM/dL (11.7-16.9); LYMPH % 15.3 % (8-40); MCH 27.2 pg (25.7-33.7); MCHC 32.8 g/dl (32.0-35.9); MONO % 6.9 % (3.8-10.2); NEUT % 74.6 % (42.8-82.8); PLATELET COUNT 222 K/MM3 (134-434); RDW 15.7 % (11.9-15.9); WHITE BLOOD COUNT 10.6 K/mm3 (4.0-10.0)
[2019-01-13] MEDS ORDERED: cefTRIAXone SODIUM 1 GM VIAL ONE (08:10)
[2019-01-13] MEDS ORDERED: DEXTROSE 5%-WATER - 50 ML IVPB ONE (08:10)
[2019-01-13 08:13] LABS: ALBUMIN 3.1 g/dl (3.4-5.0); BILIRUBIN,TOTAL 1.3 mg/dL (0.2-1); BLOOD UREA NITROGEN 42.1 mg/dL (7-18); CALCIUM 8.5 mg/dL (8.5-10.1); POTASSIUM 4.1 mmol/L (3.5-5.1); TOT PROT 6.5 g/dl (6.4-8.2)
[2019-01-13] MEDS: LOSARTAN POTASSIUM 50 MG TABLET (FP) PO SCH (09:34)
[2019-01-13] MEDS: CEFTRIAXONE 1 GM in DEXTROSE 5%-WATER - 50 ML IVPB SCH (09:34)
[2019-01-13] MEDS: AMIODARONE HCL 200 MG TABLET (FP) PO SCH ×2 (09:34→21:37)
[2019-01-13] MEDS: METOPROLOL TARTRATE 50 MG TABLET (FP) PO SCH ×2 (09:35→21:37)
[2019-01-13] MEDS: FUROSEMIDE 40 MG TABLET (FP) PO SCH (09:35)
--- NOTE | 2019-01-13 10:18 | PN ---
Progress Note, Physician History of Present Illness: pulmonary alert,comfortable,-cp,-sob - Current Medication List Current Medications: Active Medications Amiodarone HCl (Cordarone -) 200 mg PO BID [facility] Last Admin: 01/13/19 09:34 Dose: 200 mg Furosemide (Lasix -) 40 mg PO DAILY [facility] Last Admin: 01/13/19 09:35 Dose: 40 mg Glimepiride (Amaryl -) 2 mg PO ACBK [facility] Last Admin: 01/13/19 06:18 Dose: 2 mg Ceftriaxone Sodium 1 gm/ (Dextrose) 50 mls @ 100 mls/hr IVPB DAILY [facility]; Protocol Last Admin: 01/13/19 09:34 Dose: 100 mls/hr Lidocaine HCl (Xylocaine 2% Jelly) 1 applic TP Q4H PRN PRN Reason: APPLY TO PENIS Losartan Potassium (Cozaar -) 50 mg PO DAILY [facility] Last Admin: 01/13/19 09:34 Dose: 50 mg Metoprolol Tartrate (Lopressor -) 50 mg PO BID [facility] Last Admin: 01/13/19 09:35 Dose: 50 mg Ondansetron HCl (Zofran Injection) 4 mg IVPUSH Q8H PRN PRN Reason: NAUSEA Stop: 01/14/19 23:59 - Objective Vital Signs: Vital Signs Temperature 97.5 F L 01/13/19 06:00 Pulse Rate 90 01/13/19 06:00 Respiratory Rate 20 01/13/19 06:00 Blood Pressure 122/70 01/13/19 06:00 O2 Sat by Pulse Oximetry (%) 97 01/12/19 22:00 Constitutional: Yes: Well Nourished, Calm Eyes: Yes: WNL HENT: Yes: WNL Neck: Yes: WNL Cardiovascular: Yes: Pulse Irregular, S1, S2 Respiratory: Yes: CTA Bilaterally Gastrointestinal: Yes: Normal Bowel Sounds, Soft Extremities: Yes: WNL Edema: No Labs: CBC, BMP 01/13/19 05:35 01/13/19 05:35 INR, PTT INR 1.38 (0.83-1.09) H 01/13/19 05:35 Assessment/Plan Assessment/Plan Syncope Acute on Chronic Systolic Heart Failure Paroxysmal Atrial Fibrillation Supratherapeutic INR +Troponins likely Demand Ischemia CAD s/p CABG HTN Hyperlipidemia Acute on CKD + Troponin - continue lasix - monitor urine output - monitor H/H, hematuria - rate control - anticoagulation to keep INR 2-3 - O2 as needed - Monitor lytes,renal function - Trend troponin - abx as per id DR CHURCH
--- NOTE | 2019-01-13 10:54 | PN ---
Progress Note, Physician History of Present Illness: AWAKE, ALERT SEATED IN BED LESS PAIN AT [employer] SITE NO C/O CHEST PAIN/ DYSPNEA/ COUGH NO FEVER/ CHILLS - Current Medication List Current Medications: Active Medications Amiodarone HCl (Cordarone -) 200 mg PO BID [facility] Last Admin: 01/13/19 09:34 Dose: 200 mg Furosemide (Lasix -) 40 mg PO DAILY [facility] Last Admin: 01/13/19 09:35 Dose: 40 mg Glimepiride (Amaryl -) 2 mg PO ACBK [facility] Last Admin: 01/13/19 06:18 Dose: 2 mg Ceftriaxone Sodium 1 gm/ (Dextrose) 50 mls @ 100 mls/hr IVPB DAILY [facility]; Protocol Last Admin: 01/13/19 09:34 Dose: 100 mls/hr Lidocaine HCl (Xylocaine 2% Jelly) 1 applic TP Q4H PRN PRN Reason: APPLY TO PENIS Losartan Potassium (Cozaar -) 50 mg PO DAILY [facility] Last Admin: 01/13/19 09:34 Dose: 50 mg Metoprolol Tartrate (Lopressor -) 50 mg PO BID [facility] Last Admin: 01/13/19 09:35 Dose: 50 mg Ondansetron HCl (Zofran Injection) 4 mg IVPUSH Q8H PRN PRN Reason: NAUSEA Stop: 01/14/19 23:59 - Objective Vital Signs: Vital Signs Temperature 97.5 F L 01/13/19 06:00 Pulse Rate 90 01/13/19 06:00 Respiratory Rate 20 01/13/19 06:00 Blood Pressure 122/70 01/13/19 06:00 O2 Sat by Pulse Oximetry (%) 97 01/12/19 22:00 Constitutional: Yes: No Distress Eyes: Yes: Conjunctiva Clear Cardiovascular: Yes: Regular Rate and Rhythm, S1, S2 Respiratory: Yes: CTA Bilaterally Gastrointestinal: Yes: Normal Bowel Sounds, Soft. No: Tenderness Genitourinary: Yes: Other (URINE CLEAR) Edema: Yes Labs: CBC, BMP 01/13/19 05:35 01/13/19 05:35 INR, PTT INR 1.38 (0.83-1.09) H 01/13/19 05:35 Assessment/Plan S/P SYNCOPE LEUKOCYTOSIS LACTIC ACIDOSIS RESOLVED COAGULOPATHY IMPROVED AZOTEMIA S/P MV REPAIR AWAIT C/S CONTINUE EMPIRIC CEFTRIAXONE
--- NOTE | 2019-01-13 11:56 | PN ---
Progress Note, Physician Chief Complaint: Not in distress History of Present Illness: Patient was seen and examined. Awake and alert. Chart was reviewed Denies chest pain or palpitations Denies SOB - Current Medication List Current Medications: Active Medications Amiodarone HCl (Cordarone -) 200 mg PO BID [facility] Last Admin: 01/13/19 09:34 Dose: 200 mg Furosemide (Lasix -) 40 mg PO DAILY [facility] Last Admin: 01/13/19 09:35 Dose: 40 mg Glimepiride (Amaryl -) 2 mg PO ACBK [facility] Last Admin: 01/13/19 06:18 Dose: 2 mg Ceftriaxone Sodium 1 gm/ (Dextrose) 50 mls @ 100 mls/hr IVPB DAILY [facility]; Protocol Last Admin: 01/13/19 09:34 Dose: 100 mls/hr Lidocaine HCl (Xylocaine 2% Jelly) 1 applic TP Q4H PRN PRN Reason: APPLY TO PENIS Losartan Potassium (Cozaar -) 50 mg PO DAILY [facility] Last Admin: 01/13/19 09:34 Dose: 50 mg Metoprolol Tartrate (Lopressor -) 50 mg PO BID [facility] Last Admin: 01/13/19 09:35 Dose: 50 mg Ondansetron HCl (Zofran Injection) 4 mg IVPUSH Q8H PRN PRN Reason: NAUSEA Stop: 01/14/19 23:59 - Objective Vital Signs: Vital Signs Temperature 97.5 F L 01/13/19 10:00 Pulse Rate 79 01/13/19 10:00 Respiratory Rate 20 01/13/19 10:00 Blood Pressure 122/70 01/13/19 10:00 O2 Sat by Pulse Oximetry (%) 97 01/13/19 09:00 Eyes: Yes: PERRL HENT: Yes: Atraumatic Neck: Yes: Supple Cardiovascular: Yes: Regular Rate and Rhythm, S1, S2 Respiratory: Yes: Diminished Gastrointestinal: Yes: Normal Bowel Sounds, Soft. No: Tenderness Edema: Yes Edema: LLE: Trace, RLE: Trace Additional Findings/Remarks: - Review of Systems Constitutional: denies: Chills, Fever Cardiovascular: denies: Chest Pain, Palpitations, Shortness of Breath Respiratory: denies: Cough, Hemoptysis, Orthopnea, PND, SOB, SOB on Exertion Gastrointestinal: denies: Abdominal Pain, Constipation, Diarrhea, Melena, Nausea , Rectal Bleeding, Vomiting Musculoskeletal: denies: Back Pain, Joint Pain Neurological: denies: Dizziness, Headache, Seizure, Syncope Labs: CBC, BMP 01/13/19 05:35 01/13/19 05:35 INR, PTT INR 1.38 (0.83-1.09) H 01/13/19 05:35 Problem List - Problems (1) Diabetes Code(s): E11.9 - TYPE 2 DIABETES MELLITUS WITHOUT COMPLICATIONS (2) Chest pain Code(s): R07.9 - CHEST PAIN, UNSPECIFIED Qualifiers: Ischemic chest pain type: stable angina pectoris (3) Demand ischemia Code(s): I24.8 - OTHER FORMS OF ACUTE ISCHEMIC HEART DISEASE (4) Elevated troponin Code(s): R74.8 - ABNORMAL LEVELS OF OTHER SERUM ENZYMES (5) Biventricular automatic implantable cardioverter defibrillator in situ Code(s): Z95.810 - PRESENCE OF AUTOMATIC (IMPLANTABLE) CARDIAC DEFIBRILLATOR (6) CAD (coronary artery disease) Code(s): I25.10 - ATHSCL HEART DISEASE OF [place] CORONARY ARTERY W/O ANG PCTRS Qualifiers: Coronary Disease-Associated Artery/Lesion type: [place] artery [place] vs. transplanted heart: [place] heart Associated angina: without angina Qualified Code(s): I25.10 - Atherosclerotic heart disease of [place] coronary artery without angina pectoris (7) CHF (congestive heart failure) Code(s): I50.9 - HEART FAILURE, UNSPECIFIED Qualifiers: Heart failure type: unspecified Heart failure chronicity: chronic Qualified Code(s): I50.9 - Heart failure, unspecified (8) HTN (hypertension) Code(s): I10 - ESSENTIAL (PRIMARY) HYPERTENSION Qualifiers: Hypertension type: essential hypertension Qualified Code(s): I10 - Essential (primary) hypertension (9) Hyperlipidemia Code(s): E78.5 - HYPERLIPIDEMIA, UNSPECIFIED Qualifiers: Hyperlipidemia type: pure hypercholesterolemia Qualified Code(s): E78.00 - Pure hypercholesterolemia, unspecified; E78.0 - Pure hypercholesterolemia (10) Ischemic cardiomyopathy Code(s): I25.5 - ISCHEMIC CARDIOMYOPATHY (11) Renal insufficiency Code(s): N28.9 - DISORDER OF KIDNEY AND URETER, UNSPECIFIED (12) S/P CABG (coronary artery bypass graft) Code(s): Z95.1 - PRESENCE OF AORTOCORONARY BYPASS GRAFT (13) S/P mitral valve repair Code(s): Z98.890 - OTHER SPECIFIED POSTPROCEDURAL STATES (14) Status post coronary artery stent placement Code(s): Z95.5 - PRESENCE OF CORONARY ANGIOPLASTY IMPLANT AND GRAFT Assessment/Plan 1. Syncope, etiology to be determined 2. Elevated troponin likely demand ischemia 3. HTN/HCVD 4. Hypercholesterolemia 5. Systolic LV systolic function due to ischemic dilated cardiomyopathy with class 1-2 NYHA classification LV failure 6. 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 CAD, [place] s/p CABG, PCI/stent as outlined 8. PAF [id number] score of 6 on Warfarin PLAN: 1. Continue current medical therapy including Metoprolol and Losartan 2. Continue Amiodarone with caution 3. Diuretics (Furosemide PO) and monitor I/Os, daily weight, renal function and electrolytes 4. Trend troponin 5. Warfarin to be given to keep INR between 2-3. To be restarted or other option is to use DOAC (Eliquis 2.5 mg BID as age>80, Cr>1.5) 6. Patient was on Eplerenone according to office note. Restart Eplerenone Follow up with Anirudh Ramsey in the office Dustin Castillo MD
--- NOTE | 2019-01-13 12:12 | DS ---
Physical Examination Vital Signs: Vital Signs Temperature 97.5 F L 01/13/19 10:00 Pulse Rate 79 01/13/19 10:00 Respiratory Rate 20 01/13/19 10:00 Blood Pressure 122/70 01/13/19 10:00 O2 Sat by Pulse Oximetry (%) 97 01/13/19 09:00 Constitutional: Yes: Calm Cardiovascular: Yes: Regular Rate and Rhythm, S1, S2 Respiratory: Yes: CTA Bilaterally Gastrointestinal: Yes: Normal Bowel Sounds, Soft Labs: CBC, BMP 01/13/19 05:35 01/13/19 05:35 Discharge Summary Problems reviewed: Yes Reason For Visit: SYNCOPE Current Active Problems TONY (acute kidney injury) (Acute) Diabetes (Acute) Sepsis (Acute) Syncope (Acute) Other Procedures: head and neck Ct done no infarct or fracture. ct abdomen no acute pathology Hospital Course: - Admission Chief Complaint: syncope History of Present Illness: 83M with PMH [place] s/p CABG, HTN, HLD,CHF, A-fib arrived to ED BIBA for evaluation of syncopal episode. As per EMS, patient was found down behind a laundromat chair while doing his laundry. Patient stated he felt weak and needed to sit down, after that can not recall anything else. While in the ED, patient endorses generalized weakness, SOB, dyspnea on exertion, and a productive cough ( with white sputum). No history of COPD or lung disease. Patient denies chest pain, abdominal pain, headache, urinary symptoms, N/V/C/D. Denies injury to head or body. seen by renal and losartan dose decreased and restarted on entresto by cardiology supratherpaeutic INR with hematuria now resolved and got vitamin K and now to start eliquis bid and follow up in hte office remove jerez cath and trial of voiding and change to po abx and dc home Condition: Stable - Instructions - Home Medications Comprehensive Discharge Medication List: Ambulatory Orders Furosemide [Lasix -] 40 mg PO DAILY 02/22/18 Glimepiride [Glimepiride -] 2 mg PO DAILY 02/22/18 Losartan Potassium [Cozaar -] 50 mg PO BID 02/22/18 Metoprolol Tartrate [Lopressor -] 50 mg PO BID 02/22/18 Warfarin Na [Coumadin -] 5 mg PO DAILY 02/22/18 Amiodarone HCl 200 mg PO BID 01/11/19
[2019-01-13] MEDS ORDERED: SACUBITRIL/VALSARTAN 49 MG-51 MG TABLET PO SCH (12:15)
[2019-01-13] MEDS ORDERED: SACUBITRIL/VALSARTAN 24 MG-26 MG TABLET PO SCH (12:30)
--- NOTE | 2019-01-13 15:35 | PN ---
Progress Note, Physician History of Present Illness: Pt seen and examined at bedside. He is awake and alert. he denies shortness of breath. - Current Medication List Current Medications: Active Medications Amiodarone HCl (Cordarone -) 200 mg PO BID [facility] Last Admin: 01/13/19 09:34 Dose: 200 mg Amoxicillin/Clavulanate Potassium (Augmentin - 500mg Tablet) 1 tab PO BID@0800, 1730 [facility] Stop: 01/20/19 07:59 Furosemide (Lasix -) 40 mg PO DAILY [facility] Last Admin: 01/13/19 09:35 Dose: 40 mg Glimepiride (Amaryl -) 2 mg PO ACBK [facility] Last Admin: 01/13/19 06:18 Dose: 2 mg Lidocaine HCl (Xylocaine 2% Jelly) 1 applic TP Q4H PRN PRN Reason: APPLY TO PENIS Losartan Potassium (Cozaar -) 50 mg PO DAILY [facility] Last Admin: 01/13/19 09:34 Dose: 50 mg Metoprolol Tartrate (Lopressor -) 50 mg PO BID [facility] Last Admin: 01/13/19 09:35 Dose: 50 mg Ondansetron HCl (Zofran Injection) 4 mg IVPUSH Q8H PRN PRN Reason: NAUSEA Stop: 01/14/19 23:59 - Objective Vital Signs: Vital Signs Temperature 97.7 F 01/13/19 14:00 Pulse Rate 73 01/13/19 14:00 Respiratory Rate 20 01/13/19 14:00 Blood Pressure 116/59 L 01/13/19 14:00 O2 Sat by Pulse Oximetry (%) 97 01/13/19 09:00 Constitutional: Yes: Calm Eyes: Yes: Conjunctiva Clear HENT: Yes: Atraumatic Neck: Yes: Supple Cardiovascular: Yes: S1, S2 Respiratory: Yes: CTA Bilaterally Gastrointestinal: Yes: Soft Genitourinary: Yes: WNL Musculoskeletal: Yes: WNL Edema: Yes Edema: LLE: 1+, RLE: 1+ Neurological: Yes: Oriented Psychiatric: Yes: Oriented Labs: CBC, BMP 01/13/19 05:35 01/13/19 05:35 INR, PTT INR 1.38 (0.83-1.09) H 01/13/19 05:35 Assessment/Plan Current Medications Generic Name Dose Route Start Last Admin Trade Name Freq PRN Reason Stop Dose Admin Amiodarone HCl 200 mg 01/11/19 22:00 01/13/19 09:34 Cordarone - PO 200 mg BID ARIANA Administration Amoxicillin/Clavulanate Potassium 1 tab 01/14/19 08:00 Augmentin - 500mg Tablet PO 01/20/19 07:59 BID@0800,1730 ARI[facility] Furosemide 40 mg 01/12/19 10:00 01/13/19 09:35 Lasix - PO 40 mg DAILY [facility] Administration Glimepiride 2 mg 01/12/19 07:00 01/13/19 06:18 Amaryl - PO 2 mg ACBK [facility] Administration Lidocaine HCl 1 applic 01/12/19 13:20 Xylocaine 2% Jelly TP Q4H PRN APPLY TO PENIS Losartan Potassium 50 mg 01/13/19 10:00 01/13/19 09:34 Cozaar - PO 50 mg DAILY [facility] Administration Metoprolol Tartrate 50 mg 01/11/19 22:00 01/13/19 09:35 Lopressor - PO 50 mg BID [facility] Administration Ondansetron HCl 4 mg 01/11/19 21:55 Zofran Injection IVPUSH 01/14/19 23:59 Q8H PRN NAUSEA Impression 1. TONY 2. CKD 3. hematuria 4. syncope 5. HTN 6. CAD Plan - renal function is improving - renal ultrasound shows atrophic left kidney - cont losartan at 50 mg daily dosing - will need outpt follow up - discussed with family - meri bunch - avoid hypotension
[2019-01-13] MEDS ORDERED: WARFARIN NA 3 MG TABLET PO ONE (18:00)
[2019-01-13] MEDS ORDERED: APIXABAN 2.5 MG TABLET PO SCH (22:00)
[2019-01-14 02:08] VITALS: PULSE 65; TEMP 98.3
[2019-01-14] MEDS ORDERED: PT OWN MED DRAWER 7, Y5N ONE ×2 (06:06→07:43)
[2019-01-14] MEDS: GLIMEPIRIDE 2 MG TABLET (FP) PO SCH (06:27)
[2019-01-14 07:21] VITALS: BP 131/66
[2019-01-14 07:48] LABS: INR 1.23 (0.83-1.09); PROTHROMBIN TIME (PATIENT) 14.6 SEC (9.7-13.0)
[2019-01-14] MEDS ORDERED: AMOX TR/POT CLAV 500MG/125MG TABLETS (FP) PO SCH (08:00)
[2019-01-14] MEDS: LOSARTAN POTASSIUM 50 MG TABLET (FP) PO SCH (09:06)
[2019-01-14] MEDS: FUROSEMIDE 40 MG TABLET (FP) PO SCH (09:07)
[2019-01-14] MEDS: METOPROLOL TARTRATE 50 MG TABLET (FP) PO SCH (09:07)
[2019-01-14] MEDS: AMIODARONE HCL 200 MG TABLET (FP) PO SCH (09:07)
--- NOTE | 2019-01-14 09:10 | PN ---
Progress Note, Physician History of Present Illness: Patient is an 83 year old male well known to our service (sees Dr. 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 PVD and CKD who presents after a syncopal episode. He does not recall the event except he felt weak and sat down at a laundromat. In the ED, he complained of generalized weakness, shortness of breath and productive cough. ICD was interrogated and was unremarkable. Troponin was elevated to 0.18. He denies chest pain, shortness of breath or palpitations at this time. He denies paroxysmal nocturnal dyspnea or orthopnea. He denies fever or chills. He denies nausea, vomiting, diarrhea or abdominal pain. He denies headache or lightheadedness. No physical injuries. - Current Medication List Current Medications: Active Medications Amiodarone HCl (Cordarone -) 200 mg PO BID [facility] BEDS AT [facility] Last Admin: 01/13/19 21:37 Dose: 200 mg Amoxicillin/Clavulanate Potassium (Augmentin - 500mg Tablet) 1 tab PO BID@0800, 1730 [facility] 234 BEDS AT [facility] Stop: 01/20/19 07:59 Furosemide (Lasix -) 40 mg PO DAILY [facility] 234 BEDS AT [facility] Last Admin: 01/13/19 09:35 Dose: 40 mg Glimepiride (Amaryl -) 2 mg PO ACBK [facility] 234 BEDS AT [facility] Last Admin: 01/14/19 06:27 Dose: 2 mg Lidocaine HCl (Xylocaine 2% Jelly) 1 applic TP Q4H PRN PRN Reason: APPLY TO PENIS Losartan Potassium (Cozaar -) 50 mg PO DAILY [facility] 234 BEDS AT [facility] Last Admin: 01/13/19 09:34 Dose: 50 mg Metoprolol Tartrate (Lopressor -) 50 mg PO BID [facility] 234 BEDS AT [facility] Last Admin: 01/13/19 21:37 Dose: 50 mg Ondansetron HCl (Zofran Injection) 4 mg IVPUSH Q8H PRN PRN Reason: NAUSEA Stop: 01/14/19 23:59 - Objective Vital Signs: Vital Signs Temperature 98.3 F 01/14/19 06:00 Pulse Rate 65 01/14/19 06:00 Respiratory Rate 18 01/14/19 06:00 Blood Pressure 131/66 01/14/19 06:00 O2 Sat by Pulse Oximetry (%) 96 01/13/19 21:00 Eyes: Yes: WNL, Conjunctiva Clear, EOM Intact HENT: Yes: WNL, Atraumatic, Normocephalic Neck: Yes: WNL, Supple, Trachea Midline Cardiovascular: Yes: WNL, Regular Rate and Rhythm Respiratory: Yes: WNL, Regular, CTA Bilaterally Gastrointestinal: Yes: WNL, Normal Bowel Sounds Genitourinary: Yes: WNL Musculoskeletal: Yes: WNL Extremities: Yes: WNL Edema: No Integumentary: Yes: WNL Neurological: Yes: WNL, Alert, Oriented ...Motor Strength: WNL Psychiatric: Yes: WNL Labs: CBC, BMP 01/13/19 05:35 01/13/19 05:35 INR, PTT INR 1.23 (0.83-1.09) H 01/14/19 06:35 Assessment/Plan 1. Syncope, etiology to be determined 2. Elevated troponin likely demand ischemia 3. HTN/HCVD 4. Hypercholesterolemia 5. 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 CAD, [place] s/p CABG, PCI/stent as outlined 8. PAF [id number] score of 6 on Warfarin PLAN: 1. Continue current medical therapy including Metoprolol and Losartan 2. Continue Amiodarone with caution 3. Diuretics (Furosemide PO) and monitor I/Os, daily weight, renal function and electrolytes 4. Trend troponin 5. Warfarin to be given to keep INR between 2-3. To be restarted or other option is to use DOAC (Eliquis 2.5 mg BID as age>80, Cr>1.5) 6. Patient was on Eplerenone according to office note. Restart Eplerenone coverage for dr. Castillo
== END 2019-01-14 11:47 | disposition home or self-care (01) | DRG 682 ==
LOC: JER 14:47 → JERBED 16:20 → J4W 23:56
PROVIDERS: ADMIT Family Medicine; ATTEND Family Medicine
DX: N17.9 Acute kidney failure, unspecified (principal); I50.23 Acute on chronic systolic (congestive) heart failure; I13.0 Hypertensive heart and chronic kidney disease with heart failure and stage 1 through stage 4 chronic kidney disease, or unspecified chronic kidney disease; E87.2 Acidosis; D68.9 Coagulation defect, unspecified; I24.8 Other forms of acute ischemic heart disease; I42.8 Other cardiomyopathies; R55 Syncope and collapse; Z95.1 Presence of aortocoronary bypass graft; E78.5 Hyperlipidemia, unspecified; Z79.84 Long term (current) use of oral hypoglycemic drugs; Z95.810 Presence of automatic (implantable) cardiac defibrillator; R31.9 Hematuria, unspecified; I25.2 Old myocardial infarction; E66.9 Obesity, unspecified; Z79.01 Long term (current) use of anticoagulants; I25.10 Atherosclerotic heart disease of native coronary artery without angina pectoris; E03.9 Hypothyroidism, unspecified; K40.90 Unilateral inguinal hernia, without obstruction or gangrene, not specified as recurrent; E11.22 Type 2 diabetes mellitus with diabetic chronic kidney disease; N18.9 Chronic kidney disease, unspecified; I48.0 Paroxysmal atrial fibrillation; Z68.29 Body mass index [BMI] 29.0-29.9, adult
CPT/HCPCS: 36415; 70450-TC; 71045-TC-FY; 72125-TC; 74176-TC; 76775-TC; 80053; 80061; 81003; 82550; 82962; 83036; 83605; 83690; 83721; 83880; 84146; 84439; 84443; 84484; 85025; 85610; 85730; 87040; 87086; 93005; 93010; 99285-25

== ENCOUNTER 2019-01-28 20:08 | Emergency (ER) | payer OTHER ==
[2019-01-28 20:13] VITALS: PULSE 82; TEMP 97.6; BMI 29.9
[2019-01-28] MEDS ORDERED: LIDOCAINE HCL 2% JELLY 10 ML CARTRIDGE ONE (20:21)
[2019-01-28] MEDS ORDERED: LIDOCAINE HCL 2% JELLY 10 ML CARTRIDGE UR ONE (20:29)
[2019-01-28] MEDS ORDERED: LACTATED RINGERS SOLUTION 1000 ML INFUS.BAG IV ONE (20:31)
--- NOTE | 2019-01-28 20:52 | PDOC ---
Attending Attestation - Resident Resident Name: BishopEdgar - ED Attending Attestation I have performed the following: I have examined & evaluated the patient, The case was reviewed & discussed with the resident, I agree w/resident's findings & plan - HPI HPI: 01/28/19 21:51 Pt comes with urinary retention and constipation x 3 days. 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 He is likely wrosening his hernia as a result of his on the job lifting. Pt was advised to apply for worker's compensation. - Physicial Exam PE: 01/28/19 21:51 Agree with resident exam Left ingunal hernia; nontender; I was unable to reduce it even with deep palpation; pt has a large defect. 01/28/19 21:51 Afebrile abd soft NT ND No flank pain. 01/28/19 22:57 No pitting edema Moving all extremities. Pt is A+ox3 - Medical Decision Making 01/28/19 22:52 jerez catheter is in place and draining. Pt had a large bowel movement and feeling better. No UTI, no need for abx Flat and Upright abd XR normal; pt will be discharged home. Follow with urology business solutions architect. They are aware of the patient.
[2019-01-28] MEDS ORDERED: SODIUM PHOSPHATE/NA BIPHOS 133 ML ENEMA PR ONE (20:55)
[2019-01-28 21:04] LABS: PH,URINE 5.5 (5.0-8.0); URINE APPEARANCE CLEAR; URINE BILIRUBIN NEGATIVE (NEGATIVE); URINE COLOR YELLOW; URINE GLUCOSE (UA) NEGATIVE (NEGATIVE); URINE KETONE NEGATIVE (NEGATIVE); URINE LEUK ESTERASE NEGATIVE (NEGATIVE); URINE NITRITE NEGATIVE (NEGATIVE); URINE PROTEIN TRACE (NEGATIVE); URINE UROBILINOGEN 0.2 mg/dL (0.2-1.0)
--- NOTE | 2019-01-28 21:21 | PDOC ---
History of Present Illness - General Chief Complaint: Urinary Problem Stated Complaint: URINE & BOWL PROBLEM Time Seen by Provider: 01/28/19 20:21 History Source: Patient, Old Records Exam Limitations: No Limitations - History of Present Illness Initial Comments: HPI: 83 y/o male presenting to [facility] ER complaining of difficulty urinating since approx. 8 am this morning and constipation for the past three days. Endorses lower abdominal pain. Denies nausea, vomiting, or decreased appetite. Recently started Amiodarone. Has a h/o of constipation. Attempted relief with Miralax and an enima, but had difficulty administering the liquid. Pt also reports he has had one previous episode of urinary retention. A jerez was placed but he did not follow up with a urologist. Of note, the pt has a known bladder containing inguinal hernia. Pt reports this has enlarged over the course of the day. Medical Hx: - CAD s/p LA w/ stent placement (2005) s/p CABG - CHF (LV Systolic Dysfunction) - PPM / AICD - NIDDM - HTN - HLD - Bladder containing L inguinal hernia Review of Systems: In addition to that documented in the HPI above, the additional ROS was obtained : Constitutional- Denies fevers or chills Head- Denies vision changes ENMT- Denies sore throat CV- Denies chest pain Resp- Denies SOB GI- Denies vomiting or diarrhea - Denies painful urination, hematuria, or increased urinary frequency MSK- Denies recent trauma Skin- Denies new rashes Neuro- Denies new numbness or tingling or weakness Endocrine- Denies polyuria Heme- Denies bleeding or bruising Physical Examination: Constitutional- Well-developed, well-nourished elderly adult male in no acute distress or obvious discomfort. Found semi-fowlers on hospital bed. Answered all questions appropriately and completely. Head- Normocephalic. No obvious external signs of trauma. Neck- Supple, trachea is midline. Cardiovascular / Chest- Regular rate and regular rhythm. No murmur, rubs, clicks , or gallops. Peripheral pulses- radial pulses full. AICD in left upper chest. Respiratory- Breathing unlabored. Equal chest rise and fall. Clear to auscultation bilaterally. No stridor, no wheezing, no rhonchi. Gastrointestinal- abdomen is soft, non-tender, non-distended. No pulsatile masses. No overlying skin lesions or obvious signs of trauma. Male : Genital exam revealed normally developed male genitalia. Circumcised penis. Jerez catheter in place. No scrotal mass or tenderness. Large left inguinal hernia. Unable to reduce. No overlying skin changes or discoloration. RN chaperoned exam. Male Rectal: Good sphincter tone with no anal, perineal or rectal lesions. Soft stool in vault. No melena or bright red blood on gloved finger. RN chaperoned exam. Neuro- Alert and oriented x4. Moving all four extremities spontaneously. Skin- Warm, dry, and intact. Psych- Affect- appropriate. Mood- normal. Speech was non-labored, non- pressured. MDM: *Reviewed vital signs, nursing notes, and prior visit documentation (if available). 83 y/o male presenting with acute urinary retention x8 hours and constipation x3 days. Afebrile. Vitals unremarkable for hypotension or tachycardia. Physical exam as described above. Jerez placed by RN prior to my physical exam. UA unremarkable for pyuria, nitrites, or leukocyte esterase. Low suspicion for acute cystitis. Reviewed most recent CTAP. Hernia is bladder containing only. No bowel. Suspect this may be the source of urinary retention. Will discuss with urology as pt has had a similar presentation in the past and he failed to f/u in clinic. 28 Jan 2019 21:43 PM Telephone discussion with Dr. Sams. Verbally appraised of the pts HPI, ED course, and current plan of management. Requested the jerez be left in place and the pt be started on both Flomax and Macrobid. Will call the pt to schedule a clinic visit this week. Ordered Fleets enema for constipation. Low suspicion for stool impact given rectal exam findings. Low suspicion for SBO as pt denies abd pain (after jerez placed), denies vomiting, and endorses normal appetite. Pt reassessed. Reported he had a large BM and feels much better. Pt's BP elevated. Consistent with documented h/o of HTN. Low suspicion relation to acute complaint. Discussed lab results and physical exam findings with pt. Answered all questions. Provided return precautions. Pt expressed verbal understanding and agreement with plan to discharge home with outpatient follow up. Provided copies of todays results. Edgar Flores M.D., PGY2 Emergency Medicine Resident 01/29/19 00:34 Past History - Past Medical History Allergies/Adverse Reactions: Allergies Allergy/AdvReac Type Severity Reaction Status Date / Time No Known Allergies Allergy Verified 01/28/19 20:13 Home Medications: Ambulatory Orders Furosemide [Lasix -] 40 mg PO DAILY 02/22/18 Glimepiride [Glimepiride -] 2 mg PO DAILY 02/22/18 Metoprolol Tartrate [Lopressor -] 50 mg PO BID 02/22/18 Amiodarone HCl 200 mg PO DAILY 01/11/19 Apixaban [Eliquis -] 2.5 mg PO BID 01/28/19 Losartan Potassium [Cozaar -] 50 mg PO BID 01/28/19 Nitrofurantoin Monohyd/M-Cryst [Macrobid -] 100 mg PO BID #14 capsule 01/28/19 Rosuvastatin [Crestor -] 10 mg PO HS 01/28/19 Tamsulosin HCl [Flomax] 0.4 mg PO DAILY #30 capsule 01/28/19 Anemia: No Asthma: No Cancer: No Cardiac Disorders: Yes (A. Fib, CAD, LA, BYPASS, MITRAL VALVULOPLASTY) CVA: No COPD: No CHF: Yes Dementia: No Diabetes: Yes GI Disorders: No Disorders: No HTN: Yes Hypercholesterolemia: Yes Liver Disease: No Seizures: No Thyroid Disease: No - Surgical History Abdominal Surgery: No Appendectomy: No Cardiac Surgery: Yes (CABG x 3, Stent X 1 , Pacemaker) Cholecystectomy: No Lung Surgery: No Neurologic Surgery: No Orthopedic Surgery: No - Immunization History Immunization Up to Date: Yes - Psycho Social/Smoking Cessation Hx Smoking Status: No Smoking History: Never smoked Have you smoked in the past 12 months: No Number of Cigarettes Smoked Daily: 0 Information on smoking cessation initiated: No Hx Alcohol Use: No Drug/Substance Use Hx: No Substance Use Type: None Hx Substance Use Treatment: No *Physical Exam - Vital Signs Last Vital Signs Temp Pulse Resp BP Pulse Ox 97.6 F 82 17 193/120 H 100 01/28/19 20:11 01/28/19 20:11 01/28/19 20:11 01/28/19 20:11 01/28/19 20:11 ED Treatment Course - ADDITIONAL ORDERS Additional order review: Laboratory Results 01/28/19 20:55 Urine Color Yellow Urine Appearance Clear Urine pH 5.5 Ur Specific [place] 1.015 Urine Protein Trace Urine Glucose (UA) Negative Urine Ketones Negative Urine Blood Negative Urine Nitrite Negative Urine Bilirubin Negative Urine Urobilinogen 0.2 Ur Leukocyte Esterase Negative - Medications Given in the ED: ED Medications Discontinued Medications Generic Name Dose Route Start Last Admin Trade Name Desi PRN Reason Stop Dose Admin Lactated Ringer's 1,000 ml 01/28/19 20:31 01/28/19 21:03 Lactated Ringers Solution IV 01/28/19 20:32 Not Given ONCE ONE Discharge - Discharge Information Problems reviewed: Yes Clinical Impression/Diagnosis: Acute urinary retention Constipation Qualifiers: Constipation type: unspecified constipation type Qualified Code(s): K59.00 - Constipation, unspecified Condition: Improved Disposition: HOME - Admission No - Additional Discharge Information Prescriptions: Nitrofurantoin Monohyd/M-Cryst [Macrobid -] 100 mg PO BID #14 capsule Tamsulosin HCl [Flomax] 0.4 mg PO DAILY #30 capsule - Follow up/Referral Referrals: Willem Toney MD [Primary Care Provider] - Larry Sams MD [Staff Physician] - 3 days - Patient Discharge Instructions Patient Printed Discharge Instructions: DI for Constipation, DI for Urinary Retention in Men Additional Instructions: You were seen today for constipation and difficulty urinating. A jerez was placed and approx. 300cc of urine was removed from your bladder. There was no sign of infection. The cause of your symptoms are likely from the bladder hernia. You need to leave the bladder catheter in place until you see the urologist in clinic in the next several days. I have placed a referral for you to see Dr. Sams. The number is included in this packet. A copy of todays results are attached to this packet. Take it to the appointment so your doctor can review them. I have sent two prescriptions to your pharmacy. The first is for Flomax. The second is for an antibiotic called Macrobid. Take as directed on the package inserts. Do not exceed the recommended dosages. Go to the nearest emergency department if your condition worsens or you feel like you need additional emergency evaluation. Print Language: WOLOF - Post Discharge Activity
[2019-01-28 23:46] VITALS: BP 163/86
== END 2019-01-28 23:12 | disposition home or self-care (01) ==
LOC: SUPCPDRO 20:08 → JER 20:08
PROC: 0T9B70Z Drainage of Bladder with Drainage Device, Via Natural or Artificial Opening (ICD-10-PCS; principal; 2019-01-28)
DX: R33.8 Other retention of urine (principal); K59.00 Constipation, unspecified; I25.10 Atherosclerotic heart disease of native coronary artery without angina pectoris; I11.0 Hypertensive heart disease with heart failure; Z95.5 Presence of coronary angioplasty implant and graft; Z95.1 Presence of aortocoronary bypass graft; I50.9 Heart failure, unspecified; Z95.810 Presence of automatic (implantable) cardiac defibrillator; E11.9 Type 2 diabetes mellitus without complications; Z79.84 Long term (current) use of oral hypoglycemic drugs; Z79.01 Long term (current) use of anticoagulants; E78.00 Pure hypercholesterolemia, unspecified
CPT/HCPCS: 51702; 74019-TC-FY; 81003; 87086; 99284-25

== ENCOUNTER 2019-01-29 08:22 | Emergency (ER) | payer OTHER ==
[2019-01-29 08:27] VITALS: BP 142/64; PULSE 77; TEMP 98; BMI 29.6
--- NOTE | 2019-01-29 08:38 | PDOC ---
Attending Attestation - Resident Resident Name: Bill Patino - HPI HPI: 01/29/19 09:32 Pt presents to the ED complaining of blood tinged urine after jerez placement yesterday. Also complains of slight burning with urination. Denies fever, nausea vomiting. Denies abdominal pain. - Physicial Exam PE: 01/29/19 09:50 Agree with resident exam. Patient is alert and oriented and in no acute distress. Abdomen is soft, non tender, non tender and non distended. Jerez in place with translucent brownish red urine in the bag without clots. No blood at meatus. - Medical Decision Making 01/29/19 09:53 Pt presents to the ED complaining of hematuria. No clots. Will check UA to investigate for infection, likely discharge home if no evidence of infection.
--- NOTE | 2019-01-29 08:39 | PDOC ---
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 Patient reports concern about blood since the Esquivel insertion yesterday and some burning with urination. Also expresses concern that his follow up appointment with urology is in the [place], as he is not comfortable traveling there. Denies CP, SOB, fevers/chills, constipation/diarrhea, HANEY, N/V, abd pain. Past History - Past Medical History Allergies/Adverse Reactions: Allergies Allergy/AdvReac Type Severity Reaction Status Date / Time No Known Allergies Allergy Verified 01/29/19 08:27 Home Medications: Ambulatory Orders Furosemide [Lasix -] 40 mg PO DAILY 02/22/18 Glimepiride [Glimepiride -] 2 mg PO DAILY 02/22/18 Metoprolol Tartrate [Lopressor -] 50 mg PO BID 02/22/18 Amiodarone HCl 200 mg PO DAILY 01/11/19 Apixaban [Eliquis -] 2.5 mg PO BID 01/28/19 Losartan Potassium [Cozaar -] 50 mg PO BID 01/28/19 Nitrofurantoin Monohyd/M-Cryst [Macrobid -] 100 mg PO BID #14 capsule 01/28/19 Rosuvastatin [Crestor -] 10 mg PO HS 01/28/19 Tamsulosin HCl [Flomax] 0.4 mg PO DAILY #30 capsule 01/28/19 Anemia: No Asthma: No Cancer: No Cardiac Disorders: Yes (A. Fib, CAD, NE, BYPASS, MITRAL VALVULOPLASTY) CVA: No COPD: No CHF: Yes Dementia: No Diabetes: Yes GI Disorders: No Disorders: No HTN: Yes Hypercholesterolemia: Yes Liver Disease: No Seizures: No Thyroid Disease: No - Surgical History Abdominal Surgery: No Appendectomy: No Cardiac Surgery: Yes (CABG x 3, Stent X 1 , Pacemaker) Cholecystectomy: No Lung Surgery: No Neurologic Surgery: No Orthopedic Surgery: No - Immunization History Immunization Up to Date: Yes - Psycho Social/Smoking Cessation Hx Smoking Status: No Smoking History: Never smoked Have you smoked in the past 12 months: No Number of Cigarettes Smoked Daily: 0 Hx Alcohol Use: No Drug/Substance Use Hx: No Substance Use Type: None Hx Substance Use Treatment: No Review of Systems - Review of Systems HEENTM: No: Recent change in vision, Double Vision, Tinnitus, Hearing Loss, Difficulty Swallowing Respiratory: No: Cough, Orthopnea, Shortness of Breath Cardiac (ROS): No: Chest Pain, Edema, Irregular Heart Rate, Lightheadedness, Palpitations, Syncope, Chest Tightness ABD/GI: No: Constipated, Diarrhea, Nausea, Vomiting : Yes: Burning, Hematuria (s/p Esquivel). No: Dysuria, Discharge, Frequency, Flank Pain Musculoskeletal: No: Back Pain, Muscle Pain Neurological: No: Headache, Numbness, Tingling, Weakness *Physical Exam - Vital Signs Last Vital Signs Temp Pulse Resp BP Pulse Ox 98 F 77 18 142/64 98 01/29/19 08:24 01/29/19 08:24 01/29/19 08:24 01/29/19 08:24 01/29/19 08:24 - Physical Exam Comments: 01/29/19 09:43 Gen: well-developed, well-nourished, NAD Neuro: AAOX4, CN II-XII intact, FTN intact, EOMI, PERRLA, 5/5 strength, SILT HEENT: atraumatic, normocephalic, dry mucous membranes Neck: trachea midline, supple CV: regular rate, regular rhythm, systolic murmur Pulm: CTA b/l, no wheezing Abd: soft, non-distended, non-tender : circumcised, Esquivel in place, reddish brown urine in bag MSK: full ROM, intact pulses Extr: no edema, no deformities Skin: warm, dry Medical Decision Making - Medical Decision Making 01/29/19 09:00 Patient with no signs of anemia, some blood in urine. Patient's biggest concern is that he does not want to go down to the [place] to see a urologist. Will recommend options within [place]. Patient has his Flomax and Macrobid and will take them. Dc patient with close outpatient follow-up. 01/29/19 10:02 UA with positive blood and leuks, negative nitrites. Patient with recent Esquivel placement, already on abx. Will dc with close outpatient follow up. Discharge - Discharge Information Problems reviewed: Yes Clinical Impression/Diagnosis: Hematuria Disposition: HOME - Admission No - Follow up/Referral Referrals: Willem Toney MD [Primary Care Provider] - Stephan Agarwal MD [Staff Physician] - Fred Avila MD [Staff Physician] - - Patient Discharge Instructions Patient Printed Discharge Instructions: DI for Hematuria Additional Instructions: You were seen with blood in your urine after a Esquivel placement. Please take your Macrobid and Flomax as prescribed. We have recommended two urologists in the area, please call them to make an appointment for within the next few days. Follow up with your primary care doctor within the week. Return to the ED if you develop worsening symptoms. - Post Discharge Activity
[2019-01-29 09:47] LABS: EPI CELLS 0.1 /HPF (0-5/HPF); HYALINE CASTS 20 /lpf (0-8); PH,URINE 5.5 (5.0-8.0); URINE APPEARANCE TURBID; URINE BACTERIA 1.4 /hpf (NEGATIVE); URINE BILIRUBIN 1+ (NEGATIVE); URINE COLOR RED; URINE GLUCOSE (UA) NEGATIVE (NEGATIVE); URINE KETONE NEGATIVE (NEGATIVE); URINE LEUK ESTERASE 2+ (NEGATIVE); URINE NITRITE NEGATIVE (NEGATIVE); URINE PROTEIN 2+ (NEGATIVE); URINE WBC 112 /hpf (0-5)
[2019-01-29 15:50] LABS: URINE RBC 5880.9 /hpf (0-4)
== END 2019-01-29 10:10 | disposition home or self-care (01) ==
LOC: JER 08:22
DX: R31.9 Hematuria, unspecified (principal); I25.10 Atherosclerotic heart disease of native coronary artery without angina pectoris; I13.0 Hypertensive heart and chronic kidney disease with heart failure and stage 1 through stage 4 chronic kidney disease, or unspecified chronic kidney disease; N18.9 Chronic kidney disease, unspecified; I50.1 Left ventricular failure, unspecified; Z95.1 Presence of aortocoronary bypass graft; Z95.5 Presence of coronary angioplasty implant and graft; I48.0 Paroxysmal atrial fibrillation; Z79.01 Long term (current) use of anticoagulants; Z95.810 Presence of automatic (implantable) cardiac defibrillator; E11.22 Type 2 diabetes mellitus with diabetic chronic kidney disease; E78.5 Hyperlipidemia, unspecified; Z79.84 Long term (current) use of oral hypoglycemic drugs; Z95.4 Presence of other heart-valve replacement; Z96.0 Presence of urogenital implants
CPT/HCPCS: 81003; 87086; 99282-25

== ENCOUNTER 2019-01-30 16:55 | Emergency (ER) | payer OTHER ==
[2019-01-30 17:03] VITALS: BMI 29.7
--- NOTE | 2019-01-30 17:04 | PDOC ---
Rapid Medical Evaluation Time Seen by Provider: 01/30/19 17:02 Medical Evaluation: Allergies Allergy/AdvReac Type Severity Reaction Status Date / Time No Known Allergies Allergy Verified 01/29/19 08:27 01/30/19 17:02 Pt presents to have his catheter taken out. States that it is painful. Was placed here over the weekend Exam: deferred to provider Orders: urine Pt to proceed to the ER for evaluation Discharge Disposition - Diagnosis Urinary catheter insertion/adjustment/removal - Referrals - Patient Instructions - Post Discharge Activity
--- NOTE | 2019-01-30 18:09 | PDOC ---
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 Now here to have his Jerez removed as it causes him too much pain when he urinates. Has an appointment with urology on Wednesday in two days, but doesn't want to wait for it. Past History - Past Medical History Allergies/Adverse Reactions: Allergies Allergy/AdvReac Type Severity Reaction Status Date / Time No Known Allergies Allergy Verified 01/30/19 17:03 Home Medications: Ambulatory Orders Furosemide [Lasix -] 40 mg PO DAILY 02/22/18 Glimepiride [Glimepiride -] 2 mg PO DAILY 02/22/18 Metoprolol Tartrate [Lopressor -] 50 mg PO BID 02/22/18 Amiodarone HCl 200 mg PO DAILY 01/11/19 Apixaban [Eliquis -] 2.5 mg PO BID 01/28/19 Losartan Potassium [Cozaar -] 50 mg PO BID 01/28/19 Nitrofurantoin Monohyd/M-Cryst [Macrobid -] 100 mg PO BID #14 capsule 01/28/19 Rosuvastatin [Crestor -] 10 mg PO HS 01/28/19 Tamsulosin HCl [Flomax] 0.4 mg PO DAILY #30 capsule 01/28/19 Anemia: No Asthma: No Cancer: No Cardiac Disorders: Yes (A. Fib, CAD, ID, BYPASS, MITRAL VALVULOPLASTY) CVA: No COPD: No CHF: Yes Dementia: No Diabetes: Yes GI Disorders: No Disorders: No HTN: Yes Hypercholesterolemia: Yes Liver Disease: No Seizures: No Thyroid Disease: No - Surgical History Abdominal Surgery: No Appendectomy: No Cardiac Surgery: Yes (CABG x 3, Stent X 1 , Pacemaker) Cholecystectomy: No Lung Surgery: No Neurologic Surgery: No Orthopedic Surgery: No - Immunization History Immunization Up to Date: Yes - Psycho Social/Smoking Cessation Hx Smoking Status: No Smoking History: Never smoked Have you smoked in the past 12 months: No Number of Cigarettes Smoked Daily: 0 Hx Alcohol Use: No Drug/Substance Use Hx: No Substance Use Type: None Hx Substance Use Treatment: No Review of Systems - Review of Systems Able to Perform ROS?: Yes Is the patient limited Greek proficient: No Constitutional: No: Symptoms Reported HEENTM: No: Symptoms Reported Respiratory: No: Symptoms reported Cardiac (ROS): No: Symptoms Reported ABD/GI: No: Symptoms Reported : Yes: See HPI Musculoskeletal: No: Symptoms Reported Integumentary: No: Symptoms Reported Neurological: No: Symptoms reported All Other Systems: Reviewed and Negative *Physical Exam - Vital Signs Last Vital Signs Temp Pulse Resp BP Pulse Ox 97.3 F L 85 16 139/54 L 97 01/30/19 16:58 01/30/19 16:58 01/30/19 16:58 01/30/19 16:58 01/30/19 16:58 - Physical Exam General Appearance: Yes: Nourished, Appropriately Dressed. No: Apparent Distress HEENT: positive: EOMI, NAGI, Normal ENT Inspection Respiratory/Chest: positive: Lungs Clear, Normal Breath Sounds. negative: Chest Tender, Respiratory Distress Cardiovascular: positive: Regular Rhythm, Regular Rate, S1, S2 Gastrointestinal/Abdominal: positive: Normal Bowel Sounds, Flat, Soft. negative : Tender Male Genitalia: positive: other (jerez catheter in place, draining urine normally) Musculoskeletal: positive: Normal Inspection. negative: CVA Tenderness Extremity: positive: Normal Capillary Refill, Normal Inspection, Normal Range of Motion Medical Decision Making - Medical Decision Making 01/30/19 19:[address] Bird, urologist exchange consultant who knows the patient well. Advised against removing the jerez Spoke to patient and patient understand that removing the jerez he would be back here tonight without the ability to urinate. PAtient understands that we will soothe his pain by injecting lidocaine in the catheter. Patient will maintain his appointment with urology on Wednesday. 01/30/19 20:28 ok to dc Discharge - Discharge Information Problems reviewed: Yes Clinical Impression/Diagnosis: Urinary catheter insertion/adjustment/removal Condition: Stable Disposition: HOME - Admission No - Follow up/Referral Referrals: Willem Toney MD [Primary Care Provider] - - Patient Discharge Instructions Patient Printed Discharge Instructions: How to Care for Your Jerez Catheter -- Male Additional Instructions: Follow up with your appointment with Dr. Agarwal on Wednesday. Come back to the emergency department for any new, worsening or concerning symptoms. - Post Discharge Activity
[2019-01-30 18:45] LABS: EPI CELLS 3.5 /HPF (0-5/HPF); HYALINE CASTS 6 /lpf (0-8); URINE APPEARANCE CLOUDY; URINE BACTERIA 1.4 /hpf (NEGATIVE); URINE BILIRUBIN NEGATIVE (NEGATIVE); URINE COLOR YELLOW; URINE GLUCOSE (UA) NEGATIVE (NEGATIVE); URINE KETONE NEGATIVE (NEGATIVE); URINE LEUK ESTERASE 2+ (NEGATIVE); URINE NITRITE NEGATIVE (NEGATIVE); URINE PROTEIN 1+ (NEGATIVE); URINE RBC 410 /hpf (0-4); URINE WBC 19 /hpf (0-5)
--- NOTE | 2019-01-30 19:12 | PDOC ---
Attending Attestation - Resident Resident Name: SandySilas - ED Attending Attestation I have performed the following: I have examined & evaluated the patient, The case was reviewed & discussed with the resident, I agree w/resident's findings & plan - HPI HPI: 01/30/19 19:17 see resident hpi - Physicial Exam PE: 01/30/19 19:18 agree with resident exam - Medical Decision Making 01/30/19 19:18 83-year-old male with discomfort due to indwelling Esquivel catheter Case was discussed with urology by the emergency department resident who does not recommend removal as patient will likely develop retention and require reinsertion which would cause more potential harm than benefit Initiation of antispasmodics was discussed with the patient, due to patient being elderly, on other medications and driving the decision to initiate will be left to urology during the appointment on Wednesday as scheduled Lidocaine gel will be put at the meatus to assist with discomfort Patient currently on antibiotics, cultures will be checked if available Patient currently alert, oriented x4 and voiced understanding of plan.
[2019-01-30] MEDS ORDERED: LIDOCAINE HCL 2% JELLY 10 ML CARTRIDGE UR ONE (19:20)
[2019-01-30] MEDS ORDERED: LIDOCAINE HCL 2% JELLY 10 ML CARTRIDGE ONE (19:27)
[2019-01-30 21:14] VITALS: BP 144/80; PULSE 79; TEMP 97.8
== END 2019-01-30 21:05 | disposition home or self-care (01) ==
LOC: JER 16:55
DX: Z46.6 Encounter for fitting and adjustment of urinary device (principal); I25.10 Atherosclerotic heart disease of native coronary artery without angina pectoris; I13.0 Hypertensive heart and chronic kidney disease with heart failure and stage 1 through stage 4 chronic kidney disease, or unspecified chronic kidney disease; N18.9 Chronic kidney disease, unspecified; I50.89 Other heart failure; Z95.1 Presence of aortocoronary bypass graft; Z95.5 Presence of coronary angioplasty implant and graft; I25.2 Old myocardial infarction; E11.22 Type 2 diabetes mellitus with diabetic chronic kidney disease; Z79.84 Long term (current) use of oral hypoglycemic drugs; I48.0 Paroxysmal atrial fibrillation; Z79.01 Long term (current) use of anticoagulants; E78.00 Pure hypercholesterolemia, unspecified; Z95.0 Presence of cardiac pacemaker
CPT/HCPCS: 81003; 87086; 99282-25